=== PATIENT | female | born 1935 | race Caucasian/White ===

== ENCOUNTER 2017-08-20 10:00 | Outpatient (RCR) | payer MEDICARE, SELFPAY ==
[2017-08-11 09:59] VITALS: BP 141/76; PULSE 72; RESP 18; TEMP 36.4; BMI 22.7
--- NOTE | 2017-08-11 11:10 | HP.PCM_ITS ---
(1) Traumatic wound Status: Acute Current Visit: Yes (2) Chronic venous insufficiency Status: Chronic Current Visit: Yes Code(s): I87.2 - Venous insufficiency ( chronic) (peripheral) (3) Asthma Status: Chronic Current Visit: No Code(s): J45.909 - Unspecified asthma, uncomplicated (4) GERD (gastroesophageal reflux disease) Status: Chronic Current Visit: No Code(s): K21.9 - Gastro-esophageal reflux disease without esophagitis (5) History of venous ulcer Status: Chronic Current Visit: Yes (6) History of goiter Status: Chronic Current Visit: No Code(s): Z86.39 - Personal history of other endocrine, nutritional and metabolic disease (7) Lipodermatosclerosis Status: Chronic Current Visit: Yes Code(s): I83.10 - Varicose veins of unspecified lower extremity with inflammation History of Present Illness Date of Service: 08/11/17 Chief Complaint: Adequate wound to the right anterolateral tibial surface. History of Wound: This is a 81-year-old female who is in her normal state of health until approximately 6 weeks ago. At that time, she sustained trauma to the right anterolateral tibial surface against a tomato cage in her garden. The injury occurred through her pants. The resultant injury is a nonhealing wound on the anterolateral aspect of the right tibial surface. The patient has been using Neosporin topically, without healing. Patient has a history of chronic venous insufficiency, and has had a venous ulceration in the past, located in the left medial supramalleolar area. She has a resultant scar in this area. She also has hemosiderin staining and lipodermatosclerosis, most prominent in the gaiter area on the left lower extremity. She denies a history of thrombophlebitis. She sleeps on a flat surface at night. She has been previously prescribed graduated compression stockings, which she has not been wearing. Past Medical History Past Medical History: Chronic Problems Chronic venous insufficiency (Chronic) Asthma (Chronic) GERD (gastroesophageal reflux disease) (Chronic) History of venous ulcer (Chronic) History of goiter (Chronic) Lipodermatosclerosis (Chronic) Peripheral vascular disease (Chronic) Nonhealing ulcer of left lower leg (Chronic) Edema (Chronic) Past Medical History: Patient has a history of chronic venous insufficiency, venous ulceration in the distal left lower extremity, asthma, gastroesophageal reflux disease, and chronic venous insufficiency. She also has a history of benign goiter. The patient's history is negative for diabetes mellitus, myocardial infarction, congestive heart failure, cerebrovascular accident, cancer, pulmonary disease, renal disease, and hyperlipidemia. Surgical History: hysterectomy, - - Patient underwent hemorrhoidectomy in the past. She has also undergone surgery for removal of a benign goiter. Patient is a Ab0. Allergies/Adverse Reactions: Allergies adhesive tape Allergy (Verified 01/25/15 10:06) Rash levofloxacin [From Levaquin] Allergy (Verified 01/15/13 08:22) Unknown Sulfa (Sulfonamide Antibiotics) Allergy (Verified 01/15/13 08:22) Unknown meloxicam Adverse Reaction (Verified 01/25/15 10:06) Diarrhea tizanidine Adverse Reaction (Verified 01/25/15 10:06) Vomiting Home Medications: Ambulatory Orders Medication Instructions Recorded Albuterol IH (ProAir) [Proair Hfa 1 puff INHALATION Q4H PRN PRN 01/25/15 (SP)Vent Pts] Budesonide/Formoterol 80-4.5 2 puff BID 01/25/15 [Symbicort 80-4.5 Mcg Inhaler] Calcium Carbonate [Calcium] 500 mg PO DAILY 01/25/15 Cholecalciferol (VIT D3) [Vitamin 2,000 unit PO DAILY 01/25/15 D] Pantoprazole Sodium [Protonix] 40 mg PO DAILY PRN 01/25/15 - Family History Maternal - - The patient did not know her father. Her mother at the age of 96 from old age. 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 She denies use of alcohol and tobacco products. She is . Lives: Spouse/ Significant Other Smoking Status: Never smoker Tobacco Use: Non-smoker Alcohol: None Drugs: None Review of Systems Constitutional: Denies: Chills, Fever, Weight Change Eyes: Denies: Pain, Vision Change HEENT: Denies: Difficulty Hearing, Difficulty Swallowing, Sinus Congestion Cardiovascular: Denies: Chest Pain, Palpitations Respiratory: Denies: Cough, Shortness of Breath Gastrointestinal: Denies: Diarrhea, Nausea, Vomiting Genitourinary: Denies: Dysuria, Hematuria Endocrine: Denies: Heat/ Cold Intolerance, Polydipsia, Polyuria Hematologic/ Lymphatic: Denies: Easy Bruising, Easy Bleeding - Physical Exam Vital Signs Temp Pulse Resp BP 97.5 F L 72 18 141/76 H 08/11/17 09:59 08/11/17 09:59 08/11/17 09:59 08/11/17 09:59 General: Alert, Oriented x3, Cooperative, No apparent distress, Well developed, Well nourished HEENT: Atraumatic, PERRLA, EOMI, Normocephalic Oral: Moist Mucosa Neck: No JVD Lungs: Normal air movement Abdomen: Non-Distended Extremities: No clubbing, No cyanosis, No edema, No Calf Tenderness, - - There is no significant swelling or edema in the patient's lower extremities. Lipodermatosclerosis and hyperpigmentation is noted in the medial aspect of the distal left lower extremity, in the gaiter area. A healed venous ulcer is noted in the left supramalleolar area. Atraumatic wound is noted on the anterolateral aspect of the right tibial surface. Dimensions are documented elsewhere. There is no sign of infection or cellulitis. There is a moderate amount of bioburden and necrotic nonviable tissue. Skin: No rashes Wound Measurements and Assessment WC - Nurse 1 - General Ulcer Measurement Start: 08/11/17 08:58 Freq: Status: Active Protocol: Activity Type Activity Date Activity User E-Sign Co-Sign Detail Recorded Client Recorded Date Recorded By Document 08/11/17 09:59 [id number] 08/11/17 10:19 NEREIDA 08/11/17 09:59 Wound Center Nurse 1 [Ulcer Assessment] 3-RIGHT VERDUZCO -Combined with other wound No -Current Size (cm) - Length 0.7 -Current Size (cm) - Width 0.8 -Current Size (cm) - Depth 0.1 -Total Square Cm 0.56 -Photo Taken Yes -Epithelialization Small 1-33% -Tunneling No -Undermining/Tunneling No -Circular Undermining No -Classification - Thickness Full Thickness without Exposed Support Structure -Exudate Amt None Present (0 %) -Wound Margin Flat & Intact -Granulation Amt None Present (0 %) -Slough/Fibrin Yes -Necrosis Amt Large (67-100%) -Necrotic Tissue Type Adherent Slough -Structure Exposed N/A -Texture (Shanique-wound Skin Appearance) Assessed Localized Edema -Moisture (Shanique-wound Skin Appearance Assessed ) Dry/Scaly -Color (Shanique-wound Skin Appearance) Assessed Hemosiderin Staining -Temperature (Shanique-wound Skin No Abnormality Appearance) (Pt Warm) -Tenderness on Palpation (Shanique-wound No Skin Appearance) -Ulcer Cleansing Rinsed/ Irrigated with Saline -Foul Odor after Cleansing No -Anesthetic Used 4% Lidocaine Solution [Edema Assessment] -Lower Limb Edema Present Yes -Right Calf (cm) 31.7 -Right Ankle (cm) 20.5 -Left Calf (cm) 33.7 -Left Ankle (cm) 21.0 WC - Nurse 2 - General Ulcer CM Notes Start: 08/11/17 08:58 Freq: Status: Active Protocol: Activity Type Activity Date Activity User E-Sign Co-Sign Detail Recorded Client Recorded Date Recorded By Document 08/11/17 10:46 [email or web address] [id number] 08/11/17 10:57 08/11/17 10:46 Wound Center Nurse 2 [Procedure/Treatment] 3-RIGHT VERDUZCO -Time 10:46 -Correct Patient Yes -Correct Side, Site, Position Yes -Correct Procedure Yes -Procedure Performed Yes -Type of Procedure Debridement -Clinical Debridement Subcutaneous -Post Debridement Size (cm) - Length 1 -Post Debridement Size (cm) - Width 0.9 -Post Debridement Size (cm) - Depth 0.1 -Total Square Cm 0.9 -Wound/Ulcer Outcome Not Healed -Ulcer Cleansing Rinsed/ Irrigated with Saline -Foul Odor after Cleansing No -Bioengineered Tissue No -Topical Lidocaine (%) 4 -Lidocaine (ml) 5 -Bleeding Controlled with NA -Treatment Response Procedure Tolerated Well [See Physician Procedure note for Specifics] Pain Scale: 0-10 Numeric [Pain] -Is Patient Pain Free? Yes Musculoskeletal: No Muscle Wasting Neurological: Cranial nerves II-XII grossly intact, Neuro grossly intact Psych/Mental Status: Normal Affect, Appropriate, Alert and oriented to time, place, person, mood and affect Debridement Note Post-Debridement Measurements/Treatment - Nurse 2 - General Ulcer CM Notes Start: 08/11/17 08:58 Freq: Status: Active Protocol: Activity Type Activity Date Activity User E-Sign Co-Sign Detail Recorded Client Recorded Date Recorded By Document 08/11/17 10:46 [id number] 08/11/17 10:57 08/11/17 10:46 Wound Center Nurse 2 3-RIGHT VERDUZCO -Time 10:46 -Correct Patient Yes -Correct Side, Site, Position Yes -Correct Procedure Yes -Procedure Performed Yes -Type of Procedure Debridement -Clinical Debridement Subcutaneous -Post Debridement Size (cm) - Length 1 -Post Debridement Size (cm) - Width 0.9 -Post Debridement Size (cm) - Depth 0.1 -Total Square Cm 0.9 -Wound/Ulcer Outcome Not Healed -Ulcer Cleansing Rinsed/ Irrigated with Saline -Foul Odor after Cleansing No -Bioengineered Tissue No -Topical Lidocaine (%) 4 -Lidocaine (ml) 5 -Bleeding Controlled with NA -Treatment Response Procedure Tolerated Well Pain Scale: 0-10 Numeric Is Patient Pain Free? Yes Laterality: Right - Anterolateral tibial surface Type of Debridement: Excisional debridement Anesthesia Used: 4% Lidocaine Solution Depth: Down to and including healthy tissue, in the subcutaneous layer Percentage of wound debrided: 100 Instrument Used: 5mm curette Severity: Fat Layer Exposed Amount of bleeding with debridement: Mild Bleeding Controlled with: Compression and gauze Patient tolerated procedure well Assessment/Plan Active Problems Traumatic wound (Acute) Chronic venous insufficiency (Chronic) History of venous ulcer (Chronic) Lipodermatosclerosis (Chronic) Assessment: This is a 81-year-old female with atraumatic wound on the anterolateral tibial aspect of the right lower extremity. Injury occurred approximately 6 weeks ago. It has failed to heal in normal fashion. There is a moderate amount of bioburden and nonviable tissue present. The patient is generally healthy, and very active. She does have a history of chronic venous disease. Plan: The patient has been advised to elevate her lower extremities as much as possible. This is to be accomplished as much as possible. Legs are to be to heart level, or higher. Activity has been encouraged. She is to refrain from idle sitting and standing. Compression is to be implemented by means of SpandaGrips, will be worn daily. We are to implement the use of collagenase Santyl topically, which will be applied by the patient on a daily basis. We are to obtain routine laboratory studies, including a CBC and competence of metabolic profile. A venous duplex examination will be performed, given the patient's history of chronic venous insufficiency. To assess the let us of the patient's lower extremity arterial blood supply, we are to obtain a noninvasive lower extremity arterial study. Patient will return in 1 week for reassessment. Influenza vaccine was not administered today. The patient is not a smoker. She stands 5 feet 7 inches tall. She weighs 145 pounds. BMI is 22.7, which is normal.
[2017-08-11 12:12] LABS: Hematocrit 43.5 % (37-47); Hemoglobin 14.4 g/dl (12.0-15.0); Mean Corp Hgb Conc 33.1 g/gl (32-36); Mean Corpuscular Hgb 29.4 pg (27.0-32.0); Mean Corpuscular Volume 88.8 fL (81-99); Mean Platelet Vol. 9.8 fl (6.2-12.0); Platelet Count 245 K/mm3 (150-450); RBC Distribution Width CV 13.3 % (11.6-14.6); RBC Distribution Width SD 43.1 fl (35.1-43.9); Scan Indicated on CBC? Y/N NO; White Blood Count 5.4 K/mm3 (4.4-11.0)
[2017-08-11 13:01] LABS: ALB/GLOB Ratio 1.1 RATIO (0.9-2.4); AST(SGOT) 32 U/L (15-37); Alanine Aminotransfer ALT/SGPT 41 U/L (13-56); Albumin, Serum 3.9 g/dL (3.2-5.0); Alkaline Phosphatase 116 U/L (45-117); Anion Gap 5 (5-15); BUN 13 mg/dL (7-18); Calcium,Total 9.1 mg/dL (8.5-10.1); Chloride 103 mmol/L (98-107); Creatinine, Serum 0.68 mg/dL (0.55-1.02); EST Glomerular Filtration Rate 88 mL/min (>60); Est Glom Filt Rate - Afr Amer 107 mL/min (>60); Estimated Creatinine Clearance 44.36 ml/min; Globulin 3.4 g/dL (2.2-4.2); Glucose 86 mg/dL (74-106); Potassium 3.9 mmol/L (3.5-5.1); Prealbumin 23.6 mg/dL (20.0-40.0); Protein, Total 7.3 g/dL (6.4-8.2); Sodium Level 139 mmol/L (136-145)
[2017-08-18 09:32] VITALS: BP 144/68; PULSE 72; RESP 16; TEMP 36.9; BMI 22.7
--- NOTE | 2017-08-18 11:20 | HP.PCM_ITS ---
(1) Traumatic wound Status: Acute Current Visit: Yes (2) Chronic venous insufficiency Status: Chronic Current Visit: Yes Code(s): I87.2 - Venous insufficiency ( chronic) (peripheral) (3) Asthma Status: Chronic Current Visit: No Code(s): J45.909 - Unspecified asthma, uncomplicated (4) GERD (gastroesophageal reflux disease) Status: Chronic Current Visit: No Code(s): K21.9 - Gastro-esophageal reflux disease without esophagitis (5) History of venous ulcer Status: Chronic Current Visit: Yes (6) History of goiter Status: Chronic Current Visit: No Code(s): Z86.39 - Personal history of other endocrine, nutritional and metabolic disease (7) Lipodermatosclerosis Status: Chronic Current Visit: Yes Code(s): I83.10 - Varicose veins of unspecified lower extremity with inflammation History of Present Illness Date of Service: 08/18/17 Chief Complaint: Adequate wound to the right anterolateral tibial surface. History of Wound: This is a 81-year-old female who is in her normal state of health until approximately 6 weeks ago. At that time, she sustained trauma to the right anterolateral tibial surface against a tomato cage in her garden. The injury occurred through her pants. The resultant injury is a nonhealing wound on the anterolateral aspect of the right tibial surface. The patient has been using Neosporin topically, without healing. Patient has a history of chronic venous insufficiency, and has had a venous ulceration in the past, located in the left medial supramalleolar area. She has a resultant scar in this area. She also has hemosiderin staining and lipodermatosclerosis, most prominent in the gaiter area on the left lower extremity. She denies a history of thrombophlebitis. She sleeps on a flat surface at night. She has been previously prescribed graduated compression stockings, which she has not been wearing. Past Medical History Past Medical History: Chronic Problems Chronic venous insufficiency (Chronic) Asthma (Chronic) GERD (gastroesophageal reflux disease) (Chronic) History of venous ulcer (Chronic) History of goiter (Chronic) Lipodermatosclerosis (Chronic) Peripheral vascular disease (Chronic) Nonhealing ulcer of left lower leg (Chronic) Edema (Chronic) Surgical History: hysterectomy, - - Patient underwent hemorrhoidectomy in the past. She has also undergone surgery for removal of a benign goiter. Patient is a Ab0. Allergies/Adverse Reactions: Allergies adhesive tape Allergy (Verified 01/25/15 10:06) Rash levofloxacin [From Levaquin] Allergy (Verified 01/15/13 08:22) Unknown Sulfa (Sulfonamide Antibiotics) Allergy (Verified 01/15/13 08:22) Unknown meloxicam Adverse Reaction (Verified 01/25/15 10:06) Diarrhea tizanidine Adverse Reaction (Verified 01/25/15 10:06) Vomiting Home Medications: Ambulatory Orders Medication Instructions Recorded Albuterol IH (ProAir) [Proair Hfa 1 puff INHALATION Q4H PRN PRN 01/25/15 (SP)Vent Pts] Budesonide/Formoterol 80-4.5 2 puff BID 01/25/15 [Symbicort 80-4.5 Mcg Inhaler] Calcium Carbonate [Calcium] 500 mg PO DAILY 01/25/15 Cholecalciferol (VIT D3) [Vitamin 2,000 unit PO DAILY 01/25/15 D] Pantoprazole Sodium [Protonix] 40 mg PO DAILY PRN 01/25/15 - Family History Maternal - - The patient did not know her father. Her mother at the age of 96 from old age. Lives: Spouse/ Significant Other Smoking Status: Never smoker Tobacco Use: Non-smoker Alcohol: None Drugs: None Review of Systems Constitutional: Denies: Chills, Fever, Weight Change Eyes: Denies: Pain, Vision Change HEENT: Denies: Difficulty Hearing, Difficulty Swallowing, Sinus Congestion Cardiovascular: Denies: Chest Pain, Palpitations Respiratory: Denies: Cough, Shortness of Breath Gastrointestinal: Denies: Diarrhea, Nausea, Vomiting Genitourinary: Denies: Dysuria, Hematuria Endocrine: Denies: Heat/ Cold Intolerance, Polydipsia, Polyuria Hematologic/ Lymphatic: Denies: Easy Bruising, Easy Bleeding - Physical Exam Vital Signs Temp Pulse Resp BP 98.4 F 72 16 144/68 H 08/18/17 09:32 08/18/17 09:32 08/18/17 09:32 08/18/17 09:32 General: Alert, Oriented x3, Cooperative, No apparent distress, Well developed, Well nourished HEENT: Atraumatic, PERRLA, EOMI, Normocephalic Oral: Moist Mucosa Neck: No JVD Lungs: Normal air movement Abdomen: Non-Distended Extremities: No clubbing, No cyanosis, No edema, No Calf Tenderness, - - There is no significant swelling or edema in either lower extremity. The traumatic wound on the anterolateral aspect of the right distal lower extremity is slightly smaller in size. There is evidence of wound contraction. There is evidence of peripheral epithelialization. The base of the wound is generally pink, though with a moderate amount of bioburden. Dimensions are documented elsewhere. There is no sign of infection or cellulitis. Skin: No rashes Wound Measurements and Assessment WC - Nurse 1 - General Ulcer Measurement Start: 08/11/17 08:58 Freq: Status: Active Protocol: Activity Type Activity Date Activity User E-Sign Co-Sign Detail Recorded Client Recorded Date Recorded By Document 08/18/17 09:32 [facility] [id number] 08/18/17 09:38 [facility] 08/18/17 09:32 Wound Center Nurse 1 [Ulcer Assessment] 3-RIGHT VERDUZCO -Combined with other wound No -Current Size (cm) - Length 0.9 -Current Size (cm) - Width 0.9 -Current Size (cm) - Depth 0.1 -Total Square Cm 0.81 -Photo Taken No -Epithelialization None Present -Tunneling No -Undermining/Tunneling No -Circular Undermining No -Exudate Amt Small (1-33%) -Exudate Type Serous -Wound Margin Distinct, Outline Attached -Granulation Amt None Present (0 %) -Slough/Fibrin Yes -Necrosis Amt Large (67-100%) -Necrotic Tissue Type Adherent Slough -Structure Exposed N/A -Texture (Shanique-wound Skin Appearance) Scarring -Moisture (Shanique-wound Skin Appearance Assessed ) -Color (Shanique-wound Skin Appearance) Erythema -Temperature (Shanique-wound Skin No Abnormality Appearance) (Pt Warm) -Tenderness on Palpation (Shanique-wound No Skin Appearance) -Ulcer Cleansing Rinsed/ Irrigated with Saline -Foul Odor after Cleansing No -Anesthetic Used 5% Lidocaine Gel [Edema Assessment] -Lower Limb Edema Present No -Right Calf (cm) 32.3 -Right Ankle (cm) 20.7 WC - Nurse 2 - General Ulcer CM Notes Start: 08/11/17 08:58 Freq: Status: Active Protocol: Activity Type Activity Date Activity User E-Sign Co-Sign Detail Recorded Client Recorded Date Recorded By Document 08/18/17 11:11 [id number] 08/18/17 11:12 08/18/17 11:11 Wound Center Nurse 2 [Procedure/Treatment] 3-RIGHT VERDUZCO -Time 11:11 -Correct Patient Yes -Correct Side, Site, Position Yes -Correct Procedure Yes -Procedure Performed Yes -Type of Procedure Debridement -Clinical Debridement Subcutaneous -Post Debridement Size (cm) - Length 0.7 -Post Debridement Size (cm) - Width 0.6 -Post Debridement Size (cm) - Depth 0.2 -Total Square Cm 0.42 -Wound/Ulcer Outcome Not Healed -Ulcer Cleansing Rinsed/ Irrigated with Saline -Foul Odor after Cleansing No -Bioengineered Tissue No -Topical Lidocaine (%) 5 -Bleeding Controlled with NA -Treatment Response Procedure Tolerated Well [See Physician Procedure note for Specifics] Pain Scale: 0-10 Numeric [Pain] -Is Patient Pain Free? Yes Musculoskeletal: No Muscle Wasting Neurological: Cranial nerves II-XII grossly intact, Neuro grossly intact Psych/Mental Status: Normal Affect, Appropriate, Alert and oriented to time, place, person, mood and affect Debridement Note Post-Debridement Measurements/Treatment WC - Nurse 2 - General Ulcer CM Notes Start: 08/11/17 08:58 Freq: Status: Active Protocol: Activity Type Activity Date Activity User E-Sign Co-Sign Detail Recorded Client Recorded Date Recorded By Document 08/11/17 10:46 [id number] 08/11/17 10:57 Document 08/18/17 11:11 [id number] 08/18/17 11:12 08/11/17 08/18/17 10:46 11:11 Wound Center Nurse 2 3-RIGHT VERDUZCO -Time 10:46 11:11 -Correct Patient Yes Yes -Correct Side, Site, Position Yes Yes -Correct Procedure Yes Yes -Procedure Performed Yes Yes -Type of Procedure Debridement Debridement -Clinical Debridement Subcutaneous Subcutaneous -Post Debridement Size (cm) - Length 1 0.7 -Post Debridement Size (cm) - Width 0.9 0.6 -Post Debridement Size (cm) - Depth 0.1 0.2 -Total Square Cm 0.9 0.42 -Wound/Ulcer Outcome Not Healed Not Healed -Ulcer Cleansing Rinsed/ Rinsed/ Irrigated with Irrigated with Saline Saline -Foul Odor after Cleansing No No -Bioengineered Tissue No No -Topical Lidocaine (%) 4 5 -Lidocaine (ml) 5 -Bleeding Controlled with NA NA -Treatment Response Procedure Procedure Tolerated Well Tolerated Well Pain Scale: 0-10 Numeric Is Patient Pain Free? Yes Yes Laterality: Right - Anterolateral distal lower extremity Type of Debridement: Excisional debridement Anesthesia Used: 4% Lidocaine Solution Depth: Down to and including healthy tissue, in the subcutaneous layer Percentage of wound debrided: 100 Instrument Used: 3mm curette Severity: Fat Layer Exposed Amount of bleeding with debridement: Mild Bleeding Controlled with: Compression and gauze Patient tolerated procedure well Assessment/Plan Active Problems Traumatic wound (Acute) Chronic venous insufficiency (Chronic) History of venous ulcer (Chronic) Lipodermatosclerosis (Chronic) Assessment: This is a 81-year-old female with atraumatic wound on the anterolateral tibial aspect of the right lower extremity. Injury occurred approximately 6 weeks prior to presentation. It has failed to heal in normal fashion. There is a moderate amount of bioburden and nonviable tissue present. The patient is generally healthy, and very active. She does have a history of chronic venous disease. The battery of diagnostic laboratory tests have been performed, results reviewed. Results are as follows: Glucose 86, BUN 13, creatinine 0.68, total protein 7.3, albumin 3.9, calcium 9.1, AST 32, alkaline phosphatase 116, ALT 41, total bilirubin 0.40, sodium 139, potassium 3.9, chloride 103, serum prealbumin 23.6, white blood count 5.4, hemoglobin 14.4, hematocrit 43.5, platelets 245,000. Plan: The patient has been advised to elevate her lower extremities as much as possible. This is to be accomplished as much as possible. Legs are to be to heart level, or higher. Activity has been encouraged. She is to refrain from idle sitting and standing. Compression is to be continued by means of SpandaGrips worn daily. We are to continue the use of collagenase Santyl topically, which will be applied by the patient on a daily basis. A venous duplex examination will be performed, given the patient's history of chronic venous insufficiency. To assess the let us of the patient's lower extremity arterial blood supply, we are to obtain a noninvasive lower extremity arterial study. Patient will return in 1 week for reassessment. Influenza vaccine was not administered today. The patient is not a smoker. She stands 5 feet 7 inches tall. She weighs 145 pounds. BMI is 22.7, which is normal.
--- NOTE | 2017-08-20 09:54 | VDLE_ITS ---
Reason For Study: edema, venous insufficiency RIGHT LEFT CFV is compressible, spontaneous, phasic, CFV is compressible, spontaneous, phasic, competent and demonstrates normal competent, and demonstrates normal augmentation. augmentation. FV is compressible, spontaneous, phasic, FV is compressible, spontaneous, phasic, competent and demonstrates normal competent and demonstrates normal augmentation. augmentation. POP V is compressible, spontaneous, phasic, POP V is compressible, spontaneous, phasic, competent and demonstrates normal competent and demonstrates normal augmentation. augmentation. T/P Trunk is compressible. T/P Trunk is compressible. PTV is compressible. PTV is compressible. RT PerV is compressible. LT PerV is compressible. S-F Junction is competent. S-F Junction is competent. GSV is incompetent throughout for greater GSV is incompetent throughout for greater than .5 seconds. GSV measures .308 x .320 than .5 seconds. GSV measures .299 x .312 cm. cm. SSV is incompetent for greater than .5 SSV is incompetent for greater than .5 seconds. SSV measures .246 x .274 cm. seconds. SSV measures .296 x .307 cm. Procedure Exam performed in department. The exam was diagnostic. Interpretation Summary Deep veins of the lower extremities are bilaterally patent and compressible segmentally. There is no evidence of deep vein thrombosis on either side. Valvular competence appears intact within the proximal deep venous systems bilaterally. The greater saphenous veins appear bilaterally patent and compressible segmentally. Sapheno-femoral junctions are bilaterally competent . Segmental valvular incompetence is noted within the greater saphenous veins bilaterally. Small saphenous veins are patent and incompetent bilaterally. Ordering Physician: Yakov Peters Performed By: Javid Sam RVT
--- NOTE | 2017-08-20 16:04 | LEAS ---
Arterial Study - Arterial Study Arterial Study: This is a 81-year-old female with suspected peripheral arterial occlusive disease. She is brought to the noninvasive vascular laboratory at this time for the purpose of bilateral noninvasive lower extremity arterial assessment. Doppler signal assessment was used to evaluate the pulses at ankle level bilaterally. The posterior tibial and dorsalis pedis pulses were triphasic bilaterally. Segmental limb pressures were obtained bilaterally. The right ankle pressure, as determined by posterior tibial pulse, was measured at 174 mmHg. The right ankle pressure, as determined by dorsalis pedis pulse, was measured at 168 mmHg. The right digital pressure was measured at 147 mmHg. The left ankle pressure, as determined by posterior tibial pulse, was measured at 182 mmHg. The left ankle pressure, as determined by dorsalis pedis pulse, was measured at 172 mmHg. The left digital pressure was measured at 166 mmHg. Pulse-volume recordings were obtained bilaterally and segmentally. Waveform amplitudes appeared to be satisfactory at all levels bilaterally, including low thigh, calf, ankle, and digital levels. Resting ankle-brachial indices were calculated bilaterally. The resting right ankle-brachial index was calculated to be 1.12. The resting left ankle-brachial index was calculated to be 1.17. Digital-brachial indices were calculated bilaterally. The right digital-brachial index was calculated to be 0.94. The left digital-brachial index was calculated to be 1.06. Impression: Based upon the findings of this resting noninvasive lower extremity arterial study, there is no evidence of significant atherosclerotic peripheral arterial occlusive disease in the lower extremities bilaterally. Triphasic waveforms were noted at ankle level bilaterally. Resting ankle-brachial indices were bilaterally normal. Digital-brachial indices were also normal bilaterally. In summary, this represents a normal resting noninvasive lower extremity arterial study bilaterally.
--- NOTE | 2017-08-20 16:11 | LEAS_ITS ---
Arterial Study - Arterial Study Arterial Study: This is a 81-year-old female with suspected peripheral arterial occlusive disease. She is brought to the noninvasive vascular laboratory at this time for the purpose of bilateral noninvasive lower extremity arterial assessment. Doppler signal assessment was used to evaluate the pulses at ankle level bilaterally. The posterior tibial and dorsalis pedis pulses were triphasic bilaterally. Segmental limb pressures were obtained bilaterally. The right ankle pressure, as determined by posterior tibial pulse, was measured at 174 mmHg. The right ankle pressure, as determined by dorsalis pedis pulse, was measured at 168 mmHg. The right digital pressure was measured at 147 mmHg. The left ankle pressure, as determined by posterior tibial pulse, was measured at 182 mmHg. The left ankle pressure, as determined by dorsalis pedis pulse, was measured at 172 mmHg. The left digital pressure was measured at 166 mmHg. Pulse-volume recordings were obtained bilaterally and segmentally. Waveform amplitudes appeared to be satisfactory at all levels bilaterally, including low thigh, calf, ankle, and digital levels. Resting ankle-brachial indices were calculated bilaterally. The resting right ankle-brachial index was calculated to be 1.12. The resting left ankle- brachial index was calculated to be 1.17. Digital-brachial indices were calculated bilaterally. The right digital- brachial index was calculated to be 0.94. The left digital-brachial index was calculated to be 1.06. Impression: Based upon the findings of this resting noninvasive lower extremity arterial study, there is no evidence of significant atherosclerotic peripheral arterial occlusive disease in the lower extremities bilaterally. Triphasic waveforms were noted at ankle level bilaterally. Resting ankle-brachial indices were bilaterally normal. Digital-brachial indices were also normal bilaterally. In summary, this represents a normal resting noninvasive lower extremity arterial study bilaterally.
== END 2017-08-22 23:59 ==
LOC: CVS 10:00
PROVIDERS: Family Provider Internal Medicine; PCP Internal Medicine; Visit Provider Surgery
DX: I87.2 Venous insufficiency (chronic) (peripheral) (principal); I83.10 Varicose veins of unspecified lower extremity with inflammation; K21.9 Gastro-esophageal reflux disease without esophagitis; J45.909 Unspecified asthma, uncomplicated; I73.9 Peripheral vascular disease, unspecified; R60.0 Localized edema; S81.811A Laceration without foreign body, right lower leg, initial encounter; W22.09XA Striking against other stationary object, initial encounter
CPT/HCPCS: 11042; 36415; 80053; 84134; 85027; 93923; 93970; 99212; G0463

== ENCOUNTER 2017-09-21 15:00 | Outpatient (RCR) | payer MEDICARE, SELFPAY ==
[2017-08-23 01:10] VITALS: BP 144/68; PULSE 72; RESP 16; TEMP 36.9
[2017-08-31 15:11] VITALS: BP 151/70; PULSE 79; RESP 18; TEMP 36.8
--- NOTE | 2017-08-31 15:36 | HP.PCM_ITS ---
(1) Traumatic wound Status: Acute Current Visit: Yes (2) Chronic venous insufficiency Status: Chronic Current Visit: Yes Code(s): I87.2 - Venous insufficiency ( chronic) (peripheral) (3) Asthma Status: Chronic Current Visit: No Code(s): J45.909 - Unspecified asthma, uncomplicated (4) GERD (gastroesophageal reflux disease) Status: Chronic Current Visit: No Code(s): K21.9 - Gastro-esophageal reflux disease without esophagitis (5) History of venous ulcer Status: Chronic Current Visit: No (6) History of goiter Status: Chronic Current Visit: No Code(s): Z86.39 - Personal history of other endocrine, nutritional and metabolic disease (7) Lipodermatosclerosis Status: Chronic Current Visit: Yes Code(s): I83.10 - Varicose veins of unspecified lower extremity with inflammation (8) Traumatic ulcer Status: Chronic Current Visit: No Qualifiers: Non-pressure ulcer stage: with fat layer exposed Qualified Code(s): L98.492 - Non-pressure chronic ulcer of skin of other sites with fat layer exposed Code(s): L98.499 - Non-pressure chronic ulcer of skin of other sites with unspecified severity (9) Nonhealing ulcer of left lower leg Status: Inactive Current Visit: No Code(s): L97.829 - Non-pressure chronic ulcer of other part of left lower leg with unspecified severity (10) Edema Status: Chronic Current Visit: Yes Code(s): R60.9 - Edema, unspecified (11) 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: Acute Current Visit: Yes Qualifiers: Encounter type: subsequent encounter Qualified Code(s): S81.801D - Unspecified open wound, right lower leg, subsequent encounter Code(s): S81.801A - Unspecified open wound, right lower leg, initial encounter History of Present Illness Date of Service: 08/31/17 Chief Complaint: Traumatic wound to the right anterolateral tibial surface. History of Wound: This is a 81-year-old female who is in her normal state of health until approximately 6 weeks prior to presentation. At that time, she sustained trauma to the right anterolateral tibial surface against a tomato cage in her garden. The injury occurred through her pants. The resultant injury is a nonhealing wound on the anterolateral aspect of the right tibial surface. The patient had been using Neosporin topically, without healing. Patient has a history of chronic venous insufficiency, and has had a venous ulceration in the past, located in the left medial supramalleolar area. She has a resultant scar in this area. She also has hemosiderin staining and lipodermatosclerosis, most prominent in the gaiter area on the left lower extremity. She denies a history of thrombophlebitis. She sleeps on a flat surface at night. She has been previously prescribed graduated compression stockings, which she has not been wearing. Past Medical History Past Medical History: Chronic Problems Chronic venous insufficiency (Chronic) Asthma (Chronic) GERD (gastroesophageal reflux disease) (Chronic) History of venous ulcer (Chronic) History of goiter (Chronic) Lipodermatosclerosis (Chronic) Peripheral vascular disease (Chronic) Edema (Chronic) Surgical History: hysterectomy, - - Patient underwent hemorrhoidectomy in the past. She has also undergone surgery for removal of a benign goiter. Patient is a Ab0. Allergies/Adverse Reactions: Allergies adhesive tape Allergy (Verified 01/25/15 10:06) Rash levofloxacin [From Levaquin] Allergy (Verified 01/15/13 08:22) Unknown Sulfa (Sulfonamide Antibiotics) Allergy (Verified 01/15/13 08:22) Unknown meloxicam Adverse Reaction (Verified 01/25/15 10:06) Diarrhea tizanidine Adverse Reaction (Verified 01/25/15 10:06) Vomiting Home Medications: Ambulatory Orders Medication Instructions Recorded Albuterol IH (ProAir) [Proair Hfa 1 puff INHALATION Q4H PRN PRN 01/25/15 (SP)Vent Pts] Budesonide/Formoterol 80-4.5 2 puff BID 01/25/15 [Symbicort 80-4.5 Mcg Inhaler] Calcium Carbonate [Calcium] 500 mg PO DAILY 01/25/15 Cholecalciferol (VIT D3) [Vitamin 2,000 unit PO DAILY 01/25/15 D] Pantoprazole Sodium [Protonix] 40 mg PO DAILY PRN 01/25/15 - Family History Maternal - - The patient did not know her father. Her mother at the age of 96 from old age. Smoking Status: Never smoker Tobacco Use: Non-smoker Review of Systems Constitutional: Denies: Chills, Fever, Weight Change Eyes: Denies: Pain, Vision Change HEENT: Denies: Difficulty Hearing, Difficulty Swallowing, Sinus Congestion Cardiovascular: Denies: Chest Pain, Palpitations Respiratory: Denies: Cough, Shortness of Breath Gastrointestinal: Denies: Diarrhea, Nausea, Vomiting Genitourinary: Denies: Dysuria, Hematuria Endocrine: Denies: Heat/ Cold Intolerance, Polydipsia, Polyuria Hematologic/ Lymphatic: Denies: Easy Bruising, Easy Bleeding - Physical Exam Vital Signs Temp Pulse Resp BP 98.2 F 79 18 151/70 H 08/31/17 15:11 08/31/17 15:11 08/31/17 15:11 08/31/17 15:11 General: Alert, Oriented x3, Cooperative, No apparent distress, Well developed, Well nourished HEENT: Atraumatic, PERRLA, EOMI, Normocephalic Oral: Moist Mucosa Neck: No JVD Lungs: Normal air movement Abdomen: Non-Distended Extremities: No clubbing, No cyanosis, No edema, No Calf Tenderness, - - There is no significant swelling or edema in the lower extremities bilaterally. The wound on the right anterolateral tibial surface is little changed in appearance. Dimensions are documented elsewhere. There is a moderate amount of bioburden. There is no sign of infection or cellulitis. A healed ulcer is noted in the left medial supramalleolar area. There is also hemosiderin staining and lipodermatosclerosis, noted particularly in the left gaiter area. Skin: No rashes Wound Measurements and Assessment WC - Nurse 1 - General Ulcer Measurement Start: 08/31/17 15:11 Freq: Status: Active Protocol: Activity Type Activity Date Activity User E-Sign Co-Sign Detail Recorded Client Recorded Date Recorded By Document 08/31/17 15:11 JF [id number] 08/31/17 15:13 NEREIDA 08/31/17 15:11 Wound Center Nurse 1 [Ulcer Assessment] 3-RIGHT VERDUZCO -Combined with other wound No -Current Size (cm) - Length 0.6 -Current Size (cm) - Width 0.4 -Current Size (cm) - Depth 0.2 -Total Square Cm 0.24 -Photo Taken No -Epithelialization Medium 34-66% -Tunneling No -Undermining/Tunneling No -Circular Undermining No -Exudate Amt Small (1-33%) -Exudate Type Serosanguineous -Wound Margin Flat & Intact -Granulation Amt Medium (34-66%) -Granulation Quality Red -Slough/Fibrin Yes -Necrosis Amt Small (1-33%) -Necrotic Tissue Type Adherent Slough -Structure Exposed N/A -Texture (Shanique-wound Skin Appearance) Assessed Localized Edema Scarring -Moisture (Shanique-wound Skin Appearance Assessed ) Dry/Scaly -Color (Shanique-wound Skin Appearance) Assessed Hemosiderin Staining -Temperature (Shanique-wound Skin No Abnormality Appearance) (Pt Warm) -Tenderness on Palpation (Shanique-wound No Skin Appearance) -Ulcer Cleansing Rinsed/ Irrigated with Saline -Foul Odor after Cleansing No -Anesthetic Used 5% Lidocaine Gel [Edema Assessment] -Lower Limb Edema Present Yes -Right Calf (cm) 31.7 -Right Ankle (cm) 20.0 WC - Nurse 2 - General Ulcer CM Notes Start: 08/31/17 15:11 Freq: Status: Active Protocol: Activity Type Activity Date Activity User E-Sign Co-Sign Detail Recorded Client Recorded Date Recorded By Document 08/31/17 15:16 [id number] 08/31/17 15:20 OLIVIA 08/31/17 15:16 Wound Center Nurse 2 [Procedure/Treatment] 3-RIGHT VERDUZCO -Time 15:16 -Correct Patient Yes -Correct Side, Site, Position Yes -Correct Procedure Yes -Procedure Performed Yes -Type of Procedure Debridement -Clinical Debridement Subcutaneous -Post Debridement Size (cm) - Length 1.2 -Post Debridement Size (cm) - Width 0.9 -Post Debridement Size (cm) - Depth 0.2 -Total Square Cm 1.08 -Wound/Ulcer Outcome Not Healed -Ulcer Cleansing Rinsed/ Irrigated with Saline -Foul Odor after Cleansing No -Bioengineered Tissue No -Topical Lidocaine (%) 4 -Lidocaine (ml) 5 -Bleeding Controlled with NA -Treatment Response Procedure Tolerated Well [See Physician Procedure note for Specifics] Pain Scale: 0-10 Numeric [Pain] -Is Patient Pain Free? Yes Neurological: Cranial nerves II-XII grossly intact, Neuro grossly intact Psych/Mental Status: Normal Affect, Appropriate, Alert and oriented to time, place, person, mood and affect Debridement Note Post-Debridement Measurements/Treatment WC - Nurse 2 - General Ulcer CM Notes Start: 08/31/17 15:11 Freq: Status: Active Protocol: Activity Type Activity Date Activity User E-Sign Co-Sign Detail Recorded Client Recorded Date Recorded By Document 08/31/17 15:16 OLIVIA [id number] 08/31/17 15:20 OLIVIA 08/31/17 15:16 Wound Center Nurse 2 3-RIGHT VERDUZCO -Time 15:16 -Correct Patient Yes -Correct Side, Site, Position Yes -Correct Procedure Yes -Procedure Performed Yes -Type of Procedure Debridement -Clinical Debridement Subcutaneous -Post Debridement Size (cm) - Length 1.2 -Post Debridement Size (cm) - Width 0.9 -Post Debridement Size (cm) - Depth 0.2 -Total Square Cm 1.08 -Wound/Ulcer Outcome Not Healed -Ulcer Cleansing Rinsed/ Irrigated with Saline -Foul Odor after Cleansing No -Bioengineered Tissue No -Topical Lidocaine (%) 4 -Lidocaine (ml) 5 -Bleeding Controlled with NA -Treatment Response Procedure Tolerated Well Pain Scale: 0-10 Numeric Is Patient Pain Free? Yes Laterality: Right - Anterolateral tibial surface Type of Debridement: Excisional debridement Anesthesia Used: 4% Lidocaine Solution Depth: Down to and including healthy tissue, in the subcutaneous layer Percentage of wound debrided: 100 Instrument Used: 5mm curette Severity: Fat Layer Exposed Amount of bleeding with debridement: Mild Bleeding Controlled with: Compression and gauze Patient tolerated procedure well Assessment/Plan Active Problems Traumatic wound (Acute) Chronic venous insufficiency (Chronic) Lipodermatosclerosis (Chronic) Traumatic open wound of right lower leg (Acute) Edema (Chronic) Assessment: This is a 81-year-old female with a traumatic wound on the anterolateral tibial aspect of the right lower extremity. Injury occurred approximately 6 weeks prior to presentation. It failed to heal in normal fashion. There was a moderate amount of bioburden and nonviable tissue present. The patient is generally healthy, and very active. She does have a history of chronic venous disease. A battery of diagnostic laboratory tests have been performed, results reviewed. Results are as follows: Glucose 86, BUN 13, creatinine 0.68, total protein 7.3, albumin 3.9, calcium 9.1, AST 32, alkaline phosphatase 116, ALT 41, total bilirubin 0.40, sodium 139, potassium 3.9, chloride 103, serum prealbumin 23.6, white blood count 5.4, hemoglobin 14.4 , hematocrit 43.5, platelets 245,000. More recently, the patient is undergone venous duplex examination, revealing incompetence of the right great saphenous vein, the right small saphenous vein, the left great saphenous vein, and the left small saphenous vein. The patient's noninvasive lower extremity arterial study was normal, revealing no evidence of significant arterial occlusive disease in the lower extremities. Plan: The patient has been advised to elevate her lower extremities as much as possible. This is to be accomplished as much as possible. Legs are to be elevated to heart level, or higher. Activity has been encouraged. She is to refrain from idle sitting and standing. We have prescribed graduated compression stockings, knee-high length, of 20-30 mmHg compression. The patient is to obtain the stockings without delay. We are to continue the use of collagenase Santyl topically, which will be applied by the patient on a daily basis. The patient will return in 1 week for reassessment. Influenza vaccine was not administered today. The patient is not a smoker. She stands 5 feet 7 inches tall. She weighs 145 pounds. BMI is 22.7, which is normal.
[2017-09-07 15:06] VITALS: BP 132/59; PULSE 78; RESP 18; TEMP 36
--- NOTE | 2017-09-07 16:22 | HP.PCM_ITS ---
(1) Traumatic wound Status: Acute Current Visit: Yes (2) Chronic venous insufficiency Status: Chronic Current Visit: Yes Code(s): I87.2 - Venous insufficiency ( chronic) (peripheral) (3) Asthma Status: Chronic Current Visit: No Code(s): J45.909 - Unspecified asthma, uncomplicated (4) GERD (gastroesophageal reflux disease) Status: Chronic Current Visit: No Code(s): K21.9 - Gastro-esophageal reflux disease without esophagitis (5) History of venous ulcer Status: Chronic Current Visit: No (6) History of goiter Status: Chronic Current Visit: No Code(s): Z86.39 - Personal history of other endocrine, nutritional and metabolic disease (7) Lipodermatosclerosis Status: Chronic Current Visit: Yes Code(s): I83.10 - Varicose veins of unspecified lower extremity with inflammation (8) Traumatic ulcer Status: Acute Current Visit: Yes Qualifiers: Non-pressure ulcer stage: with fat layer exposed Qualified Code(s): L98.492 - Non-pressure chronic ulcer of skin of other sites with fat layer exposed Code(s): L98.499 - Non-pressure chronic ulcer of skin of other sites with unspecified severity (9) Edema Status: Chronic Current Visit: Yes Code(s): R60.9 - Edema, unspecified (10) 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: Acute Current Visit: Yes Qualifiers: Encounter type: subsequent encounter Qualified Code(s): S81.801D - Unspecified open wound, right lower leg, subsequent encounter Code(s): S81.801A - Unspecified open wound, right lower leg, initial encounter History of Present Illness Date of Service: 09/07/17 Chief Complaint: Traumatic wound to the right anterolateral tibial surface. History of Wound: This is a 81-year-old female who is in her normal state of health until approximately 6 weeks prior to presentation. At that time, she sustained trauma to the right anterolateral tibial surface against a tomato cage in her garden. The injury occurred through her pants. The resultant injury is a nonhealing wound on the anterolateral aspect of the right tibial surface. The patient had been using Neosporin topically, without healing. Patient has a history of chronic venous insufficiency, and has had a venous ulceration in the past, located in the left medial supramalleolar area. She has a resultant scar in this area. She also has hemosiderin staining and lipodermatosclerosis, most prominent in the gaiter area on the left lower extremity. She denies a history of thrombophlebitis. She sleeps on a flat surface at night. She has been previously prescribed graduated compression stockings, which she has not been wearing. Past Medical History Past Medical History: Chronic Problems Chronic venous insufficiency (Chronic) Asthma (Chronic) GERD (gastroesophageal reflux disease) (Chronic) History of venous ulcer (Chronic) History of goiter (Chronic) Lipodermatosclerosis (Chronic) Peripheral vascular disease (Chronic) Edema (Chronic) Surgical History: hysterectomy, - - Patient underwent hemorrhoidectomy in the past. She has also undergone surgery for removal of a benign goiter. Patient is a Ab0. Allergies/Adverse Reactions: Allergies adhesive tape Allergy (Verified 01/25/15 10:06) Rash levofloxacin [From Levaquin] Allergy (Verified 01/15/13 08:22) Unknown Sulfa (Sulfonamide Antibiotics) Allergy (Verified 01/15/13 08:22) Unknown meloxicam Adverse Reaction (Verified 01/25/15 10:06) Diarrhea tizanidine Adverse Reaction (Verified 01/25/15 10:06) Vomiting Home Medications: Ambulatory Orders Medication Instructions Recorded Albuterol IH (ProAir) [Proair Hfa 1 puff INHALATION Q4H PRN PRN 01/25/15 (SP)Vent Pts] Budesonide/Formoterol 80-4.5 2 puff BID 01/25/15 [Symbicort 80-4.5 Mcg Inhaler] Calcium Carbonate [Calcium] 500 mg PO DAILY 01/25/15 Cholecalciferol (VIT D3) [Vitamin 2,000 unit PO DAILY 01/25/15 D] Pantoprazole Sodium [Protonix] 40 mg PO DAILY PRN 01/25/15 - Family History Maternal - - The patient did not know her father. Her mother at the age of 96 from old age. Smoking Status: Never smoker Tobacco Use: Non-smoker Review of Systems Constitutional: Denies: Chills, Fever, Weight Change Eyes: Denies: Pain, Vision Change HEENT: Denies: Difficulty Hearing, Difficulty Swallowing, Sinus Congestion Cardiovascular: Denies: Chest Pain, Palpitations Respiratory: Denies: Cough, Shortness of Breath Gastrointestinal: Denies: Diarrhea, Nausea, Vomiting Genitourinary: Denies: Dysuria, Hematuria Endocrine: Denies: Heat/ Cold Intolerance, Polydipsia, Polyuria Hematologic/ Lymphatic: Denies: Easy Bruising, Easy Bleeding - Physical Exam Vital Signs Temp Pulse Resp BP 96.8 F L 78 18 132/59 H 09/07/17 15:06 09/07/17 15:06 09/07/17 15:06 09/07/17 15:06 General: Alert, Oriented x3, Cooperative, No apparent distress, Well developed, Well nourished HEENT: Atraumatic, PERRLA, EOMI, Normocephalic Oral: Moist Mucosa Neck: No JVD Lungs: Normal air movement Abdomen: Non-Distended Extremities: No clubbing, No cyanosis, No edema, No Calf Tenderness, - - There is no significant swelling or edema in the lower extremities. The wound on the right lower extremity is smaller in size. There is evidence of peripheral epithelialization. Dimensions are documented elsewhere. There is no sign of infection or cellulitis. There is only a small amount of bioburden. The base of the wound is generally pink and healthy in appearance. Wound Measurements and Assessment WC - Nurse 1 - General Ulcer Measurement Start: 08/31/17 15:11 Freq: Status: Active Protocol: Activity Type Activity Date Activity User E-Sign Co-Sign Detail Recorded Client Recorded Date Recorded By Document 09/07/17 15:06 [id number] 09/07/17 15:08 09/07/17 15:06 Wound Center Nurse 1 [Ulcer Assessment] 3-RIGHT VERDUZCO -Combined with other wound No -Current Size (cm) - Length 0.6 -Current Size (cm) - Width 0.5 -Current Size (cm) - Depth 0.1 -Total Square Cm 0.30 -Date of Last Picture (Recall this 09/07/17 field) -Photo Taken Yes -Epithelialization Small 1-33% -Tunneling No -Undermining/Tunneling No -Circular Undermining No -Classification - Thickness Full Thickness without Exposed Support Structure -Exudate Amt Small (1-33%) -Exudate Type Serosanguineous -Wound Margin Distinct, Outline Attached -Granulation Amt Small (1-33%) -Granulation Quality Red -Slough/Fibrin Yes -Necrosis Amt Medium (34-66%) -Necrotic Tissue Type Adherent Slough -Structure Exposed Fascia Fat Layer Exposed -Texture (Shanique-wound Skin Appearance) Scarring -Moisture (Shanique-wound Skin Appearance No Abnormality ) -Color (Shanique-wound Skin Appearance) Erythema Hemosiderin Staining -Temperature (Shanique-wound Skin No Abnormality Appearance) (Pt Warm) -Tenderness on Palpation (Shanique-wound No Skin Appearance) -Ulcer Cleansing Rinsed/ Irrigated with Saline -Foul Odor after Cleansing No -Anesthetic Used 5% Lidocaine Gel [Edema Assessment] -Lower Limb Edema Present Yes -Right Calf (cm) 29.5 -Right Ankle (cm) 21.0 Musculoskeletal: No Muscle Wasting Neurological: Cranial nerves II-XII grossly intact, Neuro grossly intact Psych/Mental Status: Normal Affect, Appropriate, Alert and oriented to time, place, person, mood and affect Debridement Note Post-Debridement Measurements/Treatment WC - Nurse 2 - General Ulcer CM Notes Start: 08/31/17 15:11 Freq: Status: Active Protocol: Activity Type Activity Date Activity User E-Sign Co-Sign Detail Recorded Client Recorded Date Recorded By Document 08/31/17 15:16 [email or web address] [id number] 08/31/17 15:20 OLIVIA 08/31/17 15:16 Wound Center Nurse 2 3-RIGHT VERDUZCO -Time 15:16 -Correct Patient Yes -Correct Side, Site, Position Yes -Correct Procedure Yes -Procedure Performed Yes -Type of Procedure Debridement -Clinical Debridement Subcutaneous -Post Debridement Size (cm) - Length 1.2 -Post Debridement Size (cm) - Width 0.9 -Post Debridement Size (cm) - Depth 0.2 -Total Square Cm 1.08 -Wound/Ulcer Outcome Not Healed -Ulcer Cleansing Rinsed/ Irrigated with Saline -Foul Odor after Cleansing No -Bioengineered Tissue No -Topical Lidocaine (%) 4 -Lidocaine (ml) 5 -Bleeding Controlled with NA -Treatment Response Procedure Tolerated Well Pain Scale: 0-10 Numeric Is Patient Pain Free? Yes Laterality: Right - Anterolateral tibial surface Type of Debridement: Excisional debridement Anesthesia Used: 4% Lidocaine Solution Depth: Down to and including healthy tissue, in the subcutaneous layer Percentage of wound debrided: 100 Instrument Used: 5mm curette Severity: Fat Layer Exposed Amount of bleeding with debridement: Mild Bleeding Controlled with: Compression and gauze Patient tolerated procedure well Assessment/Plan Active Problems Traumatic wound (Acute) Chronic venous insufficiency (Chronic) Lipodermatosclerosis (Chronic) Traumatic open wound of right lower leg (Acute) Traumatic ulcer (Acute) Edema (Chronic) Assessment: This is a 81-year-old female with a traumatic wound on the anterolateral tibial aspect of the right lower extremity. Injury occurred approximately 6 weeks prior to presentation. It failed to heal in normal fashion. There was a moderate amount of bioburden and nonviable tissue present. The patient is generally healthy, and very active. She does have a history of chronic venous disease. A battery of diagnostic laboratory tests have been performed, results reviewed. Results are as follows: Glucose 86, BUN 13, creatinine 0.68, total protein 7.3, albumin 3.9, calcium 9.1, AST 32, alkaline phosphatase 116, ALT 41, total bilirubin 0.40, sodium 139, potassium 3.9, chloride 103, serum prealbumin 23.6, white blood count 5.4, hemoglobin 14.4 , hematocrit 43.5, platelets 245,000. More recently, the patient has undergone venous duplex examination, revealing incompetence of the right great saphenous vein, the right small saphenous vein, the left great saphenous vein, and the left small saphenous vein. The patient's noninvasive lower extremity arterial study was normal, revealing no evidence of significant arterial occlusive disease in the lower extremities. Thus far, the patient has responded to clinical management, and her traumatic wound has progressively decreased in size. Plan: The patient has been advised to elevate her lower extremities as much as possible. This is to be accomplished as much as possible. Legs are to be elevated to heart level, or higher. Activity has been encouraged. She is to refrain from idle sitting and standing. We have prescribed graduated compression stockings, knee-high length, of 20-30 mmHg compression. The patient has yet to obtain the stockings, but intends to do so in the near future. We are to transition from the use of collagenase Santyl to the use of collagen hydrogel, which will be applied topically on a daily basis. The patient will return in 2 weeks for reassessment. Influenza vaccine was not administered today. The patient is not a smoker. She stands 5 feet 7 inches tall. She weighs 145 pounds. BMI is 22.7, which is normal.
[2017-09-21 15:03] VITALS: BP 149/70; PULSE 82; RESP 16; TEMP 35.3
--- NOTE | 2017-09-21 15:20 | HP.PCM_ITS ---
(1) Traumatic wound Status: Acute Current Visit: Yes (2) Chronic venous insufficiency Status: Chronic Current Visit: Yes Code(s): I87.2 - Venous insufficiency ( chronic) (peripheral) (3) Asthma Status: Chronic Current Visit: No Code(s): J45.909 - Unspecified asthma, uncomplicated (4) GERD (gastroesophageal reflux disease) Status: Chronic Current Visit: No Code(s): K21.9 - Gastro-esophageal reflux disease without esophagitis (5) History of venous ulcer Status: Chronic Current Visit: No (6) History of goiter Status: Chronic Current Visit: No Code(s): Z86.39 - Personal history of other endocrine, nutritional and metabolic disease (7) Lipodermatosclerosis Status: Chronic Current Visit: Yes Code(s): I83.10 - Varicose veins of unspecified lower extremity with inflammation (8) Traumatic ulcer Status: Acute Current Visit: Yes Qualifiers: Non-pressure ulcer stage: with fat layer exposed Qualified Code(s): L98.492 - Non-pressure chronic ulcer of skin of other sites with fat layer exposed Code(s): L98.499 - Non-pressure chronic ulcer of skin of other sites with unspecified severity (9) Edema Status: Chronic Current Visit: Yes Code(s): R60.9 - Edema, unspecified (10) 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: Acute Current Visit: Yes Qualifiers: Encounter type: subsequent encounter Qualified Code(s): S81.801D - Unspecified open wound, right lower leg, subsequent encounter Code(s): S81.801A - Unspecified open wound, right lower leg, initial encounter History of Present Illness Date of Service: 09/21/17 Chief Complaint: Traumatic wound to the right anterolateral tibial surface. History of Wound: This is a 81-year-old female who is in her normal state of health until approximately 6 weeks prior to presentation. At that time, she sustained trauma to the right anterolateral tibial surface against a tomato cage in her garden. The injury occurred through her pants. The resultant injury is a nonhealing wound on the anterolateral aspect of the right tibial surface. The patient had been using Neosporin topically, without healing. Patient has a history of chronic venous insufficiency, and has had a venous ulceration in the past, located in the left medial supramalleolar area. She has a resultant scar in this area. She also has hemosiderin staining and lipodermatosclerosis, most prominent in the gaiter area on the left lower extremity. She denies a history of thrombophlebitis. She sleeps on a flat surface at night. She has been previously prescribed graduated compression stockings, which she has not been wearing. Past Medical History Past Medical History: Chronic Problems Chronic venous insufficiency (Chronic) Asthma (Chronic) GERD (gastroesophageal reflux disease) (Chronic) History of venous ulcer (Chronic) History of goiter (Chronic) Lipodermatosclerosis (Chronic) Peripheral vascular disease (Chronic) Edema (Chronic) Surgical History: hysterectomy, - - Patient underwent hemorrhoidectomy in the past. She has also undergone surgery for removal of a benign goiter. Patient is a Ab0. Allergies/Adverse Reactions: Allergies adhesive tape Allergy (Verified 01/25/15 10:06) Rash levofloxacin [From Levaquin] Allergy (Verified 01/15/13 08:22) Unknown Sulfa (Sulfonamide Antibiotics) Allergy (Verified 01/15/13 08:22) Unknown meloxicam Adverse Reaction (Verified 01/25/15 10:06) Diarrhea tizanidine Adverse Reaction (Verified 01/25/15 10:06) Vomiting Home Medications: Ambulatory Orders Medication Instructions Recorded Albuterol IH (ProAir) [Proair Hfa 1 puff INHALATION Q4H PRN PRN 01/25/15 (SP)Vent Pts] Budesonide/Formoterol 80-4.5 2 puff BID 01/25/15 [Symbicort 80-4.5 Mcg Inhaler] Calcium Carbonate [Calcium] 500 mg PO DAILY 01/25/15 Cholecalciferol (VIT D3) [Vitamin 2,000 unit PO DAILY 01/25/15 D] Pantoprazole Sodium [Protonix] 40 mg PO DAILY PRN 01/25/15 - Family History Maternal - - The patient did not know her father. Her mother at the age of 96 from old age. Smoking Status: Never smoker Tobacco Use: Non-smoker Review of Systems Constitutional: Denies: Chills, Fever, Weight Change Eyes: Denies: Pain, Vision Change HEENT: Denies: Difficulty Hearing, Difficulty Swallowing, Sinus Congestion Cardiovascular: Denies: Chest Pain, Palpitations Respiratory: Denies: Cough, Shortness of Breath Gastrointestinal: Denies: Diarrhea, Nausea, Vomiting Genitourinary: Denies: Dysuria, Hematuria Endocrine: Denies: Heat/ Cold Intolerance, Polydipsia, Polyuria Hematologic/ Lymphatic: Denies: Easy Bruising, Easy Bleeding - Physical Exam Vital Signs Temp Pulse Resp BP 95.5 F L 82 16 149/70 H 09/21/17 15:03 09/21/17 15:03 09/21/17 15:03 09/21/17 15:03 General: Alert, Oriented x3, Cooperative, No apparent distress, Well developed, Well nourished HEENT: Atraumatic, PERRLA, EOMI, Normocephalic Oral: Moist Mucosa Neck: No JVD Lungs: Normal air movement Abdomen: Non-Distended Extremities: No clubbing, No cyanosis, No edema, No Calf Tenderness, - - No significant swelling or edema is noted in the lower extremities. The traumatic wound on the right anterolateral tibial surface is smaller in size. It is generally healthy in appearance. There is no sign of infection or cellulitis. The base of the wound is pink and healthy, demonstrating granulation tissue. Dimensions are documented elsewhere. Skin: No rashes Wound Measurements and Assessment WC - Nurse 1 - General Ulcer Measurement Start: 08/31/17 15:11 Freq: Status: Active Protocol: Activity Type Activity Date Activity User E-Sign Co-Sign Detail Recorded Client Recorded Date Recorded By Document 09/21/17 15:03 [id number] 09/21/17 15:05 09/21/17 15:03 Wound Center Nurse 1 [Ulcer Assessment] 3-RIGHT VERDUZCO -Combined with other wound No -Current Size (cm) - Length 0.3 -Current Size (cm) - Width 0.3 -Current Size (cm) - Depth 0.1 -Total Square Cm 0.09 -Photo Taken No -Epithelialization Small 1-33% -Tunneling No -Undermining/Tunneling No -Exudate Amt Small (1-33%) -Exudate Type Serosanguineous -Wound Margin Distinct, Outline Attached -Structure Exposed None/Limited to Skin Breakdown -Temperature (Shanique-wound Skin No Abnormality Appearance) (Pt Warm) -Tenderness on Palpation (Shanique-wound No Skin Appearance) -Ulcer Cleansing Rinsed/ Irrigated with Saline -Foul Odor after Cleansing No -Anesthetic Used 4% Lidocaine Solution [Edema Assessment] -Lower Limb Edema Present No -Right Calf (cm) 31.7 -Right Ankle (cm) 19.8 Musculoskeletal: No Muscle Wasting Neurological: Cranial nerves II-XII grossly intact, Neuro grossly intact Psych/Mental Status: Normal Affect, Appropriate, Alert and oriented to time, place, person, mood and affect Debridement Note Post-Debridement Measurements/Treatment WC - Nurse 2 - General Ulcer CM Notes Start: 08/31/17 15:11 Freq: Status: Active Protocol: Activity Type Activity Date Activity User E-Sign Co-Sign Detail Recorded Client Recorded Date Recorded By Document 08/31/17 15:16 OLIVIA [id number] 08/31/17 15:20 OLIVIA 08/31/17 15:16 Wound Center Nurse 2 3-RIGHT VERDUZCO -Time 15:16 -Correct Patient Yes -Correct Side, Site, Position Yes -Correct Procedure Yes -Procedure Performed Yes -Type of Procedure Debridement -Clinical Debridement Subcutaneous -Post Debridement Size (cm) - Length 1.2 -Post Debridement Size (cm) - Width 0.9 -Post Debridement Size (cm) - Depth 0.2 -Total Square Cm 1.08 -Wound/Ulcer Outcome Not Healed -Ulcer Cleansing Rinsed/ Irrigated with Saline -Foul Odor after Cleansing No -Bioengineered Tissue No -Topical Lidocaine (%) 4 -Lidocaine (ml) 5 -Bleeding Controlled with NA -Treatment Response Procedure Tolerated Well Pain Scale: 0-10 Numeric Is Patient Pain Free? Yes Laterality: Right - Anterolateral tibial surface Type of Debridement: Excisional debridement Anesthesia Used: 4% Lidocaine Solution Depth: Down to and including healthy tissue, in the subcutaneous layer Percentage of wound debrided: 100 Instrument Used: 5mm curette Severity: Fat Layer Exposed Amount of bleeding with debridement: Mild Bleeding Controlled with: Compression and gauze Patient tolerated procedure well Assessment/Plan Active Problems Traumatic wound (Acute) Chronic venous insufficiency (Chronic) Lipodermatosclerosis (Chronic) Traumatic open wound of right lower leg (Acute) Traumatic ulcer (Acute) Edema (Chronic) Assessment: This is a 81-year-old female with a traumatic wound on the anterolateral tibial aspect of the right lower extremity. Injury occurred approximately 6 weeks prior to presentation. It failed to heal in normal fashion. There was a moderate amount of bioburden and nonviable tissue present. The patient is generally healthy, and very active. She does have a history of chronic venous disease. A battery of diagnostic laboratory tests have been performed, results reviewed. Results are as follows: Glucose 86, BUN 13, creatinine 0.68, total protein 7.3, albumin 3.9, calcium 9.1, AST 32, alkaline phosphatase 116, ALT 41, total bilirubin 0.40, sodium 139, potassium 3.9, chloride 103, serum prealbumin 23.6, white blood count 5.4, hemoglobin 14.4 , hematocrit 43.5, platelets 245,000. More recently, the patient has undergone venous duplex examination, revealing incompetence of the right great saphenous vein, the right small saphenous vein, the left great saphenous vein, and the left small saphenous vein. The patient's noninvasive lower extremity arterial study was normal, revealing no evidence of significant arterial occlusive disease in the lower extremities. Thus far, the patient has responded to clinical management, and her traumatic wound has progressively decreased in size. We are currently using collagen hydrogel topically on the wound, applied by the patient on a daily basis. She is also recently obtain graduated compression stockings, knee-high length, of 20-30 mmHg compression, which she is wearing daily. Plan: The patient has been advised to elevate her lower extremities as much as possible. This is to be accomplished as much as possible. Legs are to be elevated to heart level, or higher. Activity has been encouraged. She is to refrain from idle sitting and standing. We have prescribed graduated compression stockings, knee-high length, of 20-30 mmHg compression. The patient has obtained the stockings, and is wearing daily. She will continue to apply collagen hydrogel topically on a daily basis. The patient will return in 1 week for reassessment. Influenza vaccine was not administered today. The patient is not a smoker. She stands 5 feet 7 inches tall. She weighs 145 pounds. BMI is 22.7, which is normal.
== END 2017-09-22 23:59 ==
LOC: WC 15:00
PROVIDERS: Family Provider Internal Medicine; PCP Internal Medicine; Visit Provider Surgery
DX: I73.9 Peripheral vascular disease, unspecified (principal); R60.0 Localized edema; K21.9 Gastro-esophageal reflux disease without esophagitis; J45.909 Unspecified asthma, uncomplicated; L97.812 Non-pressure chronic ulcer of other part of right lower leg with fat layer exposed; I83.12 Varicose veins of left lower extremity with inflammation
CPT/HCPCS: 11042

== ENCOUNTER 2017-09-29 08:08 | Outpatient (RCR) | payer MEDICARE, SELFPAY ==
[2017-09-23 01:05] VITALS: BP 149/70; PULSE 82; RESP 16; TEMP 35.3
[2017-09-29 09:08] VITALS: BP 145/77; PULSE 77; RESP 18; TEMP 36.2
--- NOTE | 2017-09-29 09:45 | PCM.WC.HP ---
(1) Traumatic wound Status: Acute Current Visit: Yes (2) Chronic venous insufficiency Status: Chronic Current Visit: Yes Code(s): I87.2 - Venous insufficiency (chronic) (peripheral) (3) Asthma Status: Chronic Current Visit: No Code(s): J45.909 - Unspecified asthma, uncomplicated (4) GERD (gastroesophageal reflux disease) Status: Chronic Current Visit: No Code(s): K21.9 - Gastro-esophageal reflux disease without esophagitis (5) History of venous ulcer Status: Chronic Current Visit: Yes (6) History of goiter Status: Chronic Current Visit: No Code(s): Z86.39 - Personal history of other endocrine, nutritional and metabolic disease (7) Lipodermatosclerosis Status: Chronic Current Visit: No Code(s): I83.10 - Varicose veins of unspecified lower extremity with inflammation (8) 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: Acute Current Visit: Yes Qualifiers: Encounter type: subsequent encounter Code(s): S81.801A - Unspecified open wound, right lower leg, initial encounter (9) Peripheral vascular disease Status: Chronic Current Visit: No Code(s): I73.9 - Peripheral vascular disease, unspecified (10) Traumatic ulcer Status: Acute Current Visit: Yes Qualifiers: Non-pressure ulcer stage: with fat layer exposed Code(s): L98.499 - Non-pressure chronic ulcer of skin of other sites with unspecified severity (11) Nonhealing ulcer of left lower leg Status: Inactive Current Visit: No Code(s): L97.829 - Non-pressure chronic ulcer of other part of left lower leg with unspecified severity (12) Edema Status: Chronic Current Visit: No Code(s): R60.9 - Edema, unspecified History of Present Illness Date of Service: 09/29/17 Chief Complaint: Traumatic wound to the right anterolateral tibial surface. History of Wound: This is a 81-year-old female who is in her normal state of health until approximately 6 weeks prior to presentation. At that time, she sustained trauma to the right anterolateral tibial surface against a tomato cage in her garden. The injury occurred through her pants. The resultant injury is a nonhealing wound on the anterolateral aspect of the right tibial surface. The patient had been using Neosporin topically, without healing. Patient has a history of chronic venous insufficiency, and has had a venous ulceration in the past, located in the left medial supramalleolar area. She has a resultant scar in this area. She also has hemosiderin staining and lipodermatosclerosis, most prominent in the gaiter area on the left lower extremity. She denies a history of thrombophlebitis. She sleeps on a flat surface at night. She has been previously prescribed graduated compression stockings, which she had not been wearing. Past Medical History Past Medical History: Chronic Problems Chronic venous insufficiency (Chronic) Asthma (Chronic) GERD (gastroesophageal reflux disease) (Chronic) History of venous ulcer (Chronic) History of goiter (Chronic) Lipodermatosclerosis (Chronic) Peripheral vascular disease (Chronic) Edema (Chronic) Surgical History: hysterectomy, - - Patient underwent hemorrhoidectomy in the past. She has also undergone surgery for removal of a benign goiter. Patient is a Ab0. Allergies/Adverse Reactions: Allergies adhesive tape Allergy (Verified 01/25/15 10:06) Rash levofloxacin [From Levaquin] Allergy (Verified 01/15/13 08:22) Unknown Sulfa (Sulfonamide Antibiotics) Allergy (Verified 01/15/13 08:22) Unknown meloxicam Adverse Reaction (Verified 01/25/15 10:06) Diarrhea tizanidine Adverse Reaction (Verified 01/25/15 10:06) Vomiting Home Medications: Ambulatory Orders Medication Instructions Recorded Albuterol IH (ProAir) [Proair Hfa 1 puff INHALATION Q4H PRN PRN 01/25/15 (SP)Vent Pts] Budesonide/Formoterol 80-4.5 2 puff BID 01/25/15 [Symbicort 80-4.5 Mcg Inhaler] Calcium Carbonate [Calcium] 500 mg PO DAILY 01/25/15 Cholecalciferol (VIT D3) [Vitamin 2,000 unit PO DAILY 01/25/15 D] Pantoprazole Sodium [Protonix] 40 mg PO DAILY PRN 01/25/15 - Family History Maternal - - The patient did not know her father. Her mother at the age of 96 from old age. Smoking Status: Never smoker Tobacco Use: Non-smoker Review of Systems Constitutional: Denies: Chills, Fever, Weight Change Eyes: Denies: Pain, Vision Change HEENT: Denies: Difficulty Hearing, Difficulty Swallowing, Sinus Congestion Cardiovascular: Denies: Chest Pain, Palpitations Respiratory: Denies: Cough, Shortness of Breath Gastrointestinal: Denies: Diarrhea, Nausea, Vomiting Genitourinary: Denies: Dysuria, Hematuria Endocrine: Denies: Heat/ Cold Intolerance, Polydipsia, Polyuria Hematologic/ Lymphatic: Denies: Easy Bruising, Easy Bleeding - Physical Exam Vital Signs Temp Pulse Resp BP 97.1 F L 77 18 145/77 H 09/29/17 09:08 09/29/17 09:08 09/29/17 09:08 09/29/17 09:08 General: Alert, Oriented x3, Cooperative, No apparent distress, Well developed, Well nourished HEENT: Atraumatic, PERRLA, EOMI, Normocephalic Oral: Moist Mucosa Neck: No JVD Lungs: Normal air movement Abdomen: Non-Distended Extremities: No clubbing, No cyanosis, No edema, No Calf Tenderness, - - There is no significant swelling or edema in the patient's lower extremities. The ulceration on the right lower extremity appears to be essentially healed, with epithelialization of the ulcer. However, the epithelium is relatively nascent, and felt to be somewhat fragile at this moment. There is no sign of infection or cellulitis. Skin: No rashes, No breakdown Wound Measurements and Assessment WC - Nurse 1 - General Ulcer Measurement Start: 09/29/17 09:08 Freq: Status: Active Protocol: Activity Type Activity Date Activity User E-Sign Co-Sign Detail Recorded Client Recorded Date Recorded By Document 09/29/17 09:08 [id number] 09/29/17 09:11 09/29/17 09:08 Wound Center Nurse 1 [Ulcer Assessment] 3-RIGHT VERDUZCO -Combined with other wound No -Current Size (cm) - Length 0.1 -Current Size (cm) - Width 0.1 -Current Size (cm) - Depth 0.1 -Total Square Cm 0.01 -Date of Last Picture (Recall this 09/29/17 field) -Photo Taken Yes -Epithelialization Large 67-100% -Tunneling No -Undermining/Tunneling No -Circular Undermining No -Classification - Thickness Full Thickness without Exposed Support Structure -Exudate Amt Small (1-33%) -Exudate Type Serosanguineous -Wound Margin Distinct, Outline Attached -Granulation Amt Large (67-100%) -Granulation Quality [place] -Slough/Fibrin Yes -Necrosis Amt Small (1-33%) -Necrotic Tissue Type Adherent Slough -Structure Exposed None/Limited to Skin Breakdown -Texture (Shanique-wound Skin Appearance) Assessed Scarring -Moisture (Shanique-wound Skin Appearance No Abnormality ) Assessed -Color (Shanique-wound Skin Appearance) No Abnormality Assessed -Temperature (Shanique-wound Skin No Abnormality Appearance) (Pt Warm) -Tenderness on Palpation (Shanique-wound No Skin Appearance) -Ulcer Cleansing Rinsed/ Irrigated with Saline -Foul Odor after Cleansing No -Anesthetic Used 4% Lidocaine Solution [Edema Assessment] -Lower Limb Edema Present Yes -Right Calf (cm) 31.0 -Right Ankle (cm) 20.0 - Nurse 2 - General Ulcer CM Notes Start: 09/29/17 09:08 Freq: Status: Active Protocol: Activity Type Activity Date Activity User E-Sign Co-Sign Detail Recorded Client Recorded Date Recorded By Document 09/29/17 09:26 [id number] 09/29/17 09:32 OLIVIA 09/29/17 09:26 Wound Center Nurse 2 [Procedure/Treatment] 3-RIGHT VERDUZCO -Time 09:26 -Correct Patient Yes -Correct Side, Site, Position Yes -Correct Procedure Yes -Procedure Performed No -Post Debridement Size (cm) - Length 0.1 -Post Debridement Size (cm) - Width 0.1 -Post Debridement Size (cm) - Depth 0.1 -Total Square Cm 0.01 -Wound/Ulcer Outcome Not Healed -Ulcer Cleansing Not Cleansed -Foul Odor after Cleansing No -Bioengineered Tissue No -Topical Lidocaine (%) 4 -Bleeding Controlled with NA -Treatment Response Procedure Tolerated Well [See Physician Procedure note for Specifics] Pain Scale: 0-10 Numeric [Pain] -Is Patient Pain Free? Yes Musculoskeletal: No Muscle Wasting Neurological: Cranial nerves II-XII grossly intact, Neuro grossly intact Psych/Mental Status: Normal Affect, Appropriate, Alert and oriented to time, place, person, mood and affect Debridement Note Post-Debridement Measurements/Treatment - Nurse 2 - General Ulcer CM Notes Start: 09/29/17 09:08 Freq: Status: Active Protocol: Activity Type Activity Date Activity User E-Sign Co-Sign Detail Recorded Client Recorded Date Recorded By Document 09/29/17 09:26 [id number] 09/29/17 09:32 OLIVIA 09/29/17 09:26 Wound Center Nurse 2 3-RIGHT VERDUZCO -Time 09:26 -Correct Patient Yes -Correct Side, Site, Position Yes -Correct Procedure Yes -Procedure Performed No -Post Debridement Size (cm) - Length 0.1 -Post Debridement Size (cm) - Width 0.1 -Post Debridement Size (cm) - Depth 0.1 -Total Square Cm 0.01 -Wound/Ulcer Outcome Not Healed -Ulcer Cleansing Not Cleansed -Foul Odor after Cleansing No -Bioengineered Tissue No -Topical Lidocaine (%) 4 -Bleeding Controlled with NA -Treatment Response Procedure Tolerated Well Pain Scale: 0-10 Numeric Is Patient Pain Free? Yes No debridement was completed today Assessment/Plan Active Problems Traumatic wound (Acute) Chronic venous insufficiency (Chronic) History of venous ulcer (Chronic) Traumatic open wound of right lower leg (Acute) Traumatic ulcer (Acute) Assessment: This is a 81-year-old female with a traumatic wound on the anterolateral tibial aspect of the right lower extremity. Injury occurred approximately 6 weeks prior to presentation. It failed to heal in normal fashion. There was a moderate amount of bioburden and nonviable tissue present. The patient is generally healthy, and very active. She does have a history of chronic venous disease. A battery of diagnostic laboratory tests have been performed, results reviewed. Results are as follows: Glucose 86, BUN 13, creatinine 0.68, total protein 7.3, albumin 3.9, calcium 9.1, AST 32, alkaline phosphatase 116, ALT 41, total bilirubin 0.40, sodium 139, potassium 3.9, chloride 103, serum prealbumin 23.6, white blood count 5.4, hemoglobin 14.4, hematocrit 43.5, platelets 245,000. More recently, the patient has undergone venous duplex examination, revealing incompetence of the right great saphenous vein, the right small saphenous vein, the left great saphenous vein, and the left small saphenous vein. The patient's noninvasive lower extremity arterial study was normal, revealing no evidence of significant arterial occlusive disease in the lower extremities. Thus far, the patient has responded to clinical management, and her traumatic wound has progressively decreased in size. It now appears to be completely healed and epithelialized. She has recently obtained graduated compression stockings, knee-high length, of 20-30 mmHg compression, which she is wearing daily. Plan: The patient has been advised to elevate her lower extremities as much as possible. This is to be accomplished as much as possible. Legs are to be elevated to heart level, or higher. Activity has been encouraged. She is to refrain from idle sitting and standing. We have prescribed graduated compression stockings, knee-high length, of 20-30 mmHg compression. The patient has obtained the stockings, and is wearing daily. The patient is to apply a dry gauze dressing or Band-Aid over the healed ulcer site, and will return in 2 weeks for reassessment. It appears as though the ulceration is completely healed, though the epithelialization is nascent and somewhat fragile at this time. She will be reevaluated upon her return in 2 weeks. Influenza vaccine was not administered today. The patient is not a smoker. She stands 5 feet 7 inches tall. She weighs 145 pounds. BMI is 22.7, which is normal.
== END 2017-10-23 23:59 ==
LOC: WC 08:08
PROVIDERS: Family Provider Internal Medicine; PCP Internal Medicine; Visit Provider Surgery
DX: Z09 Encounter for follow-up examination after completed treatment for conditions other than malignant neoplasm (principal); I87.2 Venous insufficiency (chronic) (peripheral); J45.909 Unspecified asthma, uncomplicated; K21.9 Gastro-esophageal reflux disease without esophagitis; I73.9 Peripheral vascular disease, unspecified; I83.10 Varicose veins of unspecified lower extremity with inflammation
CPT/HCPCS: 99211; G0463

== ENCOUNTER → 2017-12-31 07:20 | Outpatient (CLI) | payer MEDICARE, SELFPAY ==
--- NOTE | 2017-12-31 07:25 | BI_ITS ---
MAMMOGRAPHY - BILATERAL SCREENING REASON FOR EXAM: Female, 82 years old. Routine annual screening examination. PERTINENT HISTORY: Non-contributory. Patient has a history of bilateral excisional breast biopsies and bilateral stereotactic breast biopsies. TECHNIQUE: Digital bilateral breast hoa (3D mammographic acquisition) in the CC and MLO projections. 2-D mediolateral oblique (MLO) and craniocaudad (CC) views of both breasts were obtained. CAD: Full Field Digital Mammography with Computer Added Detection was performed. COMPARISON: Comparison is made with prior study dated December 18, 2016 and November 26, 2015. FINDINGS: Breast Composition: The breasts are extremely dense, which lowers the sensitivity of mammography. There are no dominant masses or suspicious calcifications. No other significant abnormalities are identified. There has been no significant change since the prior study. BI/SCREENING MAMM (CAD), BILAT IMPRESSION: Stable bilateral screening mammogram. Yearly follow-up mammogram recommended. (A) ASSESSMENT CATEGORY: BIRADS Category 1: Negative. A letter regarding these results will be sent to the patient by the facility within 30 days. Approximately 10% of breast cancers are not detected by mammography. A normal mammogram should not delay biopsy of a clinically suspicious abnormality. [id number] Electronically Signed: Wilson Green MD at 11:18 EST Tel [phone], Service support ,
== END ==
PROVIDERS: Family Provider Internal Medicine; PCP Internal Medicine; Referring Provider Internal Medicine; Visit Provider Internal Medicine
DX: Z12.31 Encounter for screening mammogram for malignant neoplasm of breast (principal)
CPT/HCPCS: 77063; 77067

== ENCOUNTER 2018-09-21 09:30 | Outpatient (RCR) | payer MEDICARE, SELFPAY ==
[2018-09-14 14:44] VITALS: BP 147/77; PULSE 78; RESP 18; TEMP 36.1; BMI 21.6
--- NOTE | 2018-09-14 17:54 | PCM.WC.PN ---
Type of Wound Date of Service: 09/14/18 Chief Complaint: Traumatic wound to the right anterolateral tibial surface. History of Wound: This is a 81-year-old female who is in her normal state of health until approximately 6 weeks prior to presentation. At that time, she sustained trauma to the right anterolateral tibial surface against a tomato cage in her garden. The injury occurred through her pants. The resultant injury is a nonhealing wound on the anterolateral aspect of the right tibial surface. The patient had been using Neosporin topically, without healing. Patient has a history of chronic venous insufficiency, and has had a venous ulceration in the past, located in the left medial supramalleolar area. She has a resultant scar in this area. She also has hemosiderin staining and lipodermatosclerosis, most prominent in the gaiter area on the left lower extremity. She denies a history of thrombophlebitis. She sleeps on a flat surface at night. She has been previously prescribed graduated compression stockings, which she had not been wearing. - Physical Exam Vital Signs Temp Pulse Resp BP 96.9 F L 78 18 147/77 H 09/14/18 14:44 09/14/18 14:44 09/14/18 14:44 09/14/18 14:44 Wound Measurements and Assessment WC - Nurse 1 - General Ulcer Measurement Start: 09/14/18 14:44 Freq: Status: Active Protocol: Activity Type Activity Date Activity User E-Sign Co-Sign Detail Recorded Client Recorded Date Recorded By Document 09/14/18 14:44 DL [id number] 09/14/18 15:12 DL 09/14/18 14:44 Wound Center Nurse 1 [Ulcer Assessment] #5 L Lat LE -Current Size (cm) - Length 0.8 -Current Size (cm) - Width 0.7 -Current Size (cm) - Depth 0.1 -Total Square Cm 0.56 -Photo Taken Yes -Exudate Amt None Present -Wound Margin Distinct, Outline Attached -Granulation Amt None Present (0 %) -Necrosis Amt Small (1-33%) -Necrotic Tissue Type Adherent Slough -Structure Exposed N/A -Texture (Shanique-wound Skin Appearance) Scarring -Moisture (Shanique-wound Skin Appearance Dry/Scaly ) -Color (Shanique-wound Skin Appearance) Erythema, Hemosiderin Staining -Temperature (Shanique-wound Skin No Abnormality Appearance) (Pt Warm) -Tenderness on Palpation (Shanique-wound No Skin Appearance) -Ulcer Cleansing Rinsed/ Irrigated with Saline -Foul Odor after Cleansing No -Anesthetic Used 5% Lidocaine Gel #4 R Lat L Leg -Current Size (cm) - Length 0.3 -Current Size (cm) - Width 0.2 -Current Size (cm) - Depth 0.1 -Total Square Cm 0.06 -Photo Taken Yes -Exudate Amt None Present -Wound Margin Flat & Intact -Granulation Amt None Present (0 %) -Necrosis Amt Small (1-33%) -Necrotic Tissue Type Adherent Slough -Structure Exposed N/A -Texture (Shanique-wound Skin Appearance) Scarring -Moisture (Shanique-wound Skin Appearance No Abnormality ) -Color (Shanique-wound Skin Appearance) Erythema, Hemosiderin Staining -Temperature (Shanique-wound Skin No Abnormality Appearance) (Pt Warm) -Tenderness on Palpation (Shanique-wound No Skin Appearance) -Ulcer Cleansing Rinsed/ Irrigated with Saline -Foul Odor after Cleansing No -Anesthetic Used 5% Lidocaine Gel [Edema Assessment] -Right Calf (cm) 31.5 -Right Ankle (cm) 19.5 -Left Calf (cm) 31.8 -Left Ankle (cm) 19.8 WC - Nurse 2 - General Ulcer CM Notes Start: 09/14/18 14:44 Freq: Status: Active Protocol: Activity Type Activity Date Activity User E-Sign Co-Sign Detail Recorded Client Recorded Date Recorded By Document 09/14/18 15:35 MW [id number] 09/14/18 15:45 MW 09/14/18 15:35 Wound Center Nurse 2 [Procedure/Treatment] #5 L Lat LE -Time 15:35 -Correct Patient Yes -Correct Side, Site, Position Yes -Correct Procedure Yes -Procedure Performed Yes -Type of Procedure Debridement -Clinical Debridement Subcutaneous -Post Debridement Size (cm) - Length 0.9 -Post Debridement Size (cm) - Width 1.0 -Post Debridement Size (cm) - Depth 0.3 -Total Square Cm 0.90 -Wound/Ulcer Outcome Not Healed -Ulcer Cleansing Rinsed/ Irrigated with Saline -Foul Odor after Cleansing No -Bioengineered Tissue No -Bleeding Controlled with Pressure -Offloading No -Treatment Response Procedure Tolerated Well #4 R Lat L Leg -Time 15:35 -Correct Patient Yes -Correct Side, Site, Position Yes -Correct Procedure Yes -Procedure Performed Yes -Type of Procedure Debridement -Clinical Debridement Subcutaneous -Post Debridement Size (cm) - Length 0.5 -Post Debridement Size (cm) - Width 0.3 -Post Debridement Size (cm) - Depth 0.2 -Total Square Cm 0.15 -Wound/Ulcer Outcome Not Healed -Ulcer Cleansing Rinsed/ Irrigated with Saline -Foul Odor after Cleansing No -Bioengineered Tissue No -Bleeding Controlled with Pressure -Offloading No -Treatment Response Procedure Tolerated Well [See Physician Procedure note for Specifics] Pain Scale: 0-10 Numeric [Pain] -Is Patient Pain Free? Yes Debridement Note Post-Debridement Measurements/Treatment WC - Nurse 2 - General Ulcer CM Notes Start: 09/14/18 14:44 Freq: Status: Active Protocol: Activity Type Activity Date Activity User E-Sign Co-Sign Detail Recorded Client Recorded Date Recorded By Document 09/14/18 15:35 MW [id number] 09/14/18 15:45 MW 09/14/18 15:35 Wound Center Nurse 2 #5 L Lat LE -Time 15:35 -Correct Patient Yes -Correct Side, Site, Position Yes -Correct Procedure Yes -Procedure Performed Yes -Type of Procedure Debridement -Clinical Debridement Subcutaneous -Post Debridement Size (cm) - Length 0.9 -Post Debridement Size (cm) - Width 1.0 -Post Debridement Size (cm) - Depth 0.3 -Total Square Cm 0.90 -Wound/Ulcer Outcome Not Healed -Ulcer Cleansing Rinsed/ Irrigated with Saline -Foul Odor after Cleansing No -Bioengineered Tissue No -Bleeding Controlled with Pressure -Offloading No -Treatment Response Procedure Tolerated Well #4 R Lat L Leg -Time 15:35 -Correct Patient Yes -Correct Side, Site, Position Yes -Correct Procedure Yes -Procedure Performed Yes -Type of Procedure Debridement -Clinical Debridement Subcutaneous -Post Debridement Size (cm) - Length 0.5 -Post Debridement Size (cm) - Width 0.3 -Post Debridement Size (cm) - Depth 0.2 -Total Square Cm 0.15 -Wound/Ulcer Outcome Not Healed -Ulcer Cleansing Rinsed/ Irrigated with Saline -Foul Odor after Cleansing No -Bioengineered Tissue No -Bleeding Controlled with Pressure -Offloading No -Treatment Response Procedure Tolerated Well Pain Scale: 0-10 Numeric Is Patient Pain Free? Yes Assessment/Plan Assessment: This is a 81-year-old female with a traumatic wound on the anterolateral tibial aspect of the right lower extremity. Injury occurred approximately 6 weeks prior to presentation. It failed to heal in normal fashion. There was a moderate amount of bioburden and nonviable tissue present. The patient is generally healthy, and very active. She does have a history of chronic venous disease. A battery of diagnostic laboratory tests have been performed, results reviewed. Results are as follows: Glucose 86, BUN 13, creatinine 0.68, total protein 7.3, albumin 3.9, calcium 9.1, AST 32, alkaline phosphatase 116, ALT 41, total bilirubin 0.40, sodium 139, potassium 3.9, chloride 103, serum prealbumin 23.6, white blood count 5.4, hemoglobin 14.4, hematocrit 43.5, platelets 245,000. More recently, the patient has undergone venous duplex examination, revealing incompetence of the right great saphenous vein, the right small saphenous vein, the left great saphenous vein, and the left small saphenous vein. The patient's noninvasive lower extremity arterial study was normal, revealing no evidence of significant arterial occlusive disease in the lower extremities. Thus far, the patient has responded to clinical management, and her traumatic wound has progressively decreased in size. It now appears to be completely healed and epithelialized. She has recently obtained graduated compression stockings, knee-high length, of 20-30 mmHg compression, which she is wearing daily. Plan: The patient has been advised to elevate her lower extremities as much as possible. This is to be accomplished as much as possible. Legs are to be elevated to heart level, or higher. Activity has been encouraged. She is to refrain from idle sitting and standing. We have prescribed graduated compression stockings, knee-high length, of 20-30 mmHg compression. The patient has obtained the stockings, and is wearing daily. The patient is to apply a dry gauze dressing or Band-Aid over the healed ulcer site, and will return in 2 weeks for reassessment. It appears as though the ulceration is completely healed, though the epithelialization is nascent and somewhat fragile at this time. She will be reevaluated upon her return in 2 weeks. Influenza vaccine was not administered today. The patient is not a smoker. She stands 5 feet 7 inches tall. She weighs 145 pounds. BMI is 22.7, which is normal.
--- NOTE | 2018-09-14 17:55 | PCM.WC.HP ---
(1) Traumatic ulcer of lower leg Status: Chronic Current Visit: Yes Code(s): L97.909 - Non-pressure chronic ulcer of unspecified part of unspecified lower leg with unspecified severity (2) Ulcer of right lower leg Status: Chronic Current Visit: Yes Code(s): L97.919 - Non-pressure chronic ulcer of unspecified part of right lower leg with unspecified severity (3) Ulcer of left lower leg Status: Chronic Current Visit: Yes Code(s): L97.929 - 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 (4) Chronic venous insufficiency Status: Chronic Current Visit: Yes Code(s): I87.2 - Venous insufficiency (chronic) (peripheral) History of Present Illness Date of Service: 09/14/18 Chief Complaint: Traumatic wound to the right and left anterolateral tibial surface. History of Wound: This is a 81-year-old female who is in her normal state of health until approximately 6 weeks prior to presentation. At that time, she sustained trauma to the left anterior tibial surface against a [place] [employer] gonzalez that punctured her in her garden through her pants. Then a week later she sustained a trauma to her right anteriolateral leg from a shovel in her garden. These injuries are now non healing ulcers that the patient had been using Neosporin topically, without healing. Patient has a history of chronic venous insufficiency, and has had a venous ulceration in the past, located in the left medial supramalleolar area and right anteriolateral tibia. She has a resultant scar in this area. She denies a history of thrombophlebitis. She sleeps on a flat surface at night. She has been wearing her compression stockings as previously prescribed. Her last vascular studies were 07/2017, the venous doppler showed Segmental valvular incompetence is noted within the greater saphenous veins bilaterally. Small saphenous veins are patent and incompetent bilaterally. Arterial studies showed right CRISTOFER=1.17 and left CRISTOFER = 1.17. She denies any fevers, chills nausea and vomiting. She states her appetitie is ok. Past Medical History Past Medical History: Chronic Problems Chronic venous insufficiency (Chronic) Asthma (Chronic) GERD (gastroesophageal reflux disease) (Chronic) History of venous ulcer (Chronic) History of goiter (Chronic) Lipodermatosclerosis (Chronic) Ulcer of right lower leg (Chronic) Ulcer of left lower leg (Chronic) Traumatic ulcer of lower leg (Chronic) Peripheral vascular disease (Chronic) Edema (Chronic) Surgical History: hysterectomy, - - Patient underwent hemorrhoidectomy in the past. She has also undergone surgery for removal of a benign goiter. Patient is a Ab0. Allergies/Adverse Reactions: Allergies adhesive tape Allergy (Verified 09/14/18 15:16) Rash levofloxacin [From Levaquin] Allergy (Verified 09/14/18 15:16) Unknown Sulfa (Sulfonamide Antibiotics) Allergy (Verified 09/14/18 15:16) Unknown meloxicam Adverse Reaction (Verified 09/14/18 15:16) Diarrhea tizanidine Adverse Reaction (Verified 09/14/18 15:16) Vomiting Home Medications: Ambulatory Orders Medication Instructions Recorded Albuterol IH (ProAir) [Proair Hfa 1 puff INHALATION Q4H PRN PRN 01/25/15 (SP)Vent Pts] Budesonide/Formoterol 80-4.5 2 puff BID 01/25/15 [Symbicort 80-4.5 Mcg Inhaler] Calcium Carbonate [Calcium] 500 mg PO DAILY 01/25/15 Cholecalciferol (VIT D3) [Vitamin 2,000 unit PO DAILY 01/25/15 D] - Family History Maternal - - The patient did not know her father. Her mother at the age of 96 from old age. Smoking Status: Never smoker Review of Systems Constitutional: Denies: Chills, Fever, Weight Change Eyes: Denies: Pain, Vision Change HEENT: Reports: Difficulty Hearing. Denies: Difficulty Swallowing, Sinus Congestion Cardiovascular: Denies: Chest Pain, Palpitations Respiratory: Denies: Cough, Shortness of Breath Gastrointestinal: Denies: Diarrhea, Nausea, Vomiting Musculoskeletal: Reports: Leg Pain - bilateral lower extremities with traumatic ulcers. Skin: Reports: Wounds - right anteriolateral leg ulcer and left anterior leg ulcer Neurological: Denies: Balance problems, Blurred vision, Confusion Endocrine: Denies: Heat/ Cold Intolerance, Polydipsia, Polyuria - Physical Exam Vital Signs Temp Pulse Resp BP 96.9 F L 78 18 147/77 H 09/14/18 14:44 09/14/18 14:44 09/14/18 14:44 09/14/18 14:44 General: Alert, Oriented x3, Cooperative HEENT: Atraumatic Oral: Moist Mucosa Lungs: Normal air movement Cardiovascular: Regular rate Extremities: No edema, Capillary Refill Less than 3 Seconds, Peripheral Pulses Normal Skin: Ulcer/ Wound - right anterolateral leg and left anterior leg Wound Measurements and Assessment WC - Nurse 1 - General Ulcer Measurement Start: 09/14/18 14:44 Freq: Status: Active Protocol: Activity Type Activity Date Activity User E-Sign Co-Sign Detail Recorded Client Recorded Date Recorded By Document 09/14/18 14:44 DL [id number] 09/14/18 15:12 DL 09/14/18 14:44 Wound Center Nurse 1 [Ulcer Assessment] #5 L Lat LE -Current Size (cm) - Length 0.8 -Current Size (cm) - Width 0.7 -Current Size (cm) - Depth 0.1 -Total Square Cm 0.56 -Photo Taken Yes -Exudate Amt None Present -Wound Margin Distinct, Outline Attached -Granulation Amt None Present (0 %) -Necrosis Amt Small (1-33%) -Necrotic Tissue Type Adherent Slough -Structure Exposed N/A -Texture (Shanique-wound Skin Appearance) Scarring -Moisture (Shanique-wound Skin Appearance Dry/Scaly ) -Color (Shanique-wound Skin Appearance) Erythema, Hemosiderin Staining -Temperature (Shanique-wound Skin No Abnormality Appearance) (Pt Warm) -Tenderness on Palpation (Shanique-wound No Skin Appearance) -Ulcer Cleansing Rinsed/ Irrigated with Saline -Foul Odor after Cleansing No -Anesthetic Used 5% Lidocaine Gel #4 R Lat L Leg -Current Size (cm) - Length 0.3 -Current Size (cm) - Width 0.2 -Current Size (cm) - Depth 0.1 -Total Square Cm 0.06 -Photo Taken Yes -Exudate Amt None Present -Wound Margin Flat & Intact -Granulation Amt None Present (0 %) -Necrosis Amt Small (1-33%) -Necrotic Tissue Type Adherent Slough -Structure Exposed N/A -Texture (Shanique-wound Skin Appearance) Scarring -Moisture (Shanique-wound Skin Appearance No Abnormality ) -Color (Shanique-wound Skin Appearance) Erythema, Hemosiderin Staining -Temperature (Shanique-wound Skin No Abnormality Appearance) (Pt Warm) -Tenderness on Palpation (Shanique-wound No Skin Appearance) -Ulcer Cleansing Rinsed/ Irrigated with Saline -Foul Odor after Cleansing No -Anesthetic Used 5% Lidocaine Gel [Edema Assessment] -Right Calf (cm) 31.5 -Right Ankle (cm) 19.5 -Left Calf (cm) 31.8 -Left Ankle (cm) 19.8 WC - Nurse 2 - General Ulcer CM Notes Start: 09/14/18 14:44 Freq: Status: Active Protocol: Activity Type Activity Date Activity User E-Sign Co-Sign Detail Recorded Client Recorded Date Recorded By Document 09/14/18 15:35 MW [id number] 09/14/18 15:45 MW 09/14/18 15:35 Wound Center Nurse 2 [Procedure/Treatment] #5 L Lat LE -Time 15:35 -Correct Patient Yes -Correct Side, Site, Position Yes -Correct Procedure Yes -Procedure Performed Yes -Type of Procedure Debridement -Clinical Debridement Subcutaneous -Post Debridement Size (cm) - Length 0.9 -Post Debridement Size (cm) - Width 1.0 -Post Debridement Size (cm) - Depth 0.3 -Total Square Cm 0.90 -Wound/Ulcer Outcome Not Healed -Ulcer Cleansing Rinsed/ Irrigated with Saline -Foul Odor after Cleansing No -Bioengineered Tissue No -Bleeding Controlled with Pressure -Offloading No -Treatment Response Procedure Tolerated Well #4 R Lat L Leg -Time 15:35 -Correct Patient Yes -Correct Side, Site, Position Yes -Correct Procedure Yes -Procedure Performed Yes -Type of Procedure Debridement -Clinical Debridement Subcutaneous -Post Debridement Size (cm) - Length 0.5 -Post Debridement Size (cm) - Width 0.3 -Post Debridement Size (cm) - Depth 0.2 -Total Square Cm 0.15 -Wound/Ulcer Outcome Not Healed -Ulcer Cleansing Rinsed/ Irrigated with Saline -Foul Odor after Cleansing No -Bioengineered Tissue No -Bleeding Controlled with Pressure -Offloading No -Treatment Response Procedure Tolerated Well [See Physician Procedure note for Specifics] Pain Scale: 0-10 Numeric [Pain] -Is Patient Pain Free? Yes Musculoskeletal: No Tenderness to Palpation of Joints or Extremities Neurological: Neuro grossly intact Psych/Mental Status: Normal Affect, Appropriate Debridement Note Post-Debridement Measurements/Treatment WC - Nurse 2 - General Ulcer CM Notes Start: 09/14/18 14:44 Freq: Status: Active Protocol: Activity Type Activity Date Activity User E-Sign Co-Sign Detail Recorded Client Recorded Date Recorded By Document 09/14/18 15:35 MW [id number] 09/14/18 15:45 MW 09/14/18 15:35 Wound Center Nurse 2 #5 L Lat LE -Time 15:35 -Correct Patient Yes -Correct Side, Site, Position Yes -Correct Procedure Yes -Procedure Performed Yes -Type of Procedure Debridement -Clinical Debridement Subcutaneous -Post Debridement Size (cm) - Length 0.9 -Post Debridement Size (cm) - Width 1.0 -Post Debridement Size (cm) - Depth 0.3 -Total Square Cm 0.90 -Wound/Ulcer Outcome Not Healed -Ulcer Cleansing Rinsed/ Irrigated with Saline -Foul Odor after Cleansing No -Bioengineered Tissue No -Bleeding Controlled with Pressure -Offloading No -Treatment Response Procedure Tolerated Well #4 R Lat L Leg -Time 15:35 -Correct Patient Yes -Correct Side, Site, Position Yes -Correct Procedure Yes -Procedure Performed Yes -Type of Procedure Debridement -Clinical Debridement Subcutaneous -Post Debridement Size (cm) - Length 0.5 -Post Debridement Size (cm) - Width 0.3 -Post Debridement Size (cm) - Depth 0.2 -Total Square Cm 0.15 -Wound/Ulcer Outcome Not Healed -Ulcer Cleansing Rinsed/ Irrigated with Saline -Foul Odor after Cleansing No -Bioengineered Tissue No -Bleeding Controlled with Pressure -Offloading No -Treatment Response Procedure Tolerated Well Pain Scale: 0-10 Numeric Is Patient Pain Free? Yes Wound debrided: Right anteriolateral lower leg Laterality: Right Type of Debridement: Excisional debridement Anesthesia Used: 5% Lidocaine Gel Depth: Down to and including healthy tissue, in the subcutaneous layer Percentage of wound debrided: 100 Instrument Used: 3mm curette Tissue Removed: Subcutaneous tissue and slough Severity: Limited To Skin Breakdown Amount of bleeding with debridement: Mild Bleeding Controlled with: Pressure Patient tolerated procedure well - Additional Wound Wound debrided: Left anterior lower leg Laterality: Left Type of Debridement: Excisional debridement Anesthesia Used: 4% Lidocaine Solution Depth: Down to and including healthy tissue, in the subcutaneous layer Percentage of wound debrided: 100 Instrument Used: 3mm curette Tissue Removed: Subcutaneous tissue and slough Severity: Limited To Skin Breakdown Amount of bleeding with debridement: Mild Bleeding Controlled with: Compression and gauze Patient tolerated procedure: Patient tolerated procedure well Assessment/Plan Active Problems Chronic venous insufficiency (Chronic) Ulcer of right lower leg (Chronic) Ulcer of left lower leg (Chronic) Traumatic ulcer of lower leg (Chronic) Assessment: 1. Traumatic ulcer of lower leg. 2. Ulcer of right lower leg. 3. Ulcer of left lower leg. 4. Chronic venous insufficiency Plan: Patient sustained a traumatic ulcer in both her right and left lower legs while gardening 5&6 weeks ago. She has been Neosporin and Collogen Hydrogel on the ulcers since they occured without healing. We will order Santyl with adaptic to place on the ulcers to help decrease the the amount of biofilm. Obtained a wound culture of the left ulcer due to the amount of pain she is having in the area. She has not been wearing compression so will have her start wearing double layer tubigrip stockings. Encouraged her to keep her legs elevated when sitting and it is ok to walk but she is to avoid standing for long periods of time. She will follow upin one week with Dr. Peters who she is known to. Code Visit Office Visits / Consults: [id number] OV L3 Est - 25 modifier [id number]: [id number] Veda subq tissue 20 sq cm/<
[2018-09-21 09:32] VITALS: BP 137/80; PULSE 76; RESP 18; TEMP 36.4; BMI 21.6
--- NOTE | 2018-09-21 13:02 | HP.PCM_ITS ---
(1) Traumatic wound Status: Chronic Current Visit: Yes (2) Chronic venous insufficiency Status: Chronic Current Visit: Yes Code(s): I87.2 - Venous insufficiency (chronic) (peripheral) (3) Asthma Status: Chronic Current Visit: No Code(s): J45.909 - Unspecified asthma, uncomplicated (4) GERD (gastroesophageal reflux disease) Status: Chronic Current Visit: No Code(s): K21.9 - Gastro-esophageal reflux disease without esophagitis (5) History of venous ulcer Status: Chronic Current Visit: No (6) History of goiter Status: Chronic Current Visit: No Code(s): Z86.39 - Personal history of other endocrine, nutritional and metabolic disease (7) Lipodermatosclerosis Status: Chronic Current Visit: No Code(s): I83.10 - Varicose veins of unspecified lower extremity with inflammation (8) 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: Chronic Current Visit: Yes Qualifiers: Encounter type: subsequent encounter Code(s): S81.801A - Unspecified open wound, right lower leg, initial encounter (9) Traumatic ulcer of lower leg Status: Chronic Current Visit: Yes Qualifiers: Laterality: left Code(s): L97.909 - Non-pressure chronic ulcer of unspecified part of unspecified lower leg with unspecified severity (10) Traumatic ulcer Status: Chronic Current Visit: Yes Qualifiers: Non-pressure ulcer stage: with fat layer exposed Code(s): L98.499 - Non-pressure chronic ulcer of skin of other sites with uns pecified severity History of Present Illness Date of Service: 09/21/18 Chief Complaint: Traumatic wound to the right and left anterolateral tibial surface. History of Wound: This is an 82-year-old female who is in her normal state of health until approximately 6 weeks prior to presentation. At that time, she sustained trauma to the left anterior tibial surface against a [place] [employer] gonz[employer] that punctured her in her garden through her pants. Then a week later she sustained a trauma to her right anteriolateral leg from a shovel in her garden. These injuries are now non healing ulcers that the patient had been using Neosporin topically, without healing. Patient has a history of chronic venous insufficiency, and has had a venous ulceration in the past, located in the left medial supramalleolar area and right anteriolateral tibia. She has a resultant scar in this area. She denies a history of thrombophlebitis. She sleeps on a flat surface at night. She has been wearing her compression stockings as previously prescribed. Her last vascular studies were 07/2017, the venous doppler showed segmental valvular incompetence within the greater saphenous veins bilaterally. Small saphenous veins are patent and incompetent bilaterally. Arterial studies showed right CRISTOFER=1.17 and left CRISTOFER = 1.17. She denies any fevers, chills nausea and vomiting. She states her appetitie is ok. She was evaluated in our facility last week, and has been using collagenase Santyl topically on a daily basis since that time. 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 Surgical History: hysterectomy, - - Patient underwent hemorrhoidectomy in the past. She has also undergone surgery for removal of a benign goiter. Patient i s a Ab0. Allergies/Adverse Reactions: Allergies adhesive tape Allergy (Verified 09/14/18 15:16) Rash levofloxacin [From Levaquin] Allergy (Verified 09/14/18 15:16) Unknown Sulfa (Sulfonamide Antibiotics) Allergy (Verified 09/14/18 15:16) Unknown meloxicam Adverse Reaction (Verified 09/14/18 15:16) Diarrhea tizanidine Adverse Reaction (Verified 09/14/18 15:16) Vomiting Home Medications: Ambulatory Orders Medication Instructions Recorded Albuterol IH (ProAir) [Proair Hfa 1 puff INHALATION Q4H PRN PRN 01/25/15 (SP)Vent Pts] Budesonide/Formoterol 80-4.5 2 puff BID 01/25/15 [Symbicort 80-4.5 Mcg Inhaler] Calcium Carbonate [Calcium] 500 mg PO DAILY 01/25/15 Cholecalciferol (VIT D3) [Vitamin 2,000 unit PO DAILY 01/25/15 D] - Family History Maternal - - The patient did not know her father. Her mother at the age of 96 from old age. 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 Smoking Status: Never smoker Tobacco Use: Non-smoker Alcohol: None Drugs: None Review of Systems Constitutional: Denies: Chills, Fever, Weight Change Eyes: Denies: Pain, Vision Change HEENT: Denies: Difficulty Hearing, Difficulty Swallowing, Sinus Congestion Cardiovascular: Denies: Chest Pain, Palpitations Respiratory: Denies: Cough, Shortness of Breath Gastrointestinal: Denies: Diarrhea, Nausea, Vomiting Genitourinary: Denies: Dysuria, Hematuria Endocrine: Denies: Heat/ Cold Intolerance, Polydipsia, Polyuria Hematologic/ Lymphatic: Denies: Easy Bruising, Easy Bleeding - Physical Exam Vital Signs Temp Pulse Resp BP 97.6 F L 76 18 137/80 H 09/21/18 09:32 09/21/18 09:32 09/21/18 09:32 09/21/18 09:32 General: Alert, Oriented x3, Cooperative, No apparent distress, Well developed, Well nourished, - - The patient is of relatively normal body habitus HEENT: Atraumatic, PERRLA, EOMI, Normocephalic Oral: Moist Mucosa, No Gingival or Mucosal Lesions/ Ulcerations Neck: Supple, No JVD, Negative Carotid Bruits, Negative Hepatojugular Reflux, No Nodes, No Nuchal Rigidity, Trachea Midline Lungs: Clear to auscultation, Normal air movement, No rhonchi, No wheeze, No rales Cardiovascular: Regular rate, Regular Rhythm, Normal S1, Normal S2, No murmurs Abdomen: Soft, Non Tender, Non-Distended Extremities: No clubbing, No cyanosis, No edema, No Calf Tenderness, - - A small open wound is noted on the right lateral calf. A somewhat larger open wound is noted on the left lateral calf. Each of the 2 wounds is generally pink and healthy in appearance, with active granulation tissue. There is moderate bioburden associated with the wound on the left lateral calf, with some nonviable tissue present. Wound dimensions are documented elsewhere. Skin: No rashes - There is no significant periwound erythema. Wound Measurements and Assessment WC - Nurse 1 - General Ulcer Measurement Start: 09/14/18 14:44 Freq: Status: Active Protocol: Activity Type Activity Date Activity User E-Sign Co-Sign Detail Recorded Client Recorded Date Recorded By Document 09/21/18 09:32 DL [id number] 09/21/18 09:38 DL 09/21/18 09:32 Wound Center Nurse 1 [Ulcer Assessment] #5 LATERAL LLE -Current Size (cm) - Length 1 -Current Size (cm) - Width 0.8 -Current Size (cm) - Depth 0.1 -Total Square Cm 0.8 -Photo Taken No -Exudate Amt Small -Exudate Type Serosanguineous -Wound Margin Distinct, Outline Attached -Granulation Amt None Present (0 %) -Necrosis Amt Large (67-100%) -Necrotic Tissue Type Adherent Slough -Structure Exposed N/A -Texture (Shanique-wound Skin Appearance) Scarring -Moisture (Shanique-wound Skin Appearance No Abnormality ) -Color (Shanique-wound Skin Appearance) Hemosiderin Staining -Temperature (Shanique-wound Skin No Abnormality Appearance) (Pt Warm) -Tenderness on Palpation (Shanique-wound Yes Skin Appearance) -Ulcer Cleansing Rinsed/ Irrigated with Saline -Foul Odor after Cleansing No -Anesthetic Used 5% Lidocaine Gel #4 LATERAL RLE -Current Size (cm) - Length 0.2 -Current Size (cm) - Width 0.2 -Current Size (cm) - Depth 0.1 -Total Square Cm 0.04 -Photo Taken No -Exudate Amt None Present -Wound Margin Flat & Intact -Granulation Amt Small (1-33%) -Granulation Quality Iselin -Necrosis Amt Small (1-33%) -Necrotic Tissue Type Adherent Slough -Structure Exposed N/A -Texture (Shanique-wound Skin Appearance) Scarring -Moisture (Shanique-wound Skin Appearance No Abnormality ) -Color (Shanique-wound Skin Appearance) Hemosiderin Staining -Temperature (Shanique-wound Skin No Abnormality Appearance) (Pt Warm) -Tenderness on Palpation (Shanique-wound Yes Skin Appearance) -Ulcer Cleansing Rinsed/ Irrigated with Saline -Anesthetic Used 5% Lidocaine Gel [Edema Assessment] -Right Calf (cm) 30.5 -Right Ankle (cm) 19.7 -Left Calf (cm) 30.5 -Left Ankle (cm) 20 WC - Nurse 2 - General Ulcer CM Notes Start: 09/14/18 14:44 Freq: Status: Active Protocol: Activity Type Activity Date Activity User E-Sign Co-Sign Detail Recorded Client Recorded Date Recorded By Document 09/21/18 10:23 DV [id number] 09/21/18 10:33 DV 09/21/18 10:23 Wound Center Nurse 2 [Procedure/Treatment] #5 LATERAL LLE -Time 10:23 -Correct Patient Yes -Correct Side, Site, Position Yes -Correct Procedure Yes -Procedure Performed Yes -Type of Procedure Debridement -Clinical Debridement Subcutaneous -Post Debridement Size (cm) - Length 1.2 -Post Debridement Size (cm) - Width 1.0 -Post Debridement Size (cm) - Depth 0.2 -Total Square Cm 1.20 -Wound/Ulcer Outcome Failed Flap -Ulcer Cleansing Rinsed/ Irrigated with Saline -Foul Odor after Cleansing No -Bioengineered Tissue No -Bleeding Controlled with Pressure -Offloading No -Treatment Response Procedure Tolerated Well #4 LATERAL RLE -Time 10:23 -Correct Patient Yes -Correct Side, Site, Position Yes -Correct Procedure Yes -Procedure Performed Yes -Type of Procedure Debridement -Clinical Debridement Subcutaneous -Post Debridement Size (cm) - Length 0.2 -Post Debridement Size (cm) - Width 0.2 -Post Debridement Size (cm) - Depth 0.1 -Total Square Cm 0.04 -Wound/Ulcer Outcome Not Healed -Ulcer Cleansing Rinsed/ Irrigated with Saline -Foul Odor after Cleansing No -Bioengineered Tissue No -Bleeding Controlled with Pressure -Offloading No -Treatment Response Procedure Tolerated Well [See Physician Procedure note for Specifics] Pain Scale: 0-10 Numeric [Pain] -Is Patient Pain Free? No Musculoskeletal: No Muscle Wasting Neurological: Cranial nerves II-XII grossly intact, Neuro grossly intact Psych/Mental Status: Normal Affect, Appropriate, Alert and oriented to time, place, person, mood and affect Debridement Note Post-Debridement Measurements/Treatment WC - Nurse 2 - General Ulcer CM Notes Start: 09/14/18 14:44 Freq: Status: Active Protocol: Activity Type Activity Date Activity User E-Sign Co-Sign Detail Recorded Client Recorded Date Recorded By Document 09/14/18 15:35 MW [id number] 09/14/18 15:45 MW Document 09/21/18 10:23 DV [id number] 09/21/18 10:33 DV 09/14/18 09/21/18 15:35 10:23 Wound Center Nurse 2 #5 LATERAL LLE -Time 15:35 10:23 -Correct Patient Yes Yes -Correct Side, Site, Position Yes Yes -Correct Procedure Yes Yes -Procedure Performed Yes Yes -Type of Procedure Debridement Debridement -Clinical Debridement Subcutaneous Subcutaneous -Post Debridement Size (cm) - Length 0.9 1.2 -Post Debridement Size (cm) - Width 1.0 1.0 -Post Debridement Size (cm) - Depth 0.3 0.2 -Total Square Cm 0.90 1.20 -Wound/Ulcer Outcome Not Healed Failed Flap -Ulcer Cleansing Rinsed/ Rinsed/ Irrigated with Irrigated with Saline Saline -Foul Odor after Cleansing No No -Bioengineered Tissue No No -Bleeding Controlled with Pressure Pressure -Offloading No No -Treatment Response Procedure Procedure Tolerated Well Tolerated Well #4 LATERAL RLE -Time 15:35 10:23 -Correct Patient Yes Yes -Correct Side, Site, Position Yes Yes -Correct Procedure Yes Yes -Procedure Performed Yes Yes -Type of Procedure Debridement Debridement -Clinical Debridement Subcutaneous Subcutaneous -Post Debridement Size (cm) - Length 0.5 0.2 -Post Debridement Size (cm) - Width 0.3 0.2 -Post Debridement Size (cm) - Depth 0.2 0.1 -Total Square Cm 0.15 0.04 -Wound/Ulcer Outcome Not Healed Not Healed -Ulcer Cleansing Rinsed/ Rinsed/ Irrigated with Irrigated with Saline Saline -Foul Odor after Cleansing No No -Bioengineered Tissue No No -Bleeding Controlled with Pressure Pressure -Offloading No No -Treatment Response Procedure Procedure Tolerated Well Tolerated Well Pain Scale: 0-10 Numeric Is Patient Pain Free? Yes No Laterality: Right - Lateral calf Type of Debridement: Excisional debridement Anesthesia Used: 5% Lidocaine Gel Depth: Down to and including healthy tissue, in the subcutaneous layer Percentage of wound debrided: 100 Instrument Used: 5mm curette Tissue Removed: Nonviable tissue and bioburden. Severity: Fat Layer Exposed Amount of bleeding with debridement: Mild Bleeding Controlled with: Compression and gauze Patient tolerated procedure well - Additional Wound Laterality: Left - Lateral calf Type of Debridement: Excisional debridement Anesthesia Used: 5% Lidocaine Gel Depth: Down to and including healthy tissue, in the subcutaneous layer Percentage of wound debrided: 100 Instrument Used: 5mm curette Tissue Removed: Nonviable tissue and bioburden Severity: Fat Layer Exposed Amount of bleeding with debridement: Mild Bleeding Controlled with: Compression and gauze Patient tolerated procedure: Patient tolerated procedure well Assessment/Plan Active Problems Traumatic wound (Chronic) Chronic venous insufficiency (Chronic) Traumatic open wound of right lower leg (Chronic) Ulcer of right lower leg (Chronic) Ulcer of left lower leg (Chronic) Traumatic ulcer of lower leg (Chronic) Traumatic ulcer (Chronic) Assessment: 1. Traumatic ulcer of lower leg. 2. Ulcer of right lower leg. 3. Ulcer of left lower leg. 4. Chronic venous insufficiency Plan: Patient sustained a traumatic ulcer in both her right and left lower legs while gardening 5&6 weeks ago. She has been Neosporin and Collagen Hydrogel on the ulcers since they occured without healing. Within the last week, the patient was using collagenase Santyl topically bilaterally. We are to continue the use of collagenase Santyl topically on the wound of the left lateral calf, given the persistence of some significant bioburden and nonviable tissue. We are to transition to the use of Celena topically to the wound on the right lateral calf. Additionally, wound cultures, obtained last week, are positive for Staphylococcus epidermidis and Corynebacterium species. Based upon the patient's allergies and sensitivities, we are to start the patient on Augmentin 875 mg p.o. twice daily for 10 days. Prescription has been provided. We are also to obtain laboratory studies, including a CBC and comprehensive metabolic profile. A noninvasive lower extremity arterial study will also be obtained. Patient will return in 1 week for reassessment. Patient has been encouraged to elevate her lower extremities much as possible, and to avoid idle standing and sitting. Influenza vaccine was not administered today. Patient is not a smoker. She stands 5 feet 7 inches tall. She weighs 138 pounds. Her BMI is 21.6, which is normal.
[2018-09-21 13:28] LABS: Hematocrit 42.4 % (37-47); Hemoglobin 14.3 g/dL (12.0-15.0); Mean Corp Hgb Conc 33.7 g/dL (32-36); Mean Corpuscular Hgb 30.4 pg (27.0-32.0); Mean Corpuscular Volume 90.2 fL (81-99); Mean Platelet Vol. 10.5 fl (6.2-12.0); Platelet Count 282 K/mm3 (150-450); RBC Distribution Width CV 12.7 % (11.6-14.6); RBC Distribution Width SD 41.6 fl (35.1-43.9); White Blood Count 4.2 K/mm3 (4.4-11.0)
[2018-09-21 13:49] LABS: ALB/GLOB Ratio 1.2 RATIO (0.9-2.4); AST(SGOT) 24 U/L (15-37); Alanine Aminotransfer ALT/SGPT 37 U/L (13-56); Albumin, Serum 3.7 g/dL (3.2-5.0); Alkaline Phosphatase 129 U/L (45-117); Anion Gap 7 (5-15); BUN 16 mg/dL (7-18); BUN/Creat Ratio 23.2 RATIO (10-20); Calcium,Total 8.8 mg/dL (8.5-10.1); Chloride 104 mmol/L (98-107); Creatinine, Serum 0.69 mg/dL (0.55-1.02); EST Glomerular Filtration Rate 87 mL/min (>60); Est Glom Filt Rate - Afr Amer 105 mL/min (>60); Estimated Creatinine Clearance 43.63 ml/min; Globulin 3.2 g/dL (2.2-4.2); Glucose 71 mg/dL (74-106); Potassium 4.4 mmol/L (3.5-5.1); Prealbumin 21.8 mg/dL (20.0-40.0); Protein, Total 6.9 g/dL (6.4-8.2); Sodium Level 140 mmol/L (136-145)
== END 2018-09-22 23:59 ==
LOC: WC 09:30
PROVIDERS: Family Provider Internal Medicine; PCP Internal Medicine; Referring Provider Surgery; Visit Provider Surgery
DX: I87.2 Venous insufficiency (chronic) (peripheral) (principal); J45.909 Unspecified asthma, uncomplicated; K21.9 Gastro-esophageal reflux disease without esophagitis; I73.9 Peripheral vascular disease, unspecified; L97.821 Non-pressure chronic ulcer of other part of left lower leg limited to breakdown of skin; L97.811 Non-pressure chronic ulcer of other part of right lower leg limited to breakdown of skin; L97.822 Non-pressure chronic ulcer of other part of left lower leg with fat layer exposed; L97.812 Non-pressure chronic ulcer of other part of right lower leg with fat layer exposed
CPT/HCPCS: 11042; 80053; 84134; 85027; 87070; 87075; 87077; 87186; 87205; 99213; G0463

== ENCOUNTER 2018-10-19 09:15 | Outpatient (RCR) | payer MEDICARE, SELFPAY ==
[2018-09-23 01:18] VITALS: BP 137/80; PULSE 76; RESP 18; TEMP 36.4
[2018-09-28 09:39] VITALS: BP 154/72; PULSE 79; RESP 18; TEMP 36.1; BMI 21.6
--- NOTE | 2018-09-28 10:36 | HP.PCM_ITS ---
(1) Traumatic wound Status: Chronic Current Visit: Yes (2) Chronic venous insufficiency Status: Chronic Current Visit: Yes Code(s): I87.2 - Venous insufficiency (chronic) (peripheral) (3) Asthma Status: Chronic Current Visit: No Code(s): J45.909 - Unspecified asthma, uncomplicated (4) GERD (gastroesophageal reflux disease) Status: Chronic Current Visit: No Code(s): K21.9 - Gastro-esophageal reflux disease without esophagitis (5) History of venous ulcer Status: Chronic Current Visit: Yes (6) History of goiter Status: Chronic Current Visit: No Code(s): Z86.39 - Personal history of other endocrine, nutritional and metabolic disease (7) Lipodermatosclerosis Status: Chronic Current Visit: Yes Qualifiers: Laterality: bilateral Qualified Code(s): I83.11 - Varicose veins of right lower extremity with inflammation; I83.12 - Varicose veins of left lower extremity with inflammation Code(s): I83.10 - Varicose veins of unspecified lower extremity with inflammation (8) 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: Chronic Current Visit: Yes Qualifiers: Encounter type: subsequent encounter Code(s): S81.801A - Unspecified open wound, right lower leg, initial encounter (9) Ulcer of right lower leg Status: Chronic Current Visit: Yes Qualifiers: Non-pressure ulcer stage: with fat layer exposed Qualified Code(s): L97.912 - Non-pressure chronic ulcer of unspecified part of right lower leg with fat layer exposed Code(s): L97.919 - Non-pressure chronic ulcer of unspecified part of right lower leg with unspecified severity (10) Ulcer of left lower leg Status: Chronic Current Visit: Yes Qualifiers: Non-pressure ulcer stage: with fat layer exposed Qualified Code(s): L97.922 - Non-pressure chronic ulcer of unspecified part of left lower leg with fat layer exposed Code(s): L97.929 - 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 (11) Traumatic ulcer of lower leg Status: Chronic Current Visit: Yes Code(s): L97.909 - Non-pressure chronic ulcer of unspecified part of unspecified lower leg with unspecified severity (12) Peripheral vascular disease Status: Chronic Current Visit: No Code(s): I73.9 - Peripheral vascular disease, unspecified (13) Traumatic ulcer Status: Chronic Current Visit: Yes Qualifiers: Non-pressure ulcer stage: with fat layer exposed Code(s): L98.499 - Non-pressure chronic ulcer of skin of other sites with unspecified severity (14) Nonhealing ulcer of left lower leg Status: Inactive Current Visit: No Code(s): L97.829 - Non-pressure chronic ulcer of other part of left lower leg with unspecified severity (15) Edema Status: Chronic Current Visit: Yes Code(s): R60.9 - Edema, unspecified History of Present Illness Date of Service: 09/28/18 Chief Complaint: Traumatic wound to the right and left anterolateral tibial surface. History of Wound: This is an 82-year-old female who is in her normal state of health until approximately 6 weeks prior to presentation. At that time, she sustained trauma to the left anterior tibial surface against a [place] [employer] gonzalez that punctured her in her garden through her pants. Then a week later she sustained a trauma to her right anteriolateral leg from a shovel in her garden. These injuries are now non healing ulcers that the patient had been using Kailash sporin topically, without healing. Patient has a history of chronic venous insufficiency, and has had a venous ulceration in the past, located in the left medial supramalleolar area and right anteriolateral tibia. She has a resultant scar in this area. She denies a history of thrombophlebitis. She sleeps on a flat surface at night. She has been wearing her compression stockings as previously prescribed. Her last vascular studies were 07/2017, the venous doppler showed segmental valvular incompetence within the greater saphenous veins bilaterally. Small saphenous veins are patent and incompetent bilaterally. Arterial studies showed right CRISTOFER=1.17 and left CRISTOFER = 1.17. She denies any fevers, chills nausea and vomiting. She states her appetitie is ok. 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 She has also undergone surgery for removal of a benign goiter. Patient is a Ab0. Allergies/Adverse Reactions: Allergies adhesive tape Allergy (Verified 09/14/18 15:16) Rash levofloxacin [From Levaquin] Allergy (Verified 09/14/18 15:16) Unknown Sulfa (Sulfonamide Antibiotics) Allergy (Verified 09/14/18 15:16) Unknown meloxicam Adverse Reaction (Verified 09/14/18 15:16) Diarrhea tizanidine Adverse Reaction (Verified 09/14/18 15:16) Vomiting Home Medications: Ambulatory Orders Medication Instructions Recorded Albuterol IH (ProAir) [Proair Hfa 1 puff INHALATION Q4H PRN PRN 01/25/15 (SP)Vent Pts] Budesonide/Formoterol 80-4.5 2 puff BID 01/25/15 [Symbicort 80-4.5 Mcg Inhaler] Calcium Carbonate [Calcium] 500 mg PO DAILY 01/25/15 Cholecalciferol (VIT D3) [Vitamin 2,000 unit PO DAILY 01/25/15 D] - Family History Maternal - - The patient did not know her father. Her mother at the age of 96 from old age. Smoking Status: Never smoker Tobacco Use: Non-smoker Review of Systems Constitutional: Denies: Chills, Fever, Weight Change Eyes: Denies: Pain, Vision Change HEENT: Denies: Difficulty Hearing, Difficulty Swallowing, Sinus Congestion Cardiovascular: Denies: Chest Pain, Palpitations Respiratory: Denies: Cough, Shortness of Breath Gastrointestinal: Denies: Diarrhea, Nausea, Vomiting Genitourinary: Denies: Dysuria, Hematuria Endocrine: Denies: Heat/ Cold Intolerance, Polydipsia, Polyuria Hematologic/ Lymphatic: Denies: Easy Bruising, Easy Bleeding - Physical Exam Vital Signs Temp Pulse Resp BP 96.9 F L 79 18 154/72 H 09/28/18 09:39 09/28/18 09:39 09/28/18 09:39 09/28/18 09:39 General: Alert, Oriented x3, Cooperative, No apparent distress, Well developed, Well nourished HEENT: Atraumatic, PERRLA, EOMI, Normocephalic Oral: Moist Mucosa Neck: No JVD Lungs: Normal air movement Abdomen: Non-Distended Extremities: No clubbing, No cyanosis, No edema, No Calf Tenderness, - - Swelling and edema in the lower extremities appears to be well controlled. The ulceration on the right lateral calf is now quite small in size, and superficial. There is no sign of infection or cellulitis. There is a small amount of bioburden. The ulceration on the left lateral calf is larger than that on the right. There is a moderate amount of bioburden and nonviable tissue. There is no obvious sign of infection or cellulitis. Dimensions of the patient's wounds are documented elsewhere. Skin: No rashes Wound Measurements and Assessment WC - Nurse 1 - General Ulcer Measurement Start: 09/28/18 09:38 Freq: Status: Active Protocol: Activity Type Activity Date Activity User E-Sign Co-Sign Detail Recorded Client Recorded Date Recorded By Document 09/28/18 09:39 DL [id number] 09/28/18 09:48 DL 09/28/18 09:39 Wound Center Nurse 1 [Ulcer Assessment] #5 LATERAL LLE -Current Size (cm) - Length 1 -Current Size (cm) - Width 0.8 -Current Size (cm) - Depth 0.1 -Total Square Cm 0.8 -Photo Taken No -Exudate Amt None Present -Exudate Type Serosanguineous -Wound Margin Distinct, Outline Attached -Granulation Amt None Present (0 %) -Necrosis Amt Large (67-100%) -Necrotic Tissue Type Adherent Slough -Structure Exposed N/A -Texture (Shanique-wound Skin Appearance) Scarring -Moisture (Shanique-wound Skin Appearance No Abnormality ) -Color (Shanique-wound Skin Appearance) Hemosiderin Staining -Temperature (Shanique-wound Skin No Abnormality Appearance) (Pt Warm) -Tenderness on Palpation (Shanique-wound No Skin Appearance) -Ulcer Cleansing Rinsed/ Irrigated with Saline -Foul Odor after Cleansing No -Anesthetic Used 4% Lidocaine Solution #4 LATERAL RLE -Current Size (cm) - Length 0.3 -Current Size (cm) - Width 0.2 -Current Size (cm) - Depth 0.1 -Total Square Cm 0.06 -Photo Taken No -Exudate Amt None Present -Wound Margin Distinct, Outline Attached -Granulation Amt Small (1-33%) -Granulation Quality [place] -Necrosis Amt Small (1-33%) -Necrotic Tissue Type Adherent Slough -Structure Exposed N/A -Texture (Shanique-wound Skin Appearance) Scarring -Moisture (Shanique-wound Skin Appearance No Abnormality ) -Color (Shanique-wound Skin Appearance) Hemosiderin Staining -Temperature (Shanique-wound Skin No Abnormality Appearance) (Pt Warm) -Tenderness on Palpation (Shanique-wound No Skin Appearance) -Ulcer Cleansing Rinsed/ Irrigated with Saline -Foul Odor after Cleansing No -Anesthetic Used 4% Lidocaine Solution [Edema Assessment] -Right Calf (cm) 32.6 -Right Ankle (cm) 20.3 -Left Calf (cm) 32.6 -Left Ankle (cm) 20.3 Musculoskeletal: No Muscle Wasting Neurological: Cranial nerves II-XII grossly intact, Neuro grossly intact Psych/Mental Status: Normal Affect, Appropriate, Alert and oriented to time, place, person, mood and affect Debridement Note Laterality: Right - Lateral calf Type of Debridement: Excisional debridement Anesthesia Used: 5% Lidocaine Gel Depth: Down to and including healthy tissue, in the subcutaneous layer Percentage of wound debrided: 100 Instrument Used: 5mm curette Tissue Removed: Nonviable tissue and bioburden Severity: Fat Layer Exposed Amount of bleeding with debridement: Mild Bleeding Controlled with: Compression and gauze Patient tolerated procedure well - Additional Wound Laterality: Left - Lateral calf Type of Debridement: Excisional debridement Anesthesia Used: 5% Lidocaine Gel Depth: Down to and including healthy tissue, in the subcutaneous layer Percentage of wound debrided: 100 Instrument Used: 5mm curette Tissue Removed: Nonviable tissue and bioburden Severity: Fat Layer Exposed Amount of bleeding with debridement: Mild Bleeding Controlled with: Compression and gauze Patient tolerated procedure: Patient tolerated procedure well Assessment/Plan Active Problems Traumatic wound (Chronic) Chronic venous insufficiency (Chronic) History of venous ulcer (Chronic) Lipodermatosclerosis (Chronic) 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 Traumatic ulcers of lower leg. 2. Ulcer of right lower leg - right. 3. Ulcer of left lower leg - left. 4. Chronic venous insufficiency Plan: Patient sustained a traumatic ulcer in both her right and left lower legs while gardening 5 & 6 weeks prior to her presentation. She had been using Neosporin and Collagen Hydrogel on the ulcers since they occured without healing prior to her presentation. The patient appeared not to tolerate the Celena topically on the wound of the right lower extremity since her most recent visit a week ago, experiencing some burning sensation. As result, she resorted to the use of collagenase Santyl. The wound of the right lateral calf is now quite small. We are to implement the use of collagen hydrogel topically on a daily basis. Patient is to continue using collagenase Santyl topically to the ulceration on the left lateral calf, as there remains some nonviable tissue and bioburden. The patient is in the midst of her course of Augmentin 875 mg p.o. twice daily for 10 days, which will be continued until completion. Patient will return in 1 week for reassessment. Patient has been encouraged to elevate her lower extremities much as possible, and to avoid idle standing and sitting. Patient's laboratory studies have been reviewed, without any outstanding abnormalities. Influenza vaccine was not administered today. Patient is not a smoker. She stands 5 feet 7 inches tall. She weighs 138 pounds. Her BMI is 21.6, which is normal.
[2018-10-05 09:15] VITALS: BP 139/59; PULSE 74; RESP 16; TEMP 36.4; BMI 21.6
--- NOTE | 2018-10-05 09:54 | PCM.WC.HP ---
(1) Traumatic wound Status: Chronic Current Visit: Yes (2) Chronic venous insufficiency Status: Chronic Current Visit: Yes Code(s): I87.2 - Venous insufficiency (chronic) (peripheral) (3) Asthma Status: Chronic Current Visit: No Code(s): J45.909 - Unspecified asthma, uncomplicated (4) GERD (gastroesophageal reflux disease) Status: Chronic Current Visit: No Code(s): K21.9 - Gastro-esophageal reflux disease without esophagitis (5) History of venous ulcer Status: Chronic Current Visit: Yes (6) History of goiter Status: Chronic Current Visit: No Code(s): Z86.39 - Personal history of other endocrine, nutritional and metabolic disease (7) Lipodermatosclerosis Status: Chronic Current Visit: Yes Qualifiers: Laterality: bilateral Qualified Code(s): I83.11 - Varicose veins of right lower extremity with inflammation; I83.12 - Varicose veins of left lower extremity with inflammation Code(s): I83.10 - Varicose veins of unspecified lower extremity with inflammation (8) 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: Chronic Current Visit: Yes Qualifiers: Encounter type: subsequent encounter Code(s): S81.801A - Unspecified open wound, right lower leg, initial encounter (9) Ulcer of right lower leg Status: Chronic Current Visit: Yes Qualifiers: Non-pressure ulcer stage: with fat layer exposed Qualified Code(s): L97.912 - Non-pressure chronic ulcer of unspecified part of right lower leg with fat layer exposed Code(s): L97.919 - Non-pressure chronic ulcer of unspecified part of right lower leg with unspecified severity (10) Ulcer of left lower leg Status: Chronic Current Visit: Yes Qualifiers: Non-pressure ulcer stage: with fat layer exposed Qualified Code(s): L97.922 - Non-pressure chronic ulcer of unspecified part of left lower leg with fat layer exposed Code(s): L97.929 - 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 (11) Traumatic ulcer of lower leg Status: Chronic Current Visit: Yes Qualifiers: Laterality: left Code(s): L97.909 - Non-pressure chronic ulcer of unspecified part of unspecified lower leg with unspecified severity (12) Peripheral vascular disease Status: Chronic Current Visit: No Code(s): I73.9 - Peripheral vascular disease, unspecified (13) Traumatic ulcer Status: Chronic Current Visit: Yes Qualifiers: Non-pressure ulcer stage: with fat layer exposed Code(s): L98.499 - Non-pressure chronic ulcer of skin of other sites with unspecified severity (14) Nonhealing ulcer of left lower leg Status: Inactive Current Visit: No Code(s): L97.829 - Non-pressure chronic ulcer of other part of left lower leg with unspecified severity (15) Edema Status: Chronic Current Visit: Yes Code(s): R60.9 - Edema, unspecified History of Present Illness Date of Service: 10/05/18 Chief Complaint: Traumatic wound to the right and left anterolateral tibial surface. History of Wound: This is an 82-year-old female who is in her normal state of health until approximately 6 weeks prior to presentation. At that time, she sustained trauma to the left anterior tibial surface against a [employer] gonzalez that punctured her in her garden through her pants. Then a week later she sustained a trauma to her right anteriolateral leg from a shovel in her garden. These injuries are now non healing ulcers that the patient had been using Neosporin topically, without healing. Patient has a history of chronic venous insufficiency, and has had a venous ulceration in the past, located in the left medial supramalleolar area and right anteriolateral tibia. She has a resultant scar in this area. She denies a history of thrombophlebitis. She sleeps on a flat surface at night. She has been wearing her compression stockings as previously prescribed. Her last vascular studies were 07/2017, the venous doppler showed segmental valvular incompetence within the greater saphenous veins bilaterally. Small saphenous veins are patent and incompetent bilaterally. Arterial studies showed right CRISTOFER=1.17 and left CRISTOFER = 1.17. She denies any fevers, chills nausea and vomiting. She states her appetitie is good. 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 She has also undergone surgery for removal of a benign goiter. Patient is a Ab0. Allergies/Adverse Reactions: Allergies adhesive tape Allergy (Verified 09/14/18 15:16) Rash levofloxacin [From Levaquin] Allergy (Verified 09/14/18 15:16) Unknown Sulfa (Sulfonamide Antibiotics) Allergy (Verified 09/14/18 15:16) Unknown meloxicam Adverse Reaction (Verified 09/14/18 15:16) Diarrhea tizanidine Adverse Reaction (Verified 09/14/18 15:16) Vomiting Home Medications: Ambulatory Orders Medication Instructions Recorded Albuterol IH (ProAir) [Proair Hfa 1 puff INHALATION Q4H PRN PRN 01/25/15 (SP)Vent Pts] Budesonide/Formoterol 80-4.5 2 puff BID 01/25/15 [Symbicort 80-4.5 Mcg Inhaler] Calcium Carbonate [Calcium] 500 mg PO DAILY 01/25/15 Cholecalciferol (VIT D3) [Vitamin 2,000 unit PO DAILY 01/25/15 D] - Family History Maternal - - The patient did not know her father. Her mother at the age of 96 from old age. Smoking Status: Never smoker Tobacco Use: Non-smoker Review of Systems Constitutional: Denies: Chills, Fever, Weight Change Eyes: Denies: Pain, Vision Change HEENT: Denies: Difficulty Hearing, Difficulty Swallowing, Sinus Congestion Cardiovascular: Denies: Chest Pain, Palpitations Respiratory: Denies: Cough, Shortness of Breath Gastrointestinal: Denies: Diarrhea, Nausea, Vomiting Genitourinary: Denies: Dysuria, Hematuria Endocrine: Denies: Heat/ Cold Intolerance, Polydipsia, Polyuria Hematologic/ Lymphatic: Denies: Easy Bruising, Easy Bleeding - Physical Exam Vital Signs Temp Pulse Resp BP 97.5 F L 74 16 139/59 H 10/05/18 09:15 10/05/18 09:15 10/05/18 09:15 10/05/18 09:15 General: Alert, Oriented x3, Cooperative, No apparent distress, Well developed, Well nourished HEENT: Atraumatic, PERRLA, EOMI, Normocephalic Oral: Moist Mucosa Neck: No JVD Lungs: Normal air movement Abdomen: Non-Distended Extremities: No clubbing, No cyanosis, No edema, No Calf Tenderness, - - The wound on the right calf is now completely healed and epithelialized. The wound on the left lateral calf persists, but is smaller in size. There remains a small amount of bioburden. Dimensions are documented elsewhere. There is no sign of infection or cellulitis. Skin: No rashes Wound Measurements and Assessment WC - Nurse 1 - General Ulcer Measurement Start: 09/28/18 09:38 Freq: Status: Active Protocol: Activity Type Activity Date Activity User E-Sign Co-Sign Detail Recorded Client Recorded Date Recorded By Document 10/05/18 09:15 BS [id number] 10/05/18 09:20 BS 10/05/18 09:15 Wound Center Nurse 1 [Ulcer Assessment] #5 LATERAL LLE -Combined with other wound No -Current Size (cm) - Length 0.1 -Current Size (cm) - Width 0.1 -Current Size (cm) - Depth 0.2 -Total Square Cm 0.01 -Photo Taken No -Tunneling No -Granulation Quality [place],Red -Slough/Fibrin Yes -Texture (Shanique-wound Skin Appearance) Assessed, Induration, Localized Edema -Temperature (Shanique-wound Skin No Abnormality Appearance) (Pt Warm) -Tenderness on Palpation (Shanique-wound No Skin Appearance) -Ulcer Cleansing Rinsed/ Irrigated with Saline -Foul Odor after Cleansing No -Anesthetic Used 5% Lidocaine Gel #4 LATERAL RLE -Combined with other wound No -Current Size (cm) - Length 0.1 -Current Size (cm) - Width 0.1 -Current Size (cm) - Depth 0.1 -Total Square Cm 0.01 -Photo Taken No -Tunneling No -Granulation Quality Red -Slough/Fibrin No -Texture (Shanique-wound Skin Appearance) Assessed, Scarring -Temperature (Shanique-wound Skin No Abnormality Appearance) (Pt Warm) -Ulcer Cleansing Rinsed/ Irrigated with Saline -Foul Odor after Cleansing No [Edema Assessment] -Lower Limb Edema Present Yes -Point of measurement (cm from the 31 medial instep) -Point of Measurement (cm from the 21 medial instep) -Point of measurement (cm from the 20.5 medial instep) -Point of Measurement (cm from the 31 medial instep) WC - Nurse 2 - General Ulcer CM Notes Start: 09/28/18 09:38 Freq: Status: Active Protocol: Activity Type Activity Date Activity User E-Sign Co-Sign Detail Recorded Client Recorded Date Recorded By Document 10/05/18 09:40 DV [id number] 10/05/18 09:41 DV 10/05/18 09:40 Wound Center Nurse 2 [Procedure/Treatment] #5 LATERAL LLE -Time 09:40 -Correct Patient Yes -Correct Side, Site, Position Yes -Correct Procedure Yes -Procedure Performed Yes -Type of Procedure Debridement -Clinical Debridement Subcutaneous -Post Debridement Size (cm) - Length 0.8 -Post Debridement Size (cm) - Width 0.7 -Post Debridement Size (cm) - Depth 0.2 -Total Square Cm 0.56 -Wound/Ulcer Outcome Not Healed -Ulcer Cleansing Rinsed/ Irrigated with Saline -Foul Odor after Cleansing No -Bioengineered Tissue No -Bleeding Controlled with Pressure -Offloading No -Treatment Response Procedure Tolerated Well #4 LATERAL RLE -Time 09:40 -Correct Patient Yes -Correct Side, Site, Position Yes -Correct Procedure No -Procedure Performed No -Post Debridement Size (cm) - Length 0 -Post Debridement Size (cm) - Width 0 -Post Debridement Size (cm) - Depth 0 -Total Square Cm 0 -Wound/Ulcer Outcome Healed- Epithelialized [See Physician Procedure note for Specifics] Pain Scale: 0-10 Numeric [Pain] -Is Patient Pain Free? Yes Musculoskeletal: No Muscle Wasting Neurological: Cranial nerves II-XII grossly intact, Neuro grossly intact Psych/Mental Status: Normal Affect, Appropriate, Alert and oriented to time, place, person, mood and affect Debridement Note Post-Debridement Measurements/Treatment WC - Nurse 2 - General Ulcer CM Notes Start: 09/28/18 09:38 Freq: Status: Active Protocol: Activity Type Activity Date Activity User E-Sign Co-Sign Detail Recorded Client Recorded Date Recorded By Document 09/28/18 10:40 DV [id number] 09/28/18 10:44 DV Document 10/05/18 09:40 DV [id number] 10/05/18 09:41 DV 09/28/18 10/05/18 10:40 09:40 Wound Center Nurse 2 #5 LATERAL LLE -Time 10:41 09:40 -Correct Patient Yes Yes -Correct Side, Site, Position Yes Yes -Correct Procedure Yes Yes -Procedure Performed Yes Yes -Type of Procedure Debridement Debridement -Clinical Debridement Subcutaneous Subcutaneous -Post Debridement Size (cm) - Length 1.0 0.8 -Post Debridement Size (cm) - Width 1.0 0.7 -Post Debridement Size (cm) - Depth 0.1 0.2 -Total Square Cm 1.00 0.56 -Wound/Ulcer Outcome Not Healed Not Healed -Ulcer Cleansing Rinsed/ Rinsed/ Irrigated with Irrigated with Saline Saline -Foul Odor after Cleansing No No -Bioengineered Tissue No No -Bleeding Controlled with Pressure Pressure -Offloading No No -Treatment Response Procedure Procedure Tolerated Well Tolerated Well #4 LATERAL RLE -Time 10:41 09:40 -Correct Patient Yes Yes -Correct Side, Site, Position Yes Yes -Correct Procedure Yes No -Procedure Performed Yes No -Type of Procedure Debridement -Clinical Debridement Subcutaneous -Post Debridement Size (cm) - Length 0.5 0 -Post Debridement Size (cm) - Width 0.5 0 -Post Debridement Size (cm) - Depth 0.1 0 -Total Square Cm 0.25 0 -Wound/Ulcer Outcome Not Healed Healed- Epithelialized -Ulcer Cleansing Rinsed/ Irrigated with Saline -Foul Odor after Cleansing No -Bioengineered Tissue No -Bleeding Controlled with Pressure -Offloading No -Treatment Response Procedure Tolerated Well Pain Scale: 0-10 Numeric Is Patient Pain Free? Yes Yes Laterality: Left - Lateral calf Type of Debridement: Excisional debridement Anesthesia Used: 5% Lidocaine Gel Depth: Down to and including healthy tissue, in the subcutaneous layer Percentage of wound debrided: 100 Instrument Used: 5mm curette Tissue Removed: Bioburden and nonviable tissue Severity: Fat Layer Exposed Amount of bleeding with debridement: Mild Bleeding Controlled with: Compression and gauze Patient tolerated procedure well Assessment/Plan Active Problems Traumatic wound (Chronic) Chronic venous insufficiency (Chronic) History of venous ulcer (Chronic) Lipodermatosclerosis (Chronic) 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 Traumatic ulcers of lower leg. 2. Ulcer of right lower leg - right. 3. Ulcer of left lower leg - left. 4. Chronic venous insufficiency Plan: Patient sustained a traumatic ulcer in both her right and left lower legs while gardening 5 & 6 weeks prior to her presentation. She had been using Neosporin and Collagen Hydrogel on the ulcers since they occured without healing prior to her presentation. The patient appeared not to tolerate the Celena topically on the wound of the right lower extremity recently, experiencing some burning sensation. As result, she resorted to the use of collagenase Santyl. The wound of the right lateral calf is now healed. The wound on the left lateral calf is decreasing in size. Patient is to continue using collagenase Santyl topically to the ulceration on the left lateral calf, as there remains some nonviable tissue and bioburden. The patient has completed her course of Augmentin 875 mg p.o. twice daily for 10 days. Patient will return in 1 week for reassessment. Patient has been encouraged to elevate her lower extremities much as possible, and to avoid idle standing and sitting. She is to continue using Tubigrip's for compression to her lower extremities. Patient's laboratory studies have been reviewed, without any outstanding abnormalities. Influenza vaccine was not administered today. Patient is not a smoker. She stands 5 feet 7 inches tall. She weighs 138 pounds. Her BMI is 21.6, which is normal.
[2018-10-12 09:07] VITALS: BP 142/72; PULSE 73; RESP 16; TEMP 36.3; BMI 21.6
--- NOTE | 2018-10-12 10:04 | HP.PCM_ITS ---
(1) Traumatic wound Status: Chronic Current Visit: Yes (2) Chronic venous insufficiency Status: Chronic Current Visit: Yes Code(s): I87.2 - Venous insufficiency (chronic) (peripheral) (3) Asthma Status: Chronic Current Visit: No Code(s): J45.909 - Unspecified asthma, uncomplicated (4) GERD (gastroesophageal reflux disease) Status: Chronic Current Visit: No Code(s): K21.9 - Gastro-esophageal reflux disease without esophagitis (5) History of venous ulcer Status: Chronic Current Visit: Yes (6) History of goiter Status: Chronic Current Visit: No Code(s): Z86.39 - Personal history of other endocrine, nutritional and metabolic disease (7) Lipodermatosclerosis Status: Chronic Current Visit: Yes Qualifiers: Laterality: bilateral Qualified Code(s): I83.11 - Varicose veins of right lower extremity with inflammation; I83.12 - Varicose veins of left lower extremity with inflammation Code(s): I83.10 - Varicose veins of unspecified lower extremity with inflammation (8) 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: Chronic Current Visit: Yes Qualifiers: Encounter type: subsequent encounter Code(s): S81.801A - Unspecified open wound, right lower leg, initial encounter (9) Ulcer of right lower leg Status: Chronic Current Visit: Yes Qualifiers: Non-pressure ulcer stage: with fat layer exposed Qualified Code(s): L97.912 - Non-pressure chronic ulcer of unspecified part of right lower leg with fat layer exposed Code(s): L97.919 - Non-pressure chronic ulcer of unspecified part of right lower leg with unspecified severity (10) Ulcer of left lower leg Status: Chronic Current Visit: Yes Qualifiers: Non-pressure ulcer stage: with fat layer exposed Qualified Code(s): L97.922 - Non-pressure chronic ulcer of unspecified part of left lower leg with fat layer exposed Code(s): L97.929 - 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 (11) Traumatic ulcer of lower leg Status: Chronic Current Visit: Yes Qualifiers: Laterality: left Code(s): L97.909 - Non-pressure chronic ulcer of unspecified part of unspecified lower leg with unspecified severity (12) Peripheral vascular disease Status: Chronic Current Visit: No Code(s): I73.9 - Peripheral vascular disease, unspecified (13) Traumatic ulcer Status: Chronic Current Visit: Yes Qualifiers: Non-pressure ulcer stage: with fat layer exposed Code(s): L98.499 - Non-pressure chronic ulcer of skin of other sites with unspecified severity (14) Nonhealing ulcer of left lower leg Status: Inactive Current Visit: No Code(s): L97.829 - Non-pressure chronic ulcer of other part of left lower leg with unspecified severity (15) Edema Status: Chronic Current Visit: Yes Code(s): R60.9 - Edema, unspecified History of Present Illness Date of Service: 10/12/18 Chief Complaint: Traumatic wound to the right and left anterolateral tibial surface. History of Wound: This is an 82-year-old female who is in her normal state of health until approximately 6 weeks prior to presentation. At that time, she sustained trauma to the left anterior tibial surface against a [place] [employer] gonz[employer] that punctured her in her garden through her pants. Then a week later she sustained a trauma to her right anteriolateral leg from a shovel in her garden. These injuries are now non healing ulcers that the patient had been using Neosporin topically, without healing. Patient has a history of chronic venous insufficiency, and has had a venous ulceration in the past, located in the left medial supramalleolar area and right anteriolateral tibia. She has a resultant scar in this area. She denies a history of thrombophlebitis. She sleeps on a flat surface at night. She has been wearing her compression stockings as previously prescribed. Her last vascular studies were 07/2017, the venous doppler showed segmental valvular incompetence within the greater saphenous veins bilaterally. Small saphenous veins are patent and incompetent bilaterally. Arterial studies showed right CRISTOFER=1.17 and left CRISTOFER = 1.17. She denies any fevers, chills nausea and vomiting. She states her appetitie is good. 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 She has also undergone surgery for removal of a benign goiter. Patient is a Ab0. Allergies/Adverse Reactions: Allergies adhesive tape Allergy (Verified 09/14/18 15:16) Rash levofloxacin [From Levaquin] Allergy (Verified 09/14/18 15:16) Unknown Sulfa (Sulfonamide Antibiotics) Allergy (Verified 09/14/18 15:16) Unknown meloxicam Adverse Reaction (Verified 09/14/18 15:16) Diarrhea tizanidine Adverse Reaction (Verified 09/14/18 15:16) Vomiting Home Medications: Ambulatory Orders Medication Instructions Recorded Albuterol IH (ProAir) [Proair Hfa 1 puff INHALATION Q4H PRN PRN 01/25/15 (SP)Vent Pts] Budesonide/Formoterol 80-4.5 2 puff BID 01/25/15 [Symbicort 80-4.5 Mcg Inhaler] Calcium Carbonate [Calcium] 500 mg PO DAILY 01/25/15 Cholecalciferol (VIT D3) [Vitamin 2,000 unit PO DAILY 01/25/15 D] - Family History Maternal - - The patient did not know her father. Her mother at the age of 96 from old age. Smoking Status: Never smoker Tobacco Use: Non-smoker Review of Systems Constitutional: Denies: Chills, Fever, Weight Change Eyes: Denies: Pain, Vision Change HEENT: Denies: Difficulty Hearing, Difficulty Swallowing, Sinus Congestion Cardiovascular: Denies: Chest Pain, Palpitations Respiratory: Denies: Cough, Shortness of Breath Gastrointestinal: Denies: Diarrhea, Nausea, Vomiting Genitourinary: Denies: Dysuria, Hematuria Endocrine: Denies: Heat/ Cold Intolerance, Polydipsia, Polyuria Hematologic/ Lymphatic: Denies: Easy Bruising, Easy Bleeding - Physical Exam Vital Signs Temp Pulse Resp BP 97.3 F L 73 16 142/72 H 10/12/18 09:07 10/12/18 09:07 10/12/18 09:07 10/12/18 09:07 General: Alert, Oriented x3, Cooperative, No apparent distress, Well developed, Well nourished HEENT: Atraumatic, PERRLA, EOMI, Normocephalic Oral: Moist Mucosa Neck: No JVD Lungs: Normal air movement Abdomen: Non-Distended Extremities: No clubbing, No cyanosis, No edema, No Calf Tenderness, - - The ulceration in the right lower extremity remains healed. The ulceration on the left lateral calf persists, little changed in size. Dimensions are documented elsewhere. There is no sign of infection or cellulitis. The base of the ulceration is generally pink and healthy in appearance, with a small amount of bioburden. Skin: No rashes Wound Measurements and Assessment WC - Nurse 1 - General Ulcer Measurement Start: 09/28/18 09:38 Freq: Status: Active Protocol: Activity Type Activity Date Activity User E-Sign Co-Sign Detail Recorded Client Recorded Date Recorded By Document 10/12/18 09:07 KS [id number] 10/12/18 09:13 MT 10/12/18 09:07 Wound Center Nurse 1 [Ulcer Assessment] #5 LATERAL LLE -Current Size (cm) - Length 1.2 -Current Size (cm) - Width 1.0 -Current Size (cm) - Depth 0.1 -Total Square Cm 1.20 -Exudate Amt Small -Exudate Type Serosanguineous -Wound Margin Flat & Intact -Granulation Amt Small (1-33%) -Granulation Quality Pale,[place] -Necrosis Amt Large (67-100%) -Necrotic Tissue Type Adherent Slough -Texture (Shanique-wound Skin Appearance) Assessed -Moisture (Shanique-wound Skin Appearance Assessed, ) Maceration -Color (Shanique-wound Skin Appearance) Assessed -Temperature (Shanique-wound Skin No Abnormality Appearance) (Pt Warm) -Tenderness on Palpation (Shanique-wound No Skin Appearance) -Ulcer Cleansing Rinsed/ Irrigated with Saline -Foul Odor after Cleansing No -Anesthetic Used 4% Lidocaine Solution [Edema Assessment] -Left Calf (cm) 32 -Left Ankle (cm) 21 WC - Nurse 2 - General Ulcer CM Notes Start: 09/28/18 09:38 Freq: Status: Active Protocol: Activity Type Activity Date Activity User E-Sign Co-Sign Detail Recorded Client Recorded Date Recorded By Document 10/12/18 09:59 DV [id number] 10/12/18 10:03 DV 10/12/18 09:59 Wound Center Nurse 2 [Procedure/Treatment] #5 LATERAL LLE -Time 10:00 -Correct Patient Yes -Correct Side, Site, Position Yes -Correct Procedure Yes -Procedure Performed Yes -Type of Procedure Debridement -Clinical Debridement Subcutaneous -Post Debridement Size (cm) - Length 1.0 -Post Debridement Size (cm) - Width 1.0 -Post Debridement Size (cm) - Depth 0.2 -Total Square Cm 1.00 -Wound/Ulcer Outcome Not Healed -Ulcer Cleansing Rinsed/ Irrigated with Saline -Foul Odor after Cleansing No -Bioengineered Tissue No -Bleeding Controlled with Pressure -Offloading No -Treatment Response Procedure Tolerated Well [See Physician Procedure note for Specifics] Pain Scale: 0-10 Numeric [Pain] -Is Patient Pain Free? Yes Musculoskeletal: No Muscle Wasting Neurological: Cranial nerves II-XII grossly intact, Neuro grossly intact Psych/Mental Status: Normal Affect, Appropriate, Alert and oriented to time, place, person, mood and affect Debridement Note Post-Debridement Measurements/Treatment WC - Nurse 2 - General Ulcer CM Notes Start: 09/28/18 09:38 Freq: Status: Active Protocol: Activity Type Activity Date Activity User E-Sign Co-Sign Detail Recorded Client Recorded Date Recorded By Document 09/28/18 10:40 DV [id number] 09/28/18 10:44 DV Document 10/05/18 09:40 DV [id number] 10/05/18 09:41 DV Document 10/12/18 09:59 DV [id number] 10/12/18 10:03 DV 09/28/18 10/05/18 08 10:40 09:40 09:59 Wound Center Nurse 2 #5 LATERAL LLE -Time 10:41 09:40 10:00 -Correct Patient Yes Yes Yes -Correct Side, Site, Position Yes Yes Yes -Correct Procedure Yes Yes Yes -Procedure Performed Yes Yes Yes -Type of Procedure Debridement Debridement Debridement -Clinical Debridement Subcutaneous Subcutaneous Subcutaneous -Post Debridement Size (cm) - Length 1.0 0.8 1.0 -Post Debridement Size (cm) - Width 1.0 0.7 1.0 -Post Debridement Size (cm) - Depth 0.1 0.2 0.2 -Total Square Cm 1.00 0.56 1.00 -Wound/Ulcer Outcome Not Healed Not Healed Not Healed -Ulcer Cleansing Rinsed/ Rinsed/ Rinsed/ Irrigated with Irrigated with Irrigated with Saline Saline Saline -Foul Odor after Cleansing No No No -Bioengineered Tissue No No No -Bleeding Controlled with Pressure Pressure Pressure -Offloading No No No -Treatment Response Procedure Procedure Procedure Tolerated Well Tolerated Well Tolerated Well #4 LATERAL RLE -Time 10:41 09:40 -Correct Patient Yes Yes -Correct Side, Site, Position Yes Yes -Correct Procedure Yes No -Procedure Performed Yes No -Type of Procedure Debridement -Clinical Debridement Subcutaneous -Post Debridement Size (cm) - Length 0.5 0 -Post Debridement Size (cm) - Width 0.5 0 -Post Debridement Size (cm) - Depth 0.1 0 -Total Square Cm 0.25 0 -Wound/Ulcer Outcome Not Healed Healed- Epithelialized -Ulcer Cleansing Rinsed/ Irrigated with Saline -Foul Odor after Cleansing No -Bioengineered Tissue No -Bleeding Controlled with Pressure -Offloading No -Treatment Response Procedure Tolerated Well Pain Scale: 0-10 Numeric Is Patient Pain Free? Yes Yes Yes Laterality: Left - Lateral calf Type of Debridement: Excisional debridement Anesthesia Used: 5% Lidocaine Gel Depth: Down to and including healthy tissue, in the subcutaneous layer Percentage of wound debrided: 100 Instrument Used: 7mm curette Tissue Removed: Bioburden and nonviable tissue Severity: Fat Layer Exposed Amount of bleeding with debridement: Mild Bleeding Controlled with: Compression and gauze Patient tolerated procedure well Assessment/Plan Active Problems Traumatic wound (Chronic) Chronic venous insufficiency (Chronic) History of venous ulcer (Chronic) Lipodermatosclerosis (Chronic) 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 Traumatic ulcers of lower leg. 2. Ulcer of right lower leg - right. 3. Ulcer of left lower leg - left. 4. Chronic venous insufficiency. Patient appears to be doing well at this time. Her left calf wound has responded well to the use of collagenase Santyl. We are now to transition from the use of Santyl to Promogran, which will be changed every other day. Consideration had been given to the use of Celena, but the patient has formerly had an adverse minor reaction to the use of Celena topically. Plan: Patient sustained a traumatic ulcer in both her right and left lower legs while gardening 5 & 6 weeks prior to her presentation. She had been using Neosporin and Collagen Hydrogel on the ulcers since they occured without healing prior to her presentation. The patient appeared not to tolerate the Celena topically on the wound of the right lower extremity recently, experiencing some burning sensation. As result, she resorted to the use of collagenase Santyl. The wound of the right lateral calf is now healed. The wound on the left lateral calf is decreasing in size. We are now to implement the use of Promogran topically to the healing wound on the left lateral calf. This will be changed every other day. The patient has completed a course of Augmentin 875 mg p.o. twice daily for 10 days. Patient will return in 1 week for reassessment. Patient has been encouraged to elevate her lower extremities much as possible, and to avoid idle standing and sitting. She is to continue using graduated compression stockings for compression to her lower extremities. Patient's laboratory studies have been reviewed, without any outstanding abnormalities. Influenza vaccine was not administered today. Patient is not a smoker. She stands 5 feet 7 inches tall. She weighs 138 pounds. Her BMI is 21.6, which is normal.
[2018-10-19 09:02] VITALS: BP 148/67; PULSE 72; RESP 18; TEMP 36; BMI 21.6
--- NOTE | 2018-10-19 10:38 | PCM.WC.HP ---
(1) Traumatic wound Status: Chronic Current Visit: Yes (2) Chronic venous insufficiency Status: Chronic Current Visit: Yes Code(s): I87.2 - Venous insufficiency (chronic) (peripheral) (3) Asthma Status: Chronic Current Visit: No Code(s): J45.909 - Unspecified asthma, uncomplicated (4) GERD (gastroesophageal reflux disease) Status: Chronic Current Visit: No Code(s): K21.9 - Gastro-esophageal reflux disease without esophagitis (5) History of venous ulcer Status: Chronic Current Visit: Yes (6) History of goiter Status: Chronic Current Visit: No Code(s): Z86.39 - Personal history of other endocrine, nutritional and metabolic disease (7) Lipodermatosclerosis Status: Chronic Current Visit: Yes Qualifiers: Laterality: bilateral Qualified Code(s): I83.11 - Varicose veins of right lower extremity with inflammation; I83.12 - Varicose veins of left lower extremity with inflammation Code(s): I83.10 - Varicose veins of unspecified lower extremity with inflammation (8) 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: Chronic Current Visit: Yes Qualifiers: Encounter type: subsequent encounter Code(s): S81.801A - Unspecified open wound, right lower leg, initial encounter (9) Ulcer of right lower leg Status: Chronic Current Visit: Yes Qualifiers: Non-pressure ulcer stage: with fat layer exposed Qualified Code(s): L97.912 - Non-pressure chronic ulcer of unspecified part of right lower leg with fat layer exposed Code(s): L97.919 - Non-pressure chronic ulcer of unspecified part of right lower leg with unspecified severity (10) Ulcer of left lower leg Status: Chronic Current Visit: Yes Qualifiers: Non-pressure ulcer stage: with fat layer exposed Qualified Code(s): L97.922 - Non-pressure chronic ulcer of unspecified part of left lower leg with fat layer exposed Code(s): L97.929 - 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 (11) Traumatic ulcer of lower leg Status: Chronic Current Visit: Yes Qualifiers: Laterality: left Code(s): L97.909 - Non-pressure chronic ulcer of unspecified part of unspecified lower leg with unspecified severity (12) Peripheral vascular disease Status: Chronic Current Visit: No Code(s): I73.9 - Peripheral vascular disease, unspecified (13) Traumatic ulcer Status: Chronic Current Visit: Yes Qualifiers: Non-pressure ulcer stage: with fat layer exposed Code(s): L98.499 - Non-pressure chronic ulcer of skin of other sites with unspecified severity (14) Nonhealing ulcer of left lower leg Status: Inactive Current Visit: No Code(s): L97.829 - Non-pressure chronic ulcer of other part of left lower leg with unspecified severity (15) Edema Status: Chronic Current Visit: Yes Code(s): R60.9 - Edema, unspecified History of Present Illness Date of Service: 10/19/18 Chief Complaint: Traumatic wound to the right and left anterolateral tibial surface. History of Wound: This is an 82-year-old female who is in her normal state of health until approximately 6 weeks prior to presentation. At that time, she sustained trauma to the left anterior tibial surface against a [place] [employer] g[employer] that punctured her in her garden through her pants. Then a week later she sustained a trauma to her right anteriolateral leg from a shovel in her garden. These injuries are now non healing ulcers that the patient had been using Neosporin topically, without healing. Patient has a history of chronic venous insufficiency, and has had a venous ulceration in the past, located in the left medial supramalleolar area and right anteriolateral tibia. She has a resultant scar in this area. She denies a history of thrombophlebitis. She sleeps on a flat surface at night. She has been wearing her compression stockings as previously prescribed. Her last vascular studies were 07/2017, the venous doppler showed segmental valvular incompetence within the greater saphenous veins bilaterally. Small saphenous veins are patent and incompetent bilaterally. Arterial studies showed right CRISTOFER=1.17 and left CRISTOFER = 1.17. She denies any fevers, chills nausea and vomiting. She states her appetitie is good. 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 She has also undergone surgery for removal of a benign goiter. Patient is a Ab0. Allergies/Adverse Reactions: Allergies adhesive tape Allergy (Verified 09/14/18 15:16) Rash levofloxacin [From Levaquin] Allergy (Verified 09/14/18 15:16) Unknown Sulfa (Sulfonamide Antibiotics) Allergy (Verified 09/14/18 15:16) Unknown meloxicam Adverse Reaction (Verified 09/14/18 15:16) Diarrhea tizanidine Adverse Reaction (Verified 09/14/18 15:16) Vomiting Home Medications: Ambulatory Orders Medication Instructions Recorded Albuterol IH (ProAir) [Proair Hfa 1 puff INHALATION Q4H PRN PRN 01/25/15 (SP)Vent Pts] Budesonide/Formoterol 80-4.5 2 puff BID 01/25/15 [Symbicort 80-4.5 Mcg Inhaler] Calcium Carbonate [Calcium] 500 mg PO DAILY 01/25/15 Cholecalciferol (VIT D3) [Vitamin 2,000 unit PO DAILY 01/25/15 D] - Family History Maternal - - The patient did not know her father. Her mother at the age of 96 from old age. Smoking Status: Never smoker Tobacco Use: Non-smoker Review of Systems Constitutional: Denies: Chills, Fever, Weight Change Eyes: Denies: Pain, Vision Change HEENT: Denies: Difficulty Hearing, Difficulty Swallowing, Sinus Congestion Cardiovascular: Denies: Chest Pain, Palpitations Respiratory: Denies: Cough, Shortness of Breath Gastrointestinal: Denies: Diarrhea, Nausea, Vomiting Genitourinary: Denies: Dysuria, Hematuria Endocrine: Denies: Heat/ Cold Intolerance, Polydipsia, Polyuria Hematologic/ Lymphatic: Denies: Easy Bruising, Easy Bleeding - Physical Exam Vital Signs Temp Pulse Resp BP 96.8 F L 72 18 148/67 H 10/19/18 09:02 10/19/18 09:02 10/19/18 09:02 10/19/18 09:02 General: Alert, Oriented x3, Cooperative, No apparent distress, Well developed, Well nourished HEENT: Atraumatic, PERRLA, EOMI, Normocephalic Oral: Moist Mucosa Neck: No JVD Lungs: Normal air movement Abdomen: Non-Distended Extremities: No clubbing, No cyanosis, No edema, No Calf Tenderness, - - The wound persists on the left lateral calf. It is generally pink and healthy in appearance, with a small amount of bioburden and nonviable tissue present. There is no sign of infection or cellulitis. Dimensions are documented elsewhere. Skin: No rashes Wound Measurements and Assessment WC - Nurse 1 - General Ulcer Measurement Start: 09/28/18 09:38 Freq: Status: Active Protocol: Activity Type Activity Date Activity User E-Sign Co-Sign Detail Recorded Client Recorded Date Recorded By Document 10/19/18 09:02 AN [id number] 10/19/18 09:13 AN 10/19/18 09:02 Wound Center Nurse 1 [Ulcer Assessment] #5 LATERAL LLE -Current Size (cm) - Length 0.8 -Current Size (cm) - Width 0.8 -Current Size (cm) - Depth 0.1 -Total Square Cm 0.64 -Photo Taken No -Epithelialization None Present -Tunneling No -Undermining/Tunneling No -Circular Undermining No -Classification - Thickness Full Thickness without Exposed Support Structure -Exudate Amt Small -Exudate Type Serosanguineous -Wound Margin Distinct, Outline Attached -Granulation Amt Small (1-33%) -Granulation Quality Red -Slough/Fibrin Yes -Necrosis Amt Large (67-100%) -Necrotic Tissue Type Adherent Slough -Structure Exposed None/Limited to Skin Breakdown -Texture (Shanique-wound Skin Appearance) Assessed -Moisture (Shanique-wound Skin Appearance Assessed ) -Color (Shanique-wound Skin Appearance) Assessed, Erythema -Temperature (Shanique-wound Skin No Abnormality Appearance) (Pt Warm) -Tenderness on Palpation (Shanique-wound Yes Skin Appearance) -Ulcer Cleansing Rinsed/ Irrigated with Saline -Foul Odor after Cleansing No -Anesthetic Used 4% Lidocaine Solution [Edema Assessment] -Left Calf (cm) 32.5 -Left Ankle (cm) 20.5 Musculoskeletal: No Muscle Wasting Neurological: Cranial nerves II-XII grossly intact, Neuro grossly intact Psych/Mental Status: Normal Affect, Appropriate, Alert and oriented to time, place, person, mood and affect Debridement Note Post-Debridement Measurements/Treatment WC - Nurse 2 - General Ulcer CM Notes Start: 09/28/18 09:38 Freq: Status: Active Protocol: Activity Type Activity Date Activity User E-Sign Co-Sign Detail Recorded Client Recorded Date Recorded By Document 09/28/18 10:40 DV [id number] 09/28/18 10:44 DV Document 10/05/18 09:40 DV [id number] 10/05/18 09:41 DV Document 10/12/18 09:59 DV [id number] 10/12/18 10:03 DV 09/28/18 10/05/18 10/12/18 10:40 09:40 09:59 Wound Center Nurse 2 #5 LATERAL LLE -Time 10:41 09:40 10:00 -Correct Patient Yes Yes Yes -Correct Side, Site, Position Yes Yes Yes -Correct Procedure Yes Yes Yes -Procedure Performed Yes Yes Yes -Type of Procedure Debridement Debridement Debridement -Clinical Debridement Subcutaneous Subcutaneous Subcutaneous -Post Debridement Size (cm) - Length 1.0 0.8 1.0 -Post Debridement Size (cm) - Width 1.0 0.7 1.0 -Post Debridement Size (cm) - Depth 0.1 0.2 0.2 -Total Square Cm 1.00 0.56 1.00 -Wound/Ulcer Outcome Not Healed Not Healed Not Healed -Ulcer Cleansing Rinsed/ Rinsed/ Rinsed/ Irrigated with Irrigated with Irrigated with Saline Saline Saline -Foul Odor after Cleansing No No No -Bioengineered Tissue No No No -Bleeding Controlled with Pressure Pressure Pressure -Offloading No No No -Treatment Response Procedure Procedure Procedure Tolerated Well Tolerated Well Tolerated Well #4 LATERAL RLE -Time 10:41 09:40 -Correct Patient Yes Yes -Correct Side, Site, Position Yes Yes -Correct Procedure Yes No -Procedure Performed Yes No -Type of Procedure Debridement -Clinical Debridement Subcutaneous -Post Debridement Size (cm) - Length 0.5 0 -Post Debridement Size (cm) - Width 0.5 0 -Post Debridement Size (cm) - Depth 0.1 0 -Total Square Cm 0.25 0 -Wound/Ulcer Outcome Not Healed Healed- Epithelialized -Ulcer Cleansing Rinsed/ Irrigated with Saline -Foul Odor after Cleansing No -Bioengineered Tissue No -Bleeding Controlled with Pressure -Offloading No -Treatment Response Procedure Tolerated Well Pain Scale: 0-10 Numeric Is Patient Pain Free? Yes Yes Yes Laterality: Left - Lateral calf Type of Debridement: Excisional debridement Anesthesia Used: 5% Lidocaine Gel Depth: Down to and including healthy tissue, in the subcutaneous layer Percentage of wound debrided: 100 Instrument Used: 3mm curette Tissue Removed: Bioburden and nonviable tissue Severity: Fat Layer Exposed Amount of bleeding with debridement: Mild Bleeding Controlled with: Compression and gauze Patient tolerated procedure well Assessment/Plan Active Problems Traumatic wound (Chronic) Chronic venous insufficiency (Chronic) History of venous ulcer (Chronic) Lipodermatosclerosis (Chronic) 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 Traumatic ulcers of lower leg. 2. Ulcer of right lower leg - right. 3. Ulcer of left lower leg - left. 4. Chronic venous insufficiency. Patient appears to be doing well at this time. Her left calf wound has responded well to the use of collagenase Santyl. We are now to transition from the use of Santyl to Promogran, which will be changed every other day. Consideration had been given to the use of Celena, but the patient has formerly had an adverse minor reaction to the use of Celena topically. Plan: Patient sustained a traumatic ulcer in both her right and left lower legs while gardening 5 & 6 weeks prior to her presentation. She had been using Neosporin and Collagen Hydrogel on the ulcers since they occured without healing prior to her presentation. The patient appeared not to tolerate the Celena topically on the wound of the right lower extremity recently, experiencing some burning sensation. As result, she resorted to the use of collagenase Santyl. The wound of the right lateral calf is now healed. The wound on the left lateral calf is decreasing in size. We are to continue the use of Promogran topically to the healing wound on the left lateral calf. This will be changed every other day. The patient has completed a course of Augmentin 875 mg p.o. twice daily for 10 days. Patient will return in 1 week for reassessment. Patient has been encouraged to elevate her lower extremities much as possible, and to avoid idle standing and sitting. She is to continue using graduated compression stockings for compression to her lower extremities. Patient's laboratory studies have been reviewed, without any outstanding abnormalities. Influenza vaccine was not administered today. Patient is not a smoker. She stands 5 feet 7 inches tall. She weighs 138 pounds. Her BMI is 21.6, which is normal.
== END 2018-10-23 23:59 ==
LOC: WC 09:15
PROVIDERS: Family Provider Internal Medicine; PCP Internal Medicine; Referring Provider Surgery; Visit Provider Surgery
DX: I83.212 Varicose veins of right lower extremity with both ulcer of calf and inflammation (principal); J45.909 Unspecified asthma, uncomplicated; K21.9 Gastro-esophageal reflux disease without esophagitis; L97.212 Non-pressure chronic ulcer of right calf with fat layer exposed; I83.222 Varicose veins of left lower extremity with both ulcer of calf and inflammation; L97.222 Non-pressure chronic ulcer of left calf with fat layer exposed; Z79.899 Other long term (current) drug therapy; Z79.51 Long term (current) use of inhaled steroids
CPT/HCPCS: 11042

== ENCOUNTER 2018-11-16 10:30 | Outpatient (RCR) | payer MEDICARE, SELFPAY ==
[2018-10-24 01:03] VITALS: BP 148/67; PULSE 72; RESP 18; TEMP 36
[2018-10-26 09:13] VITALS: BP 145/65; PULSE 74; RESP 18; TEMP 36.6; BMI 21.6
--- NOTE | 2018-10-26 09:32 | HP.PCM_ITS ---
(1) Traumatic wound Status: Chronic Current Visit: Yes (2) Chronic venous insufficiency Status: Chronic Current Visit: Yes Code(s): I87.2 - Venous insufficiency (chronic) (peripheral) (3) Asthma Status: Chronic Current Visit: No Code(s): J45.909 - Unspecified asthma, uncomplicated (4) GERD (gastroesophageal reflux disease) Status: Chronic Current Visit: No Code(s): K21.9 - Gastro-esophageal reflux disease without esophagitis (5) History of venous ulcer Status: Chronic Current Visit: Yes (6) History of goiter Status: Chronic Current Visit: No Code(s): Z86.39 - Personal history of other endocrine, nutritional and metabolic disease (7) Lipodermatosclerosis Status: Chronic Current Visit: Yes Qualifiers: Code(s): I83.10 - Varicose veins of unspecified lower extremity with inflammation (8) 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: Resolved Current Visit: No Qualifiers: Code(s): S81.801A - Unspecified open wound, right lower leg, initial encounter (9) Ulcer of right lower leg Status: Resolved Current Visit: No Qualifiers: Code(s): L97.919 - Non-pressure chronic ulcer of unspecified part of right lower leg with unspecified severity (10) Ulcer of left lower leg Status: Chronic Current Visit: Yes Qualifiers: Non-pressure ulcer stage: with fat layer exposed Code(s): L97.929 - 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 (11) Traumatic ulcer of lower leg Status: Chronic Current Visit: Yes Qualifiers: Laterality: left Non-pressure ulcer stage: with fat layer exposed Qualified Code(s): L97.922 - Non-pressure chronic ulcer of unspecified part of left lower leg with fat layer exposed Code(s): L97.909 - Non-pressure chronic ulcer of unspecified part of unspecified lower leg with unspecified severity (12) Peripheral vascular disease Status: Chronic Current Visit: Yes Code(s): I73.9 - Peripheral vascular disease, unspecified (13) Traumatic ulcer Status: Chronic Current Visit: Yes Qualifiers: Non-pressure ulcer stage: with fat layer exposed Code(s): L98.499 - Non-pressure chronic ulcer of skin of other sites with unspecified severity (14) Nonhealing ulcer of left lower leg Status: Chronic Current Visit: Yes Qualifiers: Non-pressure ulcer stage: with fat layer exposed Qualified Code(s): L97.922 - Non-pressure chronic ulcer of unspecified part of left lower leg with fat layer exposed Code(s): L97.829 - Non-pressure chronic ulcer of other part of left lower leg with unspecified severity (15) Edema Status: Chronic Current Visit: Yes Code(s): R60.9 - Edema, unspecified History of Present Illness Date of Service: 10/26/18 Chief Complaint: Traumatic wound to the right and left anterolateral tibial surface. History of Wound: This is an 82-year-old female who is in her normal state of health until approximately 6 weeks prior to presentation. At that time, she sustained trauma to the left anterior tibial surface against a [place] Eliecer gonzaelz that punctured her in her garden through her pants. Then a week later she sustained a trauma to her right anteriolateral leg from a shovel in her garden. These injuries are now non healing ulcers that the patient had been using Neosporin topically, without healing. Patient has a history of chronic venous insufficiency, and has had a venous ulceration in the past, located in the left medial supramalleolar area and right anteriolateral tibia. She has a resultant scar in this area. She denies a history of thrombophlebitis. She sleeps on a flat surface at night. She has been wearing her compression stockings as previously prescribed. Her last vascular studies were 07/2017, the venous doppler showed segmental valvular incompetence within the greater saphenous veins bilaterally. Small saphenous veins are patent and incompetent bilaterally. Arterial studies showed right CRISTOFER=1.17 and left CRISTOFER = 1.17. She denies any fevers, chills nausea and vomiting. She states her appetitie is good. 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 She has also undergone surgery for removal of a benign goiter. Patient is a Ab0. Allergies/Adverse Reactions: Allergies adhesive tape Allergy (Verified 09/14/18 15:16) Rash levofloxacin [From Levaquin] Allergy (Verified 09/14/18 15:16) Unknown Sulfa (Sulfonamide Antibiotics) Allergy (Verified 09/14/18 15:16) Unknown meloxicam Adverse Reaction (Verified 09/14/18 15:16) Diarrhea tizanidine Adverse Reaction (Verified 09/14/18 15:16) Vomiting Home Medications: Ambulatory Orders Medication Instructions Recorded Albuterol IH (ProAir) [Proair Hfa 1 puff INHALATION Q4H PRN PRN 01/25/15 (SP)Vent Pts] Budesonide/Formoterol 80-4.5 2 puff BID 01/25/15 [Symbicort 80-4.5 Mcg Inhaler] Calcium Carbonate [Calcium] 500 mg PO DAILY 01/25/15 Cholecalciferol (VIT D3) [Vitamin 2,000 unit PO DAILY 01/25/15 D] - Family History Maternal - - The patient did not know her father. Her mother at the age of 96 from old age. Smoking Status: Never smoker Tobacco Use: Non-smoker Review of Systems Constitutional: Denies: Chills, Fever, Weight Change Eyes: Denies: Pain, Vision Change HEENT: Denies: Difficulty Hearing, Difficulty Swallowing, Sinus Congestion Cardiovascular: Denies: Chest Pain, Palpitations Respiratory: Denies: Cough, Shortness of Breath Gastrointestinal: Denies: Diarrhea, Nausea, Vomiting Genitourinary: Denies: Dysuria, Hematuria Endocrine: Denies: Heat/ Cold Intolerance, Polydipsia, Polyuria Hematologic/ Lymphatic: Denies: Easy Bruising, Easy Bleeding - Physical Exam Vital Signs Temp Pulse Resp BP 98 F 74 18 145/65 H 10/26/18 09:13 10/26/18 09:13 10/26/18 09:13 10/26/18 09:13 General: Alert, Oriented x3, Cooperative, No apparent distress, Well developed, Well nourished HEENT: Atraumatic, PERRLA, EOMI, Normocephalic Oral: Moist Mucosa Neck: No JVD Lungs: Normal air movement Abdomen: Non-Distended Extremities: No clubbing, No cyanosis, No edema, No Calf Tenderness, - - There is no swelling or edema in the left lower extremity. The wound on the left lateral calf is diminished in size. Dimensions are documented elsewhere. There is evidence of peripheral epithelialization. There is a small amount of bioburden and nonviable tissue present. There is no sign of infection or cellulitis. Wound Measurements and Assessment WC - Nurse 1 - General Ulcer Measurement Start: 10/26/18 09:12 Freq: Status: Active Protocol: Activity Type Activity Date Activity User E-Sign Co-Sign Detail Recorded Client Recorded Date Recorded By Document 10/26/18 09:13 RB [id number] 10/26/18 09:16 RB 10/26/18 09:13 Wound Center Nurse 1 [Ulcer Assessment] #5 LATERAL LLE -Combined with other wound No -Current Size (cm) - Length 0.8 -Current Size (cm) - Width 1.1 -Current Size (cm) - Depth 0.1 -Total Square Cm 0.88 -Tunneling No -Undermining/Tunneling No -Circular Undermining No -Exudate Amt Small -Exudate Type Serosanguineous -Wound Margin Distinct, Outline Attached -Granulation Amt Large (67-100%) -Granulation Quality [place] -Slough/Fibrin Yes -Necrosis Amt Small (1-33%) -Necrotic Tissue Type Adherent Slough -Structure Exposed N/A -Texture (Shanique-wound Skin Appearance) Assessed -Moisture (Shainque-wound Skin Appearance Assessed ) -Color (Shanique-wound Skin Appearance) Assessed -Temperature (Shanique-wound Skin No Abnormality Appearance) (Pt Warm) -Tenderness on Palpation (Shanique-wound No Skin Appearance) -Ulcer Cleansing Wound Cleanser -Foul Odor after Cleansing No -Anesthetic Used 5% Lidocaine Gel [Edema Assessment] -Lower Limb Edema Present Yes -Left Calf (cm) 33.2 -Left Ankle (cm) 20.5 Musculoskeletal: No Muscle Wasting Neurological: Cranial nerves II-XII grossly intact, Neuro grossly intact Psych/Mental Status: Normal Affect, Appropriate, Alert and oriented to time, place, person, mood and affect Debridement Note Laterality: Left - Lateral calf Type of Debridement: Excisional debridement Anesthesia Used: 5% Lidocaine Gel Depth: Down to and including healthy tissue, in the subcutaneous layer Percentage of wound debrided: 100 Instrument Used: 3mm curette Tissue Removed: Bioburden and nonviable tissue Severity: Fat Layer Exposed Amount of bleeding with debridement: Mild Bleeding Controlled with: Compression and gauze Patient tolerated procedure well Assessment/Plan Active Problems Traumatic wound (Chronic) Chronic venous insufficiency (Chronic) History of venous ulcer (Chronic) Lipodermatosclerosis (Chronic) Ulcer of left lower leg (Chronic) Traumatic ulcer of lower leg (Chronic) Peripheral vascular disease (Chronic) Traumatic ulcer (Chronic) Nonhealing ulcer of left lower leg (Chronic) Edema (Chronic) Assessment: 1. Traumatic ulcers of lower leg. 2. Ulcer of right lower leg - right. 3. Ulcer of left lower leg - left. 4. Chronic venous insufficiency. Patient appears to be doing well at this time. Her left calf wound has r esponded well to the use of collagenase Santyl. We are now to continue the use of Promogran, which will be changed every other day. Consideration had been given to the use of Celena, but the patient has formerly had an adverse minor reaction to the use of Celena topically. Plan: Patient sustained a traumatic ulcer in both her right and left lower legs while gardening 5 & 6 weeks prior to her presentation. She had been using Neosporin and Collagen Hydrogel on the ulcers since they occured without healing prior to her presentation. The patient appeared not to tolerate the Celena topically on the wound of the right lower extremity recently, experiencing some burning sensation. As result, she resorted to the use of collagenase Santyl. The wound of the right lateral calf is now healed. The wound on the left lateral calf is decreasing in size. We are to continue the use of Promogran topically to the healing wound on the left lateral calf. This will be changed every other day. The patient has completed a course of Augmentin 875 mg p.o. twice daily for 10 days. Patient will return in 1 week for reassessment. Patient has been encouraged to elevate her lower extremities much as possible, and to avoid idle standing and sitting. She is to continue using graduated compression stockings for compression to her lower extremities. Patient's laboratory studies have been reviewed, without any outstanding abnormalities. Influenza vaccine was not administered today. Patient is not a smoker. She stands 5 feet 7 inches tall. She weighs 138 pounds. Her BMI is 21.6, which is normal.
[2018-11-02 09:45] VITALS: BP 144/71; PULSE 71; RESP 18; TEMP 35.7; BMI 21.6
--- NOTE | 2018-11-02 10:56 | PCM.WC.HP ---
(1) Traumatic wound Status: Chronic Current Visit: Yes (2) Chronic venous insufficiency Status: Chronic Current Visit: Yes Code(s): I87.2 - Venous insufficiency (chronic) (peripheral) (3) Asthma Status: Chronic Current Visit: No Code(s): J45.909 - Unspecified asthma, uncomplicated (4) GERD (gastroesophageal reflux disease) Status: Chronic Current Visit: No Code(s): K21.9 - Gastro-esophageal reflux disease without esophagitis (5) History of venous ulcer Status: Chronic Current Visit: Yes (6) History of goiter Status: Chronic Current Visit: No Code(s): Z86.39 - Personal history of other endocrine, nutritional and metabolic disease (7) Lipodermatosclerosis Status: Chronic Current Visit: Yes Qualifiers: Laterality: bilateral Code(s): I83.10 - Varicose veins of unspecified lower extremity with inflammation (8) 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: Resolved Current Visit: No Qualifiers: Code(s): S81.801A - Unspecified open wound, right lower leg, initial encounter (9) Ulcer of right lower leg Status: Resolved Current Visit: No Qualifiers: Code(s): L97.919 - Non-pressure chronic ulcer of unspecified part of right lower leg with unspecified severity (10) Ulcer of left lower leg Status: Chronic Current Visit: Yes Qualifiers: Non-pressure ulcer stage: with fat layer exposed Code(s): L97.929 - 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 (11) Traumatic ulcer of lower leg Status: Chronic Current Visit: Yes Qualifiers: Laterality: left Non-pressure ulcer stage: with fat layer exposed Qualified Code(s): L97.922 - Non-pressure chronic ulcer of unspecified part of left lower leg with fat layer exposed Code(s): L97.909 - Non-pressure chronic ulcer of unspecified part of unspecified lower leg with unspecified severity (12) Peripheral vascular disease Status: Chronic Current Visit: Yes Code(s): I73.9 - Peripheral vascular disease, unspecified (13) Traumatic ulcer Status: Chronic Current Visit: Yes Qualifiers: Non-pressure ulcer stage: with fat layer exposed Code(s): L98.499 - Non-pressure chronic ulcer of skin of other sites with unspecified severity (14) Nonhealing ulcer of left lower leg Status: Chronic Current Visit: Yes Qualifiers: Non-pressure ulcer stage: with fat layer exposed Qualified Code(s): L97.922 - Non-pressure chronic ulcer of unspecified part of left lower leg with fat layer exposed Code(s): L97.829 - Non-pressure chronic ulcer of other part of left lower leg with unspecified severity (15) Edema Status: Chronic Current Visit: Yes Code(s): R60.9 - Edema, unspecified History of Present Illness Date of Service: 11/02/18 Chief Complaint: Traumatic wound to the right and left anterolateral tibial surface. History of Wound: This is an 82-year-old female who is in her normal state of health until approximately 6 weeks prior to presentation. At that time, she sustained trauma to the left anterior tibial surface against a [place] Eliecer gonzalez that punctured her in her garden through her pants. Then a week later she sustained a trauma to her right anteriolateral leg from a shovel in her garden. These injuries are now non healing ulcers that the patient had been using Neosporin topically, without healing. Patient has a history of chronic venous insufficiency, and has had a venous ulceration in the past, located in the left medial supramalleolar area and right anteriolateral tibia. She has a resultant scar in this area. She denies a history of thrombophlebitis. She sleeps on a flat surface at night. She has been wearing her compression stockings as previously prescribed. Her last vascular studies were 07/2017, the venous doppler showed segmental valvular incompetence within the greater saphenous veins bilaterally. Small saphenous veins are patent and incompetent bilaterally. Arterial studies showed right CRISTOFER=1.17 and left CRISTOFER = 1.17. She denies any fevers, chills nausea and vomiting. She states her appetitie is good. 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 She has also undergone surgery for removal of a benign goiter. Patient is a Ab0. Allergies/Adverse Reactions: Allergies adhesive tape Allergy (Verified 09/14/18 15:16) Rash levofloxacin [From Levaquin] Allergy (Verified 09/14/18 15:16) Unknown Sulfa (Sulfonamide Antibiotics) Allergy (Verified 09/14/18 15:16) Unknown meloxicam Adverse Reaction (Verified 09/14/18 15:16) Diarrhea tizanidine Adverse Reaction (Verified 09/14/18 15:16) Vomiting Home Medications: Ambulatory Orders Medication Instructions Recorded Albuterol IH (ProAir) [Proair Hfa 1 puff INHALATION Q4H PRN PRN 01/25/15 (SP)Vent Pts] Budesonide/Formoterol 80-4.5 2 puff BID 01/25/15 [Symbicort 80-4.5 Mcg Inhaler] Calcium Carbonate [Calcium] 500 mg PO DAILY 01/25/15 Cholecalciferol (VIT D3) [Vitamin 2,000 unit PO DAILY 01/25/15 D] - Family History Maternal - - The patient did not know her father. Her mother at the age of 96 from old age. Smoking Status: Never smoker Tobacco Use: Non-smoker Review of Systems Constitutional: Denies: Chills, Fever, Weight Change Eyes: Denies: Pain, Vision Change HEENT: Denies: Difficulty Hearing, Difficulty Swallowing, Sinus Congestion Cardiovascular: Denies: Chest Pain, Palpitations Respiratory: Denies: Cough, Shortness of Breath Gastrointestinal: Denies: Diarrhea, Nausea, Vomiting Genitourinary: Denies: Dysuria, Hematuria Endocrine: Denies: Heat/ Cold Intolerance, Polydipsia, Polyuria Hematologic/ Lymphatic: Denies: Easy Bruising, Easy Bleeding - Physical Exam Vital Signs Temp Pulse Resp BP 96.3 F L 71 18 144/71 H 11/02/18 09:45 11/02/18 09:45 11/02/18 09:45 11/02/18 09:45 General: Alert, Oriented x3, Cooperative, No apparent distress, Well developed, Well nourished HEENT: Atraumatic, PERRLA, EOMI, Normocephalic Oral: Moist Mucosa Neck: No JVD Lungs: Normal air movement Abdomen: Non-Distended Extremities: No clubbing, No cyanosis, No edema, No Calf Tenderness, - - The wound on the left lateral calf persists, though appears to be slightly smaller in size. Dimensions are documented elsewhere. There is no sign of infection or cellulitis. There is slight erythema, which appears to be inflammatory in nature. There is a small amount of bioburden. Wound Measurements and Assessment WC - Nurse 1 - General Ulcer Measurement Start: 10/26/18 09:12 Freq: Status: Active Protocol: Activity Type Activity Date Activity User E-Sign Co-Sign Detail Recorded Client Recorded Date Recorded By Document 11/02/18 09:45 DL [id number] 11/02/18 09:51 DL 11/02/18 09:45 Wound Center Nurse 1 [Ulcer Assessment] #5 LATERAL LLE -Current Size (cm) - Length 0.7 -Current Size (cm) - Width 0.7 -Current Size (cm) - Depth 1 -Total Square Cm 0.49 -Photo Taken No -Exudate Amt None Present -Wound Margin Distinct, Outline Attached -Granulation Amt Large (67-100%) -Granulation Quality [place] -Necrosis Amt Small (1-33%) -Necrotic Tissue Type Adherent Slough -Structure Exposed N/A -Texture (Shanique-wound Skin Appearance) Scarring,Rash -Moisture (Shanique-wound Skin Appearance No Abnormality ) -Color (Shanique-wound Skin Appearance) Rubor -Temperature (Shanique-wound Skin No Abnormality Appearance) (Pt Warm) -Tenderness on Palpation (Shanique-wound No Skin Appearance) -Ulcer Cleansing Rinsed/ Irrigated with Saline -Foul Odor after Cleansing No -Anesthetic Used 5% Lidocaine Gel [Edema Assessment] -Left Calf (cm) 31 -Left Ankle (cm) 19.5 - Nurse 2 - General Ulcer CM Notes Start: 10/26/18 09:12 Freq: Status: Active Protocol: Activity Type Activity Date Activity User E-Sign Co-Sign Detail Recorded Client Recorded Date Recorded By Document 11/02/18 10:47 MW [id number] 11/02/18 10:51 MW 11/02/18 10:47 Wound Center Nurse 2 [Procedure/Treatment] #5 LATERAL LLE -Time 10:49 -Correct Patient Yes -Correct Side, Site, Position Yes -Correct Procedure Yes -Procedure Performed Yes -Type of Procedure Debridement -Clinical Debridement Subcutaneous -Post Debridement Size (cm) - Length 0.9 -Post Debridement Size (cm) - Width 0.6 -Post Debridement Size (cm) - Depth 0.1 -Total Square Cm 0.54 -Wound/Ulcer Outcome Not Healed -Ulcer Cleansing Rinsed/ Irrigated with Saline -Foul Odor after Cleansing No -Bioengineered Tissue No -Bleeding Controlled with Pressure -Offloading No -Treatment Response Procedure Tolerated Well [See Physician Procedure note for Specifics] Pain Scale: 0-10 Numeric [Pain] -Is Patient Pain Free? Yes Musculoskeletal: No Muscle Wasting Neurological: Cranial nerves II-XII grossly intact, Neuro grossly intact Psych/Mental Status: Normal Affect, Appropriate, Alert and oriented to time, place, person, mood and affect Debridement Note Post-Debridement Measurements/Treatment WC - Nurse 2 - General Ulcer CM Notes Start: 10/26/18 09:12 Freq: Status: Active Protocol: Activity Type Activity Date Activity User E-Sign Co-Sign Detail Recorded Client Recorded Date Recorded By Document 11/02/18 10:47 MW [id number] 11/02/18 10:51 MW 11/02/18 10:47 Wound Center Nurse 2 #5 LATERAL LLE -Time 10:49 -Correct Patient Yes -Correct Side, Site, Position Yes -Correct Procedure Yes -Procedure Performed Yes -Type of Procedure Debridement -Clinical Debridement Subcutaneous -Post Debridement Size (cm) - Length 0.9 -Post Debridement Size (cm) - Width 0.6 -Post Debridement Size (cm) - Depth 0.1 -Total Square Cm 0.54 -Wound/Ulcer Outcome Not Healed -Ulcer Cleansing Rinsed/ Irrigated with Saline -Foul Odor after Cleansing No -Bioengineered Tissue No -Bleeding Controlled with Pressure -Offloading No -Treatment Response Procedure Tolerated Well Pain Scale: 0-10 Numeric Is Patient Pain Free? Yes Laterality: Left - Lateral calf Type of Debridement: Excisional debridement Anesthesia Used: 5% Lidocaine Gel Depth: Down to and including healthy tissue, in the subcutaneous layer Percentage of wound debrided: 100 Instrument Used: 3mm curette Tissue Removed: Bioburden and nonviable tissue Severity: Fat Layer Exposed Amount of bleeding with debridement: Mild Bleeding Controlled with: Compression and gauze Patient tolerated procedure well Assessment/Plan Active Problems Traumatic wound (Chronic) Chronic venous insufficiency (Chronic) History of venous ulcer (Chronic) Lipodermatosclerosis (Chronic) Ulcer of left lower leg (Chronic) Traumatic ulcer of lower leg (Chronic) Peripheral vascular disease (Chronic) Traumatic ulcer (Chronic) Nonhealing ulcer of left lower leg (Chronic) Edema (Chronic) Assessment: 1. Traumatic ulcers of lower leg. 2. Ulcer of right lower leg - right. 3. Ulcer of left lower leg - left. 4. Chronic venous insufficiency. Patient appears to be doing well at this time. Her left calf wound has responded well to the use of collagenase Santyl. We are now to continue the use of Promogran, which will be changed every other day. Consideration had been given to the use of Celena, but the patient has formerly had an adverse minor reaction to the use of Celena topically. Plan: Patient sustained a traumatic ulcer in both her right and left lower legs while gardening 5 & 6 weeks prior to her presentation. She had been using Neosporin and Collagen Hydrogel on the ulcers since they occured without healing prior to her presentation. The patient appeared not to tolerate the Celena topically on the wound of the right lower extremity recently, experiencing some burning sensation. As result, she resorted to the use of collagenase Santyl. The wound of the right lateral calf is now healed. The wound on the left lateral calf is decreasing in size. We are to continue the use of Promogran topically to the healing wound on the left lateral calf. This will be changed every other day. The patient has completed a course of Augmentin 875 mg p.o. twice daily for 10 days. Patient will return in 1 week for reassessment. Patient has been encouraged to elevate her lower extremities much as possible, and to avoid idle standing and sitting. She is to continue using graduated compression stockings for compression to her lower extremities. Patient's laboratory studies have been reviewed, without any outstanding abnormalities. Influenza vaccine was not administered today. Patient is not a smoker. She stands 5 feet 7 inches tall. She weighs 138 pounds. Her BMI is 21.6, which is normal.
[2018-11-09 09:50] VITALS: RESP 16; BMI 21.6
--- NOTE | 2018-11-09 10:43 | PCM.WC.HP ---
(1) Traumatic wound Status: Chronic Current Visit: Yes (2) Chronic venous insufficiency Status: Chronic Current Visit: Yes Code(s): I87.2 - Venous insufficiency (chronic) (peripheral) (3) Asthma Status: Chronic Current Visit: No Code(s): J45.909 - Unspecified asthma, uncomplicated (4) GERD (gastroesophageal reflux disease) Status: Chronic Current Visit: No Code(s): K21.9 - Gastro-esophageal reflux disease without esophagitis (5) History of venous ulcer Status: Chronic Current Visit: Yes (6) History of goiter Status: Chronic Current Visit: No Code(s): Z86.39 - Personal history of other endocrine, nutritional and metabolic disease (7) Lipodermatosclerosis Status: Chronic Current Visit: Yes Qualifiers: Laterality: bilateral Code(s): I83.10 - Varicose veins of unspecified lower extremity with inflammation (8) Ulcer of left lower leg Status: Chronic Current Visit: Yes Qualifiers: Non-pressure ulcer stage: with fat layer exposed Code(s): L97.929 - 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 (9) Traumatic ulcer of lower leg Status: Chronic Current Visit: Yes Qualifiers: Laterality: left Non-pressure ulcer stage: with fat layer exposed Qualified Code(s): L97.922 - Non-pressure chronic ulcer of unspecified part of left lower leg with fat layer exposed Code(s): L97.909 - Non-pressure chronic ulcer of unspecified part of unspecified lower leg with unspecified severity (10) Peripheral vascular disease Status: Chronic Current Visit: Yes Code(s): I73.9 - Peripheral vascular disease, unspecified (11) Traumatic ulcer Status: Chronic Current Visit: Yes Qualifiers: Non-pressure ulcer stage: with fat layer exposed Code(s): L98.499 - Non-pressure chronic ulcer of skin of other sites with unspecified severity (12) Nonhealing ulcer of left lower leg Status: Chronic Current Visit: Yes Qualifiers: Non-pressure ulcer stage: with fat layer exposed Qualified Code(s): L97.922 - Non-pressure chronic ulcer of unspecified part of left lower leg with fat layer exposed Code(s): L97.829 - Non-pressure chronic ulcer of other part of left lower leg with unspecified severity (13) Edema Status: Chronic Current Visit: Yes Code(s): R60.9 - Edema, unspecified History of Present Illness Date of Service: 11/09/18 Chief Complaint: Traumatic wound to the right and left anterolateral tibial surface. History of Wound: This is an 82-year-old female who is in her normal state of health until approximately 6 weeks prior to presentation. At that time, she sustained trauma to the left anterior tibial surface against a [place] Eliecer gonzalez that punctured her in her garden through her pants. Then a week later she sustained a trauma to her right anteriolateral leg from a shovel in her garden. These injuries are now non healing ulcers that the patient had been using Neosporin topically, without healing. Patient has a history of chronic venous insufficiency, and has had a venous ulceration in the past, located in the left medial supramalleolar area and right anteriolateral tibia. She has a resultant scar in this area. She denies a history of thrombophlebitis. She sleeps on a flat surface at night. She has been wearing her compression stockings as previously prescribed. Her last vascular studies were 07/2017, the venous doppler showed segmental valvular incompetence within the greater saphenous veins bilaterally. Small saphenous veins are patent and incompetent bilaterally. Arterial studies showed right CRISTOFER=1.17 and left CRISTOFER = 1.17. She denies any fevers, chills nausea and vomiting. She states her appetitie is good. 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 She has also undergone surgery for removal of a benign goiter. Patient is a Ab0. Allergies/Adverse Reactions: Allergies adhesive tape Allergy (Verified 09/14/18 15:16) Rash levofloxacin [From Levaquin] Allergy (Verified 09/14/18 15:16) Unknown Sulfa (Sulfonamide Antibiotics) Allergy (Verified 09/14/18 15:16) Unknown meloxicam Adverse Reaction (Verified 09/14/18 15:16) Diarrhea tizanidine Adverse Reaction (Verified 09/14/18 15:16) Vomiting Home Medications: Ambulatory Orders Medication Instructions Recorded Albuterol IH (ProAir) [Proair Hfa 1 puff INHALATION Q4H PRN PRN 01/25/15 (SP)Vent Pts] Budesonide/Formoterol 80-4.5 2 puff BID 01/25/15 [Symbicort 80-4.5 Mcg Inhaler] Calcium Carbonate [Calcium] 500 mg PO DAILY 01/25/15 Cholecalciferol (VIT D3) [Vitamin 2,000 unit PO DAILY 01/25/15 D] - Family History Maternal - - The patient did not know her father. Her mother at the age of 96 from old age. Smoking Status: Never smoker Tobacco Use: Non-smoker Review of Systems Constitutional: Denies: Chills, Fever, Weight Change Eyes: Denies: Pain, Vision Change HEENT: Denies: Difficulty Hearing, Difficulty Swallowing, Sinus Congestion Cardiovascular: Denies: Chest Pain, Palpitations Respiratory: Denies: Cough, Shortness of Breath Gastrointestinal: Denies: Diarrhea, Nausea, Vomiting Genitourinary: Denies: Dysuria, Hematuria Endocrine: Denies: Heat/ Cold Intolerance, Polydipsia, Polyuria Hematologic/ Lymphatic: Denies: Easy Bruising, Easy Bleeding - Physical Exam Vital Signs Temp Pulse Resp BP 96.3 F L 71 16 144/71 H 11/02/18 09:45 11/02/18 09:45 11/09/18 09:50 11/02/18 09:45 General: Alert, Oriented x3, Cooperative, No apparent distress, Well developed, Well nourished HEENT: Atraumatic, PERRLA, EOMI, Normocephalic Oral: Moist Mucosa Neck: No JVD Lungs: Normal air movement Abdomen: Non-Distended Extremities: No clubbing, No cyanosis, No edema, No Calf Tenderness, - - The ulceration on the left lateral calf persists. It is little changed in size or appearance. Dimensions are documented elsewhere. There is a significant amount of erythema surrounding the wound in the left calf, appearing to be cellulitic in nature. Swab cultures have been obtained, both aerobic and anaerobic. There is no significant swelling or edema in the left lower extremity. Wound Measurements and Assessment - Nurse 1 - General Ulcer Measurement Start: 10/26/18 09:12 Freq: Status: Active Protocol: Activity Type Activity Date Activity User E-Sign Co-Sign Detail Recorded Client Recorded Date Recorded By Document 11/09/18 09:50 BM [id number] 11/09/18 09:58 BMF 11/09/18 09:50 Wound Center Nurse 1 [Ulcer Assessment] #5 LATERAL LLE -Combined with other wound No -Current Size (cm) - Length 0.8 -Current Size (cm) - Width 0.7 -Current Size (cm) - Depth 0.1 -Total Square Cm 0.56 -Photo Taken No -Epithelialization None Present -Tunneling No -Undermining/Tunneling No -Circular Undermining No -Exudate Amt Small -Exudate Type Serosanguineous -Wound Margin Distinct, Outline Attached -Granulation Amt Small (1-33%) -Granulation Quality Red -Slough/Fibrin Yes -Necrosis Amt Large (67-100%) -Necrotic Tissue Type Adherent Slough -Texture (Shanique-wound Skin Appearance) Assessed, Excoriation, Scarring,Rash -Moisture (Shanique-wound Skin Appearance Assessed ) -Color (Shanique-wound Skin Appearance) Assessed, Erythema -Temperature (Shanique-wound Skin No Abnormality Appearance) (Pt Warm) -Tenderness on Palpation (Shanique-wound Yes Skin Appearance) -Ulcer Cleansing Rinsed/ Irrigated with Saline -Foul Odor after Cleansing No -Anesthetic Used 5% Lidocaine Gel [Edema Assessment] -Lower Limb Edema Present Yes -Left Calf (cm) 33.6 -Left Ankle (cm) 20.9 - Nurse 2 - General Ulcer CM Notes Start: 10/26/18 09:12 Freq: Status: Active Protocol: Activity Type Activity Date Activity User E-Sign Co-Sign Detail Recorded Client Recorded Date Recorded By Document 11/09/18 10:31 MW [id number] 11/09/18 10:41 MW 11/09/18 10:31 Wound Center Nurse 2 [Procedure/Treatment] #5 LATERAL LLE -Time 10:39 -Correct Patient Yes -Correct Side, Site, Position Yes -Correct Procedure Yes -Procedure Performed Yes -Type of Procedure Debridement -Clinical Debridement Subcutaneous -Post Debridement Size (cm) - Length 1.0 -Post Debridement Size (cm) - Width 0.8 -Post Debridement Size (cm) - Depth 0.1 -Total Square Cm 0.80 -Wound/Ulcer Outcome Not Healed -Ulcer Cleansing Rinsed/ Irrigated with Saline -Foul Odor after Cleansing No -Bioengineered Tissue No -Bleeding Controlled with Pressure -Offloading No -Treatment Response Procedure Tolerated Well [See Physician Procedure note for Specifics] Pain Scale: 0-10 Numeric [Pain] -Is Patient Pain Free? Yes Musculoskeletal: No Muscle Wasting Neurological: Cranial nerves II-XII grossly intact, Neuro grossly intact Psych/Mental Status: Normal Affect, Appropriate, Alert and oriented to time, place, person, mood and affect Debridement Note Post-Debridement Measurements/Treatment WC - Nurse 2 - General Ulcer CM Notes Start: 10/26/18 09:12 Freq: Status: Active Protocol: Activity Type Activity Date Activity User E-Sign Co-Sign Detail Recorded Client Recorded Date Recorded By Document 11/02/18 10:47 MW [id number] 11/02/18 10:51 MW Document 11/09/18 10:31 MW [id number] 11/09/18 10:41 MW 11/02/18 11/09/18 10:47 10:31 Wound Center Nurse 2 #5 LATERAL LLE -Time 10:49 10:39 -Correct Patient Yes Yes -Correct Side, Site, Position Yes Yes -Correct Procedure Yes Yes -Procedure Performed Yes Yes -Type of Procedure Debridement Debridement -Clinical Debridement Subcutaneous Subcutaneous -Post Debridement Size (cm) - Length 0.9 1.0 -Post Debridement Size (cm) - Width 0.6 0.8 -Post Debridement Size (cm) - Depth 0.1 0.1 -Total Square Cm 0.54 0.80 -Wound/Ulcer Outcome Not Healed Not Healed -Ulcer Cleansing Rinsed/ Rinsed/ Irrigated with Irrigated with Saline Saline -Foul Odor after Cleansing No No -Bioengineered Tissue No No -Bleeding Controlled with Pressure Pressure -Offloading No No -Treatment Response Procedure Procedure Tolerated Well Tolerated Well Pain Scale: 0-10 Numeric Is Patient Pain Free? Yes Yes Laterality: Left - Lateral calf Type of Debridement: Excisional debridement Anesthesia Used: 5% Lidocaine Gel Depth: Down to and including healthy tissue, in the subcutaneous layer Percentage of wound debrided: 100 Instrument Used: 3mm curette Tissue Removed: Bioburden and nonviable tissue Severity: Fat Layer Exposed Amount of bleeding with debridement: Mild Bleeding Controlled with: Compression and gauze Patient tolerated procedure well Assessment/Plan Active Problems Traumatic wound (Chronic) Chronic venous insufficiency (Chronic) History of venous ulcer (Chronic) Lipodermatosclerosis (Chronic) Ulcer of left lower leg (Chronic) Traumatic ulcer of lower leg (Chronic) Peripheral vascular disease (Chronic) Traumatic ulcer (Chronic) Nonhealing ulcer of left lower leg (Chronic) Edema (Chronic) Assessment: 1. Traumatic ulcer of lower leg. 2. Ulcer of left lower leg. 3. Chronic venous insufficiency. We are to continue the use of Promogran, which will be changed every other day. Compression to the left lower extremity will be continued by means of Tubigrip's. The patient has been provided a prescription for graduated compression stockings of 20 to 30 mmHg compression, knee-high length. We are to initiate Keflex 500 mg p.o. twice daily for total of 10 days, and treatment for suspected cellulitis of the left calf. A prescription has been provided. Plan: Patient sustained a traumatic ulcer in both her right and left lower legs while gardening 5 & 6 weeks prior to her presentation. She had been using Neosporin and Collagen Hydrogel on the ulcers since they occured without healing prior to her presentation. The patient appeared not to tolerate the Celena topically on the wound of the right lower extremity recently, experiencing some burning sensation. As result, she resorted to the use of collagenase Santyl. The wound of the right lateral calf is now healed. The wound on the left lateral calf is decreasing in size. We are to continue the use of Promogran topically to the healing wound on the left lateral calf. This will be changed every other day. There appears to be cellulitis of the left calf, for which the patient has been provided a prescription for Keflex 500 mg p.o. twice daily, which has been prescribed for a total of 10 days. The patient is also been provided a prescription for graduated compression stockings, knee-high length, of 20 to 30 mmHg compression. She is to return in 1 week for reassessment. Aerobic and anaerobic swab cultures have been obtained, and the results will be awaited. Patient has been encouraged to elevate her lower extremities much as possible, and to avoid idle standing and sitting. Patient's laboratory studies have been reviewed, without any outstanding abnormalities. Influenza vaccine was not administered today. Patient is not a smoker. She stands 5 feet 7 inches tall. She weighs 138 pounds. Her BMI is 21.6, which is normal.
[2018-11-12 08:05] VITALS: BP 160/75; PULSE 81; RESP 18; TEMP 36.4; BMI 21.6
--- NOTE | 2018-11-12 09:08 | PCM.WC.PN ---
(1) Allergic reaction caused by a drug Status: Acute Current Visit: Yes Code(s): T78.40XA - Allergy, unspecified, initial encounter (2) Chronic venous insufficiency Status: Chronic Current Visit: Yes Code(s): I87.2 - Venous insufficiency (chronic) (peripheral) (3) History of venous ulcer Status: Chronic Current Visit: Yes (4) Peripheral vascular disease Status: Chronic Current Visit: Yes Code(s): I73.9 - Peripheral vascular disease, unspecified (5) Ulcer of left lower leg Status: Chronic Current Visit: Yes Qualifiers: Non-pressure ulcer stage: with fat layer exposed Code(s): L97.929 - 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 (6) 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 Status: Acute Current Visit: Yes Code(s): L50.0 - Allergic urticaria; T50.905A - Adverse effect of unspecified drugs, medicaments and biological substances, initial encounter Type of Wound Date of Service: 11/12/18 Chief Complaint: Traumatic wound to the right and left anterolateral tibial surface. History of Wound: This is an 82-year-old female who is in her normal state of health until approximately 6 weeks prior to presentation. At that time, she sustained trauma to the left anterior tibial surface against a [place] Eliecer gonzalez that punctured her in her garden through her pants. Then a week later she sustained a trauma to her right anteriolateral leg from a shovel in her garden. These injuries are now non healing ulcers that the patient had been using Neosporin topically, without healing. Patient has a history of chronic venous insufficiency, and has had a venous ulceration in the past, located in the left medial supramalleolar area and right anteriolateral tibia. She has a resultant scar in this area. She denies a history of thrombophlebitis. She sleeps on a flat surface at night. She has been wearing her compression stockings as previously prescribed. Her last vascular studies were 07/2017, the venous doppler showed segmental valvular incompetence within the greater saphenous veins bilaterally. Small saphenous veins are patent and incompetent bilaterally. Arterial studies showed right CRISTOFER=1.17 and left CRISTOFER = 1.17. She denies any fevers, chills nausea and vomiting. She states her appetitie is good. Progress of Wound: Today I saw Vaishali christopher to for her urticaria that she has developed around her waist under her breasts on her upper back and her head and behind her ears. Patient has been on Augmentin back in August and then was started on Keflex recently in the end of September. She has many sensitivities to antibiotics and she noticed before she even started the Keflex that she was itching on her head all over. Again she progressively got worse as the start taking the Keflex. Patient was here for a yeast infection but patient was discussed and looked at and it is not yeasted's allergic reaction to cephalosporin. Patient was advised to take Zyrtec Claritin or Benadryl and if she is unable to take those because she is very sensitive to medications she can try taking Pepcid or Zantac to help with her rash. The leg wound looks well and she is to continue with dressing changes as scheduled and see her regular physician on Thursday. - Physical Exam Vital Signs Temp Pulse Resp BP 97.6 F L 81 18 160/75 H 11/12/18 08:05 11/12/18 08:05 11/12/18 08:05 11/12/18 08:05 General: Oriented x3, Cooperative, Well developed HEENT: Atraumatic, PERRLA Oral: Moist Mucosa Neck: Supple, No JVD Lungs: Clear to auscultation, Normal air movement Cardiovascular: Regular rate, Regular Rhythm Abdomen: Bowel Sounds Present, Soft, Non Tender, No Hepato-splenomegaly Extremities: No clubbing, No edema Skin: Rash Present - Waist under her breasts behind her ears upper back Wound Measurements and Assessment WC - Nurse 1 - General Ulcer Measurement Start: 10/26/18 09:12 Freq: Status: Active Protocol: Activity Type Activity Date Activity User E-Sign Co-Sign Detail Recorded Client Recorded Date Recorded By Document 11/09/18 09:50 BMF [id number] 11/09/18 09:58 BMF Document 11/12/18 08:05 DL [id number] 11/12/18 08:11 DL 11/09/18 11/12/18 09:50 08:05 Wound Center Nurse 1 [Ulcer Assessment] #5 LATERAL LLE -Combined with other wound No -Current Size (cm) - Length 0.8 0.6 -Current Size (cm) - Width 0.7 0.6 -Current Size (cm) - Depth 0.1 0.1 -Total Square Cm 0.56 0.36 -Photo Taken No No -Epithelialization None Present -Tunneling No -Undermining/Tunneling No -Circular Undermining No -Exudate Amt Small Small -Exudate Type Serosanguineous Serosanguineous -Wound Margin Distinct, Distinct, Outline Outline Attached Attached -Granulation Amt Small (1-33%) Small (1-33%) -Granulation Quality Red [place] -Slough/Fibrin Yes -Necrosis Amt Large (67-100%) Small (1-33%) -Necrotic Tissue Type Adherent Slough Adherent Slough -Structure Exposed N/A -Texture (Shanique-wound Skin Appearance) Assessed, Excoriation, Excoriation, Scarring Scarring,Rash -Moisture (Shanique-wound Skin Appearance Assessed Dry/Scaly ) -Color (Shanique-wound Skin Appearance) Assessed, Erythema Erythema -Temperature (Shanique-wound Skin No Abnormality No Abnormality Appearance) (Pt Warm) (Pt Warm) -Tenderness on Palpation (Sahnique-wound Yes No Skin Appearance) -Ulcer Cleansing Rinsed/ Rinsed/ Irrigated with Irrigated with Saline Saline -Foul Odor after Cleansing No No -Anesthetic Used 5% Lidocaine 5% Lidocaine Gel Gel [Edema Assessment] -Lower Limb Edema Present Yes -Left Calf (cm) 33.6 31 -Left Ankle (cm) 20.9 19.5 WC - Nurse 2 - General Ulcer CM Notes Start: 10/26/18 09:12 Freq: Status: Active Protocol: Activity Type Activity Date Activity User E-Sign Co-Sign Detail Recorded Client Recorded Date Recorded By Document 11/09/18 10:31 MW [id number] 11/09/18 10:41 MW Document 11/12/18 08:24 MW [id number] 11/12/18 08:31 MW 11/09/18 11/12/18 10:31 08:24 Wound Center Nurse 2 [Procedure/Treatment] #5 LATERAL LLE -Time 10:39 08:24 -Correct Patient Yes Yes -Correct Side, Site, Position Yes Yes -Correct Procedure Yes Yes -Procedure Performed Yes No -Type of Procedure Debridement -Clinical Debridement Subcutaneous -Post Debridement Size (cm) - Length 1.0 -Post Debridement Size (cm) - Width 0.8 -Post Debridement Size (cm) - Depth 0.1 -Total Square Cm 0.80 -Wound/Ulcer Outcome Not Healed Not Healed -Ulcer Cleansing Rinsed/ Not Cleansed Irrigated with Saline -Foul Odor after Cleansing No No -Bioengineered Tissue No No -Bleeding Controlled with Pressure NA -Offloading No -Treatment Response Procedure Tolerated Well [See Physician Procedure note for Specifics] Pain Scale: 0-10 Numeric [Pain] -Is Patient Pain Free? Yes Yes Musculoskeletal: No Tenderness to Palpation of Joints or Extremities Lymphatic: No Cervical, Supraclavicular, or Inguinal Adenopathy Neurological: Cranial nerves II-XII grossly intact, Neuro grossly intact Psych/Mental Status: Normal Affect, Appropriate Debridement Note Post-Debridement Measurements/Treatment WC - Nurse 2 - General Ulcer CM Notes Start: 10/26/18 09:12 Freq: Status: Active Protocol: Activity Type Activity Date Activity User E-Sign Co-Sign Detail Recorded Client Recorded Date Recorded By Document 11/02/18 10:47 MW [id number] 11/02/18 10:51 MW Document 11/09/18 10:31 MW [id number] 11/09/18 10:41 MW Document 11/12/18 08:24 MW [id number] 11/12/18 08:31 MW 11/02/18 11/09/18 11/12/18 10:47 10:31 08:24 Wound Center Nurse 2 #5 LATERAL LLE -Time 10:49 10:39 08:24 -Correct Patient Yes Yes Yes -Correct Side, Site, Position Yes Yes Yes -Correct Procedure Yes Yes Yes -Procedure Performed Yes Yes No -Type of Procedure Debridement Debridement -Clinical Debridement Subcutaneous Subcutaneous -Post Debridement Size (cm) - Length 0.9 1.0 -Post Debridement Size (cm) - Width 0.6 0.8 -Post Debridement Size (cm) - Depth 0.1 0.1 -Total Square Cm 0.54 0.80 -Wound/Ulcer Outcome Not Healed Not Healed Not Healed -Ulcer Cleansing Rinsed/ Rinsed/ Not Cleansed Irrigated with Irrigated with Saline Saline -Foul Odor after Cleansing No No No -Bioengineered Tissue No No No -Bleeding Controlled with Pressure Pressure NA -Offloading No No -Treatment Response Procedure Procedure Tolerated Well Tolerated Well Pain Scale: 0-10 Numeric Is Patient Pain Free? Yes Yes Yes No debridement was completed today Assessment/Plan Active Problems Traumatic wound (Chronic) Chronic venous insufficiency (Chronic) History of venous ulcer (Chronic) Lipodermatosclerosis (Chronic) Ulcer of left lower leg (Chronic) Traumatic ulcer of lower leg (Chronic) Allergic reaction caused by a drug (Acute) 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 (Acute) Peripheral vascular disease (Chronic) Traumatic ulcer (Chronic) Nonhealing ulcer of left lower leg (Chronic) Edema (Chronic) Assessment: 1. Traumatic ulcer of lower leg. 2. Ulcer of left lower leg. 3. Chronic venous insufficiency. 4. Urticaria. We are to continue the use of Promogran, which will be changed every other day. Compression to the left lower extremity will be continued by means of Tubigrip's. The patient has been provided a prescription for graduated compression stockings of 20 to 30 mmHg compression, knee-high length. We are to initiate Keflex 500 mg p.o. twice daily for total of 10 days, and treatment for suspected cellulitis of the left calf. A prescription has been provided. Plan: Stop the Keflex and continue with prescribed care. Follow-up with regular doctor on Thursday. Patient sustained a traumatic ulcer in both her right and left lower legs while gardening 5 & 6 weeks prior to her presentation. She had been using Neosporin and Collagen Hydrogel on the ulcers since they occured without healing prior to her presentation. The patient appeared not to tolerate the Celena topically on the wound of the right lower extremity recently, experiencing some burning sensation. As result, she resorted to the use of collagenase Santyl. The wound of the right lateral calf is now healed. The wound on the left lateral calf is decreasing in size. We are to continue the use of Promogran topically to the healing wound on the left lateral calf. This will be changed every other day. There appears to be cellulitis of the left calf, for which the patient has been provided a prescription for Keflex 500 mg p.o. twice daily, which has been prescribed for a total of 10 days. The patient is also been provided a prescription for graduated compression stockings, knee-high length, of 20 to 30 mmHg compression. She is to return in 1 week for reassessment. Aerobic and anaerobic swab cultures have been obtained, and the results will be awaited. Patient has been encouraged to elevate her lower extremities much as possible, and to avoid idle standing and sitting. Patient's laboratory studies have been reviewed, without any outstanding abnormalities. Influenza vaccine was not administered today. Patient is not a smoker. She stands 5 feet 7 inches tall. She weighs 138 pounds. Her BMI is 21.6, which is normal.
[2018-11-16 10:36] VITALS: BP 159/77; PULSE 74; RESP 16; TEMP 36.8; BMI 21.6
--- NOTE | 2018-11-16 11:18 | PCM.WC.HP ---
(1) Traumatic wound Status: Chronic Current Visit: Yes (2) Chronic venous insufficiency Status: Chronic Current Visit: Yes Code(s): I87.2 - Venous insufficiency (chronic) (peripheral) (3) Asthma Status: Chronic Current Visit: No Code(s): J45.909 - Unspecified asthma, uncomplicated (4) GERD (gastroesophageal reflux disease) Status: Chronic Current Visit: No Code(s): K21.9 - Gastro-esophageal reflux disease without esophagitis (5) History of venous ulcer Status: Chronic Current Visit: Yes (6) History of goiter Status: Chronic Current Visit: No Code(s): Z86.39 - Personal history of other endocrine, nutritional and metabolic disease (7) Lipodermatosclerosis Status: Chronic Current Visit: Yes Qualifiers: Laterality: bilateral Code(s): I83.10 - Varicose veins of unspecified lower extremity with inflammation (8) Ulcer of left lower leg Status: Chronic Current Visit: Yes Qualifiers: Non-pressure ulcer stage: with fat layer exposed Code(s): L97.929 - 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 (9) Traumatic ulcer of lower leg Status: Chronic Current Visit: Yes Qualifiers: Laterality: left Non-pressure ulcer stage: with fat layer exposed Qualified Code(s): L97.922 - Non-pressure chronic ulcer of unspecified part of left lower leg with fat layer exposed Code(s): L97.909 - Non-pressure chronic ulcer of unspecified part of unspecified lower leg with unspecified severity (10) Peripheral vascular disease Status: Chronic Current Visit: Yes Code(s): I73.9 - Peripheral vascular disease, unspecified (11) Traumatic ulcer Status: Chronic Current Visit: Yes Qualifiers: Non-pressure ulcer stage: with fat layer exposed Code(s): L98.499 - Non-pressure chronic ulcer of skin of other sites with unspecified severity (12) Nonhealing ulcer of left lower leg Status: Chronic Current Visit: Yes Qualifiers: Non-pressure ulcer stage: with fat layer exposed Qualified Code(s): L97.922 - Non-pressure chronic ulcer of unspecified part of left lower leg with fat layer exposed Code(s): L97.829 - Non-pressure chronic ulcer of other part of left lower leg with unspecified severity (13) Edema Status: Chronic Current Visit: Yes Code(s): R60.9 - Edema, unspecified History of Present Illness Date of Service: 11/16/18 Chief Complaint: Traumatic wound to the right and left anterolateral tibial surface. History of Wound: This is an 82-year-old female who is in her normal state of health until approximately 6 weeks prior to presentation. At that time, she sustained trauma to the left anterior tibial surface against a [place] Eliecer gonzalez that punctured her in her garden through her pants. Then a week later she sustained a trauma to her right anteriolateral leg from a shovel in her garden. These injuries are now non healing ulcers that the patient had been using Neosporin topically, without healing. Patient has a history of chronic venous insufficiency, and has had a venous ulceration in the past, located in the left medial supramalleolar area and right anteriolateral tibia. She has a resultant scar in this area. She denies a history of thrombophlebitis. She sleeps on a flat surface at night. She has been wearing her compression stockings as previously prescribed. Her last vascular studies were 07/2017, the venous doppler showed segmental valvular incompetence within the greater saphenous veins bilaterally. Small saphenous veins are patent and incompetent bilaterally. Arterial studies showed right CRISTOFER=1.17 and left CRISTOFER = 1.17. She denies any fevers, chills nausea and vomiting. She states her appetitie is good. 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 She has also undergone surgery for removal of a benign goiter. Patient is a Ab0. Allergies/Adverse Reactions: Allergies adhesive tape Allergy (Verified 09/14/18 15:16) Rash cephalexin [From Keflex] Allergy (Verified 11/12/18 08:31) Rash levofloxacin [From Levaquin] Allergy (Verified 09/14/18 15:16) Unknown Sulfa (Sulfonamide Antibiotics) Allergy (Verified 09/14/18 15:16) Unknown meloxicam Adverse Reaction (Verified 09/14/18 15:16) Diarrhea tizanidine Adverse Reaction (Verified 09/14/18 15:16) Vomiting Home Medications: Ambulatory Orders Medication Instructions Recorded Albuterol IH (ProAir) [Proair Hfa 1 puff INHALATION Q4H PRN PRN 01/25/15 (SP)Vent Pts] Budesonide/Formoterol 80-4.5 2 puff BID 01/25/15 [Symbicort 80-4.5 Mcg Inhaler] Calcium Carbonate [Calcium] 500 mg PO DAILY 01/25/15 Cholecalciferol (VIT D3) [Vitamin 2,000 unit PO DAILY 01/25/15 D] - Family History Maternal - - The patient did not know her father. Her mother at the age of 96 from old age. Smoking Status: Never smoker Tobacco Use: Non-smoker Review of Systems Constitutional: Denies: Chills, Fever, Weight Change Eyes: Denies: Pain, Vision Change HEENT: Denies: Difficulty Hearing, Difficulty Swallowing, Sinus Congestion Cardiovascular: Denies: Chest Pain, Palpitations Respiratory: Denies: Cough, Shortness of Breath Gastrointestinal: Denies: Diarrhea, Nausea, Vomiting Genitourinary: Denies: Dysuria, Hematuria Endocrine: Denies: Heat/ Cold Intolerance, Polydipsia, Polyuria Hematologic/ Lymphatic: Denies: Easy Bruising, Easy Bleeding - Physical Exam Vital Signs Temp Pulse Resp BP 98.2 F 74 16 159/77 H 11/16/18 10:36 11/16/18 10:36 11/16/18 10:36 11/16/18 10:36 General: Alert, Oriented x3, Cooperative, No apparent distress, Well developed, Well nourished HEENT: Atraumatic, PERRLA, EOMI, Normocephalic Oral: Moist Mucosa Neck: No JVD Lungs: Normal air movement Abdomen: Non-Distended Extremities: No clubbing, No cyanosis, No edema, No Calf Tenderness, - - The ulceration on the left lateral calf is smaller in size. Dimensions are documented elsewhere. There is a small amount of bioburden. There is no sign of infection or cellulitis. There is no swelling or edema noted in the left lower extremity. Skin: No rashes Wound Measurements and Assessment WC - Nurse 1 - General Ulcer Measurement Start: 10/26/18 09:12 Freq: Status: Active Protocol: Activity Type Activity Date Activity User E-Sign Co-Sign Detail Recorded Client Recorded Date Recorded By Document 11/16/18 10:36 [facility] [id number] 11/16/18 10:43 [facility] 11/16/18 10:36 W[facility] Center Nurse 1 [Ulcer Assessment] #5 LATERAL LLE -Combined with other wound No -Current Size (cm) - Length 0.7 -Current Size (cm) - Width 0.7 -Current Size (cm) - Depth 0.1 -Total Square Cm 0.49 -Photo Taken No -Epithelialization None Present -Tunneling No -Undermining/Tunneling No -Circular Undermining No -Exudate Amt Small -Exudate Type Serous -Wound Margin Flat & Intact -Granulation Amt None Present (0 %) -Slough/Fibrin Yes -Necrosis Amt Large (67-100%) -Necrotic Tissue Type Adherent Slough -Texture (Shanique-wound Skin Appearance) Assessed, Scarring -Moisture (Shanique-wound Skin Appearance Assessed,Dry/ ) Scaly -Color (Shanique-wound Skin Appearance) Assessed, Erythema, Hemosiderin Staining -Temperature (Shanique-wound Skin No Abnormality Appearance) (Pt Warm) -Tenderness on Palpation (Shanique-wound No Skin Appearance) -Ulcer Cleansing Rinsed/ Irrigated with Saline -Foul Odor after Cleansing No -Anesthetic Used 5% Lidocaine Gel [Edema Assessment] -Lower Limb Edema Present No -Left Calf (cm) 33.4 -Left Ankle (cm) 20.1 Musculoskeletal: No Muscle Wasting Neurological: Cranial nerves II-XII grossly intact, Neuro grossly intact Psych/Mental Status: Normal Affect, Appropriate, Alert and oriented to time, place, person, mood and affect Debridement Note Post-Debridement Measurements/Treatment WC - Nurse 2 - General Ulcer CM Notes Start: 10/26/18 09:12 Freq: Status: Active Protocol: Activity Type Activity Date Activity User E-Sign Co-Sign Detail Recorded Client Recorded Date Recorded By Document 11/02/18 10:47 [facility] [id number] 11/02/18 10:51 MW Document 11/09/18 10:31 MW [id number] 11/09/18 10:41 MW Document 11/12/18 08:24 MW [id number] 11/12/18 08:31 MW 11/02/18 11/09/18 11/12/18 10:47 10:31 08:24 Wound Center Nurse 2 #5 LATERAL LLE -Time 10:49 10:39 08:24 -Correct Patient Yes Yes Yes -Correct Side, Site, Position Yes Yes Yes -Correct Procedure Yes Yes Yes -Procedure Performed Yes Yes No -Type of Procedure Debridement Debridement -Clinical Debridement Subcutaneous Subcutaneous -Post Debridement Size (cm) - Length 0.9 1.0 -Post Debridement Size (cm) - Width 0.6 0.8 -Post Debridement Size (cm) - Depth 0.1 0.1 -Total Square Cm 0.54 0.80 -Wound/Ulcer Outcome Not Healed Not Healed Not Healed -Ulcer Cleansing Rinsed/ Rinsed/ Not Cleansed Irrigated with Irrigated with Saline Saline -Foul Odor after Cleansing No No No -Bioengineered Tissue No No No -Bleeding Controlled with Pressure Pressure NA -Offloading No No -Treatment Response Procedure Procedure Tolerated Well Tolerated Well Pain Scale: 0-10 Numeric Is Patient Pain Free? Yes Yes Yes Laterality: Left - Lateral calf Type of Debridement: Excisional debridement Anesthesia Used: 5% Lidocaine Gel Depth: Down to and including healthy tissue, in the subcutaneous layer Percentage of wound debrided: 100 Instrument Used: 7mm curette Tissue Removed: Bioburden and nonviable tissue Severity: Fat Layer Exposed Amount of bleeding with debridement: Mild Bleeding Controlled with: Compression and gauze Patient tolerated procedure well Assessment/Plan Active Problems Traumatic wound (Chronic) Chronic venous insufficiency (Chronic) History of venous ulcer (Chronic) Lipodermatosclerosis (Chronic) Ulcer of left lower leg (Chronic) Traumatic ulcer of lower leg (Chronic) Allergic reaction caused by a drug (Acute) 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 (Acute) Peripheral vascular disease (Chronic) Traumatic ulcer (Chronic) Nonhealing ulcer of left lower leg (Chronic) Edema (Chronic) Assessment: The patient appears to be doing well at this time. Her left lateral calf wound appears to be diminishing in size. We are to continue the use of Promogran, which will be changed every other day. Compression to the left lower extremity will be continued by means of Tubigrip's. The patient has been provided a prescription for graduated compression stockings of 20 to 30 mmHg compression, knee-high length. The patient's recent wound culture was negative for growth. Keflex was discontinued, due to the development of a mild, pruritic rash. Plan: Patient sustained a traumatic ulcer in both her right and left lower legs while gardening 5 & 6 weeks prior to her presentation. She had been using Neosporin and Collagen Hydrogel on the ulcers since they occured without healing prior to her presentation. The patient appeared not to tolerate the Celena topically on the wound of the right lower extremity recently, experiencing some burning sensation. As result, she resorted to the use of collagenase Santyl. The wound of the right lateral calf is now healed. The wound on the left lateral calf is decreasing in size. We are to continue the use of Promogran topically to the healing wound on the left lateral calf. This will be changed every other day. The patient has also been provided a prescription for graduated compression stockings, knee-high length, of 20 to 30 mmHg compression. She is to return in 1 week for reassessment. Patient has been encouraged to elevate her lower extremities much as possible, and to avoid idle standing and sitting. Patient's laboratory studies have been reviewed, without any outstanding abnormalities. Influenza vaccine was not administered today. Patient is not a smoker. She stands 5 feet 7 inches tall. She weighs 138 pounds. Her BMI is 21.6, which is normal.
== END 2018-11-22 23:59 ==
LOC: WC 10:30
PROVIDERS: Family Provider Internal Medicine; PCP Internal Medicine; Referring Provider Surgery; Visit Provider Surgery
DX: I83.222 Varicose veins of left lower extremity with both ulcer of calf and inflammation (principal); L97.222 Non-pressure chronic ulcer of left calf with fat layer exposed; K21.9 Gastro-esophageal reflux disease without esophagitis; J45.909 Unspecified asthma, uncomplicated; Z79.899 Other long term (current) drug therapy; Z79.51 Long term (current) use of inhaled steroids
CPT/HCPCS: 11042; 87070; 87075; 87205; 99213; G0463

== ENCOUNTER 2018-11-30 10:00 | Outpatient (RCR) | payer MEDICARE, SELFPAY ==
[2018-11-23 00:56] VITALS: BP 159/77; PULSE 74; RESP 16; TEMP 36.8
[2018-11-23 09:43] VITALS: BP 147/72; PULSE 76; RESP 16; TEMP 36.2; BMI 21.6
--- NOTE | 2018-11-23 10:19 | PCM.WC.HP ---
(1) Traumatic wound Status: Chronic Current Visit: Yes (2) Chronic venous insufficiency Status: Chronic Current Visit: Yes Code(s): I87.2 - Venous insufficiency (chronic) (peripheral) (3) Asthma Status: Chronic Current Visit: No Code(s): J45.909 - Unspecified asthma, uncomplicated (4) GERD (gastroesophageal reflux disease) Status: Chronic Current Visit: No Code(s): K21.9 - Gastro-esophageal reflux disease without esophagitis (5) History of venous ulcer Status: Chronic Current Visit: No (6) History of goiter Status: Chronic Current Visit: Yes Code(s): Z86.39 - Personal history of other endocrine, nutritional and metabolic disease (7) Lipodermatosclerosis Status: Chronic Current Visit: Yes Qualifiers: Code(s): I83.10 - Varicose veins of unspecified lower extremity with inflammation (8) 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: Resolved Current Visit: No Qualifiers: Code(s): S81.801A - Unspecified open wound, right lower leg, initial encounter (9) Ulcer of right lower leg Status: Resolved Current Visit: No Qualifiers: Code(s): L97.919 - Non-pressure chronic ulcer of unspecified part of right lower leg with unspecified severity (10) Ulcer of left lower leg Status: Chronic Current Visit: Yes Qualifiers: Non-pressure ulcer stage: with fat layer exposed Code(s): L97.929 - 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 (11) Traumatic ulcer of lower leg Status: Chronic Current Visit: Yes Qualifiers: Laterality: left Code(s): L97.909 - Non-pressure chronic ulcer of unspecified part of unspecified lower leg with unspecified severity (12) Allergic reaction caused by a drug Status: Acute Current Visit: No Code(s): T78.40XA - Allergy, unspecified, initial encounter (13) 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 Status: Acute Current Visit: No Code(s): L50.0 - Allergic urticaria; T50.905A - Adverse effect of unspecified drugs, medicaments and biological substances, initial encounter (14) Peripheral vascular disease Status: Chronic Current Visit: No Code(s): I73.9 - Peripheral vascular disease, unspecified (15) Traumatic ulcer Status: Chronic Current Visit: Yes Qualifiers: Non-pressure ulcer stage: with fat layer exposed Code(s): L98.499 - Non-pressure chronic ulcer of skin of other sites with unspecified severity (16) Nonhealing ulcer of left lower leg Status: Chronic Current Visit: Yes Qualifiers: Non-pressure ulcer stage: with fat layer exposed Code(s): L97.829 - Non-pressure chronic ulcer of other part of left lower leg with unspecified severity (17) Edema Status: Chronic Current Visit: Yes Code(s): R60.9 - Edema, unspecified History of Present Illness Date of Service: 11/23/18 Chief Complaint: Traumatic wound to the right and left anterolateral tibial surface. History of Wound: This is an 83-year-old female who is in her normal state of health until approximately 6 weeks prior to presentation. At that time, she sustained trauma to the left anterior tibial surface against a [place] Eliecer gonzalez that punctured her in her garden through her pants. Then a week later she sustained a trauma to her right anteriolateral leg from a shovel in her garden. These injuries are now non healing ulcers that the patient had been using Neosporin topically, without healing. Patient has a history of chronic venous insufficiency, and has had a venous ulceration in the past, located in the left medial supramalleolar area and right anteriolateral tibia. She has a resultant scar in this area. She denies a history of thrombophlebitis. She sleeps on a flat surface at night. She has been wearing her compression stockings as previously prescribed. Her last vascular studies were 07/2017, the venous doppler showed segmental valvular incompetence within the greater saphenous veins bilaterally. Small saphenous veins are patent and incompetent bilaterally. Arterial studies showed right CRISTOFER=1.17 and left CRISTOFER = 1.17. She denies any fevers, chills nausea and vomiting. She states her appetitie is good. 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 She has also undergone surgery for removal of a benign goiter. Patient is a Ab0. Allergies/Adverse Reactions: Allergies adhesive tape Allergy (Verified 09/14/18 15:16) Rash cephalexin [From Keflex] Allergy (Verified 11/12/18 08:31) Rash levofloxacin [From Levaquin] Allergy (Verified 09/14/18 15:16) Unknown Sulfa (Sulfonamide Antibiotics) Allergy (Verified 09/14/18 15:16) Unknown meloxicam Adverse Reaction (Verified 09/14/18 15:16) Diarrhea tizanidine Adverse Reaction (Verified 09/14/18 15:16) Vomiting Home Medications: Ambulatory Orders Medication Instructions Recorded Albuterol IH (ProAir) [Proair Hfa 1 puff INHALATION Q4H PRN PRN 01/25/15 (SP)Vent Pts] Budesonide/Formoterol 80-4.5 2 puff BID 01/25/15 [Symbicort 80-4.5 Mcg Inhaler] Calcium Carbonate [Calcium] 500 mg PO DAILY 01/25/15 Cholecalciferol (VIT D3) [Vitamin 2,000 unit PO DAILY 01/25/15 D] - Family History Maternal - - The patient did not know her father. Her mother at the age of 96 from old age. Smoking Status: Never smoker Tobacco Use: Non-smoker Review of Systems Constitutional: Denies: Chills, Fever, Weight Change Eyes: Denies: Pain, Vision Change HEENT: Denies: Difficulty Hearing, Difficulty Swallowing, Sinus Congestion Cardiovascular: Denies: Chest Pain, Palpitations Respiratory: Denies: Cough, Shortness of Breath Gastrointestinal: Denies: Diarrhea, Nausea, Vomiting Genitourinary: Denies: Dysuria, Hematuria Endocrine: Denies: Heat/ Cold Intolerance, Polydipsia, Polyuria Hematologic/ Lymphatic: Denies: Easy Bruising, Easy Bleeding - Physical Exam Vital Signs Temp Pulse Resp BP 97.1 F L 76 16 147/72 H 11/23/18 09:43 11/23/18 09:43 11/23/18 09:43 11/23/18 09:43 General: Alert, Oriented x3, Cooperative, No apparent distress, Well developed, Well nourished HEENT: Atraumatic, PERRLA, EOMI, Normocephalic Oral: Moist Mucosa Neck: No JVD Lungs: Normal air movement Abdomen: Non-Distended Extremities: No clubbing, No cyanosis, No edema, No Calf Tenderness, - - There is no significant swelling or edema in the patient's lower extremities. The ulceration on the left lateral calf persists. However, it appears largely epithelialized. Associated localized erythema is noted. This may well be due to maceration. There is no obvious sign of infection or cellulitis. Wound Measurements and Assessment WC - Nurse 1 - General Ulcer Measurement Start: 11/23/18 09:42 Freq: Status: Active Protocol: Activity Type Activity Date Activity User E-Sign Co-Sign Detail Recorded Client Recorded Date Recorded By Document 11/23/18 09:43 [facility] [id number] 11/23/18 09:51 [facility] 11/23/18 09:43 Wound Center Nurse 1 [Ulcer Assessment] #5 LATERAL LLE -Combined with other wound No -Current Size (cm) - Length 0.9 -Current Size (cm) - Width 0.7 -Current Size (cm) - Depth 0.1 -Total Square Cm 0.63 -Photo Taken No -Epithelialization None Present -Tunneling No -Undermining/Tunneling No -Circular Undermining No -Exudate Amt Small -Exudate Type Serosanguineous -Wound Margin Flat & Intact -Granulation Amt Small (1-33%) -Granulation Quality Red -Slough/Fibrin Yes -Necrosis Amt Medium (34-66%) -Necrotic Tissue Type Adherent Slough -Texture (Shanique-wound Skin Appearance) Assessed, Scarring -Moisture (Shanique-wound Skin Appearance Assessed,Dry/ ) Scaly -Color (Shanique-wound Skin Appearance) Assessed -Temperature (Shanique-wound Skin No Abnormality Appearance) (Pt Warm) -Tenderness on Palpation (Shanique-wound No Skin Appearance) -Ulcer Cleansing Rinsed/ Irrigated with Saline -Foul Odor after Cleansing No -Anesthetic Used 5% Lidocaine Gel [Edema Assessment] -Lower Limb Edema Present No -Left Calf (cm) 33.1 -Left Ankle (cm) 20.1 Musculoskeletal: No Muscle Wasting Neurological: Cranial nerves II-XII grossly intact, Neuro grossly intact Psych/Mental Status: Normal Affect, Appropriate, Alert and oriented to time, place, person, mood and affect Debridement Note No debridement was completed today - The ulceration/wound appears to be largely epithelialized. Assessment/Plan Active Problems Traumatic wound (Chronic) Chronic venous insufficiency (Chronic) History of goiter (Chronic) Lipodermatosclerosis (Chronic) Ulcer of left lower leg (Chronic) Traumatic ulcer of lower leg (Chronic) Traumatic ulcer (Chronic) Nonhealing ulcer of left lower leg (Chronic) Edema (Chronic) Assessment: The patient appears to be doing well at this time. Her left lateral calf wound appears to be largely epithelialized. However, there is some associated erythema, possibly due to maceration. We are to implement the use of dry gauze dressings, which will be changed daily. Compression to the left lower extremity will be continued, the patient is to leaf size picker her graduated compression stockings of 20 to 30 mmHg compression, which will be worn on a daily basis. The patient's recent wound culture was negative for growth. Plan: Patient sustained a traumatic ulcer in both her right and left lower legs while gardening 5 & 6 weeks prior to her presentation. She had been using Neosporin and Collagen Hydrogel on the ulcers since they occured without healing prior to her presentation. The patient appeared not to tolerate the Celena topically on the wound of the right lower extremity recently, experiencing some burning sensation. As result, she resorted to the use of collagenase Santyl. The wound of the right lateral calf is now healed. The wound on the left lateral calf has decreased in size, and now appears to be largely epithelialized. Erythema about the wound site is suspected to be due to maceration from the moistened Promogran. Therefore, we are to transition to the use of a dry gauze dressing which will be changed on a daily basis. The patient is to obtain her graduated compression stockings, of knee-high length, of 20 to 30 mmHg compression, which will be worn daily. She is to return in 1 week for reassessment. Patient has been encouraged to elevate her lower extremities much as possible, and to avoid idle standing and sitting. Patient's laboratory studies have been reviewed, without any outstanding abnormalities. Influenza vaccine was not administered today. Patient is not a smoker. She stands 5 feet 7 inches tall. She weighs 138 pounds. Her BMI is 21.6, which is normal.
[2018-11-30 10:18] VITALS: BP 158/70; PULSE 70; RESP 18; TEMP 36.7; BMI 21.6
--- NOTE | 2018-11-30 10:58 | HP.PCM_ITS ---
(1) Traumatic wound Status: Chronic Current Visit: Yes (2) Chronic venous insufficiency Status: Chronic Current Visit: Yes Code(s): I87.2 - Venous insufficiency (chronic) (peripheral) (3) Asthma Status: Chronic Current Visit: No Code(s): J45.909 - Unspecified asthma, uncomplicated (4) GERD (gastroesophageal reflux disease) Status: Chronic Current Visit: No Code(s): K21.9 - Gastro-esophageal reflux disease without esophagitis (5) History of venous ulcer Status: Chronic Current Visit: No (6) History of goiter Status: Chronic Current Visit: No Code(s): Z86.39 - Personal history of other endocrine, nutritional and metabolic disease (7) Lipodermatosclerosis Status: Chronic Current Visit: Yes Qualifiers: Code(s): I83.10 - Varicose veins of unspecified lower extremity with inflammation (8) Ulcer of left lower leg Status: Chronic Current Visit: Yes Qualifiers: Non-pressure ulcer stage: with fat layer exposed Code(s): L97.929 - 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 (9) Traumatic ulcer of lower leg Status: Chronic Current Visit: Yes Qualifiers: Laterality: left Non-pressure ulcer stage: with fat layer exposed Qualified Code(s): L97.922 - Non-pressure chronic ulcer of unspecified part of left lower leg with fat layer exposed Code(s): L97.909 - Non-pressure chronic ulcer of unspecified part of unspecified lower leg with unspecified severity (10) Allergic reaction caused by a drug Status: Acute Current Visit: No Code(s): T78.40XA - Allergy, unspecified, initial encounter (11) 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 Status: Acute Current Visit: No Code(s): L50.0 - Allergic urticaria; T50.905A - Adverse effect of unspecified drugs, medicaments and biological substances, initial encounter (12) Peripheral vascular disease Status: Chronic Current Visit: No Code(s): I73.9 - Peripheral vascular disease, unspecified (13) Traumatic ulcer Status: Chronic Current Visit: Yes Qualifiers: Non-pressure ulcer stage: with fat layer exposed Code(s): L98.499 - Non-pressure chronic ulcer of skin of other sites with unspecified severity (14) Nonhealing ulcer of left lower leg Status: Chronic Current Visit: Yes Qualifiers: Non-pressure ulcer stage: with fat layer exposed Code(s): L97.829 - Non-pressure chronic ulcer of other part of left lower leg with unspecified severity (15) Edema Status: Chronic Current Visit: Yes Code(s): R60.9 - Edema, unspecified History of Present Illness Date of Service: 11/30/18 Chief Complaint: Traumatic wound to the right and left anterolateral tibial surface. History of Wound: This is an 83-year-old female who is in her normal state of health until approximately 6 weeks prior to presentation. At that time, she sustained trauma to the left anterior tibial surface against a [place] [employer]ie[employer] gonzalez that punctured her in her garden through her pants. Then a week later she sustained a trauma to her right anteriolateral leg from a shovel in her garden. These injuries are now non healing ulcers that the patient had been using Neosporin topically, without healing. Patient has a history of chronic venous insufficiency, and has had a venous ulceration in the past, located in the left medial supramalleolar area and right anteriolateral tibia. She has a resultant scar in this area. She denies a history of thrombophlebitis. She sleeps on a flat surface at night. She has been wearing her compression stockings as previously prescribed. Her last vascular studies were 07/2017, the venous doppler showed segmental valvular incompetence within the greater saphenous veins bilaterally. Small saphenous veins are patent and incompetent bilaterally. Arterial studies showed right CRISTOFER=1.17 and left CRISTOFER = 1.17. She denies any fevers, chills nausea and vomiting. She states her appetitie is good. 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 She has also undergone surgery for removal of a benign goiter. Patient is a Ab0. Allergies/Adverse Reactions: Allergies adhesive tape Allergy (Verified 09/14/18 15:16) Rash cephalexin [From Keflex] Allergy (Verified 11/12/18 08:31) Rash levofloxacin [From Levaquin] Allergy (Verified 09/14/18 15:16) Unknown Sulfa (Sulfonamide Antibiotics) Allergy (Verified 09/14/18 15:16) Unknown meloxicam Adverse Reaction (Verified 09/14/18 15:16) Diarrhea tizanidine Adverse Reaction (Verified 09/14/18 15:16) Vomiting Home Medications: Ambulatory Orders Medication Instructions Recorded Albuterol IH (ProAir) [Proair Hfa 1 puff INHALATION Q4H PRN PRN 01/25/15 (SP)Vent Pts] Budesonide/Formoterol 80-4.5 2 puff BID 01/25/15 [Symbicort 80-4.5 Mcg Inhaler] Calcium Carbonate [Calcium] 500 mg PO DAILY 01/25/15 Cholecalciferol (VIT D3) [Vitamin 2,000 unit PO DAILY 01/25/15 D] - Family History Maternal - - The patient did not know her father. Her mother at the age of 96 from old age. Smoking Status: Never smoker Tobacco Use: Non-smoker Review of Systems Constitutional: Denies: Chills, Fever, Weight Change Eyes: Denies: Pain, Vision Change HEENT: Denies: Difficulty Hearing, Difficulty Swallowing, Sinus Congestion Cardiovascular: Denies: Chest Pain, Palpitations Respiratory: Denies: Cough, Shortness of Breath Gastrointestinal: Denies: Diarrhea, Nausea, Vomiting Genitourinary: Denies: Dysuria, Hematuria Endocrine: Denies: Heat/ Cold Intolerance, Polydipsia, Polyuria Hematologic/ Lymphatic: Denies: Easy Bruising, Easy Bleeding - Physical Exam Vital Signs Temp Pulse Resp BP 98.0 F 70 18 158/70 H 11/30/18 10:18 11/30/18 10:18 11/30/18 10:18 11/30/18 10:18 General: Alert, Oriented x3, Cooperative, No apparent distress, Well developed, Well nourished HEENT: Atraumatic, PERRLA, EOMI, Normocephalic Oral: Moist Mucosa Neck: No JVD Lungs: Normal air movement Abdomen: Non-Distended Extremities: No clubbing, No cyanosis, No edema, No Calf Tenderness, - - No significant swelling or edema are noted in the patient's lower extremities. The patient's ulceration on the left lateral calf is now completely healed and epithelialized. There are no open wounds or ulcerations the patient's left lower extremity. Skin: No rashes, No breakdown Wound Measurements and Assessment WC - Nurse 1 - General Ulcer Measurement Start: 11/23/18 09:42 Freq: Status: Active Protocol: Activity Type Activity Date Activity User E-Sign Co-Sign Detail Recorded Client Recorded Date Recorded By Document 11/30/18 10:18 MD [id number] 11/30/18 10:20 MD 11/30/18 10:18 Wound Center Nurse 1 [Ulcer Assessment] #5 LATERAL LLE -Current Size (cm) - Length 0.1 -Current Size (cm) - Width 0.1 -Current Size (cm) - Depth 0.1 -Total Square Cm 0.01 -Epithelialization Large 67-100% -Granulation Amt None Present (0 %) -Texture (Shanique-wound Skin Appearance) Assessed -Moisture (Shanique-wound Skin Appearance Assessed ) -Color (Shanique-wound Skin Appearance) Assessed -Temperature (Shanique-wound Skin No Abnormality Appearance) (Pt Warm) -Tenderness on Palpation (Shanique-wound No Skin Appearance) -Ulcer Cleansing Rinsed/ Irrigated with Saline -Foul Odor after Cleansing No -Anesthetic Used 4% Lidocaine Solution [Edema Assessment] -Lower Limb Edema Present No -Left Calf (cm) 32 -Left Ankle (cm) 20 WC - Nurse 2 - General Ulcer CM Notes Start: 11/23/18 09:42 Freq: Status: Active Protocol: Activity Type Activity Date Activity User E-Sign Co-Sign Detail Recorded Client Recorded Date Recorded By Document 11/30/18 10:50 [id number] 11/30/18 10:51 11/30/18 10:50 Wound Center Nurse 2 [Procedure/Treatment] #5 LATERAL LLE -Correct Patient No -Correct Side, Site, Position No -Correct Procedure No -Procedure Performed No -Post Debridement Size (cm) - Length 0 -Post Debridement Size (cm) - Width 0 -Post Debridement Size (cm) - Depth 0 -Total Square Cm 0 -Wound/Ulcer Outcome Healed- Epithelialized [See Physician Procedure note for Specifics] Pain Scale: 0-10 Numeric [Pain] -Is Patient Pain Free? Yes Musculoskeletal: No Muscle Wasting Neurological: Cranial nerves II-XII grossly intact, Neuro grossly intact Psych/Mental Status: Normal Affect, Appropriate, Alert and oriented to time, place, person, mood and affect Debridement Note Post-Debridement Measurements/Treatment WC - Nurse 2 - General Ulcer CM Notes Start: 11/23/18 09:42 Freq: Status: Active Protocol: Activity Type Activity Date Activity User E-Sign Co-Sign Detail Recorded Client Recorded Date Recorded By Document 11/30/18 10:50 [id number] 11/30/18 10:51 11/30/18 10:50 Wound Center Nurse 2 #5 LATERAL LLE -Correct Patient No -Correct Side, Site, Position No -Correct Procedure No -Procedure Performed No -Post Debridement Size (cm) - Length 0 -Post Debridement Size (cm) - Width 0 -Post Debridement Size (cm) - Depth 0 -Total Square Cm 0 -Wound/Ulcer Outcome Healed- Epithelialized Pain Scale: 0-10 Numeric Is Patient Pain Free? Yes No debridement was completed today - There are no open wounds or ulcerations Assessment/Plan Active Problems Traumatic wound (Chronic) Chronic venous insufficiency (Chronic) Lipodermatosclerosis (Chronic) Ulcer of left lower leg (Chronic) Traumatic ulcer of lower leg (Chronic) Traumatic ulcer (Chronic) Nonhealing ulcer of left lower leg (Chronic) Edema (Chronic) Assessment: The patient appears to be doing well at this time. Her left lateral calf wound appears to be healed and epithelialized. Compression to the left lower extremity will be continued by means of graduated compression stockings of 20 to 30 mmHg compression, which will be worn on a daily basis. Plan: The patient's left lower extremity wound is completely healed and epithelialized. The patient is to be discharged. She is to continue wearing graduated compression stockings on a daily basis. She is to elevate her legs as much as possible. She is to remain active. She is to avoid prolonged idle sitting and standing. She is to follow-up henceforth on an as-needed basis. Influenza vaccine was not administered today. Patient is not a smoker. She stands 5 feet 7 inches tall. She weighs 138 pounds. Her BMI is 21.6, which is normal.
== END 2018-12-23 23:59 ==
LOC: WC 10:00
PROVIDERS: Family Provider Internal Medicine; PCP Internal Medicine; Referring Provider Surgery; Visit Provider Surgery
DX: I83.222 Varicose veins of left lower extremity with both ulcer of calf and inflammation (principal); L97.222 Non-pressure chronic ulcer of left calf with fat layer exposed; K21.9 Gastro-esophageal reflux disease without esophagitis; J45.909 Unspecified asthma, uncomplicated; Z79.899 Other long term (current) drug therapy; Z79.51 Long term (current) use of inhaled steroids
CPT/HCPCS: 99213; G0463

== ENCOUNTER → 2019-01-10 12:06 | Outpatient (CLI) | payer MEDICARE, SELFPAY ==
--- NOTE | 2019-01-10 12:09 | BI_ITS ---
MAMMOGRAPHY - BILATERAL SCREENING REASON FOR EXAM: Female, 83 years old. Routine annual screening examination. PERTINENT HISTORY: Non-contributory. Remote bilateral stereotactic and excisional breast biopsies. TECHNIQUE: Digital bilateral breast bibi (3D mammographic acquisition) in the CC and MLO projections. 2-D mediolateral oblique (MLO) and craniocaudad (CC) views of both breasts were obtained. CAD: Full Field Digital Mammography with Computer Added Detection was performed. COMPARISON: Comparison is made with prior study dated December 31, 2017 and December 18, 2016. FINDINGS: Breast Composition: The breasts are extremely dense, which lowers the sensitivity of mammography. There are no dominant masses or suspicious calcifications. Impression multifocal areas of architectural distortion seen on the tomographic views in the upper slightly medial portion of the right breast. The patient will be recalled for additional views including magnification spot views. No other significant abnormalities are identified. BI/SCREEN MAMM (CAD) W/BIBI BILAT IMPRESSION: Questionable area of architectural distortion in the right breast as described. The patient will be recalled for additional views. Recall Side: Right Breast ASSESSMENT CATEGORY: BIRADS Category 0: Incomplete. Need additional imaging evaluation. A letter regarding these results will be sent to the patient by the facility within 30 days. Approximately 10% of breast cancers are not detected by mammography. A normal mammogram should not delay biopsy of a clinically suspicious abnormality. [id number] Electronically Signed: Wilson Green, at 13:34 EST , Service support ,
== END ==
PROVIDERS: Family Provider Internal Medicine; PCP Internal Medicine; Referring Provider Internal Medicine; Visit Provider Internal Medicine
DX: Z12.31 Encounter for screening mammogram for malignant neoplasm of breast (principal)
CPT/HCPCS: 77063; 77067

== ENCOUNTER → 2019-01-17 09:31 | Outpatient (CLI) | payer MEDICARE, SELFPAY ==
--- NOTE | 2019-01-17 09:35 | BI_ITS ---
MAMMOGRAPHY - UNILATERAL DIAGNOSTIC: RIGHT BREAST REASON FOR EXAM: Female, 83 years old. MAMMOGRAPHY - BILATERAL SCREENING REASON FOR EXAM: Female, 83 years old. Routine annual screening examination. PERTINENT HISTORY: Non-contributory. Patient has a history of bilateral excisional breast biopsies and bilateral stereotactic breast biopsies. TECHNIQUE: Digital bilateral breast hoa (3D mammographic acquisition) in the CC and MLO projections. 2-D mediolateral oblique (MLO) and craniocaudad (CC) views of both breasts were obtained. CAD: Full Field Digital Mammography with Computer Added Detection was performed. COMPARISON: Comparison is made with prior study dated December 18, 2016 and November 26, 2015. January 10, 2019. FINDINGS: Breast Composition: The breasts are extremely dense, which lowers the sensitivity of mammography. There are no dominant masses or suspicious calcifications. No other significant abnormalities are identified. There has been no significant change since the prior study and today's spot films did not reveal any masses. Because of the increased density of the breast and architectural distortion on the right side I do recommend MRI as a baseline in this patient for better evaluation. IMPRESSION: Increased density of the breasts has seen before but because the subtle architectural distortion on the hoa centesis I do recommend MRI with contrast as a baseline for better assessment ASSESSMENT CATEGORY: BIRADS Category 0: Approximately 10% of breast cancers are not detected by mammography. A normal mammogram should not delay biopsy of a clinically suspicious abnormality. [id number] PERTINENT HISTORY: Non-contributory. TECHNIQUE: Digital examination. Mediolateral oblique (MLO) and craniocaudad (CC) views of the breast were obtained. CAD: COMPARISON: None. FINDINGS: Breast Composition: There are no dominant masses or suspicious calcifications. No other significant abnormalities are identified. BI/DIAG MAMM W/CAD, UNILAT IMPRESSION: Stable unilateral diagnostic mammogram. ASSESSMENT CATEGORY: FOLLOW-UP RECOMMENDATION: Approximately 10% of breast cancers are not detected by mammography. A normal mammogram should not delay biopsy of a clinically suspicious abnormality. Electronically Signed: Vj Keane, at 10:44 EST Tel , Service support ,
== END ==
PROVIDERS: Family Provider Internal Medicine; PCP Internal Medicine; Referring Provider Internal Medicine; Visit Provider Internal Medicine
DX: R92.8 Other abnormal and inconclusive findings on diagnostic imaging of breast (principal)
CPT/HCPCS: 77065

== ENCOUNTER → 2019-05-02 12:36 | Outpatient (CLI) | payer MEDICARE, SELFPAY ==
--- NOTE | 2019-05-02 12:53 | MRI_ITS ---
STUDY: BILATERAL BREAST MR WITHOUT AND WITH CONTRAST REASON FOR EXAM: Female, 83 years old. Asymmetry of glandular tissue with distortion of the right breast. History of prior biopsies. TECHNIQUE: Multi-sequence multi-echo imaging of both breasts was performed with a dedicated breast coil. T1-weighted and T2-weighted images were performed before the administration of contrast. T1-weighted images were also performed after the administration of iv Dotarem 12ml without complications. COMPARISON: Diagnostic mammogram dated January 17, 2019 and bilateral mammogram dated January 10, 2019 FINDINGS: RIGHT BREAST: The breast tissue is heterogeneously dense with no background enhancement. There are no abnormal enhancing masses or areas of non-mass enhancement in the right breast. LEFT BREAST: The breast tissue is heterogeneously dense with no background enhancement. There are no abnormal enhancing masses or areas of non-mass enhancement in the left breast. There are no enlarged or abnormal lymph nodes. There is no abnormality in the visualized regions of the chest or liver. MRI/Breast Bilateral W/O and W IMPRESSION: No abnormality on the breast MRI examination with contrast. CATEGORY: BIRADS Category 2: Benign. A letter regarding these results will be sent to the patient by the facility within 30 days. Electronically Signed: Mynor Ferreira MD at 21:12 EDT , Service support ,
[2019-05-03 07:12] LABS: CREATININE FINGERSTICK 0.75 mg/dL (0.55-1.02); EGFR FINGERSTICK > 60 mL/min (>60)
== END ==
PROVIDERS: Family Provider Internal Medicine; PCP Internal Medicine
DX: R92.8 Other abnormal and inconclusive findings on diagnostic imaging of breast (principal)
CPT/HCPCS: 77049; A9575; A4216; C8908

== ENCOUNTER 2019-08-03 23:46 | Emergency (ER) | payer MEDICARE, SELFPAY ==
[2019-08-03 23:47] VITALS: BP 187/96; PULSE 89; RESP 18; TEMP 36.6; O2SAT 98; BMI 22.2
--- NOTE | 2019-08-04 00:01 | ED.VIS.GEN ---
History of Present Illness Chief Complaint: Laceration Informant: Patient Narrative: Stated that just prior to arrival she struck the right lateral portion of her calf on the side of a flower box. It was not metal. Unsure about her last tetanus shot. She suffered a skin tear. Came in for further evaluation and is unsure if she needs suturing. Current severity is mild. No home treatment. - Past Medical History (1) Allergic reaction caused by a drug Status: Acute (2) 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 Status: Acute (3) Asthma Status: Chronic (4) Chronic venous insufficiency Status: Chronic (5) Edema Status: Chronic (6) GERD (gastroesophageal reflux disease) Status: Chronic (7) History of goiter Status: Chronic (8) History of venous ulcer Status: Chronic (9) Lipodermatosclerosis Status: Chronic (10) Nonhealing ulcer of left lower leg Status: Chronic (11) Peripheral vascular disease Status: Chronic (12) Traumatic ulcer Status: Chronic (13) Traumatic ulcer of lower leg Status: Chronic (14) Traumatic wound Status: Chronic (15) Ulcer of left lower leg Status: Chronic (16) 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: Resolved (17) Ulcer of right lower leg Status: Resolved Past Medical History - Allergies and Home Meds Allergies/Adverse Reactions: Allergies adhesive tape Allergy (Verified 08/03/19 23:50) Rash cephalexin [From Keflex] Allergy (Verified 08/03/19 23:50) Rash levofloxacin [From Levaquin] Allergy (Verified 08/03/19 23:50) Unknown Sulfa (Sulfonamide Antibiotics) Allergy (Verified 08/03/19 23:50) Unknown meloxicam Adverse Reaction (Verified 08/03/19 23:50) Diarrhea tizanidine Adverse Reaction (Verified 08/03/19 23:50) Vomiting Primary Care Physician: Kezia Leal MD [Primary Care Provider] - Prior records reviewed: Yes Past Medical History: - - See problem list Surgical History: hysterectomy, - - Patient underwent hemorrhoidectomy in the past. She has also undergone surgery for removal of a benign goiter. Patient is a Ab0. Lives: With Family Smoking Status: Never smoker Alcohol: None Drugs: None - Family History Maternal Family History: Reports: - - The patient did not know her father. Her mother at the age of 96 from old age. Review of Systems General: Denies: Chills, Fever, Sweats Eyes: Denies: Visual changes - bilaterally, Diplopia ENT: Denies: Rhinorrhea, Sore throat Cardiovascular: Denies: Chest pain, Palpitations Respiratory: Denies: Dyspnea, Cough, Dyspnea on exertion Gastrointestinal: Denies: Abdominal pain, Nausea, Vomiting, Diarrhea, Melena, Hematochezia Genitourinary: Denies: Dysuria, Hematuria, Frequency Musculoskeletal: Denies: Back pain, Extremity Pain Skin: Reports: Rash, Wounds - See HPI Neurological: Denies: Headache, Weakness, Numbness Physical Exam Vital Signs/Narrative: Vital Signs Temp Pulse Resp BP Pulse Ox 08/03/19 23:47 97.9 F 89 18 187/96 H 98 General: Well nourished, Well developed, No Acute Distress Head: Normocephalic, Atraumatic Eyes: Perrl, EOMI ENT: Moist mucous membranes, No rhinorrhea Neck: Supple, Nontender Cardiovascular: Regular rate, Regular rhythm, No murmurs Respiratory: No distress, CTA bilaterally, Chest nontender Abdomen: Soft, Nontender, Nondistended, Normal bowel sounds Back: Nontender, Normal Inspection Extremities: Nontender, No edema Skin: No rash, - - Patient has a 1 inch x 1 inch superficial V-shaped skin tear on her right lateral calf. It is too superficial to suture Neurological: Alert, Oriented x3, Cranial nerves II-XII grossly intact, Normal Strength, Normal Sensation Psychological: Normal affect, Normal Mood Diagnostic/Tx/Re-eval - Medical Decision Making Wound was cleansed by the staff. It was Steri-Stripped closed. Dressing was placed. Tetanus was updated. Patient will follow-up as an outpatient ED Disposition - Plan for ED Patient: Disposition: Home or Assisted Living Diagnosis: Skin tear Instructions: ED Laceration Small or Superficial Not Stitched Referrals: Kezia Leal MD [Primary Care Provider] -
[2019-08-04] MEDS: Diphth,Pertuss(Acell),Tet Vac 0.5 ML Vial IM (00:32)
== END 2019-08-04 00:39 | disposition home or self-care (01) ==
LOC: ED 08-04 00:15
PROVIDERS: Emergency Provider Emergency Medicine; PCP Internal Medicine
DX: S81.811A Laceration without foreign body, right lower leg, initial encounter (principal); Z23 Encounter for immunization; W45.8XXA Other foreign body or object entering through skin, initial encounter; Y93.9 Activity, unspecified; Y92.9 Unspecified place or not applicable; Y99.9 Unspecified external cause status; I87.2 Venous insufficiency (chronic) (peripheral); J45.909 Unspecified asthma, uncomplicated; R60.9 Edema, unspecified; I73.9 Peripheral vascular disease, unspecified; K21.9 Gastro-esophageal reflux disease without esophagitis; Z79.899 Other long term (current) drug therapy; Z88.2 Allergy status to sulfonamides; Z88.1 Allergy status to other antibiotic agents; Z88.8 Allergy status to other drugs, medicaments and biological substances
CPT/HCPCS: 12001; 90471; 90715; 99283

== ENCOUNTER 2019-08-18 09:30 | Outpatient (RCR) | payer MEDICARE, SELFPAY ==
[2019-08-11 09:34] VITALS: BP 183/87; PULSE 80; RESP 18; TEMP 36.3; BMI 22.3
--- NOTE | 2019-08-11 10:22 | PCM.WC.HP ---
(1) Wound of right leg Status: Acute Current Visit: Yes Code(s): S81.801A - Unspecified open wound, right lower leg, initial encounter Comment: Acute. Traumatic, penetrating. (2) Chronic venous insufficiency Status: Chronic Current Visit: Yes Code(s): I87.2 - Venous insufficiency (chronic) (peripheral) (3) Peripheral vascular disease Status: Chronic Current Visit: Yes Code(s): I73.9 - Peripheral vascular disease, unspecified History of Present Illness Date of Service: 08/11/19 Chief Complaint: Traumatic Right Leg Wound History of Wound: Ms. Mcdowell is an 83-year-old who presents to the wound center due to right lower extremity wound. Sustained the wound about a week ago after she ran into a flower pot. Was seen at the emergency room and had dressing done. Wound has persisted. Denies any significant drainage or pain. Also denies chills, fever or feeling of unwell. 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 She has also undergone surgery for removal of a benign goiter. Patient is a Ab0. Allergies/Adverse Reactions: Allergies adhesive tape Allergy (Verified 08/11/19 09:53) Rash cephalexin [From Keflex] Allergy (Verified 08/03/19 23:50) Rash levofloxacin [From Levaquin] Allergy (Verified 08/11/19 09:53) Unknown Sulfa (Sulfonamide Antibiotics) Allergy (Verified 08/11/19 09:53) Unknown meloxicam Adverse Reaction (Verified 08/11/19 09:53) Diarrhea tizanidine Adverse Reaction (Verified 08/11/19 09:53) Vomiting Home Medications: Ambulatory Orders Medication Instructions Recorded Albuterol IH (ProAir) [Proair Hfa 1 puff INHALATION Q4H PRN PRN 01/25/15 (SP)Vent Pts] Budesonide/Formoterol 80-4.5 2 puff BID 01/25/15 [Symbicort 80-4.5 Mcg Inhaler] Calcium Carbonate [Calcium] 500 mg PO DAILY 01/25/15 Cholecalciferol (VIT D3) [Vitamin 2,000 unit PO DAILY 01/25/15 D] - Family History Maternal - - The patient did not know her father. Her mother at the age of 96 from old age. Smoking Status: Never smoker Review of Systems Constitutional: Denies: Anorexia, Chills, Fever, Night Sweats Eyes: Denies: Blurred vision, Pain, Redness HEENT: Denies: Difficulty Hearing, Difficulty Swallowing, Dysphasia Cardiovascular: Denies: Chest Pain, Claudication, Chest Pressure, Chest Tightness Respiratory: Denies: Cough, Hemoptysis, Wheezing Gastrointestinal: Denies: Abdominal Pain, Hematemesis, Vomiting Genitourinary: Denies: Hematuria - Physical Exam Vital Signs Temp Pulse Resp BP 97.4 F L 80 18 183/87 H 08/11/19 09:34 08/11/19 09:34 08/11/19 09:34 08/11/19 09:34 General: Alert, Oriented x3, Cooperative, No apparent distress HEENT: Atraumatic, Normocephalic Oral: Moist Mucosa Neck: Supple Lungs: Normal air movement Cardiovascular: Regular rate, Regular Rhythm, Normal S1, Normal S2 Abdomen: Soft, Non Tender Extremities: No cyanosis, Edema Skin: Ulcer/ Wound Wound Measurements and Assessment WC - Nurse 1 - General Ulcer Measurement Start: 08/11/19 09:34 Freq: Status: Active Protocol: Activity Type Activity Date Activity User E-Sign Co-Sign Detail Recorded Client Recorded Date Recorded By Document 08/11/19 09:34 DL [id number] 08/11/19 09:51 DL 08/11/19 09:34 Wound Center Nurse 1 [Ulcer Assessment] #6 R Muniz Lat -Current Size (cm) - Length 1.1 -Current Size (cm) - Width 2 -Current Size (cm) - Depth 0.1 -Total Square Cm 2.2 -Photo Taken Yes -Exudate Amt Small -Exudate Type Serosanguineous -Wound Margin Distinct, Outline Attached -Granulation Amt Small (1-33%) -Granulation Quality Red -Necrosis Amt Small (1-33%) -Necrotic Tissue Type Adherent Slough -Structure Exposed N/A -Texture (Shanique-wound Skin Appearance) Scarring -Moisture (Shanique-wound Skin Appearance No Abnormality ) -Color (Shanique-wound Skin Appearance) Erythema, Hemosiderin Staining,Rubor -Temperature (Shanique-wound Skin No Abnormality Appearance) (Pt Warm) -Tenderness on Palpation (Shanique-wound No Skin Appearance) -Ulcer Cleansing Wound Cleanser -Anesthetic Used 5% Lidocaine Gel Musculoskeletal: No Muscle Wasting Neurological: Cranial nerves II-XII grossly intact Psych/Mental Status: Normal Affect Debridement Note Wound debrided: Right leg Type of Debridement: Excisional debridement Anesthesia Used: 4% Lidocaine Solution Depth: Down to and including healthy tissue, in the subcutaneous layer Percentage of wound debrided: 100 Instrument Used: 3mm curette, #15 blade, Forceps Tissue Removed: Slough and devitalized tissue Severity: Fat Layer Exposed Amount of bleeding with debridement: Mild Bleeding Controlled with: Pressure Patient tolerated procedure well Assessment/Plan Active Problems Chronic venous insufficiency (Chronic) Wound of right leg (Acute) Acute. Traumatic, penetrating. Peripheral vascular disease (Chronic) Assessment: Traumatic right lower extremity wound with fat layer exposed. Plan: Debridement done as documented above. Procedure was well-tolerated. Mild erythema and tenderness. Patient not open to antibiotics at this time. She however was advised to call the office or her primary care physician if she notes worsening erythema and tenderness. She voiced understanding. For now, Aquacel extra daily with Adaptic over top. Double layer Tubigrip's. Elevate lower extremities when seated in bed. Increase protein intake also recommended. Her questions were answered and she was advised to call with any further questions or concerns. Follow-up in a week. This note was generated with [employer] dictation software. It may contain incorrect words, spelling, and punctuation that were not noted in checking the note before signing. Multi Select Codes - Visit Charges Office Visit/Consults: 14933 OV L3 New - Integumentary Integumentary CPT Codes: 73827 Veda subq tissue 20 sq cm/<
[2019-08-18 09:46] VITALS: BP 184/80; PULSE 79; RESP 16; TEMP 36.4; BMI 22.3
--- NOTE | 2019-08-18 12:00 | PN.PCM_ITS ---
(1) Wound of right leg Status: Acute Current Visit: Yes Code(s): S81.801A - Unspecified open wound, right lower leg, initial encounter Comment: Acute. Traumatic, penetrating. (2) Chronic venous insufficiency Status: Chronic Current Visit: Yes Code(s): I87.2 - Venous insufficiency (chronic) (peripheral) (3) Peripheral vascular disease Status: Chronic Current Visit: Yes Code(s): I73.9 - Peripheral vascular disease, unspecified Type of Wound Date of Service: 08/18/19 Chief Complaint: Traumatic Right Leg Wound History of Wound: Ms. Mcdowell is an 83-year-old who presents to the wound center due to right lower extremity wound. Sustained the wound about a week ago after she ran into a flower pot. Was seen at the emergency room and had dressing done. Wound has persisted. Denies any significant drainage or pain. Also denies chills, fever or feeling of unwell. Progress of Wound: Improving. No new concerns at this time. - Physical Exam Vital Signs Temp Pulse Resp BP 97.6 F L 79 16 184/80 H 08/18/19 09:46 08/18/19 09:46 08/18/19 09:46 08/18/19 09:46 General: Alert, Oriented x3, Cooperative, No apparent distress HEENT: Atraumatic, Normocephalic Oral: Moist Mucosa Neck: Supple Lungs: Normal air movement Extremities: No cyanosis, Edema Skin: Ulcer/ Wound Wound Measurements and Assessment WC - Nurse 1 - General Ulcer Measurement Start: 08/11/19 09:34 Freq: Status: Active Protocol: Activity Type Activity Date Activity User E-Sign Co-Sign Detail Recorded Client Recorded Date Recorded By Document 08/18/19 09:46 [facility] [id number] 08/18/19 09:50 [facility] 08/18/19 09:46 Wound Center Nurse 1 [Ulcer Assessment] #6 R Muniz Lat -Combined with other wound No -Current Size (cm) - Length 2 -Current Size (cm) - Width 1.1 -Current Size (cm) - Depth 0.3 -Total Square Cm 2.2 -Photo Taken No -Tunneling No -Undermining/Tunneling No -Circular Undermining No -Exudate Amt Small -Exudate Type Serosanguineous -Wound Margin Thickened & Rolled Under -Granulation Amt Small (1-33%) -Granulation Quality Red -Slough/Fibrin Yes -Necrosis Amt Medium (34-66%) -Necrotic Tissue Type Adherent Slough -Texture (Shanique-wound Skin Appearance) Assessed, Scarring -Moisture (Shanique-wound Skin Appearance Assessed ) -Color (Shanique-wound Skin Appearance) Assessed, Erythema -Temperature (Shanique-wound Skin No Abnormality Appearance) (Pt Warm) -Tenderness on Palpation (Shanique-wound No Skin Appearance) -Ulcer Cleansing Rinsed/ Irrigated with Saline -Foul Odor after Cleansing No -Anesthetic Used 5% Lidocaine Gel [Edema Assessment] -Lower Limb Edema Present Yes -Right Calf (cm) 31 -Right Ankle (cm) 19.1 WC - Nurse 2 - General Ulcer CM Notes Start: 08/11/19 09:34 Freq: Status: Active Protocol: Activity Type Activity Date Activity User E-Sign Co-Sign Detail Recorded Client Recorded Date Recorded By Document 08/18/19 10:03 DV [id number] 08/18/19 10:04 DV 08/18/19 10:03 Wound Center Nurse 2 [Procedure/Treatment] #6 R Muniz Lat -Time 10:04 -Correct Patient Yes -Correct Side, Site, Position Yes -Correct Procedure Yes -Procedure Performed Yes -Type of Procedure Debridement -Clinical Debridement Subcutaneous -Post Debridement Size (cm) - Length 2.0 -Post Debridement Size (cm) - Width 1.5 -Post Debridement Size (cm) - Depth 0.1 -Total Square Cm 3.00 -Wound/Ulcer Outcome Not Healed -Ulcer Cleansing Rinsed/ Irrigated with Saline -Foul Odor after Cleansing No -Bioengineered Tissue No -Bleeding Controlled with Pressure -Offloading No -Treatment Response Procedure Tolerated Well [See Physician Procedure note for Specifics] Musculoskeletal: No Muscle Wasting Neurological: Cranial nerves II-XII grossly intact Psych/Mental Status: Normal Affect Debridement Note Post-Debridement Measurements/Treatment WC - Nurse 2 - General Ulcer CM Notes Start: 08/11/19 09:34 Freq: Status: Active Protocol: Activity Type Activity Date Activity User E-Sign Co-Sign Detail Recorded Client Recorded Date Recorded By Document 08/11/19 12:51 PL [id number] 08/11/19 12:52 PL Document 08/18/19 10:03 DV [id number] 08/18/19 10:04 DV 08/11/19 08/18/19 12:51 10:03 Wound Center Nurse 2 #6 R Muniz Lat -Time 10:08 10:04 -Correct Patient Yes Yes -Correct Side, Site, Position Yes Yes -Correct Procedure Yes Yes -Procedure Performed Yes Yes -Type of Procedure Debridement Debridement -Clinical Debridement Subcutaneous Subcutaneous -Post Debridement Size (cm) - Length 3 2.0 -Post Debridement Size (cm) - Width 2 1.5 -Post Debridement Size (cm) - Depth 0.1 0.1 -Total Square Cm 6 3.00 -Wound/Ulcer Outcome Not Healed Not Healed -Ulcer Cleansing Rinsed/ Rinsed/ Irrigated with Irrigated with Saline Saline -Foul Odor after Cleansing No No -Bioengineered Tissue No -Bleeding Controlled with Pressure Pressure -Offloading No -Treatment Response Procedure Procedure Tolerated Well Tolerated Well Pain Scale: 0-10 Numeric Is Patient Pain Free? Yes Wound debrided: Right lower extremity Type of Debridement: Excisional debridement Anesthesia Used: 4% Lidocaine Solution Depth: Down to and including healthy tissue, in the subcutaneous layer Percentage of wound debrided: 100 Instrument Used: 5mm curette Tissue Removed: Slough and devitalized tissue Severity: Fat Layer Exposed Amount of bleeding with debridement: Mild Bleeding Controlled with: Pressure Patient tolerated procedure well Assessment/Plan Active Problems Chronic venous insufficiency (Chronic) Wound of right leg (Acute) Acute. Traumatic, penetrating. Peripheral vascular disease (Chronic) Assessment: Traumatic right lower extremity wound with fat layer exposed. Plan: Debridement done as documented above. Procedure was well-tolerated. Continue Aquacel extra daily with Adaptic over top. Double layer Tubigrip's. Elevate lower extremities when seated and in bed. Increased protein intake also recommended. Her questions were answered and she was advised to call with any further questions or concerns. Follow-up in a week. This note was generated with [employer] software. It may contain incorrect words, spelling, and punctuation that were not noted in checking the note before signing. [id number]: [id number] Veda subq tissue 20 sq cm/<
== END 2019-08-23 23:59 ==
LOC: WC 09:30
PROVIDERS: PCP Internal Medicine; Visit Provider Internal Medicine
DX: I73.9 Peripheral vascular disease, unspecified (principal); J45.909 Unspecified asthma, uncomplicated; K21.9 Gastro-esophageal reflux disease without esophagitis; R60.0 Localized edema; I87.2 Venous insufficiency (chronic) (peripheral); S81.831A Puncture wound without foreign body, right lower leg, initial encounter; W22.09XA Striking against other stationary object, initial encounter
CPT/HCPCS: 11042; 99202; G0463

== ENCOUNTER 2019-09-22 09:30 | Outpatient (RCR) | payer MEDICARE, SELFPAY ==
[2019-08-24 00:38] VITALS: BP 184/80; PULSE 79; RESP 16; TEMP 36.4
[2019-08-25 10:34] VITALS: RESP 16; TEMP 36.6; BMI 22.3
--- NOTE | 2019-08-25 12:02 | PN.PCM_ITS ---
(1) Wound of right leg Status: Chronic Current Visit: Yes Code(s): S81.801A - Unspecified open wound, right lower leg, initial encounter Comment: Traumatic, penetrating. Type of Wound Date of Service: 08/25/19 Chief Complaint: Traumatic Right Leg Wound History of Wound: Ms. Mcdowell is an 83-year-old who presents to the wound center due to right lower extremity wound. Sustained the wound about a week ago after she ran into a flower pot. Was seen at the emergency room and had dressing done. Wound has persisted. Denies any significant drainage or pain. Also denies chills, fever or feeling of unwell. Progress of Wound: Still report significant tenderness. No chills or fever. - Physical Exam Vital Signs Temp Pulse Resp BP 97.8 F 79 16 184/80 H 08/25/19 10:34 08/24/19 00:38 08/25/19 10:34 08/24/19 00:38 General: Alert, Oriented x3, Cooperative, No apparent distress HEENT: Atraumatic, Normocephalic Oral: Moist Mucosa Neck: Supple Lungs: Normal air movement Extremities: No cyanosis Skin: Ulcer/ Wound Wound Measurements and Assessment WC - Nurse 1 - General Ulcer Measurement Start: 08/25/19 10:34 Freq: Status: Active Protocol: Activity Type Activity Date Activity User E-Sign Co-Sign Detail Recorded Client Recorded Date Recorded By Document 08/25/19 10:34 [facility] [id number] 08/25/19 10:42 [facility] 08/25/19 10:34 Wound Center Nurse 1 [Ulcer Assessment] #6 R Muniz Lat -Combined with other wound No -Current Size (cm) - Length 2 -Current Size (cm) - Width 1.5 -Current Size (cm) - Depth 0.2 -Total Square Cm 3.0 -Photo Taken No -Epithelialization None Present -Tunneling No -Undermining/Tunneling No -Circular Undermining No -Exudate Amt Small -Exudate Type Serosanguineous -Wound Margin Distinct, Outline Attached -Granulation Amt Medium (34-66%) -Granulation Quality Red -Slough/Fibrin Yes -Necrosis Amt Medium (34-66%) -Necrotic Tissue Type Adherent Slough -Texture (Shanique-wound Skin Appearance) Assessed, Scarring -Moisture (Shanique-wound Skin Appearance Assessed ) -Color (Shanique-wound Skin Appearance) Assessed -Temperature (Shanique-wound Skin No Abnormality Appearance) (Pt Warm) -Tenderness on Palpation (Shanique-wound No Skin Appearance) -Ulcer Cleansing Rinsed/ Irrigated with Saline -Foul Odor after Cleansing No -Anesthetic Used 5% Lidocaine Gel [Edema Assessment] -Lower Limb Edema Present Yes -Right Calf (cm) 31.5 -Right Ankle (cm) 19.5 WC - Nurse 2 - General Ulcer CM Notes Start: 08/25/19 10:34 Freq: Status: Active Protocol: Activity Type Activity Date Activity User E-Sign Co-Sign Detail Recorded Client Recorded Date Recorded By Document 08/25/19 11:02 MW [id number] 08/25/19 11:05 MW 08/25/19 11:02 Wound Center Nurse 2 [Procedure/Treatment] #6 R Muniz Lat -Time 11:03 -Correct Patient Yes -Correct Side, Site, Position Yes -Correct Procedure Yes -Procedure Performed Yes -Type of Procedure Debridement -Clinical Debridement Subcutaneous -Post Debridement Size (cm) - Length 2.1 -Post Debridement Size (cm) - Width 1.2 -Post Debridement Size (cm) - Depth 0.1 -Total Square Cm 2.52 -Wound/Ulcer Outcome Not Healed -Ulcer Cleansing Rinsed/ Irrigated with Saline -Foul Odor after Cleansing No -Bioengineered Tissue No -Bleeding Controlled with Pressure -Offloading No -Treatment Response Procedure Tolerated Well [See Physician Procedure note for Specifics] Pain Scale: 0-10 Numeric [Pain] -Is Patient Pain Free? Yes Musculoskeletal: No Muscle Wasting Neurological: Cranial nerves II-XII grossly intact Psych/Mental Status: Normal Affect Debridement Note Post-Debridement Measurements/Treatment - Nurse 2 - General Ulcer CM Notes Start: 08/25/19 10:34 Freq: Status: Active Protocol: Activity Type Activity Date Activity User E-Sign Co-Sign Detail Recorded Client Recorded Date Recorded By Document 08/25/19 11:02 MW [id number] 08/25/19 11:05 MW 08/25/19 11:02 Wound Center Nurse 2 #6 R Muniz Lat -Time 11:03 -Correct Patient Yes -Correct Side, Site, Position Yes -Correct Procedure Yes -Procedure Performed Yes -Type of Procedure Debridement -Clinical Debridement Subcutaneous -Post Debridement Size (cm) - Length 2.1 -Post Debridement Size (cm) - Width 1.2 -Post Debridement Size (cm) - Depth 0.1 -Total Square Cm 2.52 -Wound/Ulcer Outcome Not Healed -Ulcer Cleansing Rinsed/ Irrigated with Saline -Foul Odor after Cleansing No -Bioengineered Tissue No -Bleeding Controlled with Pressure -Offloading No -Treatment Response Procedure Tolerated Well Pain Scale: 0-10 Numeric Is Patient Pain Free? Yes Wound debrided: Right leg Type of Debridement: Excisional debridement Anesthesia Used: 4% Lidocaine Solution Depth: Down to and including healthy tissue, in the subcutaneous layer Percentage of wound debrided: 100 Instrument Used: 5mm curette Tissue Removed: Slough and devitalized tissue Severity: Fat Layer Exposed Amount of bleeding with debridement: Mild Bleeding Controlled with: Pressure Patient tolerated procedure well Assessment/Plan Active Problems Wound of right leg (Chronic) Traumatic, penetrating. Assessment: Traumatic right lower extremity wound with fat layer exposed. Plan: Debridement done as documented above. Procedure was well-tolerated. Cultures taken due to significant tenderness. No erythema or drainage appreciated. Patient however not very open to antibiotics. Will review culture. Switch to Fibracol daily with Adaptic over top. Double layer Tubigrip's. Elevate lower extremities when seated and in bed. Increased protein intake also recommended. Her questions were answered and she was advised to call with any further questions or concerns. Follow-up in a week for nurse visit in 2 weeks with me. This note was generated with [employer] software. It may contain incorrect words, spelling, and punctuation that were not noted in checking the note before signing. [id number]: [id number] Veda subq tissue 20 sq cm/<
[2019-08-30 13:44] VITALS: BP 154/58; PULSE 76; RESP 18; TEMP 36.3; BMI 22.3
[2019-09-08 10:57] VITALS: BP 175/66; PULSE 74; RESP 16; TEMP 36.4; BMI 22.3
--- NOTE | 2019-09-08 11:52 | PN.PCM_ITS ---
(1) Wound of right leg Status: Chronic Current Visit: Yes Code(s): S81.801A - Unspecified open wound, right lower leg, initial encounter Comment: Traumatic, penetrating. Type of Wound Date of Service: 09/08/19 Chief Complaint: Traumatic Right Leg Wound History of Wound: Ms. Mcdowell is an 83-year-old who presents to the wound center due to right lower extremity wound. Sustained the wound about a week ago after she ran into a flower pot. Was seen at the emergency room and had dressing done. Wound has persisted. Denies any significant drainage or pain. Also denies chills, fever or feeling of unwell. Progress of Wound: Improving. No new concerns. - Physical Exam Vital Signs Temp Pulse Resp BP 97.6 F L 74 16 175/66 H 09/08/19 10:57 09/08/19 10:57 09/08/19 10:57 09/08/19 10:57 General: Alert, Oriented x3, Cooperative, No apparent distress HEENT: Atraumatic, Normocephalic Oral: Moist Mucosa Lungs: Normal air movement Extremities: No cyanosis Skin: Ulcer/ Wound Wound Measurements and Assessment WC - Nurse 1 - General Ulcer Measurement Start: 08/25/19 10:34 Freq: Status: Active Protocol: Activity Type Activity Date Activity User E-Sign Co-Sign Detail Recorded Client Recorded Date Recorded By Document 09/08/19 10:57 NEREIDA [id number] 09/08/19 11:00 NEREIDA 09/08/19 10:57 Wound Center Nurse 1 [Ulcer Assessment] #6 R Muniz Lat -Combined with other wound No -Current Size (cm) - Length 1.7 -Current Size (cm) - Width 0.8 -Current Size (cm) - Depth 0.1 -Total Square Cm 1.36 -Photo Taken No -Epithelialization Small 1-33% -Tunneling No -Undermining/Tunneling No -Circular Undermining No -Exudate Amt Small -Exudate Type Serosanguineous -Wound Margin Flat & Intact -Granulation Amt Medium (34-66%) -Granulation Quality Red -Slough/Fibrin Yes -Necrosis Amt Small (1-33%) -Necrotic Tissue Type Adherent Slough -Structure Exposed N/A -Texture (Shanique-wound Skin Appearance) Assessed, Scarring -Moisture (Shanique-wound Skin Appearance Assessed,Dry/ ) Scaly -Color (Shanique-wound Skin Appearance) Assessed -Temperature (Shanique-wound Skin No Abnormality Appearance) (Pt Warm) -Tenderness on Palpation (Shanique-wound No Skin Appearance) -Ulcer Cleansing Rinsed/ Irrigated with Saline -Foul Odor after Cleansing No -Anesthetic Used 4% Lidocaine Solution [Edema Assessment] -Lower Limb Edema Present Yes -Right Calf (cm) 31.0 -Right Ankle (cm) 19.6 - Nurse 2 - General Ulcer CM Notes Start: 08/25/19 10:34 Freq: Status: Active Protocol: Activity Type Activity Date Activity User E-Sign Co-Sign Detail Recorded Client Recorded Date Recorded By Document 09/08/19 11:14 MW [id number] 09/08/19 11:15 MW 09/08/19 11:14 Wound Center Nurse 2 [Procedure/Treatment] #6 R Muniz Lat -Time 11:15 -Correct Patient Yes -Correct Side, Site, Position Yes -Correct Procedure Yes -Procedure Performed Yes -Type of Procedure Debridement -Clinical Debridement Subcutaneous -Post Debridement Size (cm) - Length 1.6 -Post Debridement Size (cm) - Width 0.6 -Post Debridement Size (cm) - Depth 0.1 -Total Square Cm 0.96 -Wound/Ulcer Outcome Not Healed -Ulcer Cleansing Rinsed/ Irrigated with Saline -Foul Odor after Cleansing No -Bioengineered Tissue No -Bleeding Controlled with Pressure -Offloading No -Treatment Response Procedure Tolerated Well [See Physician Procedure note for Specifics] Pain Scale: 0-10 Numeric [Pain] -Is Patient Pain Free? Yes Musculoskeletal: No Muscle Wasting Neurological: Cranial nerves II-XII grossly intact Psych/Mental Status: Normal Affect Debridement Note Post-Debridement Measurements/Treatment - Nurse 2 - General Ulcer CM Notes Start: 08/25/19 10:34 Freq: Status: Active Protocol: Activity Type Activity Date Activity User E-Sign Co-Sign Detail Recorded Client Recorded Date Recorded By Document 08/25/19 11:02 MW [id number] 08/25/19 11:05 MW Document 09/08/19 11:14 MW [id number] 09/08/19 11:15 MW 08/25/19 09/08/19 11:02 11:14 Wound Center Nurse 2 #6 R Muniz Lat -Time 11:03 11:15 -Correct Patient Yes Yes -Correct Side, Site, Position Yes Yes -Correct Procedure Yes Yes -Procedure Performed Yes Yes -Type of Procedure Debridement Debridement -Clinical Debridement Subcutaneous Subcutaneous -Post Debridement Size (cm) - Length 2.1 1.6 -Post Debridement Size (cm) - Width 1.2 0.6 -Post Debridement Size (cm) - Depth 0.1 0.1 -Total Square Cm 2.52 0.96 -Wound/Ulcer Outcome Not Healed Not Healed -Ulcer Cleansing Rinsed/ Rinsed/ Irrigated with Irrigated with Saline Saline -Foul Odor after Cleansing No No -Bioengineered Tissue No No -Bleeding Controlled with Pressure Pressure -Offloading No No -Treatment Response Procedure Procedure Tolerated Well Tolerated Well Pain Scale: 0-10 Numeric Is Patient Pain Free? Yes Yes Wound debrided: Right leg Type of Debridement: Excisional debridement Anesthesia Used: 4% Lidocaine Solution Depth: Down to and including healthy tissue, in the subcutaneous layer Percentage of wound debrided: 100 Instrument Used: 3mm curette Tissue Removed: Slough and devitalized tissue Severity: Fat Layer Exposed Amount of bleeding with debridement: Mild Bleeding Controlled with: Pressure Patient tolerated procedure well Assessment/Plan Active Problems Wound of right leg (Chronic) Traumatic, penetrating. Assessment: Traumatic right lower extremity wound with fat layer exposed. Plan: Debridement done as documented above. Procedure was well-tolerated. Now improving. No new concerns. Continue Fibracol daily with Adaptic over top. Double layer Tubigrip's. Elevate lower extremities when seated and in bed. Increased protein intake also recommended. Her questions were answered and she was advised to call with any further questions or concerns. Follow up in 1 week. This note was generated with [employer] software. It may contain incorrect words, spelling, and punctuation that were not noted in checking the note before signing. 111xxx-113xx: [id number] Veda subq tissue 20 sq cm/<
[2019-09-15 12:48] VITALS: BP 170/50; PULSE 71; RESP 18; TEMP 36.2; BMI 22.3
--- NOTE | 2019-09-15 13:01 | PCM.WC.PN ---
(1) Wound of right leg Status: Chronic Current Visit: Yes Code(s): S81.801A - Unspecified open wound, right lower leg, initial encounter Comment: Traumatic, penetrating. Type of Wound Date of Service: 09/15/19 Chief Complaint: Traumatic Right Leg Wound History of Wound: Ms. Mcdowell is an 83-year-old who presents to the wound center due to right lower extremity wound. Sustained the wound about a week ago after she ran into a flower pot. Was seen at the emergency room and had dressing done. Wound has persisted. Denies any significant drainage or pain. Also denies chills, fever or feeling of unwell. Progress of Wound: Improving. No new concerns. - Physical Exam Vital Signs Temp Pulse Resp BP 97.1 F L 71 18 170/50 H 09/15/19 12:48 09/15/19 12:48 09/15/19 12:48 09/15/19 12:48 General: Alert, Oriented x3, Cooperative, No apparent distress HEENT: Atraumatic, Normocephalic Oral: Moist Mucosa Neck: Supple Lungs: Normal air movement Skin: Ulcer/ Wound Wound Measurements and Assessment WC - Nurse 1 - General Ulcer Measurement Start: 08/25/19 10:34 Freq: Status: Active Protocol: Activity Type Activity Date Activity User E-Sign Co-Sign Detail Recorded Client Recorded Date Recorded By Document 09/15/19 12:48 ROX [id number] 09/15/19 12:53 ROX 09/15/19 12:48 Wound Center Nurse 1 [Ulcer Assessment] #6 R Muniz Lat -Combined with other wound No -Current Size (cm) - Length 1.5 -Current Size (cm) - Width 0.6 -Current Size (cm) - Depth 0.1 -Total Square Cm 0.90 -Tunneling No -Undermining/Tunneling No -Circular Undermining No -Exudate Amt Small -Exudate Type Serosanguineous -Wound Margin Flat & Intact -Granulation Amt Medium (34-66%) -Granulation Quality [place] -Slough/Fibrin Yes -Necrosis Amt Small (1-33%) -Necrotic Tissue Type Adherent Slough -Structure Exposed N/A -Texture (Shanique-wound Skin Appearance) Assessed, Scarring -Moisture (Shanique-wound Skin Appearance Assessed ) -Color (Shanique-wound Skin Appearance) Assessed -Temperature (Shanique-wound Skin No Abnormality Appearance) (Pt Warm) -Tenderness on Palpation (Shanique-wound No Skin Appearance) -Ulcer Cleansing Wound Cleanser -Foul Odor after Cleansing No -Anesthetic Used 4% Lidocaine Solution [Edema Assessment] -Lower Limb Edema Present Yes -Right Calf (cm) 31.5 -Right Ankle (cm) 20.5 Musculoskeletal: No Muscle Wasting Neurological: Cranial nerves II-XII grossly intact Psych/Mental Status: Normal Affect Debridement Note Post-Debridement Measurements/Treatment WC - Nurse 2 - General Ulcer CM Notes Start: 08/25/19 10:34 Freq: Status: Active Protocol: Activity Type Activity Date Activity User E-Sign Co-Sign Detail Recorded Client Recorded Date Recorded By Document 08/25/19 11:02 MW [id number] 08/25/19 11:05 MW Document 09/08/19 11:14 MW [id number] 09/08/19 11:15 MW 08/25/19 09/08/19 11:02 11:14 Wound Center Nurse 2 #6 R Muniz Lat -Time 11:03 11:15 -Correct Patient Yes Yes -Correct Side, Site, Position Yes Yes -Correct Procedure Yes Yes -Procedure Performed Yes Yes -Type of Procedure Debridement Debridement -Clinical Debridement Subcutaneous Subcutaneous -Post Debridement Size (cm) - Length 2.1 1.6 -Post Debridement Size (cm) - Width 1.2 0.6 -Post Debridement Size (cm) - Depth 0.1 0.1 -Total Square (cm) 2.52 0.96 -Wound/Ulcer Outcome Not Healed Not Healed -Ulcer Cleansing Rinsed/ Rinsed/ Irrigated with Irrigated with Saline Saline -Foul Odor after Cleansing No No -Bioengineered Tissue No No -Bleeding Controlled with Pressure Pressure -Offloading No No -Treatment Response Procedure Procedure Tolerated Well Tolerated Well Pain Scale: 0-10 Numeric Is Patient Pain Free? Yes Yes Wound debrided: Right lower extremity Type of Debridement: Excisional debridement Anesthesia Used: 4% Lidocaine Solution Depth: Down to and including healthy tissue, in the subcutaneous layer Percentage of wound debrided: 100 Instrument Used: 3mm curette Tissue Removed: Slough and devitalized tissue Severity: Fat Layer Exposed Amount of bleeding with debridement: Mild Bleeding Controlled with: Pressure Patient tolerated procedure well Assessment/Plan Active Problems Wound of right leg (Chronic) Traumatic, penetrating. Assessment: Traumatic right lower extremity wound with fat layer exposed. Plan: Debridement done as documented above. Procedure was well-tolerated. Still improving. Continue Fibracol daily with Adaptic over top. Double layer Tubigrip's. Elevate lower extremities when seated and in bed. Increased protein intake also recommended. Her questions were answered and she was advised to call with any further questions or concerns. Follow up in 1 week. This note was generated with [employer] dictation software. It may contain incorrect words, spelling, and punctuation that were not noted in checking the note before signing. 111xxx-113xx: [id number] Veda subq tissue 20 sq cm/<
[2019-09-22 09:33] VITALS: BP 155/63; PULSE 72; RESP 16; TEMP 36.4; BMI 22.3
--- NOTE | 2019-09-22 09:53 | PN.PCM_ITS ---
(1) Wound of right leg Status: Chronic Current Visit: Yes Code(s): S81.801A - Unspecified open wound, right lower leg, initial encounter Comment: Traumatic, penetrating. Type of Wound Date of Service: 09/22/19 Chief Complaint: Traumatic Right Leg Wound History of Wound: Ms. Mcdowell is an 83-year-old who presents to the wound center due to right lower extremity wound. Sustained the wound about a week ago after she ran into a flower pot. Was seen at the emergency room and had dressing done. Wound has persisted. Denies any significant drainage or pain. Also denies chills, fever or feeling of unwell. Progress of Wound: Improving. No new concerns. - Physical Exam Vital Signs Temp Pulse Resp BP 97.5 F L 72 16 155/63 H 09/22/19 09:33 09/22/19 09:33 09/22/19 09:33 09/22/19 09:33 General: Alert, Oriented x3, Cooperative, No apparent distress HEENT: Atraumatic, Normocephalic Oral: Moist Mucosa Neck: Supple Lungs: Normal air movement Extremities: No cyanosis Skin: Ulcer/ Wound Wound Measurements and Assessment WC - Nurse 1 - General Ulcer Measurement Start: 08/25/19 10:34 Freq: Status: Active Protocol: Activity Type Activity Date Activity User E-Sign Co-Sign Detail Recorded Client Recorded Date Recorded By Document 09/22/19 09:33 [facility] [id number] 09/22/19 09:39 [facility] 09/22/19 09:33 Wound Center Nurse 1 [Ulcer Assessment] #6 R Muniz Lat -Combined with other wound No -Current Size (cm) - Length 0.1 -Current Size (cm) - Width 0.1 -Current Size (cm) - Depth 0.1 -Total Square Cm 0.01 -Epithelialization Large 67-100% -Tunneling No -Undermining/Tunneling No -Circular Undermining No -Exudate Amt None Present -Texture (Shanique-wound Skin Appearance) Assessed, Scarring -Moisture (Shanique-wound Skin Appearance Assessed ) -Color (Shanique-wound Skin Appearance) Assessed -Temperature (Shanique-wound Skin No Abnormality Appearance) (Pt Warm) -Tenderness on Palpation (Shanique-wound No Skin Appearance) -Ulcer Cleansing Rinsed/ Irrigated with Saline -Foul Odor after Cleansing No -Anesthetic Used 5% Lidocaine Gel [Edema Assessment] -Lower Limb Edema Present No -Right Calf (cm) 30.9 -Right Ankle (cm) 19.7 WC - Nurse 2 - General Ulcer CM Notes Start: 08/25/19 10:34 Freq: Status: Active Protocol: Activity Type Activity Date Activity User E-Sign Co-Sign Detail Recorded Client Recorded Date Recorded By Document 09/22/19 09:47 MW [id number] 09/22/19 09:48 MW 09/22/19 09:47 Wound Center Nurse 2 [Procedure/Treatment] #6 R Muniz Lat -Time 09:47 -Correct Patient Yes -Correct Side, Site, Position Yes -Correct Procedure Yes -Procedure Performed Yes -Type of Procedure Debridement -Clinical Debridement Selective -Post Debridement Size (cm) - Length 0.9 -Post Debridement Size (cm) - Width 0.4 -Post Debridement Size (cm) - Depth 0.1 -Total Square (cm) 0.36 -Wound/Ulcer Outcome Not Healed -Ulcer Cleansing Rinsed/ Irrigated with Saline -Foul Odor after Cleansing No -Bioengineered Tissue No -Bleeding Controlled with Pressure -Offloading No -Treatment Response Procedure Tolerated Well [See Physician Procedure note for Specifics] Pain Scale: 0-10 Numeric [Pain] -Is Patient Pain Free? Yes Musculoskeletal: No Muscle Wasting Neurological: Cranial nerves II-XII grossly intact Psych/Mental Status: Normal Affect Debridement Note Post-Debridement Measurements/Treatment - Nurse 2 - General Ulcer CM Notes Start: 08/25/19 10:34 Freq: Status: Active Protocol: Activity Type Activity Date Activity User E-Sign Co-Sign Detail Recorded Client Recorded Date Recorded By Document 08/25/19 11:02 MW [id number] 08/25/19 11:05 MW Document 09/08/19 11:14 MW [id number] 09/08/19 11:15 MW Document 09/15/19 13:[address] [id number] 09/15/19 13:09 PL Document 09/22/19 09:47 MW [id number] 09/22/19 09:48 MW 08/25/19 09/08/19 09/15/19 11:02 11:14 13:09 Wound Center Nurse 2 #6 R Muniz Lat -Time 11:03 11:15 12:58 -Correct Patient Yes Yes Yes -Correct Side, Site, Position Yes Yes Yes -Correct Procedure Yes Yes Yes -Procedure Performed Yes Yes Yes -Type of Procedure Debridement Debridement Debridement -Clinical Debridement Subcutaneous Subcutaneous Subcutaneous -Post Debridement Size (cm) - Length 2.1 1.6 1.1 -Post Debridement Size (cm) - Width 1.2 0.6 0.3 -Post Debridement Size (cm) - Depth 0.1 0.1 0.1 -Total Square (cm) 2.52 0.96 0.33 -Wound/Ulcer Outcome Not Healed Not Healed Not Healed -Ulcer Cleansing Rinsed/ Rinsed/ Rinsed/ Irrigated with Irrigated with Irrigated with Saline Saline Saline -Foul Odor after Cleansing No No No -Bioengineered Tissue No No -Bleeding Controlled with Pressure Pressure Pressure -Offloading No No -Treatment Response Procedure Procedure Procedure Tolerated Well Tolerated Well Tolerated Well Pain Scale: 0-10 Numeric Is Patient Pain Free? Yes Yes Yes 09/22/19 09:47 Wound Center Nurse 2 #6 R Muniz Lat -Time 09:47 -Correct Patient Yes -Correct Side, Site, Position Yes -Correct Procedure Yes -Procedure Performed Yes -Type of Procedure Debridement -Clinical Debridement Selective -Post Debridement Size (cm) - Length 0.9 -Post Debridement Size (cm) - Width 0.4 -Post Debridement Size (cm) - Depth 0.1 -Total Square (cm) 0.36 -Wound/Ulcer Outcome Not Healed -Ulcer Cleansing Rinsed/ Irrigated with Saline -Foul Odor after Cleansing No -Bioengineered Tissue No -Bleeding Controlled with Pressure -Offloading No -Treatment Response Procedure Tolerated Well Pain Scale: 0-10 Numeric Is Patient Pain Free? Yes Wound debrided: Right Lower Extremity Type of Debridement: Selective debridement Anesthesia Used: 4% Lidocaine Solution Depth: Down to and including healthy tissue, in the subcutaneous layer Percentage of wound debrided: 100 Tissue Removed: Slough and devitalized tissue Severity: Fat Layer Exposed Amount of bleeding with debridement: Mild Bleeding Controlled with: Pressure Patient tolerated procedure well Assessment/Plan Active Problems Wound of right leg (Chronic) Traumatic, penetrating. Assessment: Traumatic right lower extremity wound with fat layer exposed. Plan: Debridement done as documented above. Procedure was well-tolerated. Still improving. Continue Fibracol daily with Adaptic over top. Double layer Tubigrip's. Elevate lower extremities when seated and in bed. Increased protein intake also recommended. Her questions were answered and she was advised to call with any further questions or concerns. Follow up in 1 week. This note was generated with [employer] dictation software. It may contain incorrect words, spelling, and punctuation that were not noted in checking the note before signing. 111xxx-113xx: [id number] Veda subq tissue 20 sq cm/<
== END 2019-09-23 23:59 ==
LOC: WC 09:30
PROVIDERS: PCP Internal Medicine; Referring Provider Internal Medicine; Visit Provider Internal Medicine
DX: S81.831A Puncture wound without foreign body, right lower leg, initial encounter (principal); W22.09XA Striking against other stationary object, initial encounter
CPT/HCPCS: 11042; 87070; 87075; 87077; 87186; 87205; 97597; 99213; G0463

== ENCOUNTER 2019-09-29 07:59 | Outpatient (RCR) | payer MEDICARE, SELFPAY ==
[2019-09-24 00:35] VITALS: BP 155/63; PULSE 72; RESP 16; TEMP 36.4
[2019-09-29 09:38] VITALS: BP 174/70; PULSE 70; RESP 16; TEMP 35.9; O2SAT 99; BMI 22.3
--- NOTE | 2019-09-29 10:01 | PN.PCM_ITS ---
(1) Wound of right leg Status: Chronic Current Visit: Yes Code(s): S81.801A - Unspecified open wound, right lower leg, initial encounter Comment: Traumatic, penetrating. Type of Wound Date of Service: 09/29/19 Chief Complaint: Traumatic Right Leg Wound History of Wound: Ms. Mcdowell is an 83-year-old who presents to the wound center due to right lower extremity wound. Sustained the wound about a week ago after she ran into a flower pot. Was seen at the emergency room and had dressing done. Wound has persisted. Denies any significant drainage or pain. Also denies chills, fever or feeling of unwell. Progress of Wound: Healed. No new concerns at this time. - Physical Exam Vital Signs Temp Pulse Resp BP Pulse Ox 96.6 F L 70 16 174/70 H 99 09/29/19 09:38 09/29/19 09:38 09/29/19 09:38 09/29/19 09:38 09/29/19 09:38 General: Alert, Oriented x3, Cooperative, No apparent distress HEENT: Atraumatic, Normocephalic Oral: Moist Mucosa Neck: Supple Lungs: Normal air movement Abdomen: Non Tender Extremities: No cyanosis Wound Measurements and Assessment WC - Nurse 1 - General Ulcer Measurement Start: 09/29/19 09:37 Freq: Status: Active Protocol: Activity Type Activity Date Activity User E-Sign Co-Sign Detail Recorded Client Recorded Date Recorded By Document 09/29/19 09:38 HI [id number] 09/29/19 09:49 MT 09/29/19 09:38 Wound Center Nurse 1 [Ulcer Assessment] #6 R Muniz Lat -Current Size (cm) - Length 0.1 -Current Size (cm) - Width 0.1 -Current Size (cm) - Depth 0.1 -Total Square Cm 0.01 -Epithelialization Large 67-100% -Wound Margin Flat & Intact -Texture (Shanique-wound Skin Appearance) Assessed -Moisture (Shanique-wound Skin Appearance Assessed ) -Color (Shanique-wound Skin Appearance) Assessed, Erythema -Temperature (Shanique-wound Skin No Abnormality Appearance) (Pt Warm) -Tenderness on Palpation (Shanique-wound No Skin Appearance) -Ulcer Cleansing Rinsed/ Irrigated with Saline -Foul Odor after Cleansing No -Anesthetic Used 4% Lidocaine Solution [Edema Assessment] -Lower Limb Edema Present No -Right Calf (cm) 30.9 -Right Ankle (cm) 19.7 Musculoskeletal: No Muscle Wasting Neurological: Cranial nerves II-XII grossly intact Psych/Mental Status: Normal Affect Debridement Note No debridement was completed today Assessment/Plan Active Problems Wound of right leg (Chronic) Traumatic, penetrating. Assessment: Traumatic right lower extremity wound with fat layer exposed. Plan: Healed. No new concerns at this time. Moisturize adequately with Aquaphor. Adaptic and gauze over top for 2 weeks. Elevate lower extremities when seated and in bed. Her questions were answered and she was advised to call with any further questions or concerns. Discharged from the wound clinic. This note was generated with [employer] dictation software. It may contain incorrect words, spelling, and punctuation that were not noted in checking the note before signing. Office Visits / Consults: [id number] L3 Est
== END 2019-09-29 10:13 | disposition home or self-care (01) ==
LOC: WC 07:59
PROVIDERS: PCP Internal Medicine; Referring Provider Internal Medicine; Visit Provider Internal Medicine
DX: Z09 Encounter for follow-up examination after completed treatment for conditions other than malignant neoplasm (principal); Z79.899 Other long term (current) drug therapy
CPT/HCPCS: 99213; G0463

== ENCOUNTER → 2019-10-25 12:01 | Outpatient (CLI) | payer MEDICARE, SELFPAY ==
[2019-10-25 11:14] VITALS: BMI 22.3
[2019-10-25 15:53] LABS: Absolute Lymphocyte Count 1.04 X10^3/uL (0.83-4.51); Basophil# 0.04 X10^3/uL; Basophil% 0.7 % (0-1); Eosinophil# 0.08 X10^3/uL; Eosinophils% 1.4 % (0-5); Hematocrit 42.6 % (37-47); Hemoglobin 13.8 g/dL (12.0-15.0); Lymphocyte # 1.04 X10^3/ul (4.0); Lymphocyte % 18.4 % (19-41); Mean Corp Hgb Conc 32.4 g/dL (32-36); Mean Corpuscular Hgb 28.9 pg (27.0-32.0); Mean Corpuscular Volume 89.1 fL (81-99); Mean Platelet Vol. 10.4 fl (6.2-12.0); Monocyte# 0.48 X10^3/uL; Monocyte% 8.5 % (0-10); NRBC Flagged by Analyzer 0 % (0-5); Neutrophil # 4.01 X10^3/uL (2.7-7.7); Neutrophil % 70.8 % (47-70); Platelet Count 349 K/mm3 (150-450); RBC Distribution Width CV 12.9 % (11.6-14.6); RBC Distribution Width SD 42.5 fl (35.1-43.9); Red Blood Count 4.78 M/mm3 (4.2-5.4); White Blood Count 5.7 K/mm3 (4.4-11.0)
[2019-10-25 15:59] LABS: ALB/GLOB Ratio 1.2 RATIO (0.9-2.4); AST(SGOT) 31 U/L (15-37); Alanine Aminotransfer ALT/SGPT 38 U/L (13-56); Alkaline Phosphatase 121 U/L (45-117); Anion Gap 5 (5-15); BUN 15 mg/dL (7-18); BUN/Creat Ratio 22.4 RATIO (10-20); Calcium,Total 8.9 mg/dL (8.5-10.1); Chloride 101 mmol/L (98-107); Cholesterol 166 mg/dL (200); Creatinine, Serum 0.67 mg/dL (0.55-1.02); EST Glomerular Filtration Rate 90 mL/min (>60); Est Glom Filt Rate - Afr Amer 108 mL/min (>60); Globulin 3.4 g/dL (2.2-4.2); Glucose 85 mg/dL (74-106); High Density Lipoprotein 64 mg/dL; Potassium 4.4 mmol/L (3.5-5.1); Protein, Total 7.4 g/dL (6.4-8.2); Sodium Level 134 mmol/L (136-145); Triglycerides 58 mg/dL; Very Low Density Lipoprotein 12 mg/dL (5-40)
== END ==
PROVIDERS: PCP Internal Medicine; Referring Provider Internal Medicine; Visit Provider Internal Medicine
DX: K21.9 Gastro-esophageal reflux disease without esophagitis (principal); I10 Essential (primary) hypertension
CPT/HCPCS: 36415; 80053; 80061; 85025

== ENCOUNTER → 2019-10-28 11:01 | Outpatient (CLI) | payer MEDICARE, SELFPAY ==
[2019-10-25 11:14] VITALS: BMI 22.3
--- NOTE | 2019-10-28 11:02 | EKG12_ITS ---
Test Reason : HTN Blood Pressure : / mmHG Vent. Rate : 076 BPM Atrial Rate : 076 BPM P-R Int : 206 ms QRS Dur : 072 ms QT Int : 360 ms P-R-T Axes : 070 003 044 degrees QTc Int : 405 ms Normal sinus rhythm Septal infarct , age undetermined Abnormal ECG Confirmed by MILLA HERNANDEZ, AP ([id number]), editor book ZACH MARIE ([id number]) on 11/01/2019 8:07:17 AM Referred By: Chaim Galvan Confirmed By:GRETA LOYOLA MD
== END ==
PROVIDERS: PCP Internal Medicine; Referring Provider Internal Medicine; Visit Provider Internal Medicine
DX: I10 Essential (primary) hypertension (principal)
CPT/HCPCS: 93005

== ENCOUNTER → 2020-01-24 13:53 | Outpatient (CLI) | payer MEDICARE, SELFPAY ==
[2019-10-25 11:14] VITALS: BMI 22.3
[2019-11-28 09:37] VITALS: BMI 22.3
--- NOTE | 2020-01-24 13:56 | BI_ITS ---
MAMMOGRAPHY - BILATERAL SCREENING REASON FOR EXAM: Female, 84 years old. Routine annual screening examination. PERTINENT HISTORY: History of prior bilateral stereotactic breast biopsies as well as bilateral excisional breast biopsies. TECHNIQUE: Digital bilateral breast bibi (3D mammographic acquisition) in the CC and MLO projections. 2-D mediolateral oblique (MLO) and craniocaudad (CC) views of both breasts were obtained. CAD: Full Field Digital Mammography with Computer Added Detection was performed. COMPARISON: Comparison is made with prior study dated 01/10/2019 and 12/31/2017. FINDINGS: Breast Composition: The breasts are extremely dense, which lowers the sensitivity of mammography. There are no dominant masses or suspicious calcifications. No other significant abnormalities are identified. There has been no significant change since the prior study. BI/SCREEN MAMM (CAD) W/BIBI BILAT IMPRESSION: Stable bilateral screening mammogram. Yearly follow-up mammogram recommended. (A) ASSESSMENT CATEGORY: BIRADS Category 2: Benign. A letter regarding these results will be sent to the patient by the facility within 30 days. Approximately 10% of breast cancers are not detected by mammography. A normal mammogram should not delay biopsy of a clinically suspicious abnormality. [id number] Electronically Signed: Wilson Green, at 14:52 EST , Service support ,
--- NOTE | 2020-01-24 14:31 | BD_ITS ---
STUDY: DUAL ENERGY X-RAY ABSORPTIOMETRY / DXA REASON FOR EXAM: Female, 84 years old. Age of total hysterectomy age 48. Pat is 132.6# and 65 and amp;quot; a loss of 2.5 and amp;quot; per pat. Past hx of taking an HRT for a long time just quit 3-4 yrs ago. Past hx of taking diuretics. Takes inhalers prn for asthma. Takes 600mg calcium off and on. Does not exercise. TECHNIQUE: Bone Mineral Density (BMD) measurements of lumbar spine and bilateral hips were obtained. COMPARISON: Comparison is made with prior study dated 11/14/2008. FINDINGS: Lumbar Spine (L1-L4): g/cm2 (0.955) / T-score (-1.8) / Z-score (0.1) Findings are suggestive of osteopenia with a moderate fracture risk. Left Femur Total: g/cm2 (0.853) / T-score (-1.2) / Z-score (0.9) Left Femoral Neck: g/cm2 (0.757) / T-score (-2.0) / Z-score (0.2) Right Femur Total: g/cm2 (0.780) / T-score (-1.8) / Z-score (0.3) Right Femoral Neck: g/cm2 (0.746) / T-score (-2.1) / Z-score (0.1) The T-Scores on the most recent prior examination were: Lumbar Spine (L1-L4): There has been worsening of bone density since the previous examination. Left Femur Total: which represents a worsening of 22.1%. Right Femur Total: which represents a worsening of 22.1%. BD/Dexa Bone Density Study IMPRESSION: The patient is considered osteopenic as outlined below according to World Moise Organization (WHO) criteria with a high fracture risk. There has been worsening of bone density since the previous examination. Reference Information: The T-score is the number of standard deviations above or below the standard which is normal for young adults at their peak bone mineral density. The World Health Organization (WHO) interprets the T-scores as follows: Above -1 Normal bone density Between -1 and -2.5 Osteopenia Equal to / or below -2.5 Osteoporosis As a practical clinical guideline, osteopenia may be graded as follows: Mild -1 through -1.5 Moderate -1.6 through -2.0 Severe -2.1 through -2.4 The Z-score is the number of standard deviations above or below age-matched controls. A Z-score of less than -1.5 would be considered abnormal. References: 1. NIH Osteoporosis and Related Bone Diseases www osteo.org 2. International Society for Clinical Densitometry www iscd.org 3. National Osteoporosis Foundation www nof.org Electronically Signed: Wilson Green, at 15:25 EST , Service support ,
== END ==
PROVIDERS: PCP Internal Medicine; Referring Provider Internal Medicine; Visit Provider Internal Medicine
DX: Z12.31 Encounter for screening mammogram for malignant neoplasm of breast (principal); Z78.0 Asymptomatic menopausal state
CPT/HCPCS: 77063; 77067; 77080

== ENCOUNTER 2020-03-15 13:55 | Outpatient (RCR) | payer MEDICARE, SELFPAY ==
[2020-02-27 10:06] VITALS: BMI 21.4
== END 2020-03-15 23:59 ==
LOC: IMMUN 13:55
PROVIDERS: PCP Internal Medicine; Visit Provider Family Medicine
DX: Z23 Encounter for immunization (principal)
CPT/HCPCS: 0011A; 0012A; 91301

== ENCOUNTER → 2020-11-23 09:17 | Outpatient (CLI) | payer MEDICARE, SELFPAY ==
[2020-11-23 10:46] LABS: Absolute Lymphocyte Count 0.84 X10^3/uL (0.83-4.51); Absolute Neutrophil Count 2.6 X10^3/uL (2.0-7.7); Basophil# 0.02 X10^3/uL; Basophil% 0.5 % (0-1); Eosinophils% 2.5 % (0-5); Hemoglobin 13.8 g/dL (12.0-15.0); Lymphocyte # 0.84 X10^3/ul (0.83-4.51); Lymphocyte % 20.9 % (19-41); Mean Corp Hgb Conc 32.9 g/dL (32-36); Mean Corpuscular Hgb 29.5 pg (27.0-32.0); Mean Corpuscular Volume 89.7 fL (81-99); Mean Platelet Vol. 10.1 fl (6.2-12.0); Monocyte# 0.46 X10^3/uL; Monocyte% 11.5 % (0-10); NRBC Flagged by Analyzer 0 % (0-5); Neutrophil # 2.57 X10^3/uL (2.7-7.7); Neutrophil % 64.1 % (47-70); Platelet Count 318 K/mm3 (150-450); RBC Distribution Width CV 13.1 % (11.6-14.6); RBC Distribution Width SD 42.8 fl (35.1-43.9); Red Blood Count 4.68 M/mm3 (4.2-5.4)
[2020-11-23 11:12] LABS: ALB/GLOB Ratio 1.1 RATIO (0.9-2.4); AST(SGOT) 24 U/L (15-37); Alanine Aminotransfer ALT/SGPT 33 U/L (13-56); Albumin, Serum 3.8 g/dL (3.2-5.0); Alkaline Phosphatase 80 U/L (45-117); Anion Gap 5 (5-15); BUN 14 mg/dL (7-18); BUN/Creat Ratio 18.7 RATIO (10-20); Calcium,Total 8.8 mg/dL (8.5-10.1); Chloride 101 mmol/L (98-107); Cholesterol 163 mg/dL (200); Creatinine, Serum 0.75 mg/dL (0.55-1.02); EST Glomerular Filtration Rate 79 mL/min (>60); Est Glom Filt Rate - Afr Amer 95 mL/min (>60); Globulin 3.4 g/dL (2.2-4.2); Glucose 88 mg/dL (74-106); High Density Lipoprotein 62 mg/dL; Potassium 4.3 mmol/L (3.5-5.1); Protein, Total 7.2 g/dL (6.4-8.2); Sodium Level 134 mmol/L (136-145); Triglycerides 59 mg/dL; Very Low Density Lipoprotein 12 mg/dL (5-40); Vitamin D,25 Hydroxy 47.4 ng/mL
== END ==
PROVIDERS: PCP Internal Medicine; Referring Provider Internal Medicine; Visit Provider Internal Medicine
DX: I10 Essential (primary) hypertension (principal); M85.80 Other specified disorders of bone density and structure, unspecified site
CPT/HCPCS: 36415; 80053; 80061; 82306; 85025

== ENCOUNTER → 2020-11-28 | Outpatient (CLI) | payer MEDICARE, SELFPAY | END | disposition home or self-care (01) | LOC: LABSPEC 15:05 | PROVIDERS: PCP Internal Medicine; Referring Provider Nurse Practitioner Family; Visit Provider Nurse Practitioner Family | DX: J06.9 Acute upper respiratory infection, unspecified (principal) | CPT/HCPCS: 87635; U0005; U0003 ==

== ENCOUNTER → 2021-01-25 13:26 | Outpatient (CLI) | payer MEDICARE, SELFPAY ==
--- NOTE | 2021-01-25 13:53 | BI_ITS ---
MAMMOGRAPHY - BILATERAL SCREENING REASON FOR EXAM: Female, 85 years old. Routine annual screening examination. PERTINENT HISTORY: Non-contributory. History of prior bilateral breast biopsies. TECHNIQUE: Digital bilateral breast bibi (3D mammographic acquisition) in the CC and MLO projections. 2-D mediolateral oblique (MLO) and craniocaudad (CC) views of both breasts were obtained. CAD: Full Field Digital Mammography with Computer Added Detection was performed. COMPARISON: Comparison is made with prior study 01/24/2020 and 01/17/2019. FINDINGS: Breast Composition: The breasts are extremely dense, which lowers the sensitivity of mammography. There are no dominant masses or suspicious calcifications. No other significant abnormalities are identified. There has been no significant change since the prior study. BI/SCRN MAMM (CAD)W/BIBI BILAT IMPRESSION: Stable bilateral screening mammogram. Yearly follow-up mammogram recommended. (A) ASSESSMENT CATEGORY: BIRADS Category 1: Negative. A letter regarding these results will be sent to the patient by the facility within 30 days. Approximately 10% of breast cancers are not detected by mammography. A normal mammogram should not delay biopsy of a clinically suspicious abnormality. [id number] Electronically Signed: Wilson Green MD at 8:41 EST , Service support ,
== END ==
PROVIDERS: PCP Internal Medicine; Referring Provider Internal Medicine; Visit Provider Internal Medicine
DX: Z12.31 Encounter for screening mammogram for malignant neoplasm of breast (principal)
CPT/HCPCS: 77063; 77067

== ENCOUNTER 2021-05-28 13:30 | Outpatient (RCR) | payer MEDICARE, SELFPAY ==
--- NOTE | 2021-04-03 10:11 | HP.PTEVAL ---
Patient's Visit Information DEL ANDERSON is a 85 year old F referred to Physical Therapy by Dr. Chaim Galvan MD with a diagnosis of R hip pain. Date of Evaluation: 04/01/21 Physical Therapist: Cesar Woody DPT - Visit Plan Frequency: 2x /Week Duration: 4 Weeks Plan: Start with foam rolling to anterior thigh, DN to same region. Add in core stability in hooklying. Initial abdominal bracing, progressing as tolerated. She does have a high risk for fracture due to her osteopenia, careful with flexion based exercises. - Subjective Pt. is here today for her initial evaluation with diagnosis of R hip pain. Pt. reports having increased pain in her R thigh for a few weeks. Pt. reports increased pain in AMs, decreased pain with upright posture. Increased pain with bending fwrd. Pt. also has decreased pain with using of high on thigh and firm pressure. Pt. did have a R hip x ray showing mild arthrosis. Pt. is to return to doctor next week. Pt. reports no change in symptoms over the past few weeks, no improvement, no increase. Pt. has increased pain with bending over as well. Pt. denies radiating pain into further distal extremity, but pretty much local to lateral and anterior thigh. She does have a history of LBP, but typically has had sciatica down her LLE. She does have a history of osteopenia which has progressed at her last bone density scan. 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 - Pain R thigh Pain Intensity (Out of 10): 1 Pain Intensity Range: 1, 10 - Objective POSTURE: Pt. has decreased lumbar lordosis, slight L sided wt. shifting. Pt. reports normal iliac crest heights. PALPATION: Pt. has no pain with palpation throughout of spine, SI, joint. Pt. does have pain with palpation of R thigh, no pain to R hip pain. NEURO: Pt. has normal sensation and normal DTR of BLEs. Pt. is able to rise on heels and toes without issues. ROM: LUMBAR SPINE: flexion min loss increase NW, extension mod loss increase NW. SB to R nil loss NE, SB to L min loss increase NW, rotation min/nil loss NE bilat. R hip: pt. has slight decrease hip IR but no pain. Normal flexion and extension noted. MMT: Pt. has normal strength throughout BL distal LEs (ankle/knee); hip- flexion 4/5 increase NW RLE, hip abd 4/5, ext 4/5. LLE; 5-/5 throughout. Core strength- poor. GAIT: PT. has good gait pattern, no lateral sway, but occassional increase in symptoms. Slight flexed posture still. - Balance/Special Test Scores Lower Extremity Functional Score: 49 - Goals Goal 1:: LTG: Pt. to be I with HEP. Goal Time Frame: 2-4 Weeks Goal 2:: STG: Pt. to have decreased pain in AMs to 0-2/10 pain in R anterior thigh. Goal Time Frame: 2 Weeks Goal 3:: LTG: Pt. to have 0-2/10 pain in R anterior thigh with all functional and daily activities. Goal Time Frame: 4-6 Weeks Goal 4:: LTG: Pt. to have increased BLE and core strength to at least 5-/5 throughout. Goal Time Frame: 4-6 Weeks Goal 5:: STG: pt. to ambulate 300+ without reports of increased symptoms. Goal Time Frame: 2-4 Weeks - Rehabilitation Potential Physical Therapy Diagnosis: Pt. has signs and symptoms of R hip pain. Her pain is closer to her R anterior thigh. It is difficult to determine if it is from her back or more thigh pain it self. It appears to be be radiating from her back, but did have PPT pain as well, but inconsistent. I will treat her with some core stability exercises, strategies to reduce stress to lumbar spine and work on her flexibility. I do have some concerns with her osteopenia and risk for compression fracture. If not improving I will send her back to physician. Rehabilitation Potential: Excellent - Anticipated Interventions Patient/Client Instruction: Educate patient on: Condition, Plan of Care, Risk Factors, Benefits of Fitness Program For the Purpose of:: To improve decision making, To facilitate caregiver knowledge, To improve self management, To prevent re-injury, To improve ability to perform tasks related to life management Therapeutic Exercise to Include: Strength training, Power training, Endurance training, Body mechanics, Postural training, Flexibilty training, Passive ROM, Active ROM, Dynamic Lumbar Stabilization, Jim Exercises For the Purpose of:: To decrease pain, To decrease swelling/inflammation, To increase ROM, To improve nutrient delivery to tissue, To increase oxygenation perfusion, To improve muscle performance and motor function, To improve ability to perform ADL's, To improve health of tissue, To decrease soft tissue restriction, To increase flexibility/ROM Thank you for the opportunity to evaluate your patient. For Medicare and Medicare HMO plans, please review the plan of care and approve it. It will need to be FAXED BACK to us at [phone] for Medicare purposes. For Medicare only, by signing this I certify the plan of care. Please let me know if there are questions or concerns regarding this plan of care. Physician Signature: Date:
--- NOTE | 2021-05-15 15:51 | HP.PTREVAL_ITS ---
Dr. Chaim Galvan MD, It has been my pleasure to treat DEL ANDERSON over the last 10 visits for R hip pain. Please see the progress note below for an update on the physical therapy plan of care! Subjective: Pt. reports overall doing well. Pt. reports no major issues. Pt. still has some pain with bending over, especially to put on compression stoc kings. Pt. reports being 75% better overall. Objective/Function: Pt. reports overall doing well. She has overall decreased pain in AMs, mostly with fwrd flexion while putting on stockings. She reports as long as she tightens her TA she does most activities without issues. She has much improved TA control with all activities without issues. She reports being 75% better overall. I would like to progress her to gym HEP and core stability exercises. Plan Plan: Start to progress to core stability exercises in gym progressing to I pro gram. Balance/Gait/Functional tests - Balance/Special Test Scores Lower Extremity Functional Score: 49 Goals Goal 1:: LTG: Pt. to be I with HEP. Goal Time Frame: 2-4 Weeks Goal Progress: Progressing Goal 2:: STG: Pt. to have decreased pain in AMs to 0-2/10 pain in R anterior thigh. Goal Time Frame: 2 Weeks Goal Progress: Progressing Goal 3:: LTG: Pt. to have 0-2/10 pain in R anterior thigh with all functional and daily activities. Goal Time Frame: 4-6 Weeks Goal Progress: Goal Met Goal 4:: LTG: Pt. to have increased BLE and core strength to at least 5-/5 throughout. Goal Time Frame: 4-6 Weeks Goal Progress: Progressing Goal 5:: STG: pt. to ambulate 300+ without reports of increased symptoms. Goal Time Frame: 2-4 Weeks Goal Progress: Goal Met Anticipated Interventions Patient/Client Instruction: Educate patient on: Condition, Plan of Care, Risk Factors, Benefits of Fitness Program For the Purpose of:: To improve decision making, To facilitate caregiver knowledge, To improve self management, To prevent re-injury, To improve ability to perform tasks related to life management Therapeutic Exercise to Include: Strength training, Power training, Endurance training, Body mechanics, Postural training, Flexibilty training, Passive ROM, Active ROM, Dynamic Lumbar Stabilization, Jim Exercises For the Purpose of:: To decrease pain, To decrease swelling/inflammation, To increase ROM, To improve nutrient delivery to tissue, To increase oxygenation perfusion, To improve muscle performance and motor function, To improve ability to perform ADL's, To improve health of tissue, To decrease soft tissue restriction, To increase flexibility/ROM Please do not hesitate to contact me at [phone] by phone or if you have questions or concerns regarding this new plan of care! Sincerely, JACKY ZuluagaT
--- NOTE | 2021-08-21 11:04 | HP.PTDCSUM ---
It has been my pleasure to treat DEL ANDERSON referred by Dr. Chaim Galvan MD, with the diagnosis of R hip pain for a total of 13 visit(s). Discharge Date: 05/28/21 Please see the following information for a summary of their discharge status. Subjective: Pt. reports no longer having any R hip pain. She is overall doing well. Pt. reports being HEp compliant without issues. Pt. pleased. R thigh Pain Intensity (Out of 10): 0 % Improvement: 95 Objective/Function: Pt. has normal gait pattern and stair negotiation without pain. She freire improved strength to 5/5 throughout, except 4+/5 hip abd and ext. Pt. reports no pain today. Pt. is I with HEP and will be DC from PT at this point in time. Goal 1:: LTG: Pt. to be I with HEP. Goal Progress: Goal Met Goal 2:: STG: Pt. to have decreased pain in AMs to 0-2/10 pain in R anterior thigh. Goal Progress: Goal Met Goal 3:: LTG: Pt. to have 0-2/10 pain in R anterior thigh with all functional and daily activities. Goal Progress: Goal Met Goal 4:: LTG: Pt. to have increased BLE and core strength to at least 5-/5 throughout. Goal Progress: Goal Met Goal 5:: STG: pt. to ambulate 300+ without reports of increased symptoms. Goal Progress: Goal Met Plan: Pt. to be DC from PT at this point in time. Discharge Comments: Pt. was treated with strengthening of her core and R hip. Pt. is doing well and is I with HEP. Pt. will be DC from PT at this point in time. If there are questions or concerns regarding this patient's physical therapy, please feel free to call me at [phone]. Thank you for the referral of this patient. Sincerely, Cesar Mayorga Sipos, DPT Balance/Gait/Functional tests - Balance/Special Test Scores Lower Extremity Functional Score: 70
== END 2021-05-28 19:00 | disposition home or self-care (01) ==
LOC: PT 13:30
PROVIDERS: PCP Internal Medicine; Referring Provider Internal Medicine; Visit Provider Internal Medicine
DX: M25.551 Pain in right hip (principal)
CPT/HCPCS: 97110; 97161; 97164

== ENCOUNTER → 2021-07-03 | Outpatient (CLI) | payer MEDICARE, SELFPAY ==
[2021-07-03 13:15] LABS: Anion Gap 7 (5-15); BUN 17 mg/dL (7-18); BUN/Creat Ratio 22.6 RATIO (10-20); Calcium,Total 9.2 mg/dL (8.5-10.1); Chloride 103 mmol/L (98-107); Creatinine, Serum 0.75 mg/dL (0.55-1.02); EST Glomerular Filtration Rate 78 mL/min (>60); Est Glom Filt Rate - Afr Amer 95 mL/min (>60); Glucose 109 mg/dL (74-106); Potassium 4.1 mmol/L (3.5-5.1); Sodium Level 137 mmol/L (136-145)
== END | disposition home or self-care (01) ==
LOC: BIMLAB 11:26
PROVIDERS: PCP Internal Medicine; Referring Provider Internal Medicine; Visit Provider Internal Medicine
DX: I10 Essential (primary) hypertension (principal)
CPT/HCPCS: 36415; 80048

== ENCOUNTER 2021-08-21 17:25 | Emergency (ER) | payer MEDICARE, SELFPAY ==
[2021-08-21 17:26] VITALS: BP 159/67; PULSE 71; RESP 15; TEMP 36.8; O2SAT 97; BMI 20.9
[2021-08-21] MEDS: Lidocaine 1% (20 ml mdv) 20 ML Vial INFILT (18:06)
[2021-08-21] MEDS: Diphth,Pertuss(Acell),Tet Vac 0.5 ML Vial IM (20:22)
[2021-08-21 20:28] VITALS: BP 134/63; PULSE 70; RESP 18; O2SAT 98
--- NOTE | 2021-08-21 23:13 | EDS_ITS ---
HPI History of Present Illness Chief Complaint: Laceration Informant: patient Narrative Narrative: Injury right lower leg when she slipped on the deck. Tetanus unknown. No anticoagulation. Wound injury. Previous wound on the right leg follow-up wound clinic. She is not a diabetic. Bleeding controlled. Occurred shortly prior to arrival. Denies any head injuries. Tetanus Immunization: Unknown Prior similar symptoms: Yes PFSH PFS Medical History Asthma Bilateral breast cysts Flu vaccine need Generalized osteoarthrosis, unspecified site Goiter Hearing loss Hearing problem History of pneumonia Osteopenia Right hip pain Home Medications calcium carbonate 500 mg calcium (1,250 mg) chewable tablet 500 mg PO DAILY 01/25/15 [History Last Taken Unknown] omega 5-qeg-qga-fish oil 1,200 mg (144 mg-216 mg) capsule (Fish Oil) 1 cap PO DAILY 10/19/19 [History Last Taken Unknown] budesonide-formoterol HFA 80 mcg-4.5 mcg/actuation aerosol inhaler 2 puff inhalation BID #20.4 grams 02/06/21 [Rx Last Taken Unknown] albuterol sulfate 90 mcg/actuation aerosol inhaler 1 puff inhalation Q4H PRN PRN Asthma #8.5 grams 03/06/21 [Rx Last Taken Unknown] alendronate 70 mg tablet 70 mg PO QWEEK #14 tabs 03/06/21 [Rx Last Taken Unknown] cholecalciferol (vitamin D3) 25 mcg (1,000 unit) tablet 2,000 unit PO DAILY #90 tabs 07/03/21 [Rx Last Taken Unknown] fluticasone propionate 50 mcg/actuation nasal spray,suspension (Flonase Allergy Relief) 2 spray intranasal DAILY PRN nasal congestion #16 grams 07/03/21 [Rx Last Taken Unknown] metoprolol succinate 25 mg tablet,extended release 24 hr 37.5 mg PO DAILY 3 months #135 tabs 07/03/21 [Rx Last Taken Unknown] pantoprazole 40 mg tablet,delayed release 40 mg PO DAILY PRN gerd #90 tabs 07/03/21 [Rx Last Taken Unknown] Allergy/AdvReac Type Severity Reaction Status Date / Time adhesive tape Allergy Rash Verified 08/21/21 17:26 cephalexin [From Keflex] Allergy Rash Verified 08/21/21 17:26 levofloxacin [From Levaquin] Allergy Unknown Verified 08/21/21 17:26 Sulfa (Sulfonamide Allergy Unknown Verified 08/21/21 17:26 Antibiotics) meloxicam AdvReac Diarrhea Verified 08/21/21 17:26 tizanidine AdvReac Vomiting Verified 08/21/21 17:26 Family History Mother Asthma COPD (chronic obstructive pulmonary disease) Depression with anxiety Surgical History H/O hemorrhoidectomy H/O thyroidectomy H/O: hysterectomy Social History Smoking Status: Never smoker alcohol intake: never substance use type: does not use what type of physical activity do you participate in: other details: gardening ROS ROS ED Constitutional Constitutional ED: Denies chills, fever(s) or sweats Eyes Eyes: Denies change in vision ENT ENT ED: Denies dysphagia or sore throat Cardiovascular Cardiovascular: Denies chest pain, leg edema, palpitations or racing heartbeat Respiratory/Chest Respiratory/Chest: Denies cough, dyspnea or dyspnea on exertion Gastrointestinal Gastrointestinal: Denies abdominal pain, diarrhea, nausea or vomiting Genitourinary Genitourinary ED: Denies dysuria, hematuria or urinary frequency Musculoskeletal Musculoskeletal: Denies back pain, extremity pain or neck pain Integumentary Reports wounds and other Details: Right leg wound ; Denies rash Neurologic Neurologic: Denies headache(s), paresthesias or weakness EXAM Physical Exam Const Vital Signs: 08/21/21 17:26 08/21/21 20:28 Temperature 98.2 F Temperature Source Temporal Pulse Rate 71 70 Respiratory Rate 15 18 Blood Pressure 159/67 H 134/63 H Blood Pressure Mean 97 Pulse Ox 97 98 Oxygen Delivery Method Room Air Positive well nourished and well developed General Appearance ED: well developed and NAD HEENT Reports moist mucous membranes normocephalic and atraumatic Eyes PERRL, EOMs intact bilaterally and conjunctivae normal General Eye ED: Yes normal appearance of both eyes Neck no lymphadenopathy and supple General: Negative for tenderness Chest Wall Chest: Negative for tenderness Resp normal respiratory effort and normal air movement Effort and Inspection: symmetric chest movement; Negative for respiratory distre ss Cardio regular rate, regular rhythm and no murmurs Peripheral Pulses: pulses 2+ throughout GI normal to inspection, nondistended, normoactive bowel sounds and non-tender Palpation: Negative for guarding or rebound tenderness present Back/Spine no CVA tenderness and no thoracic nor lumbar tenderness Extremity normal to inspection General Extremety ED: Negative for edema or tenderness General Extremity: Negative for edema Neuro oriented x3 and no sensory deficits noted Sensorium / Orientation: awake and alert Skin Skin Narrative: Right lower le cm flap rate distal lateral leg. Medial aspect subcutaneous exposure lateral aspect superficial with small skin tear. Bleeding controlled. No bony exposure. MDM MDM MDM Narrative Medical decision making narrative: Tetanus updated. Laceration was repaired. Wound care discussed. She will follow-up with the wound clinic where she is established. Procedure note: Laceration repair. Verbal consent. Normal sterile conditions. 5 cc lidocaine 1% used for local analgesia. Copiously flushed with normal saline. A total of 9, 4-0 nylon simple interrupted sutures placed with good approximation on the medial aspect wound to close the subcu region along with the flap. The lateral aspect was superficial therefore this was left alone. Xeroform dressing placed by nursing. Patient tolerated procedure well. Discharge Plan Triage Chief Complaint: Laceration ED Provider: Zac Sr Dx/Rx/DC Orders Clinical Impression: Laceration of right lower leg, Tetanus toxoid vaccination administered at current visit Instructions: ED Laceration: All Closures Prescriptions: No Action omega 5-xfq-sdi-fish oil [Fish Oil] 1,200 (144-216) mg capsule 1 cap PO DAILY alendronate 70 mg tablet 70 mg PO QWEEK Qty: 14 1RF albuterol sulfate 90 mcg/actuation HFA aerosol inhaler 1 puff inhalation Q4H PRN PRN (Reason: Asthma) Qty: 8.5 3RF pantoprazole 40 mg tablet,delayed release (DR/EC) 40 mg PO DAILY PRN (Reason: gerd) Qty: 90 1RF cholecalciferol (vitamin D3) 25 mcg (1,000 unit) tablet 2,000 unit PO DAILY Qty: 90 3RF metoprolol succinate 25 mg tablet extended release 24 hr 37.5 mg PO DAILY 90 Days Qty: 135 3RF fluticasone propionate [Flonase Allergy Relief] 50 mcg/actuation spray,suspension 2 spray INTRANASAL DAILY PRN (Reason: nasal congestion) Qty: 16 2RF Rx Instructions: administer into each nostril calcium carbonate 500 MG tablet,chewable 500 mg PO DAILY budesonide-formoterol 80-4.5 mcg/actuation HFA aerosol inhaler 2 puff INHALATION BID Qty: 20.4 3RF Primary Care Provider: Chaim Galvan Referrals: Chaim Galvan MD [Primary Care Provider] - Activity Restrictions/Additional Instructions: 9 sutures placed under skin flap. Follow-up with your wound care clinic for outpatient evaluation 1 week. Disposition Disposition: Home, Self Care Discharge Date/Time: 08/21/21 20:36
== END 2021-08-21 20:36 | disposition home or self-care (01) ==
PROVIDERS: Emergency Provider Emergency Medicine; PCP Internal Medicine; Visit Provider Emergency Medicine
DX: S81.811A Laceration without foreign body, right lower leg, initial encounter (principal); W01.0XXA Fall on same level from slipping, tripping and stumbling without subsequent striking against object, initial encounter; Z23 Encounter for immunization; J45.909 Unspecified asthma, uncomplicated; Z79.899 Other long term (current) drug therapy
CPT/HCPCS: 12004; 90471; 90715; 99283

== ENCOUNTER 2021-09-12 10:45 | Outpatient (RCR) | payer MEDICARE, SELFPAY ==
[2021-08-29 09:03] VITALS: BP 165/90; PULSE 75; RESP 18; TEMP 36.1
--- NOTE | 2021-08-29 10:24 | PCM.WC.HP ---
History of Present Illness Date of Service: 08/29/21 Chief Complaint: Bilateral Lower Extremity Wounds History of Wound: Ms. Mcdowell is an 85-year-old who presents with 2 lower extremity wounds. Left lower extremity wound was sustained after she ran into something. She states that it has been present for about 3 weeks, has been applying antibiotic ointment however no significant change. Also sustained a right lower extremity wound after she fell on her stairs. Significant bleeding noted following the fall and so she presented to the emergency room where she had some sutures applied. Has been applying Adaptic at home, she states that the redness is improving however she still has a lot of pain. No chills, fever or otherwise feeling of unwell. Chronic history of venous insufficiency. No known history of diabetes mellitus. [facility] Medical History (Updated 08/29/21 @ 14:[address] Chaim Galvan MD) Asthma Bilateral breast cysts Flu vaccine need Generalized osteoarthrosis, unspecified site Goiter Hearing loss Hearing problem History of pneumonia Osteopenia Right hip pain Traumatic open wound of lower leg with delayed healing Wound of left lower extremity Home Medications calcium carbonate 500 mg calcium (1,250 mg) chewable tablet 500 mg PO DAILY 01/25/15 [History Last Taken Unknown] omega 3-bdv-rip-fish oil 1,200 mg (144 mg-216 mg) capsule (Fish Oil) 1 cap PO DAILY 10/19/19 [History Last Taken Unknown] budesonide-formoterol HFA 80 mcg-4.5 mcg/actuation aerosol inhaler 2 puff inhalation BID #20.4 grams 02/06/21 [Rx Last Taken Unknown] albuterol sulfate 90 mcg/actuation aerosol inhaler 1 puff inhalation Q4H PRN PRN Asthma #8.5 grams 03/06/21 [Rx Last Taken Unknown] alendronate 70 mg tablet 70 mg PO QWEEK #14 tabs 03/06/21 [Rx Last Taken Unknown] cholecalciferol (vitamin D3) 25 mcg (1,000 unit) tablet 2,000 unit PO DAILY #90 tabs 07/03/21 [Rx Last Taken Unknown] fluticasone propionate 50 mcg/actuation nasal spray,suspension (Flonase Allergy Relief) 2 spray intranasal DAILY PRN nasal congestion #16 grams 07/03/21 [Rx Last Taken Unknown] metoprolol succinate 25 mg tablet,extended release 24 hr 37.5 mg PO DAILY 3 months #135 tabs 07/03/21 [Rx Last Taken Unknown] pantoprazole 40 mg tablet,delayed release 40 mg PO DAILY PRN gerd #90 tabs 07/03/21 [Rx Last Taken Unknown] Allergy/AdvReac Type Severity Reaction Status Date / Time adhesive tape Allergy Rash Verified 08/21/21 17:26 cephalexin [From Keflex] Allergy Rash Verified 08/21/21 17:26 levofloxacin [From Levaquin] Allergy Unknown Verified 08/21/21 17:26 Sulfa (Sulfonamide Allergy Unknown Verified 08/21/21 17:26 Antibiotics) meloxicam AdvReac Diarrhea Verified 08/21/21 17:26 tizanidine AdvReac Vomiting Verified 08/21/21 17:26 Family History Mother Asthma COPD (chronic obstructive pulmonary disease) Depression with anxiety Surgical History H/O hemorrhoidectomy H/O thyroidectomy H/O: hysterectomy Social History Smoking Status: Never smoker alcohol intake: never substance use type: does not use what type of physical activity do you participate in: other details: gardening ROS Constitutional Constitutional: Denies body ache(s), fatigue, headache(s), increased appetite, lethargy, weakness, weight gain or weight loss Eyes Eyes: Denies blurry vision, burning, change in eye color, change in vision, discharge from eye(s), dry eyes, erythema, excessive blinking, irritation or itchy eyes ENT HEENT: Denies ear pain, epistaxis, facial pain, halitosis, headache(s), mouth lesions, mouth pain or mucositis Cardiovascular Cardiovascular: Denies claudication, clubbing, cold extremities, cyanosis, diaphoresis, dizziness, dyspnea, dyspnea at rest, fatigue or flutter in chest Respiratory/Chest Respiratory/Chest: Denies cough, difficulty clearing secretions, dry cough, dusky skin, dyspnea, dyspnea on exertion, excessive phlegm production, hemoptysis or hoarseness Gastrointestinal Gastrointestinal: Denies abdominal pain, anorexia, belching, bloating, change in bowel habits, chewing difficulty or dyspepsia Genitourinary Genitourinary: Denies abdominal discomfort, burning urination, difficulty urinating, genital lesions, hematuria, low back pain, urinary frequency or urinary hesitancy Musculoskeletal Musculoskeletal: Denies difficulty walking, extremity pain, joint pain, joint stiffness, joint swelling, loss of height, muscle cramps or muscle spasms Integumentary Integumentary: Denies changing lesions, dry skin, hirsutism, jaundice, lesions, nail changes, new lesions or photosensitivity Neurologic Neurologic: Denies abnormal speech, behavior changes, burning sensations, convulsions, disequilibrium, dizziness, focal weakness, frequent falls or headache(s) Psychiatric Psychiatric: Denies change in appetite, cognitive impairment, confusion, depression, difficulty concentrating, hallucinations, hopelessness or irritability Endocrine Endocrinology: Denies change in libido, deepening of the voice, excessive sweating, fatigue, flushing, increase in ring/shoe/hat size, palpitations or polydipsia Hematologic/Lymphatic Hematologic/Lymphatic: Denies anemia, easy bruising or lymphadenopathy Allergic/Immunologic Allergic/Immunologic: Denies itchy eyes, lip swelling, seasonal rhinorrhea, rhinitis, throat swelling or tongue swelling Vital Signs Vital Signs Vital Signs: 08/29/21 09:03 Temperature 97 F L Temperature Source Temporal Pulse Rate 75 Respiratory Rate 18 Blood Pressure 165/90 H Blood Pressure Mean 115 Blood Pressure Source Monitor Blood Pressure Position Semi-Fowlers Blood Pressure Location Left Arm Oxygen Delivery Method Room Air Physical Exam Const alert, oriented x3 and no apparent distress General Appearance: cooperative, comfortable and well developed HEENT normocephalic, head/scalp atraumatic and hearing grossly normal bilaterally Eyes EOMs intact bilaterally Neck full ROM and supple General: normal visual inspection Resp normal respiratory effort and normal air movement Effort and Inspection: able to speak in complete sentences Cardio regular rate, regular rhythm, S1 normal heart sound and S2 normal heart sound GI soft to palpation and non-tender Skin Wounds: wounds noted Neuro oriented x3, CN's II-XII intact bilaterally, moves all extremities and no focal motor deficits Psych mental status grossly normal Appearance: grossly normal Attitude: calm Debridement Note Debridement Note Wound debrided: Left lower extremity (lateral) Type of Debridement: Excisional debridement Anesthesia Used: 4% Lidocaine Solution Depth: Down to and including healthy tissue and in the subcutaneous layer Percentage of wound debrided: 100 Instrument Used: - (1mm) Severity: Fat Layer Exposed Amount of bleeding with debridement: Mild Bleeding Controlled with: Pressure Patient tolerated procedure: Patient tolerated procedure well Post-Debridement Measurements and Additional Note: Post-Debridement Measurements/Treatment - Nurse 1 - General Ulcer Assessment Start: 08/29/21 09:02 Freq: Status: Active Protocol: ANNA MARIE Activity Type Activity Date Activity User E-sign Co-sign Detail Recorded Client Recorded Date Recorded By Document 08/29/21 09:03 CO [id number] 08/29/21 09:17 CO 08/29/21 09:03 - Today's Visit Information Type of service Initial Visit Arrival Mode Ambulatory Accompanied by self Patient Identification Verified (Name & Yes ) Safety Precautions Fall Prevention Vital Signs Temperature (97.8 F-99.1 F) 97 F L Temperature Source Temporal Pulse Rate (60-100) 75 Pulse Location Monitor Respiratory Rate (12-18) 18 Respiratory rate source Observation Oxygen Delivery Method Room Air Blood Pressure (90/60-120/80) 165/90 H Blood Pressure Mean 115 Source Monitor Position Semi-Fowlers Blood Pressure Location Left Arm History Since Last Visit- (Skip if this is Patient's initial visit) Has dressing in place as prescribed Yes Has compression in place as prescribed Yes Has offloadiing in place as prescribed Yes Experienced any changes in pain level or Yes management Left Footwear Regular Shoe Right Footwear Regular Shoe Pain Scale: 0-10 Numeric Is Patient Pain Free? Yes [facility] Nurse 1 - General Ulcer Measurement Start: 08/29/21 09:02 Freq: Status: Active Protocol: Activity Type Activity Date Activity User E-sign Co-sign Detail Recorded Client Recorded Date Recorded By Document 08/29/21 09:03 CO [id number] 08/29/21 09:17 CO 08/29/21 09:03 Wound Center Nurse 1 #8 Left Lateral Muniz -Current Size (cm) - Length 0.9 -Current Size (cm) - Width 0.5 -Current Size (cm) - Depth 0.1 -Total Square Cm 0.45 -Exudate Amt Small -Exudate Type Serosanguineous -Wound Margin Flat & Intact -Granulation Amt Large (67-100%) -Granulation Quality Pale,Lower [place] -Necrosis Amt Small (1-33%) -Texture (Shanique-wound Skin Appearance) Assessed -Moisture (Shanique-wound Skin Appearance) Assessed -Color (Shanique-wound Skin Appearance) Assessed -Temperature (Shanique-wound Skin No Abnormality Appearance) (Pt Warm) -Tenderness on Palpation (Shanique-wound No Skin Appearance) -Ulcer Cleansing Rinsed/ Irrigated with Saline -Anesthetic Used 4% Lidocaine Solution #7 Right Lateral Calf -Current Size (cm) - Length 5.5 -Current Size (cm) - Width 6.0 -Current Size (cm) - Depth 0.5 -Total Square Cm 33.00 -Exudate Amt Medium -Exudate Type Serosanguineous -Wound Margin Flat & Intact -Granulation Amt Large (67-100%) -Granulation Quality Pale,Lower [place] -Necrosis Amt Small (1-33%) -Texture (Shanique-wound Skin Appearance) Assessed -Moisture (Shanique-wound Skin Appearance) Assessed -Color (Shanique-wound Skin Appearance) Assessed -Temperature (Shanique-wound Skin No Abnormality Appearance) (Pt Warm) -Tenderness on Palpation (Shanique-wound Yes Skin Appearance) -Ulcer Cleansing Rinsed/ Irrigated with Saline -Foul Odor after Cleansing No -Anesthetic Used 4% Lidocaine Solution -Wound Comment(s) stitches intact . Right Calf (cm) 31 Right Ankle (cm) 20.5 Left Calf (cm) 32.5 Left Ankle (cm) 21.0 WC - Nurse 2 - General Ulcer CM Notes Start: 08/29/21 09:02 Freq: Status: Active Protocol: Activity Type Activity Date Activity User E-sign Co-sign Detail Recorded Client Recorded Date Recorded By Document 08/29/21 09:29 MW [id number] 08/29/21 09:37 MW 08/29/21 09:29 Wound Center Nurse 2 #8 Left Lateral Muniz -Time 09:29 -Correct Patient Yes -Correct Side, Site, Position Yes -Correct Procedure Yes -Procedure Performed Yes -Type of Procedure Debridement -Clinical Debridement Subcutaneous -Tissue Removed Subcutaneous -Post Debridement (cm) - Length 0.3 -Post Debridement (cm) - Width 0.3 -Post Debridement (cm) - Depth 0.1 -Total Square (Post) (cm) 0.09 -Area of Debridement (cm) - Length 0.3 -Area of Debridement (cm) - Width 0.3 -Total Square (Area) (cm) 0.09 -Tunneling No -Undermining/Tunneling No -Circular Undermining No -Wound/Ulcer Outcome Not Healed -Ulcer Cleansing Rinsed/ Irrigated with Saline -Foul Odor after Cleansing No -Bioengineered Tissue No -Bleeding Controlled with Pressure -Treatment Response Procedure Tolerated Well -Offloading No -Debridement - Subq, 1st 20sq cm Yes #7 Right Lateral Calf -Time 09:30 -Correct Patient Yes -Correct Side, Site, Position Yes -Correct Procedure Yes -Procedure Performed Yes -Type of Procedure Incision & Drainage -Clinical Debridement Subcutaneous -Tissue Removed Subcutaneous -Post Debridement (cm) - Length 1.0 -Post Debridement (cm) - Width 5.0 -Post Debridement (cm) - Depth 0.1 -Total Square (Post) (cm) 5.00 -Area of Debridement (cm) - Length 1.0 -Area of Debridement (cm) - Width 5.0 -Total Square (Area) (cm) 5.00 -Tunneling No -Undermining/Tunneling No -Circular Undermining No -Wound/Ulcer Outcome Not Healed -Ulcer Cleansing Rinsed/ Irrigated with Saline -Foul Odor after Cleansing No -Bioengineered Tissue No -Bleeding Controlled with Pressure -Treatment Response Procedure Tolerated Well -Offloading No -Debridement - Subq, 1st 20sq cm No Pain Scale: 0-10 Numeric Is Patient Pain Free? Yes - Nurse 3 - General Ulcer D/C NN Start: 08/29/21 09:02 Freq: Status: Active Protocol: Activity Type Activity Date Activity User E-sign Co-sign Detail Recorded Client Recorded Date Recorded By Document 08/29/21 09:50 CO [id number] 08/29/21 09:54 CO 08/29/21 09:50 Wound Care Nurse 3 #8 Left Lateral Muniz -Ulcer Cleansing Rinsed/ Irrigated with Saline -Primary Dressing Applied Promogran -Other Dressing adaptic -Primary Dressing Covered/Secured with Dry Gauze & Roll Gauze, Secured with Tape -Promogran 1 Right -Tubular Bandage Double Layer -Size of Tubigrip Used Size E -Size E ($) 2 Left -Tubular Bandage Double Layer -Size of Tubigrip Used Size E -Size E ($) 2 Pain Scale: 0-10 Numeric Is Patient Pain Free? Yes - Visit Discharge Discharge Condition Stable Ambulatory Status Ambulatory Transportation Private Auto Clinical Summary of Care Provided Yes Additional Wound Wound debrided: Right lower extremity (lateral) Type of Debridement: Excisional debridement Anesthesia Used: 4% Lidocaine Solution Depth: Down to and including healthy tissue and in the subcutaneous layer Percentage of wound debrided: 100 Instrument Used: 5mm curette Tissue Removed: Slough and devitalized tissue Severity: Fat Layer Exposed Amount of bleeding with debridement: Mild Bleeding Controlled with: Pressure Patient tolerated procedure: Patient tolerated procedure well Charges/Coding Visit Charges Office Visits / Consults: [id number] OV L3 New Procedures Integumentary [id number]: [id number] Veda subq tissue 20 sq cm/< Assessment/Plan Assessment/Plan (1) Traumatic wound: (2) Wound of right leg: CODE(S): S81.801A - Unspecified open wound, right lower leg, initial encounter QUALIFIERS: Encounter type: initial encounter Qualified Code(s): S81.801A - Unspecified open wound, right lower leg, initial encounter PLAN: Traumatic, penetrating/laceration. (3) Wound of left lower extremity: CODE(S): S81.802A - Unspecified open wound, left lower leg, initial encounter QUALIFIERS: Encounter type: initial encounter Qualified Code(s): S81.802A - Unspecified open wound, left lower leg, initial encounter PLAN: Traumatic, penetrating/laceration. (4) Chronic venous insufficiency: CODE(S): I87.2 - Venous insufficiency (chronic) (peripheral) (5) Traumatic open wound of lower leg with delayed healing: CODE(S): S81.809D - Unspecified open wound, unspecified lower leg, subsequent encounter PLAN: Plan Bilateral lower extremity traumatic wounds. Left has been present for 3 weeks and right for about a week. Suturing done to some of right lower extremity wound at the emergency room. This helped with the bleeding and some control however some of the portions are still with significant slough and without sutures. Debridement done as documented above, procedure was well-tolerated. Some suture removal done, will complete others next week. Promogran to bilateral lower extremity wounds moisten lightly and cover with Adaptic. Double layer Tubigrip for compression. Increase protein intake, vitamin C and zinc discussed. She voiced understanding. Her questions were answered and she was advised to call with any further questions or concerns. This note was generated with [employer] software. It may contain incorrect words, spelling, and punctuation that were not noted in checking the note before signing.
[2021-09-05 09:34] VITALS: BP 140/66; PULSE 73; RESP 18; TEMP 36.3
--- NOTE | 2021-09-05 11:36 | PN.PCM_ITS ---
History of Present Illness Date of Service: 09/05/21 Chief Complaint: Bilateral Lower Extremity Wounds History of Wound: Ms. Mcdowell is an 85-year-old who presents with 2 lower extremity wounds. Left lower extremity wound was sustained after she ran into something. She states that it has been present for about 3 weeks, has been applying antibiotic ointment however no significant change. Also sustained a right lower extremity wound after she fell on her stairs. Significant bleeding noted following the fall and so she presented to the emergency room where she had some sutures applied. Has been applying Adaptic at home, she states that the redness is improving however she still has a lot of pain. No chills, fever or otherwise feeling of unwell. Chronic history of venous insufficiency. No known history of diabetes mellitus. Progress of Wound: No new concerns at this time. Has been applying dressings as discussed. Objective Data Objective Data Vital Signs: Vital Signs Temp Pulse Resp BP O2 Del Method 97.3 F L 73 18 140/66 H Room Air 09/05/21 09:34 09/05/21 09:34 09/05/21 09:34 09/05/21 09:34 08/29/21 09:03 Oxygen Delivery Method Room Air Charges/Coding Procedures Integumentary 111xxx-113xx: 97508 Veda subq tissue 20 sq cm/< Physical Exam Const alert, oriented x3 and no apparent distress General Appearance: cooperative, comfortable and well developed HEENT normocephalic, head/scalp atraumatic and hearing grossly normal bilaterally Eyes EOMs intact bilaterally Neck full ROM and supple General: normal visual inspection Resp normal respiratory effort and normal air movement Effort and Inspection: able to speak in complete sentences Cardio regular rate, regular rhythm, S1 normal heart sound and S2 normal heart sound GI soft to palpation and non-tender Skin Wounds: wounds noted Neuro oriented x3, CN's II-XII intact bilaterally, moves all extremities and no focal motor deficits Psych mental status grossly normal Appearance: grossly normal Attitude: calm Debridement Note Debridement Note Wound debrided: Right lower extremity (lateral) Type of Debridement: Excisional debridement Anesthesia Used: 4% Lidocaine Solution Depth: Down to and including healthy tissue and in the subcutaneous layer Percentage of wound debrided: 100 Instrument Used: 5mm curette Tissue Removed: Slough and devitalized tissue Severity: Fat Layer Exposed Amount of bleeding with debridement: Mild Bleeding Controlled with: Pressure Patient tolerated procedure: Patient tolerated procedure well Post-Debridement Measurements and Additional Note: Post-Debridement Measurements/Treatment VASQUEZ - Nurse 1 - General Ulcer Assessment Start: 08/29/21 09:02 Freq: Status: Active Protocol: ANNA MARIE Activity Type Activity Date Activity User E-sign Co-sign Detail Recorded Client Recorded Date Recorded By Document 08/29/21 09:03 MT [id number] 08/29/21 09:17 MT Document 09/05/21 09:34 DL [id number] 09/05/21 09:42 DL 08/29/21 09/05/21 09:03 09:34 WC - Today's Visit Information Type of service Initial Visit 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 ) Arrival Mode Ambulatory Ambulatory Transfer Assistance None Accompanied by self Patient Identification Verified (Name & Yes Yes ) Patient Requires Transmission-Based No Precautions Safety Precautions Fall Prevention Vital Signs Temperature (97.8 F-99.1 F) 97 F L 97.3 F L Temperature Source Temporal Temporal Pulse Rate (60-100) 75 73 Pulse Location Monitor Monitor Respiratory Rate (12-18) 18 18 Respiratory rate source Observation Observation Oxygen Delivery Method Room Air Blood Pressure (90/60-120/80) 165/90 H 140/66 H Blood Pressure Mean (mm Hg) 115 90 Source Monitor Monitor Position Semi-Fowlers Blood Pressure Location Left Arm History Since Last Visit- (Skip if this is Patient's initial visit) Have you changed medications since your No last visit? Any new allergies or adverse reactions No Had a fall/change in ADL's that may No increase risk of falls Signs or symptoms of abuse and/or No neglect since last visit Have you been in the hospital since your No last visit? Has dressing in place as prescribed Yes Yes Has compression in place as prescribed Yes Yes Has offloadiing in place as prescribed Yes N/A Experienced any changes in pain level or Yes No management Left Footwear Regular Shoe Right Footwear Regular Shoe Pain Scale: 0-10 Numeric Is Patient Pain Free? Yes Yes VASQUEZ - Nurse 1 - General Ulcer Measurement Start: 08/29/21 09:02 Freq: Status: Active Protocol: Activity Type Activity Date Activity User E-sign Co-sign Detail Recorded Client Recorded Date Recorded By Document 08/29/21 09:03 MT [id number] 08/29/21 09:17 MT Document 09/05/21 09:34 DL [id number] 09/05/21 09:42 DL 08/29/21 09/05/21 09:03 09:34 Wound Center Nurse 1 #8 Left Lateral Muniz -Current Size (cm) - Length 0.9 0.3 -Current Size (cm) - Width 0.5 0.2 -Current Size (cm) - Depth 0.1 0.1 -Total Square Cm 0.45 0.06 -Photo Taken No -Exudate Amt Small Small -Exudate Type Serosanguineous Serosanguineous -Wound Margin Flat & Intact Distinct, Outline Attached -Granulation Amt Large (67-100%) Small (1-33%) -Granulation Quality Pale,[place] -Necrosis Amt Small (1-33%) Small (1-33%) -Necrotic Tissue Type Adherent Slough -Structure Exposed N/A -Texture (Shanique-wound Skin Appearance) Assessed Scarring -Moisture (Shanique-wound Skin Appearance) Assessed No Abnormality -Color (Shanique-wound Skin Appearance) Assessed No Abnormality -Temperature (Shanique-wound Skin No Abnormality No Abnormality Appearance) (Pt Warm) (Pt Warm) -Tenderness on Palpation (Shanique-wound No Skin Appearance) -Ulcer Cleansing Rinsed/ Rinsed/ Irrigated with Irrigated with Saline Saline -Foul Odor after Cleansing No -Anesthetic Used 4% Lidocaine 5% Lidocaine Solution Gel #7 Right Lateral Calf -Current Size (cm) - Length 5.5 1 -Current Size (cm) - Width 6.0 4.8 -Current Size (cm) - Depth 0.5 0.1 -Total Square Cm 33.00 4.8 -Photo Taken No -Exudate Amt Medium Medium -Exudate Type Serosanguineous Serosanguineous -Wound Margin Flat & Intact Distinct, Outline Attached -Granulation Amt Large (67-100%) Small (1-33%) -Granulation Quality Pale,[place] Red -Necrosis Amt Small (1-33%) Large (67-100%) -Necrotic Tissue Type Adherent Slough -Structure Exposed N/A -Texture (Shanique-wound Skin Appearance) Assessed Scarring -Moisture (Shanique-wound Skin Appearance) Assessed No Abnormality -Color (Shanique-wound Skin Appearance) Assessed Hemosiderin Staining -Temperature (Shanique-wound Skin No Abnormality No Abnormality Appearance) (Pt Warm) (Pt Warm) -Tenderness on Palpation (Shanique-wound Yes No Skin Appearance) -Ulcer Cleansing Rinsed/ Rinsed/ Irrigated with Irrigated with Saline Saline -Foul Odor after Cleansing No No -Anesthetic Used 4% Lidocaine 5% Lidocaine Solution Gel -Wound Comment(s) stitches intact . Right Calf (cm) 31 30.8 Right Ankle (cm) 20.5 21.5 Left Calf (cm) 32.5 31.8 Point of measurement (cm from the medial 20.5 instep) Left Ankle (cm) 21.0 WC - Nurse 2 - General Ulcer CM Notes Start: 08/29/21 09:02 Freq: Status: Active Protocol: Activity Type Activity Date Activity User E-sign Co-sign Detail Recorded Client Recorded Date Recorded By Document 08/29/21 09:29 MW [id number] 08/29/21 09:37 MW Document 09/05/21 09:55 MW [id number] 09/05/21 10:02 MW 08/29/21 09/05/21 09:29 09:55 Wound Center Nurse 2 #8 Left Lateral Muniz -Time 09:29 09:55 -Correct Patient Yes Yes -Correct Side, Site, Position Yes Yes -Correct Procedure Yes Yes -Procedure Performed Yes Yes -Type of Procedure Debridement Debridement -Clinical Debridement Subcutaneous Subcutaneous -Tissue Removed Subcutaneous Subcutaneous -Post Debridement (cm) - Length 0.3 0.6 -Post Debridement (cm) - Width 0.3 0.4 -Post Debridement (cm) - Depth 0.1 0.1 -Total Square (Post) (cm) 0.09 0.24 -Area of Debridement (cm) - Length 0.3 0.6 -Area of Debridement (cm) - Width 0.3 0.4 -Total Square (Area) (cm) 0.09 0.24 -Tunneling No No -Undermining/Tunneling No No -Circular Undermining No No -Wound/Ulcer Outcome Not Healed Not Healed -Ulcer Cleansing Rinsed/ Rinsed/ Irrigated with Irrigated with Saline Saline -Foul Odor after Cleansing No No -Bioengineered Tissue No No -Bleeding Controlled with Pressure Pressure -Treatment Response Procedure Procedure Tolerated Well Tolerated Well -Offloading No No -Debridement - Subq, 1st 20sq cm Yes Yes #7 Right Lateral Calf -Time 09:30 09:55 -Correct Patient Yes Yes -Correct Side, Site, Position Yes Yes -Correct Procedure Yes Yes -Procedure Performed Yes Yes -Type of Procedure Incision & Debridement Drainage -Clinical Debridement Subcutaneous Subcutaneous -Tissue Removed Subcutaneous Subcutaneous -Post Debridement (cm) - Length 1.0 1.3 -Post Debridement (cm) - Width 5.0 5.0 -Post Debridement (cm) - Depth 0.1 0.1 -Total Square (Post) (cm) 5.00 6.50 -Area of Debridement (cm) - Length 1.0 1.3 -Area of Debridement (cm) - Width 5.0 5.0 -Total Square (Area) (cm) 5.00 6.50 -Tunneling No No -Undermining/Tunneling No No -Circular Undermining No No -Wound/Ulcer Outcome Not Healed Not Healed -Ulcer Cleansing Rinsed/ Rinsed/ Irrigated with Irrigated with Saline Saline -Foul Odor after Cleansing No No -Bioengineered Tissue No No -Bleeding Controlled with Pressure Pressure -Treatment Response Procedure Procedure Tolerated Well Tolerated Well -Offloading No No -Debridement - Subq, 1st 20sq cm No No Pain Scale: 0-10 Numeric Is Patient Pain Free? Yes Yes WC - Nurse 3 - General Ulcer D/C NN Start: 08/29/21 09:02 Freq: Status: Active Protocol: Activity Type Activity Date Activity User E-sign Co-sign Detail Recorded Client Recorded Date Recorded By Document 08/29/21 09:50 MO [id number] 08/29/21 09:54 MO Document 09/05/21 10:31 [facility] [id number] 09/05/21 10:32 [facility] 08/29/21 09/05/21 09:50 10:31 Wound Care Nurse 3 #8 Left Lateral Muniz -Ulcer Cleansing Rinsed/ Rinsed/ Irrigated with Irrigated with Saline Saline -Foul Odor after Cleansing No -Primary Dressing Applied Promogran NonAdherent Contact Layer, Promogran -Other Dressing adaptic -Primary Dressing Covered/Secured with Dry Gauze & Dry Gauze & Roll Gauze, Roll Gauze, Secured with Secured with Tape Tape -Promogran 1 1 #7 Right Lateral Calf -Ulcer Cleansing Rinsed/ Irrigated with Saline -Foul Odor after Cleansing No -Primary Dressing Applied Promogran -Primary Dressing Covered/Secured with Dry Gauze & Roll Gauze, Secured with Tape -Promogran 0 Right -Tubular Bandage Double Layer -Size of Tubigrip Used Size E -Size E ($) 2 -Other applied pts own double layer tubi Left -Tubular Bandage Double Layer -Size of Tubigrip Used Size E -Size E ($) 2 -Other applied pts own double layer tubi Treatment Response Procedure Tolerated Well Pain Scale: 0-10 Numeric Is Patient Pain Free? Yes Yes WC - Visit Discharge Discharge Condition Stable Stable Ambulatory Status Ambulatory Ambulatory Transportation Private Auto Private Auto Clinical Summary of Care Provided Yes Additional Wound Wound debrided: Left lower extremity (lateral) Type of Debridement: Excisional debridement Anesthesia Used: 4% Lidocaine Solution Depth: Down to and including healthy tissue and in the subcutaneous layer Percentage of wound debrided: 100 Instrument Used: 3mm curette and 5mm curette Tissue Removed: Slough and devitalized tissue Severity: Fat Layer Exposed Amount of bleeding with debridement: Mild Bleeding Controlled with: Pressure Patient tolerated procedure: Patient tolerated procedure well Assessment/Plan Assessment/Plan (1) Traumatic wound: (2) Wound of right leg: CODE(S): S81.801A - Unspecified open wound, right lower leg, initial encounter QUALIFIERS: Encounter type: initial encounter Qualified Code(s): S81.801A - Unspecified open wound, right lower leg, initial encounter PLAN: Traumatic, penetrating/laceration. (3) Wound of left lower extremity: CODE(S): S81.802A - Unspecified open wound, left lower leg, initial encounter QUALIFIERS: Encounter type: initial encounter Qualified Code(s): S81.802A - Unspecified open wound, left lower leg, initial encounter PLAN: Traumatic, penetrating/laceration. (4) Chronic venous insufficiency: CODE(S): I87.2 - Venous insufficiency (chronic) (peripheral) (5) Traumatic open wound of lower leg with delayed healing: CODE(S): S81.809D - Unspecified open wound, unspecified lower leg, subsequent encounter PLAN: Plan Debridement done as documented above, procedure was well-tolerated. Some suture removal completed this week. Continue Promogran to bilateral lower extremity wounds moisten lightly and cover with Adaptic. Double layer Tubigrip for compression. Increase protein intake, vitamin C and zinc discussed. She voiced understanding. Her questions were answered and she was advised to call with any further questions or concerns. Follow-up in 1 week. This note was generated with [employer] dictation software. It may contain incorrect words, spelling, and punctuation that were not noted in checking the note before signing.
[2021-09-12 09:25] VITALS: BP 167/64; PULSE 78; RESP 20; TEMP 36.3
--- NOTE | 2021-09-12 10:41 | PCM.WC.PN ---
History of Present Illness Date of Service: 09/12/21 Chief Complaint: Bilateral Lower Extremity Wounds History of Wound: Ms. Mcdowell is an 85-year-old who presents with 2 lower extremity wounds. Left lower extremity wound was sustained after she ran into something. She states that it has been present for about 3 weeks, has been applying antibiotic ointment however no significant change. Also sustained a right lower extremity wound after she fell on her stairs. Significant bleeding noted following the fall and so she presented to the emergency room where she had some sutures applied. Has been applying Adaptic at home, she states that the redness is improving however she still has a lot of pain. No chills, fever or otherwise feeling of unwell. Chronic history of venous insufficiency. No known history of diabetes mellitus. Progress of Wound: Right lower extremity with some improvement. Left lower extremity with no significant improvement. Not cleaning prior dressing properly prior to reapplying. Objective Data Objective Data Vital Signs: Vital Signs Temp Pulse Resp BP O2 Del Method 97.3 F L 78 20 H 167/64 H Room Air 09/12/21 09:25 09/12/21 09:25 09/12/21 09:25 09/12/21 09:25 08/29/21 09:03 Oxygen Delivery Method Room Air Charges/Coding Procedures Integumentary 111xxx-113xx: [id number] Veda subq tissue 20 sq cm/< Physical Exam Const alert, oriented x3 and no apparent distress General Appearance: cooperative, comfortable and well developed HEENT normocephalic, head/scalp atraumatic and hearing grossly normal bilaterally Eyes EOMs intact bilaterally Neck full ROM and supple General: normal visual inspection Resp normal respiratory effort and normal air movement Effort and Inspection: able to speak in complete sentences Cardio regular rate, regular rhythm, S1 normal heart sound and S2 normal heart sound GI soft to palpation and non-tender Skin Wounds: wounds noted Neuro oriented x3, CN's II-XII intact bilaterally, moves all extremities and no focal motor deficits Psych mental status grossly normal Appearance: grossly normal Attitude: calm Debridement Note Debridement Note Wound debrided: Right lower extremity (lateral) Type of Debridement: Excisional debridement Anesthesia Used: 4% Lidocaine Solution Depth: Down to and including healthy tissue and in the subcutaneous layer Percentage of wound debrided: 100 Instrument Used: 5mm curette Tissue Removed: Slough and devitalized tissue Severity: Fat Layer Exposed Amount of bleeding with debridement: Mild Bleeding Controlled with: Pressure Patient tolerated procedure: Patient tolerated procedure well Post-Debridement Measurements and Additional Note: Post-Debridement Measurements/Treatment - Nurse 1 - General Ulcer Assessment Start: 08/29/21 09:02 Freq: Status: Active Protocol: ANNA MARIE Activity Type Activity Date Activity User E-sign Co-sign Detail Recorded Client Recorded Date Recorded By Document 08/29/21 09:03 MT [id number] 08/29/21 09:17 MT Document 09/05/21 09:34 DL [id number] 09/05/21 09:42 DL Document 09/12/21 09:25 DL [id number] 09/12/21 09:35 DL 08/29/21 09/05/21 09/12/21 09:03 09:34 09:25 WC - Today's Visit Information Type of service Initial Visit Follow-up Visit Follow-up Visit (Physician/OIL FIELD PIPELINE SUPERVISOR (Physician/OIL FIELD PIPELINE SUPERVISOR ) ) Arrival Mode Ambulatory Ambulatory Ambulatory Transfer Assistance None None Accompanied by self Patient Identification Verified (Name & Yes Yes Yes ) Patient Requires Transmission-Based No No Precautions Safety Precautions Fall Prevention Vital Signs Temperature (97.8 F-99.1 F) 97 F L 97.3 F L 97.3 F L Temperature Source Temporal Temporal Temporal Pulse Rate (60-100) 75 73 78 Pulse Location Monitor Monitor Monitor Respiratory Rate (12-18) 18 18 20 H Respiratory rate source Observation Observation Observation Oxygen Delivery Method Room Air Blood Pressure (90/60-120/80) 165/90 H 140/66 H 167/64 H Blood Pressure Mean (mm Hg) 115 90 98 Source Monitor Monitor Monitor Position Semi-Fowlers Blood Pressure Location Left Arm History Since Last Visit- (Skip if this is Patient's initial visit) Have you changed medications since your No No last visit? Any new allergies or adverse reactions No No Had a fall/change in ADL's that may No No increase risk of falls Signs or symptoms of abuse and/or No No neglect since last visit Have you been in the hospital since your No No last visit? Has dressing in place as prescribed Yes Yes Yes Has compression in place as prescribed Yes Yes Yes Has offloadiing in place as prescribed Yes N/A N/A Experienced any changes in pain level or Yes No No management Left Footwear Regular Shoe Right Footwear Regular Shoe Pain Scale: 0-10 Numeric Is Patient Pain Free? Yes Yes Yes WC - Nurse 1 - General Ulcer Measurement Start: 08/29/21 09:02 Freq: Status: Active Protocol: Activity Type Activity Date Activity User E-sign Co-sign Detail Recorded Client Recorded Date Recorded By Document 08/29/21 09:03 MT [id number] 08/29/21 09:17 MT Document 09/05/21 09:34 DL [id number] 09/05/21 09:42 DL Document 09/12/21 09:25 DL [id number] 09/12/21 09:35 DL 08/29/21 09/05/21 09/12/21 09:03 09:34 09:25 Wound Center Nurse 1 #8 Left Lateral Muniz -Current Size (cm) - Length 0.9 0.3 0.5 -Current Size (cm) - Width 0.5 0.2 0.4 -Current Size (cm) - Depth 0.1 0.1 0.1 -Total Square Cm 0.45 0.06 0.20 -Photo Taken No No -Exudate Amt Small Small None Present -Exudate Type Serosanguineous Serosanguineous -Wound Margin Flat & Intact Distinct, Thickened Outline Attached -Granulation Amt Large (67-100%) Small (1-33%) None Present (0 %) -Granulation Quality Pale,[place] -Necrosis Amt Small (1-33%) Small (1-33%) Small (1-33%) -Necrotic Tissue Type Adherent Slough Adherent Slough -Structure Exposed N/A N/A -Texture (Shanique-wound Skin Appearance) Assessed Scarring Scarring,Rash -Moisture (Shanique-wound Skin Appearance) Assessed No Abnormality Dry/Scaly -Color (Shanique-wound Skin Appearance) Assessed No Abnormality Erythema -Temperature (Shanique-wound Skin No Abnormality No Abnormality No Abnormality Appearance) (Pt Warm) (Pt Warm) (Pt Warm) -Tenderness on Palpation (Shanique-wound No No Skin Appearance) -Ulcer Cleansing Rinsed/ Rinsed/ Rinsed/ Irrigated with Irrigated with Irrigated with Saline Saline Saline -Foul Odor after Cleansing No No -Anesthetic Used 4% Lidocaine 5% Lidocaine 5% Lidocaine Solution Gel Gel #7 Right Lateral Calf -Current Size (cm) - Length 5.5 1 3 -Current Size (cm) - Width 6.0 4.8 3.7 -Current Size (cm) - Depth 0.5 0.1 0.2 -Total Square Cm 33.00 4.8 11.1 -Photo Taken No No -Exudate Amt Medium Medium Small -Exudate Type Serosanguineous Serosanguineous -Wound Margin Flat & Intact Distinct, Distinct, Outline Outline Attached Attached -Granulation Amt Large (67-100%) Small (1-33%) Small (1-33%) -Granulation Quality Pale,[place] Red [place] -Necrosis Amt Small (1-33%) Large (67-100%) Large (67-100%) -Necrotic Tissue Type Adherent Slough Adherent Slough -Structure Exposed N/A N/A -Texture (Shanique-wound Skin Appearance) Assessed Scarring Scarring,Rash -Moisture (Shanique-wound Skin Appearance) Assessed No Abnormality Dry/Scaly -Color (Shanique-wound Skin Appearance) Assessed Hemosiderin Erythema Staining -Temperature (Shanique-wound Skin No Abnormality No Abnormality No Abnormality Appearance) (Pt Warm) (Pt Warm) (Pt Warm) -Tenderness on Palpation (Shanique-wound Yes No Yes Skin Appearance) -Ulcer Cleansing Rinsed/ Rinsed/ Rinsed/ Irrigated with Irrigated with Irrigated with Saline Saline Saline -Foul Odor after Cleansing No No No -Anesthetic Used 4% Lidocaine 5% Lidocaine 5% Lidocaine Solution Gel Gel -Wound Comment(s) stitches intact . Right Calf (cm) 31 30.8 30 Right Ankle (cm) 20.5 21.5 20.5 Left Calf (cm) 32.5 31.8 31.5 Point of measurement (cm from the medial 20.5 instep) Left Ankle (cm) 21.0 20 WC - Nurse 2 - General Ulcer CM Notes Start: 08/29/21 09:02 Freq: Status: Active Protocol: Activity Type Activity Date Activity User E-sign Co-sign Detail Recorded Client Recorded Date Recorded By Document 08/29/21 09:29 MW [id number] 08/29/21 09:37 MW Document 09/05/21 09:55 MW [id number] 09/05/21 10:02 MW Document 09/12/21 09:50 MW [id number] 09/12/21 09:59 MW 08/29/21 09/05/21 09/12/21 09:29 09:55 09:50 Wound Center Nurse 2 #8 Left Lateral Muniz -Time : 09:55 09:50 -Correct Patient Yes Yes Yes -Correct Side, Site, Position Yes Yes Yes -Correct Procedure Yes Yes Yes -Procedure Performed Yes Yes Yes -Type of Procedure Debridement Debridement Debridement -Clinical Debridement Subcutaneous Subcutaneous Subcutaneous -Tissue Removed Subcutaneous Subcutaneous Subcutaneous -Post Debridement (cm) - Length 0.3 0.6 0.8 -Post Debridement (cm) - Width 0.3 0.4 0.3 -Post Debridement (cm) - Depth 0.1 0.1 0.1 -Total Square (Post) (cm) 0.09 0.24 0.24 -Area of Debridement (cm) - Length 0.3 0.6 0.8 -Area of Debridement (cm) - Width 0.3 0.4 0.3 -Total Square (Area) (cm) 0.09 0.24 0.24 -Tunneling No No No -Undermining/Tunneling No No No -Circular Undermining No No No -Wound/Ulcer Outcome Not Healed Not Healed Not Healed -Ulcer Cleansing Rinsed/ Rinsed/ Rinsed/ Irrigated with Irrigated with Irrigated with Saline Saline Saline -Foul Odor after Cleansing No No No -Bioengineered Tissue No No No -Bleeding Controlled with Pressure Pressure Pressure -Treatment Response Procedure Procedure Procedure Tolerated Well Tolerated Well Tolerated Well -Offloading No No No -Debridement - Subq, 1st 20sq cm Yes Yes No #7 Right Lateral Calf -Time : 09:55 09:51 -Correct Patient Yes Yes Yes -Correct Side, Site, Position Yes Yes Yes -Correct Procedure Yes Yes Yes -Procedure Performed Yes Yes Yes -Type of Procedure Incision & Debridement Debridement Drainage -Clinical Debridement Subcutaneous Subcutaneous Subcutaneous -Tissue Removed Subcutaneous Subcutaneous Subcutaneous -Post Debridement (cm) - Length 1.0 1.3 2.8 -Post Debridement (cm) - Width 5.0 5.0 2.0 -Post Debridement (cm) - Depth 0.1 0.1 0.1 -Total Square (Post) (cm) 5.00 6.50 5.60 -Area of Debridement (cm) - Length 1.0 1.3 2.8 -Area of Debridement (cm) - Width 5.0 5.0 2.0 -Total Square (Area) (cm) 5.00 6.50 5.60 -Tunneling No No No -Undermining/Tunneling No No No -Circular Undermining No No No -Wound/Ulcer Outcome Not Healed Not Healed Not Healed -Ulcer Cleansing Rinsed/ Rinsed/ Irrigated with Irrigated with Saline Saline -Foul Odor after Cleansing No No No -Bioengineered Tissue No No No -Bleeding Controlled with Pressure Pressure Pressure -Treatment Response Procedure Procedure Procedure Tolerated Well Tolerated Well Tolerated Well -Offloading No No No -Debridement - Subq, 1st 20sq cm No No Yes Pain Scale: 0-10 Numeric Is Patient Pain Free? Yes Yes Yes WC - Nurse 3 - General Ulcer D/C NN Start: 08/29/21 09:02 Freq: Status: Active Protocol: Activity Type Activity Date Activity User E-sign Co-sign Detail Recorded Client Recorded Date Recorded By Document 08/29/21 09:50 [place] [id number] 08/29/21 09:54 KS Document 09/05/21 10:31 [facility] [id number] 09/05/21 10:32 BM Document 09/12/21 09:59 MW [id number] 09/12/21 10:01 MW Document 09/12/21 10:18 DL [id number] 09/12/21 10:19 DL 08/29/21 09/05/21 09/12/21 09:50 10:31 09:59 Wound Care Nurse 3 #8 Left Lateral Muniz -Ulcer Cleansing Rinsed/ Rinsed/ Rinsed/ Irrigated with Irrigated with Irrigated with Saline Saline Saline -Foul Odor after Cleansing No No -Negative Pressure Wound Therapy N/A -Primary Dressing Applied Promogran NonAdherent NonAdherent Contact Layer, Contact Layer, Promogran Promogran -Other Dressing adaptic -Primary Dressing Covered/Secured with Dry Gauze & Dry Gauze & Dry Gauze & Roll Gauze, Roll Gauze, Roll Gauze, Secured with Secured with Secured with Tape Tape Tape -Promogran 1 1 1 #7 Right Lateral Calf -Ulcer Cleansing Rinsed/ Rinsed/ Irrigated with Irrigated with Saline Saline -Foul Odor after Cleansing No No -Negative Pressure Wound Therapy N/A -Primary Dressing Applied Promogran NonAdherent Contact Layer -Other Dressing promogran -Primary Dressing Covered/Secured with Dry Gauze & Dry Gauze & Roll Gauze, Roll Gauze, Secured with Secured with Tape Tape -Promogran 0 Right -Lotion applied to leg before No compression wrap -Tubular Bandage Double Layer -Size of Tubigrip Used Size E -Size E ($) 2 -Other applied pts own double layer double layer tubigrips tubi Left -Lotion applied to leg before No compression wrap -Tubular Bandage Double Layer -Size of Tubigrip Used Size E -Size E ($) 2 -Other applied pts own double layer double layer tubigrips tubi Treatment Response Procedure Procedure Tolerated Well Tolerated Well Pain Scale: 0-10 Numeric Is Patient Pain Free? Yes Yes Yes Teaching: Wound Center Dressing Your Wound -Person Taught Patient -Teaching Method Discussion, Demonstration -Response to teaching Verbalize understanding WC - Visit Discharge Discharge Condition Stable Stable Stable Ambulatory Status Ambulatory Ambulatory Ambulatory Transportation Private Auto Private Auto Private Auto Accompanied by self Medication Reconcilliation completed & No provided to patient/care provider Clinical Summary of Care Provided Yes Yes 09/12/21 10:18 Wound Care Nurse 3 #8 Left Lateral Muniz -Ulcer Cleansing Rinsed/ Irrigated with Saline -Foul Odor after Cleansing No -Negative Pressure Wound Therapy -Primary Dressing Applied NonAdherent Contact Layer, Promogran -Other Dressing -Primary Dressing Covered/Secured with Dry Gauze & Roll Gauze, Secured with Tape -Promogran 1 #7 Right Lateral Calf -Ulcer Cleansing Rinsed/ Irrigated with Saline -Foul Odor after Cleansing No -Negative Pressure Wound Therapy -Primary Dressing Applied NonAdherent Contact Layer -Other Dressing promogran -Primary Dressing Covered/Secured with Dry Gauze & Roll Gauze, Secured with Tape -Promogran Right -Lotion applied to leg before compression wrap -Tubular Bandage Double Layer -Size of Tubigrip Used Size E -Size E ($) 2 -Other Left -Lotion applied to leg before compression wrap -Tubular Bandage Double Layer -Size of Tubigrip Used Size E -Size E ($) 2 -Other Treatment Response Procedure Tolerated Well Pain Scale: 0-10 Numeric Is Patient Pain Free? Yes Teaching: Wound Center Dressing Your Wound -Person Taught -Teaching Method -Response to teaching WC - Visit Discharge Discharge Condition Stable Ambulatory Status Ambulatory Transportation Private Auto Accompanied by Medication Reconcilliation completed & provided to patient/care provider Clinical Summary of Care Provided Additional Wound Wound debrided: Left lower extremity (lateral) Type of Debridement: Excisional debridement Anesthesia Used: 4% Lidocaine Solution Depth: Down to and including healthy tissue and in the subcutaneous layer Percentage of wound debrided: 100 Instrument Used: 5mm curette Tissue Removed: Slough and devitalized tissue Severity: Fat Layer Exposed Amount of bleeding with debridement: Mild Patient tolerated procedure: Patient tolerated procedure well Assessment/Plan Assessment/Plan (1) Traumatic wound: (2) Wound of right leg: CODE(S): S81.801A - Unspecified open wound, right lower leg, initial encounter QUALIFIERS: Encounter type: initial encounter Qualified Code(s): S81.801A - Unspecified open wound, right lower leg, initial encounter PLAN: Traumatic, penetrating/laceration. (3) Wound of left lower extremity: CODE(S): S81.802A - Unspecified open wound, left lower leg, initial encounter QUALIFIERS: Encounter type: initial encounter Qualified Code(s): S81.802A - Unspecified open wound, left lower leg, initial encounter PLAN: Traumatic, penetrating/laceration. (4) Chronic venous insufficiency: CODE(S): I87.2 - Venous insufficiency (chronic) (peripheral) (5) Traumatic open wound of lower leg with delayed healing: CODE(S): S81.809D - Unspecified open wound, unspecified lower leg, subsequent encounter PLAN: Plan Debridement done as documented above, procedure was well-tolerated. Continue Promogran to bilateral lower extremity wounds moisten lightly and cover with Adaptic. Double layer Tubigrip for compression. Instructions given on how to properly clean wounds prior to reapplying dressings. She has not been doing this appropriately. Increase protein intake, vitamin C and zinc discussed. She voiced understanding. Her questions were answered and she was advised to call with any further questions or concerns. Follow-up in 2 weeks. This note was generated with Rattleation software. It may contain incorrect words, spelling, and punctuation that were not noted in checking the note before signing.
== END 2021-09-22 23:59 | disposition home or self-care (01) ==
LOC: WC 10:45
PROVIDERS: PCP Internal Medicine; Visit Provider Internal Medicine
DX: S81.811D Laceration without foreign body, right lower leg, subsequent encounter (principal); S81.812A Laceration without foreign body, left lower leg, initial encounter; W10.9XXA Fall (on) (from) unspecified stairs and steps, initial encounter; I87.2 Venous insufficiency (chronic) (peripheral); Z79.83 Long term (current) use of bisphosphonates; Z79.899 Other long term (current) drug therapy
CPT/HCPCS: 11042; 99213; G0463

== ENCOUNTER 2021-10-17 14:15 | Outpatient (RCR) | payer MEDICARE, SELFPAY ==
[2021-09-23 00:07] VITALS: BP 167/64; PULSE 78; RESP 20; TEMP 36.3
[2021-09-26 09:23] VITALS: BP 133/52; PULSE 68; RESP 18; TEMP 36.2
--- NOTE | 2021-09-26 10:40 | PCM.WC.PN ---
History of Present Illness Date of Service: 09/26/21 Chief Complaint: Bilateral Lower Extremity Wounds History of Wound: Ms. Mcdowell is an 85-year-old who presents with 2 lower extremity wounds. Left lower extremity wound was sustained after she ran into something. She states that it has been present for about 3 weeks, has been applying antibiotic ointment however no significant change. Also sustained a right lower extremity wound after she fell on her stairs. Significant bleeding noted following the fall and so she presented to the emergency room where she had some sutures applied. Has been applying Adaptic at home, she states that the redness is improving however she still has a lot of pain. No chills, fever or otherwise feeling of unwell. Chronic history of venous insufficiency. No known history of diabetes mellitus. Progress of Wound: Some improvement noted. Right lower extremity however more edema. Objective Data Objective Data Vital Signs: Vital Signs Temp Pulse Resp BP 97.2 F L 68 18 133/52 H 09/26/21 09:23 09/26/21 09:23 09/26/21 09:23 09/26/21 09:23 Charges/Coding Procedures Integumentary [id number]: [id number] Veda subq tissue 20 sq cm/< Physical Exam Const alert, oriented x3 and no apparent distress General Appearance: cooperative, comfortable and well developed HEENT normocephalic, head/scalp atraumatic and hearing grossly normal bilaterally Eyes EOMs intact bilaterally Neck full ROM and supple General: normal visual inspection Resp normal respiratory effort and normal air movement Effort and Inspection: able to speak in complete sentences Cardio regular rate, regular rhythm, S1 normal heart sound and S2 normal heart sound GI soft to palpation and non-tender Skin Wounds: wounds noted Neuro oriented x3, CN's II-XII intact bilaterally, moves all extremities and no focal motor deficits Psych mental status grossly normal Appearance: grossly normal Attitude: calm Debridement Note Debridement Note Wound debrided: Right lower extremity Type of Debridement: Excisional debridement Anesthesia Used: 4% Lidocaine Solution Depth: Down to and including healthy tissue and in the subcutaneous layer Percentage of wound debrided: 100 Instrument Used: 3mm curette Tissue Removed: Slough and devitalized tissue Severity: Fat Layer Exposed Amount of bleeding with debridement: Mild Bleeding Controlled with: Pressure Patient tolerated procedure: Patient tolerated procedure well Post-Debridement Measurements and Additional Note: Post-Debridement Measurements/Treatment WC - Nurse 1 - General Ulcer Assessment Start: 09/26/21 09:23 Freq: Status: Active Protocol: ANNA MARIE Activity Type Activity Date Activity User E-sign Co-sign Detail Recorded Client Recorded Date Recorded By Document 09/26/21 09:23 DL [id number] 09/26/21 09:30 DL 09/26/21 09:23 WC - Today's Visit Information Type of service 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 Any new allergies or adverse reactions No Had a fall/change in ADL's that may No increase risk of falls Signs or symptoms of abuse and/or No neglect since last visit Have you been in the hospital since your No last visit? Has dressing in place as prescribed Yes Has compression in place as prescribed Yes Has offloadiing in place as prescribed N/A Experienced any changes in pain level or No management Left Footwear Regular Shoe Right Footwear Regular Shoe Pain Scale: 0-10 Numeric Is Patient Pain Free? Yes - Nurse 1 - General Ulcer Measurement Start: 09/26/21 09:23 Freq: Status: Active Protocol: Activity Type Activity Date Activity User E-sign Co-sign Detail Recorded Client Recorded Date Recorded By Document 09/26/21 09:23 DL [id number] 09/26/21 09:30 DL 09/26/21 09:23 Wound Center Nurse 1 #8 Left Lateral Muniz -Current Size (cm) - Length 0.7 -Current Size (cm) - Width 0.3 -Current Size (cm) - Depth 0.2 -Total Square Cm 0.21 -Photo Taken Yes -Exudate Amt None Present -Wound Margin Distinct, Outline Attached -Granulation Amt Small (1-33%) -Granulation Quality [place] -Necrosis Amt Small (1-33%) -Necrotic Tissue Type Adherent Slough -Structure Exposed N/A -Texture (Shanique-wound Skin Appearance) Scarring -Moisture (Shanique-wound Skin Appearance) Dry/Scaly -Color (Shanique-wound Skin Appearance) Hemosiderin Staining -Temperature (Shanique-wound Skin No Abnormality Appearance) (Pt Warm) -Tenderness on Palpation (Shanique-wound No Skin Appearance) -Ulcer Cleansing Soap and Water -Foul Odor after Cleansing No -Anesthetic Used 5% Lidocaine Gel #7 Right Lateral Calf -Current Size (cm) - Length 2.3 -Current Size (cm) - Width 3.2 -Current Size (cm) - Depth 0.3 -Total Square Cm 7.36 -Photo Taken Yes -Exudate Amt Small -Exudate Type Serosanguineous -Wound Margin Distinct, Outline Attached -Granulation Amt None Present (0 %) -Necrosis Amt Large (67-100%) -Necrotic Tissue Type Adherent Slough -Structure Exposed N/A -Texture (Shanique-wound Skin Appearance) Scarring,Rash -Moisture (Shanique-wound Skin Appearance) Dry/Scaly -Color (Shanique-wound Skin Appearance) No Abnormality -Temperature (Shanique-wound Skin No Abnormality Appearance) (Pt Warm) -Tenderness on Palpation (Shanique-wound No Skin Appearance) -Ulcer Cleansing Soap and Water -Foul Odor after Cleansing No -Anesthetic Used 5% Lidocaine Gel Right Calf (cm) 31.2 Right Ankle (cm) 22 Left Calf (cm) 31.9 Left Ankle (cm) 20.8 WC - Nurse 2 - General Ulcer CM Notes Start: 09/26/21 09:23 Freq: Status: Active Protocol: Activity Type Activity Date Activity User E-sign Co-sign Detail Recorded Client Recorded Date Recorded By Document 09/26/21 09:37 Desktop 09/26/21 09:42 09/26/21 09:37 Wound Center Nurse 2 #8 Left Lateral Muniz -Time 09:38 -Correct Patient Yes -Correct Side, Site, Position Yes -Correct Procedure Yes -Procedure Performed Yes -Type of Procedure Debridement -Clinical Debridement Subcutaneous -Tissue Removed Subcutaneous -Post Debridement (cm) - Length 0.4 -Post Debridement (cm) - Width 0.3 -Post Debridement (cm) - Depth 0.1 -Total Square (Post) (cm) 0.12 -Area of Debridement (cm) - Length 0.4 -Area of Debridement (cm) - Width 0.3 -Total Square (Area) (cm) 0.12 -Tunneling No -Undermining/Tunneling No -Circular Undermining No -Wound/Ulcer Outcome Not Healed -Ulcer Cleansing Rinsed/ Irrigated with Saline -Foul Odor after Cleansing No -Bioengineered Tissue No -Bleeding Controlled with Pressure -Treatment Response Procedure Tolerated Well -Offloading No -Debridement - Subq, 1st 20sq cm No #7 Right Lateral Calf -Time 09:38 -Correct Patient Yes -Correct Side, Site, Position Yes -Correct Procedure Yes -Procedure Performed Yes -Type of Procedure Debridement -Clinical Debridement Subcutaneous -Tissue Removed Subcutaneous -Post Debridement (cm) - Length 1.5 -Post Debridement (cm) - Width 3.5 -Post Debridement (cm) - Depth 0.2 -Total Square (Post) (cm) 5.25 -Area of Debridement (cm) - Length 1.5 -Area of Debridement (cm) - Width 3.5 -Total Square (Area) (cm) 5.25 -Tunneling No -Undermining/Tunneling No -Circular Undermining No -Wound/Ulcer Outcome Not Healed -Ulcer Cleansing Rinsed/ Irrigated with Saline -Foul Odor after Cleansing No -Bioengineered Tissue No -Bleeding Controlled with Pressure -Treatment Response Procedure Tolerated Well -Offloading No -Debridement - Subq, 1st 20sq cm Yes Pain Scale: 0-10 Numeric Is Patient Pain Free? Yes WC - Nurse 3 - General Ulcer D/C NN Start: 09/26/21 09:23 Freq: Status: Active Protocol: Activity Type Activity Date Activity User E-sign Co-sign Detail Recorded Client Recorded Date Recorded By Document 09/26/21 10:04 DL [id number] 09/26/21 10:05 DL 09/26/21 10:04 Wound Care Nurse 3 #8 Left Lateral Muniz -Ulcer Cleansing Rinsed/ Irrigated with Saline -Foul Odor after Cleansing No -Primary Dressing Applied NonAdherent Contact Layer, Promogran Jairo Matter -Primary Dressing Covered/Secured with Dry Gauze & Roll Gauze, Secured with Tape -Promogran Jairo Matter 1 #7 Right Lateral Calf -Ulcer Cleansing Rinsed/ Irrigated with Saline -Foul Odor after Cleansing No -Primary Dressing Applied NonAdherent Contact Layer -Other Dressing jairo -Primary Dressing Covered/Secured with Dry Gauze & Roll Gauze, Secured with Tape Right -Multi-Layered Wrap Application Multi-Layer Comp - Bilat ($ ) Treatment Response Procedure Tolerated Well Pain Scale: 0-10 Numeric Is Patient Pain Free? Yes WC - Visit Discharge Discharge Condition Stable Ambulatory Status Ambulatory Transportation Private Auto Additional Wound Wound debrided: Left lower extremity Type of Debridement: Excisional debridement Anesthesia Used: 4% Lidocaine Solution Depth: Down to and including healthy tissue Percentage of wound debrided: 100 Instrument Used: 3mm curette Tissue Removed: Slough and devitalized tissue Severity: Fat Layer Exposed Amount of bleeding with debridement: Mild Bleeding Controlled with: Pressure Patient tolerated procedure: Patient tolerated procedure well Assessment/Plan Assessment/Plan (1) Traumatic wound: (2) Wound of right leg: CODE(S): S81.801A - Unspecified open wound, right lower leg, initial encounter QUALIFIERS: Encounter type: initial encounter Qualified Code(s): S81.801A - Unspecified open wound, right lower leg, initial encounter PLAN: Traumatic, penetrating/laceration. (3) Wound of left lower extremity: CODE(S): S81.802A - Unspecified open wound, left lower leg, initial encounter QUALIFIERS: Encounter type: initial encounter Qualified Code(s): S81.802A - Unspecified open wound, left lower leg, initial encounter PLAN: Traumatic, penetrating/laceration. (4) Chronic venous insufficiency: CODE(S): I87.2 - Venous insufficiency (chronic) (peripheral) (5) Traumatic open wound of lower leg with delayed healing: CODE(S): S81.809D - Unspecified open wound, unspecified lower leg, subsequent encounter PLAN: Plan Debridement done as documented above, procedure was well-tolerated. Some worsening edema of her right lower extremity. Switch to 3M wrap for edema management. Continue Promogran to bilateral lower extremity wounds moisten lightly and cover with Adaptic. Nurse visit on Thursday for change. Increase protein intake, vitamin C and zinc discussed. She voiced understanding. Her questions were answered and she was advised to call with any further questions or concerns. Follow-up in 1 week. This note was generated with [employer] software. It may contain incorrect words, spelling, and punctuation that were not noted in checking the note before signing.
[2021-09-30 14:39] VITALS: BP 133/59; PULSE 68; RESP 20; TEMP 36.2
[2021-10-03 09:24] VITALS: BP 143/70; PULSE 73; RESP 20; TEMP 36.6
--- NOTE | 2021-10-03 10:12 | PCM.WC.PN ---
History of Present Illness Date of Service: 10/03/21 Chief Complaint: Bilateral Lower Extremity Wounds History of Wound: Ms. Mcdowell is an 85-year-old who presents with 2 lower extremity wounds. Left lower extremity wound was sustained after she ran into something. She states that it has been present for about 3 weeks, has been applying antibiotic ointment however no significant change. Also sustained a right lower extremity wound after she fell on her stairs. Significant bleeding noted following the fall and so she presented to the emergency room where she had some sutures applied. Has been applying Adaptic at home, she states that the redness is improving however she still has a lot of pain. No chills, fever or otherwise feeling of unwell. Chronic history of venous insufficiency. No known history of diabetes mellitus. Progress of Wound: Improving. Tolerated 3M wraps without any concerns. Objective Data Objective Data Vital Signs: Vital Signs Temp Pulse Resp BP 97.8 F 73 20 H 143/70 H 10/03/21 09:24 10/03/21 09:24 10/03/21 09:24 10/03/21 09:24 Charges/Coding Procedures Integumentary [id number]: [id number] Veda subq tissue 20 sq cm/< Physical Exam Const alert, oriented x3 and no apparent distress General Appearance: cooperative, comfortable and well developed HEENT normocephalic, head/scalp atraumatic and hearing grossly normal bilaterally Eyes EOMs intact bilaterally Neck full ROM and supple General: normal visual inspection Resp normal respiratory effort and normal air movement Effort and Inspection: able to speak in complete sentences Cardio regular rate, regular rhythm, S1 normal heart sound and S2 normal heart sound GI soft to palpation and non-tender Skin Wounds: wounds noted Neuro oriented x3, CN's II-XII intact bilaterally, moves all extremities and no focal motor deficits Psych mental status grossly normal Appearance: grossly normal Attitude: calm Debridement Note Debridement Note Wound debrided: Right lower extremity Type of Debridement: Excisional debridement Anesthesia Used: 4% Lidocaine Solution Depth: Down to and including healthy tissue and in the subcutaneous layer Percentage of wound debrided: 100 Instrument Used: 3mm curette Tissue Removed: Slough and devitalized tissue Severity: Fat Layer Exposed Amount of bleeding with debridement: Mild Bleeding Controlled with: Pressure Patient tolerated procedure: Patient tolerated procedure well Post-Debridement Measurements and Additional Note: Post-Debridement Measurements/Treatment WC - Nurse 1 - General Ulcer Assessment Start: 09/26/21 09:23 Freq: Status: Active Protocol: ANNA MARIE Activity Type Activity Date Activity User E-sign Co-sign Detail Recorded Client Recorded Date Recorded By Document 09/26/21 09:23 DL [id number] 09/26/21 09:30 DL Document 09/30/21 14:39 DL [id number] 09/30/21 14:41 DL Document 10/03/21 09:24 DL [id number] 10/03/21 09:31 DL 09/26/21 09/30/21 10/03/21 09:23 14:39 09:24 - Today's Visit Information Type of service Follow-up Visit Nurse-only Follow-up Visit (Physician/AUTOMOTIVE DRIVABILITY TECHNICIAN Visit (Physician/AUTOMOTIVE DRIVABILITY TECHNICIAN ) ) Arrival Mode Ambulatory Ambulatory Ambulatory Transfer Assistance None None None Patient Identification Verified (Name & Yes Yes Yes ) Patient Requires Transmission-Based No No No Precautions Vital Signs Temperature (97.8 F-99.1 F) 97.2 F L 97.1 F L 97.8 F Temperature Source Temporal Temporal Temporal Pulse Rate (60-100) 68 68 73 Pulse Location Monitor Monitor Monitor Respiratory Rate (12-18) 18 20 H 20 H Respiratory rate source Observation Observation Observation Blood Pressure (90/60-120/80) 133/52 H 133/59 H 143/70 H Blood Pressure Mean (mm Hg) 79 83 94 Source Monitor Monitor Monitor History Since Last Visit- (Skip if this is Patient's initial visit) Have you changed medications since your No No No last visit? Any new allergies or adverse reactions No No No Had a fall/change in ADL's that may No No No increase risk of falls Signs or symptoms of abuse and/or No No No neglect since last visit Have you been in the hospital since your No No No last visit? Has dressing in place as prescribed Yes Yes Has compression in place as prescribed Yes Yes Yes Has offloadiing in place as prescribed N/A N/A N/A Experienced any changes in pain level or No No No management Left Footwear Regular Shoe Right Footwear Regular Shoe Pain Scale: 0-10 Numeric Is Patient Pain Free? Yes Yes Yes [facility] Nurse 1 - General Ulcer Measurement Start: 09/26/21 09:23 Freq: Status: Active Protocol: Activity Type Activity Date Activity User E-sign Co-sign Detail Recorded Client Recorded Date Recorded By Document 09/26/21 09:23 DL [id number] 09/26/21 09:30 DL Document 09/30/21 14:39 DL [id number] 09/30/21 14:41 DL Document 10/03/21 09:24 DL [id number] 10/03/21 09:31 DL 09/26/21 09/30/21 10/03/21 09:23 14:39 09:24 Wound Center Nurse 1 #8 Left Lateral Muniz -Current Size (cm) - Length 0.7 0.2 -Current Size (cm) - Width 0.3 0.2 -Current Size (cm) - Depth 0.2 0.1 -Total Square Cm 0.21 0.04 -Photo Taken Yes No No -Exudate Amt None Present Medium None Present -Exudate Type Serosanguineous -Wound Margin Distinct, Distinct, Distinct, Outline Outline Outline Attached Attached Attached -Granulation Amt Small (1-33%) Medium (34-66%) Small (1-33%) -Granulation Quality [place] -Necrosis Amt Small (1-33%) Medium (34-66%) None Present (0 %) -Necrotic Tissue Type Adherent Slough Adherent Slough -Structure Exposed N/A N/A N/A -Texture (Shanique-wound Skin Appearance) Scarring Scarring Scarring,Rash -Moisture (Shanique-wound Skin Appearance) Dry/Scaly No Abnormality Dry/Scaly -Color (Shanique-wound Skin Appearance) Hemosiderin No Abnormality No Abnormality Staining -Temperature (Shanique-wound Skin No Abnormality No Abnormality No Abnormality Appearance) (Pt Warm) (Pt Warm) (Pt Warm) -Tenderness on Palpation (Shanique-wound No No No Skin Appearance) -Ulcer Cleansing Soap and Water Soap and Water Rinsed/ Irrigated with Saline -Foul Odor after Cleansing No No No -Anesthetic Used 5% Lidocaine 5% Lidocaine Gel Gel #7 Right Lateral Calf -Current Size (cm) - Length 2.3 0.8 -Current Size (cm) - Width 3.2 2.5 -Current Size (cm) - Depth 0.3 0.1 -Total Square Cm 7.36 2.00 -Photo Taken Yes No No -Exudate Amt Small Small Small -Exudate Type Serosanguineous Serosanguineous Serosanguineous -Wound Margin Distinct, Distinct, Distinct, Outline Outline Outline Attached Attached Attached -Granulation Amt None Present (0 Small (1-33%) Medium (34-66%) %) -Granulation Quality [place] -Necrosis Amt Large (67-100%) None Present (0 Medium (34-66%) %) -Necrotic Tissue Type Adherent Slough Adherent Slough -Structure Exposed N/A N/A N/A -Texture (Shanique-wound Skin Appearance) Scarring,Rash Scarring Scarring,Rash -Moisture (Shanique-wound Skin Appearance) Dry/Scaly No Abnormality Dry/Scaly -Color (Shanique-wound Skin Appearance) No Abnormality No Abnormality No Abnormality -Temperature (Shanique-wound Skin No Abnormality No Abnormality No Abnormality Appearance) (Pt Warm) (Pt Warm) (Pt Warm) -Tenderness on Palpation (Shanique-wound No No No Skin Appearance) -Ulcer Cleansing Soap and Water Soap and Water Rinsed/ Irrigated with Saline -Foul Odor after Cleansing No No No -Anesthetic Used 5% Lidocaine 5% Lidocaine Gel Gel Right Calf (cm) 31.2 30.2 29.7 Right Ankle (cm) 22 20 19.5 Left Calf (cm) 31.9 30.2 30.7 Left Ankle (cm) 20.8 19.5 19.2 WC - Nurse 2 - General Ulcer CM Notes Start: 09/26/21 09:23 Freq: Status: Active Protocol: Activity Type Activity Date Activity User E-sign Co-sign Detail Recorded Client Recorded Date Recorded By Document 09/26/21 09:37 Desktop 09/26/21 09:42 Document 10/03/21 09:41 MW [id number] 10/03/21 09:47 MW 09/26/21 10/03/21 09:37 09:41 Wound Center Nurse 2 #8 Left Lateral Muniz -Time 09:38 09:43 -Correct Patient Yes Yes -Correct Side, Site, Position Yes Yes -Correct Procedure Yes Yes -Procedure Performed Yes Yes -Type of Procedure Debridement Debridement -Clinical Debridement Subcutaneous Epidermis / Dermis -Tissue Removed Subcutaneous Epidermis -Post Debridement (cm) - Length 0.4 0.1 -Post Debridement (cm) - Width 0.3 0.1 -Post Debridement (cm) - Depth 0.1 0.1 -Total Square (Post) (cm) 0.12 0.01 -Area of Debridement (cm) - Length 0.4 0.1 -Area of Debridement (cm) - Width 0.3 0.1 -Total Square (Area) (cm) 0.12 0.01 -Tunneling No No -Undermining/Tunneling No No -Circular Undermining No No -Wound/Ulcer Outcome Not Healed Not Healed -Ulcer Cleansing Rinsed/ Rinsed/ Irrigated with Irrigated with Saline Saline -Foul Odor after Cleansing No No -Bioengineered Tissue No No -Bleeding Controlled with Pressure Pressure -Treatment Response Procedure Procedure Tolerated Well Tolerated Well -Offloading No No -Debridement - Open, 1st 20sq cm Yes -Debridement - Subq, 1st 20sq cm No #7 Right Lateral Calf -Time 09:38 09:43 -Correct Patient Yes Yes -Correct Side, Site, Position Yes Yes -Correct Procedure Yes Yes -Procedure Performed Yes Yes -Type of Procedure Debridement Debridement -Clinical Debridement Subcutaneous Subcutaneous -Tissue Removed Subcutaneous Subcutaneous -Post Debridement (cm) - Length 1.5 1.3 -Post Debridement (cm) - Width 3.5 2.0 -Post Debridement (cm) - Depth 0.2 0.2 -Total Square (Post) (cm) 5.25 2.60 -Area of Debridement (cm) - Length 1.5 1.3 -Area of Debridement (cm) - Width 3.5 2.0 -Total Square (Area) (cm) 5.25 2.60 -Tunneling No No -Undermining/Tunneling No No -Circular Undermining No No -Wound/Ulcer Outcome Not Healed Not Healed -Ulcer Cleansing Rinsed/ Rinsed/ Irrigated with Irrigated with Saline Saline -Foul Odor after Cleansing No No -Bioengineered Tissue No No -Bleeding Controlled with Pressure Pressure -Treatment Response Procedure Procedure Not Tolerated Well Tolerated Well -Offloading No No -Debridement - Subq, 1st 20sq cm Yes Yes Pain Scale: 0-10 Numeric Is Patient Pain Free? Yes Yes WC - Nurse 3 - General Ulcer D/C NN Start: 09/26/21 09:23 Freq: Status: Active Protocol: Activity Type Activity Date Activity User E-sign Co-sign Detail Recorded Client Recorded Date Recorded By Document 09/26/21 10:04 DL [id number] 09/26/21 10:05 DL Document 09/30/21 14:37 DL [id number] 09/30/21 14:39 DL Document 10/03/21 10:05 DL [id number] 10/03/21 10:06 DL 09/26/21 09/30/21 10/03/21 10:04 14:37 10:05 Wound Care Nurse 3 #8 Left Lateral Muniz -Ulcer Cleansing Rinsed/ Soap and Water Rinsed/ Irrigated with Irrigated with Saline Saline -Foul Odor after Cleansing No No No -Primary Dressing Applied NonAdherent NonAdherent NonAdherent Contact Layer, Contact Layer Contact Layer Promogran Jairo Matter -Other Dressing moist promogran promogran -Primary Dressing Covered/Secured with Dry Gauze & Dry Gauze Dry Gauze & Roll Gauze, Roll Gauze, Secured with Secured with Tape Tape -Other Covering Adaptic to periulcer -Promogran Jairo Matter 1 #7 Right Lateral Calf -Ulcer Cleansing Rinsed/ Soap and Water Rinsed/ Irrigated with Irrigated with Saline Saline -Foul Odor after Cleansing No No -Primary Dressing Applied NonAdherent NonAdherent Contact Layer Contact Layer -Other Dressing jairo moist promogran promogran -Primary Dressing Covered/Secured with Dry Gauze & Dry Gauze Dry Gauze & Roll Gauze, Roll Gauze, Secured with Secured with Tape Tape -Other Covering adaptic to periulcer Right -Multi-Layered Wrap Application Multi-Layer Multi-Layer Multi-Layer Comp - Bilat ($ Comp - Bilat ($ Comp - Bilat ($ ) ) ) Treatment Response Procedure Procedure Procedure Tolerated Well Tolerated Well Tolerated Well Pain Scale: 0-10 Numeric Is Patient Pain Free? Yes Yes Yes WC - Visit Discharge Discharge Condition Stable Stable Stable Ambulatory Status Ambulatory Ambulatory Ambulatory Transportation Private Auto Private Auto Private Auto Additional Wound Wound debrided: Left lower extremity Type of Debridement: Selective debridement Anesthesia Used: 4% Lidocaine Solution Depth: Down to and including healthy tissue Tissue Removed: Devitalized tissue Severity: Limited To Skin Breakdown Amount of bleeding with debridement: Mild Bleeding Controlled with: Pressure Patient tolerated procedure: Patient tolerated procedure well Assessment/Plan Assessment/Plan (1) Traumatic wound: (2) Wound of right leg: CODE(S): S81.801A - Unspecified open wound, right lower leg, initial encounter QUALIFIERS: Encounter type: initial encounter Qualified Code(s): S81.801A - Unspecified open wound, right lower leg, initial encounter PLAN: Traumatic, penetrating/laceration. (3) Wound of left lower extremity: CODE(S): S81.802A - Unspecified open wound, left lower leg, initial encounter QUALIFIERS: Encounter type: initial encounter Qualified Code(s): S81.802A - Unspecified open wound, left lower leg, initial encounter PLAN: Traumatic, penetrating/laceration. (4) Chronic venous insufficiency: CODE(S): I87.2 - Venous insufficiency (chronic) (peripheral) (5) Traumatic open wound of lower leg with delayed healing: CODE(S): S81.809D - Unspecified open wound, unspecified lower leg, subsequent encounter PLAN: Plan Debridement done as documented above, procedure was well-tolerated. Edema and wounds doing better with a 3M wrap. Continue 3M wrap for edema management. Continue Promogran to bilateral lower extremity wounds moisten lightly and cover with Adaptic. Nurse visit on Thursday for change. Increase protein intake, vitamin C and zinc discussed. She voiced understanding. Her questions were answered and she was advised to call with any further questions or concerns. Follow-up in 1 week. This note was generated with [employer] dictation software. It may contain incorrect words, spelling, and punctuation that were not noted in checking the note before signing.
[2021-10-07 14:33] VITALS: BP 110/57; PULSE 61; RESP 18; TEMP 36.8
[2021-10-10 09:38] VITALS: BP 146/52; PULSE 71; RESP 16; TEMP 36.8
--- NOTE | 2021-10-10 10:43 | PN.PCM_ITS ---
History of Present Illness Date of Service: 10/10/21 Chief Complaint: Bilateral Lower Extremity Wounds History of Wound: Ms. Mcdowell is an 85-year-old who presents with 2 lower extremity wounds. Left lower extremity wound was sustained after she ran into something. She states that it has been present for about 3 weeks, has been applying antibiotic ointment however no significant change. Also sustained a right lower extremity wound after she fell on her stairs. Significant bleeding noted following the fall and so she presented to the emergency room where she had some sutures applied. Has been applying Adaptic at home, she states that the redness is improving however she still has a lot of pain. No chills, fever or otherwise feeling of unwell. Chronic history of venous insufficiency. No known history of diabetes mellitus. Progress of Wound: Wounds are improving however has some periwound dermatitis on both lower extremities. Denies increased pain, chills or fever. Has had Promogran, Adaptic and 3M wraps. Objective Data Objective Data Vital Signs: Vital Signs Temp Pulse Resp BP O2 Del Method 98.2 F 71 16 146/52 H Room Air 10/10/21 09:38 10/10/21 09:38 10/10/21 09:38 10/10/21 09:38 10/10/21 09:38 Oxygen Delivery Method Room Air Charges/Coding Procedures Integumentary 111xxx-113xx: 70485 Veda subq tissue 20 sq cm/< Physical Exam Const alert, oriented x3 and no apparent distress General Appearance: cooperative, comfortable and well developed HEENT normocephalic, head/scalp atraumatic and hearing grossly normal bilaterally Eyes EOMs intact bilaterally Neck full ROM and supple General: normal visual inspection Resp normal respiratory effort and normal air movement Effort and Inspection: able to speak in complete sentences Cardio regular rate, regular rhythm, S1 normal heart sound and S2 normal heart sound GI soft to palpation and non-tender Skin Wounds: wounds noted Neuro oriented x3, CN's II-XII intact bilaterally, moves all extremities and no focal motor deficits Psych mental status grossly normal Appearance: grossly normal Attitude: calm Debridement Note Debridement Note Wound debrided: Right lower extremity Type of Debridement: Excisional debridement Anesthesia Used: 4% Lidocaine Solution Depth: Down to and including healthy tissue Percentage of wound debrided: 100 Instrument Used: 5mm curette Tissue Removed: Slough and devitalized tissue Severity: Fat Layer Exposed Amount of bleeding with debridement: Mild Bleeding Controlled with: Pressure Patient tolerated procedure: Patient tolerated procedure well Post-Debridement Measurements and Additional Note: Post-Debridement Measurements/Treatment - Nurse 1 - General Ulcer Assessment Start: 09/26/21 09:23 Freq: Status: Active Protocol: ANNA MAREI Activity Type Activity Date Activity User E-sign Co-sign Detail Recorded Client Recorded Date Recorded By Document 09/26/21 09:23 DL [id number] 09/26/21 09:30 DL Document 09/30/21 14:39 DL [id number] 09/30/21 14:41 DL Document 10/03/21 09:24 DL [id number] 10/03/21 09:31 DL Document 10/07/21 14:33 AK [id number] 10/07/21 14:50 AK Document 10/10/21 09:38 BMF [id number] 10/10/21 09:44 BMF 09/26/21 09/30/21 10/03/21 09:23 14:39 09:24 - Today's Visit Information Type of service Follow-up Visit Nurse-only Follow-up Visit (Physician/ACADEMIC AFFAIRS MANAGER Visit (Physician/ACADEMIC AFFAIRS MANAGER ) ) Arrival Mode Ambulatory Ambulatory Ambulatory Transfer Assistance None None None Patient Identification Verified (Name & Yes Yes Yes ) Patient Requires Transmission-Based No No No Precautions Vital Signs Temperature (97.8 F-99.1 F) 97.2 F L 97.1 F L 97.8 F Temperature Source Temporal Temporal Temporal Pulse Rate (60-100) 68 68 73 Pulse Location Monitor Monitor Monitor Respiratory Rate (12-18) 18 20 H 20 H Respiratory rate source Observation Observation Observation Oxygen Delivery Method Blood Pressure (90/60-120/80) 133/52 H 133/59 H 143/70 H Blood Pressure Mean (mm Hg) 79 83 94 Source Monitor Monitor Monitor Position Blood Pressure Location History Since Last Visit- (Skip if this is Patient's initial visit) Have you changed medications since your No No No last visit? Any new allergies or adverse reactions No No No Had a fall/change in ADL's that may No No No increase risk of falls Signs or symptoms of abuse and/or No No No neglect since last visit Have you been in the hospital since your No No No last visit? Has dressing in place as prescribed Yes Yes Has compression in place as prescribed Yes Yes Yes Has offloadiing in place as prescribed N/A N/A N/A Experienced any changes in pain level or No No No management Left Footwear Regular Shoe Right Footwear Regular Shoe Other Footwear Pain Scale: 0-10 Numeric Is Patient Pain Free? Yes Yes Yes 10/07/21 10/10/21 14:33 09:38 - Today's Visit Information Type of service Nurse-only Follow-up Visit Visit (Physician/ACADEMIC AFFAIRS MANAGER ) Arrival Mode Ambulatory Ambulatory Transfer Assistance None None Patient Identification Verified (Name & Yes Yes ) Patient Requires Transmission-Based No No Precautions Vital Signs Temperature (97.8 F-99.1 F) 98.2 F 98.2 F Temperature Source Temporal Temporal Pulse Rate (60-100) 61 71 Pulse Location Monitor Monitor Respiratory Rate (12-18) 18 16 Respiratory rate source Observation Observation Oxygen Delivery Method Room Air Blood Pressure (90/60-120/80) 110/57 L 146/52 H Blood Pressure Mean (mm Hg) 74 83 Source Monitor Monitor Position Sitting Blood Pressure Location Right Arm History Since Last Visit- (Skip if this is Patient's initial visit) Have you changed medications since your No No last visit? Any new allergies or adverse reactions No No Had a fall/change in ADL's that may No No increase risk of falls Signs or symptoms of abuse and/or No No neglect since last visit Have you been in the hospital since your No No last visit? Has dressing in place as prescribed Yes Yes Has compression in place as prescribed Yes No Has offloadiing in place as prescribed N/A N/A Experienced any changes in pain level or No No management Left Footwear Regular Shoe Right Footwear Regular Shoe Other Footwear 3ms removed at home to shower Pain Scale: 0-10 Numeric Is Patient Pain Free? Yes Yes - Nurse 1 - General Ulcer Measurement Start: 09/26/21 09:23 Freq: Status: Active Protocol: Activity Type Activity Date Activity User E-sign Co-sign Detail Recorded Client Recorded Date Recorded By Document 09/26/21 09:23 DL [id number] 09/26/21 09:30 DL Document 09/30/21 14:39 DL [id number] 09/30/21 14:41 DL Document 10/03/21 09:24 DL [id number] 10/03/21 09:31 DL Document 10/07/21 14:33 AK [id number] 10/07/21 14:50 AK Document 10/10/21 09:38 BMF [id number] 10/10/21 09:44 BMF 09/26/21 09/30/21 10/03/21 09:23 14:39 09:24 Wound Center Nurse 1 #8 Left Lateral Muniz -Combined with other wound -Current Size (cm) - Length 0.7 0.2 -Current Size (cm) - Width 0.3 0.2 -Current Size (cm) - Depth 0.2 0.1 -Total Square Cm 0.21 0.04 -Date of Last Picture (Recall this field) -Photo Taken Yes No No -Epithelialization -Exudate Amt None Present Medium None Present -Exudate Type Serosanguineous -Wound Margin Distinct, Distinct, Distinct, Outline Outline Outline Attached Attached Attached -Granulation Amt Small (1-33%) Medium (34-66%) Small (1-33%) -Granulation Quality [place] -Necrosis Amt Small (1-33%) Medium (34-66%) None Present (0 %) -Necrotic Tissue Type Adherent Slough Adherent Slough -Structure Exposed N/A N/A N/A -Texture (Shanique-wound Skin Appearance) Scarring Scarring Scarring,Rash -Moisture (Shanique-wound Skin Appearance) Dry/Scaly No Abnormality Dry/Scaly -Color (Shanique-wound Skin Appearance) Hemosiderin No Abnormality No Abnormality Staining -Temperature (Shanique-wound Skin No Abnormality No Abnormality No Abnormality Appearance) (Pt Warm) (Pt Warm) (Pt Warm) -Tenderness on Palpation (Shanique-wound No No No Skin Appearance) -Ulcer Cleansing Soap and Water Soap and Water Rinsed/ Irrigated with Saline -Foul Odor after Cleansing No No No -Anesthetic Used 5% Lidocaine 5% Lidocaine Gel Gel #7 Right Lateral Calf -Combined with other wound -Current Size (cm) - Length 2.3 0.8 -Current Size (cm) - Width 3.2 2.5 -Current Size (cm) - Depth 0.3 0.1 -Total Square Cm 7.36 2.00 -Date of Last Picture (Recall this field) -Photo Taken Yes No No -Tunneling -Undermining/Tunneling -Circular Undermining -Exudate Amt Small Small Small -Exudate Type Serosanguineous Serosanguineous Serosanguineous -Wound Margin Distinct, Distinct, Distinct, Outline Outline Outline Attached Attached Attached -Granulation Amt None Present (0 Small (1-33%) Medium (34-66%) %) -Granulation Quality [place] -Slough/Fibrin -Necrosis Amt Large (67-100%) None Present (0 Medium (34-66%) %) -Necrotic Tissue Type Adherent Slough Adherent Slough -Structure Exposed N/A N/A N/A -Texture (Shanique-wound Skin Appearance) Scarring,Rash Scarring Scarring,Rash -Moisture (Shanique-wound Skin Appearance) Dry/Scaly No Abnormality Dry/Scaly -Color (Shanique-wound Skin Appearance) No Abnormality No Abnormality No Abnormality -Temperature (Shanique-wound Skin No Abnormality No Abnormality No Abnormality Appearance) (Pt Warm) (Pt Warm) (Pt Warm) -Tenderness on Palpation (Shanique-wound No No No Skin Appearance) -Ulcer Cleansing Soap and Water Soap and Water Rinsed/ Irrigated with Saline -Foul Odor after Cleansing No No No -Anesthetic Used 5% Lidocaine 5% Lidocaine Gel Gel Right Calf (cm) 31.2 30.2 29.7 Right Ankle (cm) 22 20 19.5 Left Calf (cm) 31.9 30.2 30.7 Left Ankle (cm) 20.8 19.5 19.2 10/07/21 10/10/21 14:33 09:38 Wound Center Nurse 1 #8 Left Lateral Muniz -Combined with other wound No -Current Size (cm) - Length 0.1 -Current Size (cm) - Width 0.1 -Current Size (cm) - Depth 0.1 -Total Square Cm 0.01 -Date of Last Picture (Recall this 10/10/21 field) -Photo Taken Yes -Epithelialization Large 67-100% -Exudate Amt None Present -Exudate Type -Wound Margin Distinct, Outline Attached -Granulation Amt Small (1-33%) -Granulation Quality [place] -Necrosis Amt None Present (0 %) -Necrotic Tissue Type -Structure Exposed N/A -Texture (Shanique-wound Skin Appearance) Scarring,Rash Assessed, Excoriation, Rash -Moisture (Shanique-wound Skin Appearance) Dry/Scaly Assessed -Color (Shanique-wound Skin Appearance) No Abnormality Assessed, Erythema -Temperature (Shanique-wound Skin No Abnormality No Abnormality Appearance) (Pt Warm) (Pt Warm) -Tenderness on Palpation (Shanique-wound No No Skin Appearance) -Ulcer Cleansing Soap and Water Rinsed/ Irrigated with Saline -Foul Odor after Cleansing No No -Anesthetic Used 5% Lidocaine Gel #7 Right Lateral Calf -Combined with other wound No -Current Size (cm) - Length 0.1 -Current Size (cm) - Width 0.1 -Current Size (cm) - Depth 0.1 -Total Square Cm 0.01 -Date of Last Picture (Recall this 10/10/21 field) -Photo Taken Yes -Tunneling No -Undermining/Tunneling No -Circular Undermining No -Exudate Amt None Present Small -Exudate Type Serosanguineous -Wound Margin Distinct, Distinct, Outline Outline Attached Attached -Granulation Amt Small (1-33%) Large (67-100%) -Granulation Quality [place] Red -Slough/Fibrin No -Necrosis Amt Small (1-33%) None Present (0 %) -Necrotic Tissue Type Adherent Slough -Structure Exposed N/A -Texture (Shanique-wound Skin Appearance) Scarring,Rash Assessed, Excoriation, Scarring,Rash -Moisture (Shanique-wound Skin Appearance) Dry/Scaly Assessed -Color (Shanique-wound Skin Appearance) No Abnormality Assessed, Erythema -Temperature (Shanique-wound Skin No Abnormality No Abnormality Appearance) (Pt Warm) (Pt Warm) -Tenderness on Palpation (Shanique-wound No Yes Skin Appearance) -Ulcer Cleansing Soap and Water Rinsed/ Irrigated with Saline -Foul Odor after Cleansing No No -Anesthetic Used 5% Lidocaine Gel Right Calf (cm) Right Ankle (cm) Left Calf (cm) Left Ankle (cm) WC - Nurse 2 - General Ulcer CM Notes Start: 09/26/21 09:23 Freq: Status: Active Protocol: Activity Type Activity Date Activity User E-sign Co-sign Detail Recorded Client Recorded Date Recorded By Document 09/26/21 09:37 JF Desktop 09/26/21 09:42 JF Document 10/03/21 09:41 [id number] 10/03/21 09:47 MW Document 10/10/21 10:09 MW [id number] 10/10/21 10:14 MW 09/26/21 10/03/21 10/10/21 09:37 09:41 10:09 Wound Center Nurse 2 #8 Left Lateral Muniz -Time 09:38 09:43 10:09 -Correct Patient Yes Yes Yes -Correct Side, Site, Position Yes Yes Yes -Correct Procedure Yes Yes Yes -Procedure Performed Yes Yes Yes -Type of Procedure Debridement Debridement Debridement -Clinical Debridement Subcutaneous Epidermis / Subcutaneous Dermis -Tissue Removed Subcutaneous Epidermis Subcutaneous -Post Debridement (cm) - Length 0.4 0.1 0.1 -Post Debridement (cm) - Width 0.3 0.1 0.1 -Post Debridement (cm) - Depth 0.1 0.1 0.1 -Total Square (Post) (cm) 0.12 0.01 0.01 -Area of Debridement (cm) - Length 0.4 0.1 0.1 -Area of Debridement (cm) - Width 0.3 0.1 0.1 -Total Square (Area) (cm) 0.12 0.01 0.01 -Tunneling No No No -Undermining/Tunneling No No No -Circular Undermining No No No -Wound/Ulcer Outcome Not Healed Not Healed Not Healed -Ulcer Cleansing Rinsed/ Rinsed/ Rinsed/ Irrigated with Irrigated with Irrigated with Saline Saline Saline -Foul Odor after Cleansing No No No -Bioengineered Tissue No No No -Bleeding Controlled with Pressure Pressure Pressure -Treatment Response Procedure Procedure Procedure Tolerated Well Tolerated Well Tolerated Well -Offloading No No No -Debridement - Open, 1st 20sq cm Yes -Debridement - Subq, 1st 20sq cm No Yes #7 Right Lateral Calf -Time 09:38 09:43 10:10 -Correct Patient Yes Yes Yes -Correct Side, Site, Position Yes Yes Yes -Correct Procedure Yes Yes Yes -Procedure Performed Yes Yes Yes -Type of Procedure Debridement Debridement Debridement -Clinical Debridement Subcutaneous Subcutaneous Subcutaneous -Tissue Removed Subcutaneous Subcutaneous Subcutaneous -Post Debridement (cm) - Length 1.5 1.3 0.3 -Post Debridement (cm) - Width 3.5 2.0 1.0 -Post Debridement (cm) - Depth 0.2 0.2 0.1 -Total Square (Post) (cm) 5.25 2.60 0.30 -Area of Debridement (cm) - Length 1.5 1.3 0.3 -Area of Debridement (cm) - Width 3.5 2.0 1.0 -Total Square (Area) (cm) 5.25 2.60 0.30 -Tunneling No No No -Undermining/Tunneling No No No -Circular Undermining No No No -Wound/Ulcer Outcome Not Healed Not Healed Not Healed -Ulcer Cleansing Rinsed/ Rinsed/ Rinsed/ Irrigated with Irrigated with Irrigated with Saline Saline Saline -Foul Odor after Cleansing No No No -Bioengineered Tissue No No No -Bleeding Controlled with Pressure Pressure NA -Treatment Response Procedure Procedure Not Procedure Tolerated Well Tolerated Well Tolerated Well -Offloading No No No -Debridement - Subq, 1st 20sq cm Yes Yes No Pain Scale: 0-10 Numeric Is Patient Pain Free? Yes Yes Yes WC - Nurse 3 - General Ulcer D/C NN Start: 09/26/21 09:23 Freq: Status: Active Protocol: Activity Type Activity Date Activity User E-sign Co-sign Detail Recorded Client Recorded Date Recorded By Document 09/26/21 10:04 DL [id number] 09/26/21 10:05 DL Document 09/30/21 14:37 DL [id number] 09/30/21 14:39 DL Document 10/03/21 10:05 [id number] 10/03/21 10:06 DL Document 10/07/21 14:33 [place] [id number] 10/07/21 14:50 AK Document 10/10/21 10:26 [facility] [id number] 10/10/21 10:28 [facility] 09/26/21 09/30/21 10/03/21 10:04 14:37 10:05 Wound Care Nurse 3 #8 Left Lateral Muniz -Ulcer Cleansing Rinsed/ Soap and Water Rinsed/ Irrigated with Irrigated with Saline Saline -Foul Odor after Cleansing No No No -Primary Dressing Applied NonAdherent NonAdherent NonAdherent Contact Layer, Contact Layer Contact Layer Promogran Jairo Matter -Other Dressing moist promogran promogran -Primary Dressing Covered/Secured with Dry Gauze & Dry Gauze Dry Gauze & Roll Gauze, Roll Gauze, Secured with Secured with Tape Tape -Other Covering Adaptic to periulcer -Promogran -Promogran Jairo Matter 1 #7 Right Lateral Calf -Ulcer Cleansing Rinsed/ Soap and Water Rinsed/ Irrigated with Irrigated with Saline Saline -Foul Odor after Cleansing No No -Primary Dressing Applied NonAdherent NonAdherent Contact Layer Contact Layer -Other Dressing jairo moist promogran promogran -Primary Dressing Covered/Secured with Dry Gauze & Dry Gauze Dry Gauze & Roll Gauze, Roll Gauze, Secured with Secured with Tape Tape -Other Covering adaptic to periulcer -Promogran BLE -Tubular Bandage -Size of Tubigrip Used -Size D ($) Right -Multi-Layered Wrap Application Multi-Layer Multi-Layer Multi-Layer Comp - Bilat ($ Comp - Bilat ($ Comp - Bilat ($ ) ) ) Treatment Response Procedure Procedure Procedure Tolerated Well Tolerated Well Tolerated Well Vital Signs Temperature (97.8 F-99.1 F) Temperature Source Pulse Rate (60-100) Pulse Location Respiratory Rate (12-18) Respiratory rate source Blood Pressure (90/60-120/80) Blood Pressure Mean (mm Hg) Source Pain Scale: 0-10 Numeric Is Patient Pain Free? Yes Yes Yes WC - Visit Discharge Discharge Condition Stable Stable Stable Ambulatory Status Ambulatory Ambulatory Ambulatory Transportation [employer] 10/07/21 10/10/21 14:33 10:26 Wound Care Nurse 3 #8 Left Lateral Muniz -Ulcer Cleansing Soap and Water Rinsed/ Irrigated with Saline -Foul Odor after Cleansing No No -Primary Dressing Applied NonAdherent NonAdherent Contact Layer, Contact Layer, Promogran Promogran -Other Dressing -Primary Dressing Covered/Secured with Dry Gauze & Dry Gauze & Roll Gauze, Roll Gauze, Secured with Secured with Tape Tape -Other Covering -Promogran 1 1 -Promogran Jairo Matter #7 Right Lateral Calf -Ulcer Cleansing Soap and Water Rinsed/ Irrigated with Saline -Foul Odor after Cleansing No No -Primary Dressing Applied NonAdherent NonAdherent Contact Layer Contact Layer, Promogran -Other Dressing promogran -Primary Dressing Covered/Secured with Dry Gauze & Dry Gauze & Roll Gauze, Roll Gauze, Secured with Secured with Tape Tape -Other Covering -Promogran 0 BLE -Tubular Bandage Double Layer -Size of Tubigrip Used Size D -Size D ($) 2 Right -Multi-Layered Wrap Application Multi-Layer Comp - Bilat ($ ) Treatment Response Procedure Procedure Tolerated Well Tolerated Well Vital Signs Temperature (97.8 F-99.1 F) 98.2 F Temperature Source Temporal Pulse Rate (60-100) 61 Pulse Location Monitor Respiratory Rate (12-18) 18 Respiratory rate source Observation Blood Pressure (90/60-120/80) 110/57 L Blood Pressure Mean (mm Hg) 74 Source Monitor Pain Scale: 0-10 Numeric Is Patient Pain Free? Yes Yes WC - Visit Discharge Discharge Condition Stable Stable Ambulatory Status Ambulatory Ambulatory Transportation Private Auto Additional Wound Wound debrided: Left lower extremity Type of Debridement: Excisional debridement Depth: Down to and including healthy tissue Percentage of wound debrided: 100 Instrument Used: 3mm curette Tissue Removed: Devitalized tissue Severity: Limited To Skin Breakdown Amount of bleeding with debridement: Mild Bleeding Controlled with: Pressure Patient tolerated procedure: Patient tolerated procedure well Assessment/Plan Assessment/Plan (1) Traumatic wound: (2) Wound of right leg: CODE(S): S81.801A - Unspecified open wound, right lower leg, initial encounter QUALIFIERS: Encounter type: initial encounter Qualified Code(s): S81.801A - Unspecified open wound, right lower leg, initial encounter PLAN: Traumatic, penetrating. (3) Wound of left lower extremity: CODE(S): S81.802A - Unspecified open wound, left lower leg, initial encounter QUALIFIERS: Encounter type: initial encounter Qualified Code(s): S81.802A - Unspecified open wound, left lower leg, initial encounter PLAN: Traumatic, penetrating. (4) Chronic venous insufficiency: CODE(S): I87.2 - Venous insufficiency (chronic) (peripheral) (5) Traumatic open wound of lower leg with delayed healing: CODE(S): S81.809D - Unspecified open wound, unspecified lower leg, subsequent encounter PLAN: Plan Debridement done as documented above, procedure was well-tolerated. Edema and wounds doing better with 3M wrap. However, presents with new periwound dermatitis. It seems to be around the area where the Adaptic was. Discontinue Adaptic. Continue Promogran, Xeroform over the top. Switch to double layer Tubigrip for edema management. Change wound dressing daily. 2.5% hydrocortisone to the periwound dermatitis. Increase protein intake, vitamin C and zinc discussed. She voiced understanding. Her questions were answered and she was advised to call with any further questions or concerns. Follow-up for nurse visit in 1 week and with me in 2 weeks. This note was generated with [employer] dictation software. It may contain incorrect words, spelling, and punctuation that were not noted in checking the note before signing.
[2021-10-17 14:49] VITALS: BP 131/86; PULSE 83; RESP 16; TEMP 36.7
== END 2021-10-23 23:59 | disposition home or self-care (01) ==
LOC: WC 14:15
PROVIDERS: PCP Internal Medicine; Visit Provider Internal Medicine
DX: S81.811D Laceration without foreign body, right lower leg, subsequent encounter (principal); S81.812D Laceration without foreign body, left lower leg, subsequent encounter; W10.9XXD Fall (on) (from) unspecified stairs and steps, subsequent encounter; R60.0 Localized edema; I87.2 Venous insufficiency (chronic) (peripheral); Z79.899 Other long term (current) drug therapy
CPT/HCPCS: 11042; 29581; 97597; 99213; G0463

== ENCOUNTER 2021-10-31 09:15 | Outpatient (RCR) | payer MEDICARE, SELFPAY ==
[2021-10-24 00:14] VITALS: BP 131/86; PULSE 83; RESP 16; TEMP 36.7
[2021-10-24 09:23] VITALS: BP 128/57; PULSE 87; RESP 18; TEMP 36.4
--- NOTE | 2021-10-24 13:16 | PCM.WC.PN ---
History of Present Illness Date of Service: 10/24/21 Chief Complaint: Bilateral Lower Extremity Wounds History of Wound: Ms. Mcdowell is an 85-year-old who presents with 2 lower extremity wounds. Left lower extremity wound was sustained after she ran into something. She states that it has been present for about 3 weeks, has been applying antibiotic ointment however no significant change. Also sustained a right lower extremity wound after she fell on her stairs. Significant bleeding noted following the fall and so she presented to the emergency room where she had some sutures applied. Has been applying Adaptic at home, she states that the redness is improving however she still has a lot of pain. No chills, fever or otherwise feeling of unwell. Chronic history of venous insufficiency. No known history of diabetes mellitus. Progress of Wound: Improving wounds, minimal area left. Objective Data Objective Data Vital Signs: Vital Signs Temp Pulse Resp BP 97.5 F L 87 18 128/57 H 10/24/21 09:23 10/24/21 09:23 10/24/21 09:23 10/24/21 09:23 Charges/Coding Visit Charges Office Visits / Consults: [id number] OV L3 Est Physical Exam Const alert, oriented x3 and no apparent distress General Appearance: cooperative, comfortable and well developed HEENT normocephalic, head/scalp atraumatic and hearing grossly normal bilaterally Eyes EOMs intact bilaterally Neck full ROM and supple General: normal visual inspection Resp normal respiratory effort and normal air movement Effort and Inspection: able to speak in complete sentences Cardio regular rate, regular rhythm, S1 normal heart sound and S2 normal heart sound GI soft to palpation and non-tender Skin Wounds: wounds noted Neuro oriented x3, CN's II-XII intact bilaterally, moves all extremities and no focal motor deficits Psych mental status grossly normal Appearance: grossly normal Attitude: calm Debridement Note Debridement Note Post-Debridement Measurements and Additional Note: Post-Debridement Measurements/Treatment VASQUEZ - Nurse 1 - General Ulcer Assessment Start: 10/24/21 09:22 Freq: Status: Active Protocol: ANNA MARIE Activity Type Activity Date Activity User E-sign Co-sign Detail Recorded Client Recorded Date Recorded By Document 10/24/21 09:23 SIRIA [id number] 10/24/21 09:31 SIRIA 10/24/21 09:23 VASQUEZ - Today's Visit Information Type of service Follow-up Visit (Physician/[employer] ) Arrival Mode Ambulatory Transfer Assistance None Patient Identification Verified (Name & Yes ) Patient Requires Transmission-Based No Precautions Vital Signs Temperature (97.8 F-99.1 F) 97.5 F L Temperature Source Temporal Pulse Rate (60-100) 87 Pulse Location Monitor Respiratory Rate (12-18) 18 Respiratory rate source Observation Blood Pressure (90/60-120/80) 128/57 H Blood Pressure Mean (mm Hg) 80 Source Monitor History Since Last Visit- (Skip if this is Patient's initial visit) Have you changed medications since your No last visit? Any new allergies or adverse reactions No Had a fall/change in ADL's that may No increase risk of falls Signs or symptoms of abuse and/or No neglect since last visit Have you been in the hospital since your No last visit? Has dressing in place as prescribed Yes Has compression in place as prescribed Yes Has offloadiing in place as prescribed N/A Experienced any changes in pain level or No management Pain Scale: 0-10 Numeric Is Patient Pain Free? Yes WC - Nurse 1 - General Ulcer Measurement Start: 10/24/21 09:22 Freq: Status: Active Protocol: Activity Type Activity Date Activity User E-sign Co-sign Detail Recorded Client Recorded Date Recorded By Document 10/24/21 09:23 DL [id number] 10/24/21 09:31 DL 10/24/21 09:23 Wound Center Nurse 1 #8 Left Lateral Muniz -Current Size (cm) - Length 0.1 -Current Size (cm) - Width 0.1 -Current Size (cm) - Depth 0.1 -Total Square Cm 0.01 -Photo Taken Yes -Exudate Amt None Present -Wound Margin Flat & Intact -Granulation Amt Large (67-100%) -Granulation Quality [place] -Necrosis Amt None Present (0 %) -Structure Exposed N/A -Texture (Shanique-wound Skin Appearance) Scarring,Rash -Moisture (Shanique-wound Skin Appearance) No Abnormality -Color (Shanique-wound Skin Appearance) No Abnormality -Temperature (Shanique-wound Skin No Abnormality Appearance) (Pt Warm) -Tenderness on Palpation (Shanique-wound No Skin Appearance) -Ulcer Cleansing Rinsed/ Irrigated with Saline -Foul Odor after Cleansing No -Anesthetic Used 5% Lidocaine Gel #7 Right Lateral Calf -Current Size (cm) - Length 0.1 -Current Size (cm) - Width 0.1 -Current Size (cm) - Depth 0.1 -Total Square Cm 0.01 -Photo Taken Yes -Exudate Amt None Present -Wound Margin Flat & Intact -Granulation Amt Large (67-100%) -Granulation Quality [place] -Necrosis Amt None Present (0 %) -Texture (Shanique-wound Skin Appearance) Scarring,Rash -Moisture (Shanique-wound Skin Appearance) No Abnormality -Color (Shanique-wound Skin Appearance) No Abnormality -Temperature (Shanique-wound Skin No Abnormality Appearance) (Pt Warm) -Tenderness on Palpation (Shanique-wound No Skin Appearance) -Ulcer Cleansing Rinsed/ Irrigated with Saline -Foul Odor after Cleansing No -Anesthetic Used 5% Lidocaine Gel Right Calf (cm) 31 Right Ankle (cm) 21 Left Calf (cm) 31 Left Ankle (cm) 21 WC - Nurse 2 - General Ulcer CM Notes Start: 10/24/21 09:22 Freq: Status: Active Protocol: Activity Type Activity Date Activity User E-sign Co-sign Detail Recorded Client Recorded Date Recorded By Document 10/24/21 10:11 MW [id number] 10/24/21 10:14 MW 10/24/21 10:11 Wound Center Nurse 2 #8 Left Lateral Muniz -Time 10:11 -Correct Patient Yes -Correct Side, Site, Position Yes -Correct Procedure Yes -Procedure Performed No -Post Debridement (cm) - Length 0.1 -Post Debridement (cm) - Width 0.1 -Post Debridement (cm) - Depth 0.1 -Total Square (Post) (cm) 0.01 -Wound/Ulcer Outcome Not Healed #7 Right Lateral Calf -Time 10:11 -Correct Patient Yes -Correct Side, Site, Position Yes -Correct Procedure Yes -Procedure Performed No -Post Debridement (cm) - Length 0.1 -Post Debridement (cm) - Width 0.1 -Post Debridement (cm) - Depth 0.1 -Total Square (Post) (cm) 0.01 -Wound/Ulcer Outcome Not Healed Pain Scale: 0-10 Numeric Is Patient Pain Free? Yes VASQUEZ - Nurse 3 - General Ulcer D/C NN Start: 10/24/21 09:22 Freq: Status: Active Protocol: Activity Type Activity Date Activity User E-sign Co-sign Detail Recorded Client Recorded Date Recorded By Document 10/24/21 10:27 SIRIA [id number] 10/24/21 10:28 DL 10/24/21 10:27 Wound Care Nurse 3 #8 Left Lateral Muniz -Ulcer Cleansing Rinsed/ Irrigated with Saline -Foul Odor after Cleansing No -Other Dressing xerofrom -Primary Dressing Covered/Secured with Dry Gauze & Roll Gauze, Secured with Tape #7 Right Lateral Calf -Ulcer Cleansing Soap and Water -Foul Odor after Cleansing No -Other Dressing xerofrom -Primary Dressing Covered/Secured with Dry Gauze & Roll Gauze, Secured with Tape Right -Other tubigrip Left -Other tubigrip Treatment Response Procedure Tolerated Well Pain Scale: 0-10 Numeric Is Patient Pain Free? Yes WC - Visit Discharge Discharge Condition Stable Ambulatory Status Ambulatory Transportation Private Auto Assessment/Plan Assessment/Plan (1) Traumatic wound: (2) Wound of right leg: CODE(S): S81.801A - Unspecified open wound, right lower leg, initial encounter QUALIFIERS: Encounter type: initial encounter Qualified Code(s): S81.801A - Unspecified open wound, right lower leg, initial encounter PLAN: Traumatic, penetrating. (3) Wound of left lower extremity: CODE(S): S81.802A - Unspecified open wound, left lower leg, initial encounter QUALIFIERS: Encounter type: initial encounter Qualified Code(s): S81.802A - Unspecified open wound, left lower leg, initial encounter PLAN: Traumatic, penetrating. (4) Chronic venous insufficiency: CODE(S): I87.2 - Venous insufficiency (chronic) (peripheral) (5) Traumatic open wound of lower leg with delayed healing: CODE(S): S81.809D - Unspecified open wound, unspecified lower leg, subsequent encounter PLAN: Plan Improving wounds, minimal area left. No debridement completed today. Adequate moisturizing with Vaseline petroleum jelly or Aquaphor discussed. Xeroform over top and cover with gauze/tape. Increase protein intake, vitamin C and zinc discussed. She voiced understanding. Her questions were answered and she was advised to call with any further questions or concerns. Follow-up for nurse visit in 1 week and with me in 1 week. This note was generated with [employer] software. It may contain incorrect words, spelling, and punctuation that were not noted in checking the note before signing.
[2021-10-31 09:26] VITALS: BP 151/81; PULSE 73; RESP 16; TEMP 36
--- NOTE | 2021-10-31 10:30 | PN.PCM_ITS ---
History of Present Illness Date of Service: 10/31/21 Chief Complaint: Bilateral Lower Extremity Wounds History of Wound: Ms. Mcdowell is an 85-year-old who presents with 2 lower extremity wounds. Left lower extremity wound was sustained after she ran into something. She states that it has been present for about 3 weeks, has been applying antibiotic ointment however no significant change. Also sustained a right lower extremity wound after she fell on her stairs. Significant bleeding noted following the fall and so she presented to the emergency room where she had some sutures applied. Has been applying Adaptic at home, she states that the redness is improving however she still has a lot of pain. No chills, fever or otherwise feeling of unwell. Chronic history of venous insufficiency. No known history of diabetes mellitus. Progress of Wound: Healed. No new concerns at this time. Objective Data Objective Data Vital Signs: Vital Signs Temp Pulse Resp BP O2 Del Method 96.8 F L 73 16 151/81 H Room Air 10/31/21 09:26 10/31/21 09:26 10/31/21 09:26 10/31/21 09:26 10/31/21 09:26 Oxygen Delivery Method Room Air Charges/Coding Visit Charges Office Visits / Consults: [id number] OV L3 Est Physical Exam Const alert, oriented x3 and no apparent distress General Appearance: cooperative, comfortable and well developed HEENT normocephalic, head/scalp atraumatic and hearing grossly normal bilaterally Eyes EOMs intact bilaterally Neck full ROM and supple General: normal visual inspection Resp normal respiratory effort Effort and Inspection: able to speak in complete sentences Skin Wounds: wounds noted Neuro oriented x3, CN's II-XII intact bilaterally, moves all extremities and no focal motor deficits Psych mental status grossly normal Appearance: grossly normal Attitude: calm Debridement Note Debridement Note Post-Debridement Measurements and Additional Note: Post-Debridement Measurements/Treatment VASQUEZ - Nurse 1 - General Ulcer Assessment Start: 10/24/21 09:22 Freq: Status: Active Protocol: ANNA MARIE Activity Type Activity Date Activity User E-sign Co-sign Detail Recorded Client Recorded Date Recorded By Document 10/24/21 09:23 DL [id number] 10/24/21 09:31 DL Document 10/31/21 09:26 DL [id number] 10/31/21 09:31 DL 10/24/21 10/31/21 09:23 09:26 - Today's Visit Information Type of service Follow-up Visit Follow-up Visit (Physician/[employer]DER (Physician/[employer] M[employer]DER ) ) Arrival Mode Ambulatory Ambulatory Transfer Assistance None None Patient Identification Verified (Name & Yes Yes ) Patient Requires Transmission-Based No No Precautions Vital Signs Temperature (97.8 F-99.1 F) 97.5 F L 96.8 F L Temperature Source Temporal Temporal Pulse Rate (60-100) 87 73 Pulse Location Monitor Monitor Respiratory Rate (12-18) 18 16 Respiratory rate source Observation Observation Oxygen Delivery Method Room Air Blood Pressure (90/60-120/80) 128/57 H 151/81 H Blood Pressure Mean (mm Hg) 80 104 Source Monitor Monitor Position Sitting Blood Pressure Location Right Arm History Since Last Visit- (Skip if this is Patient's initial visit) Have you changed medications since your No No last visit? Any new allergies or adverse reactions No No Had a fall/change in ADL's that may No No increase risk of falls Signs or symptoms of abuse and/or No No neglect since last visit Have you been in the hospital since your No No last visit? Has dressing in place as prescribed Yes Yes Has compression in place as prescribed Yes Yes Has offloadiing in place as prescribed N/A N/A Experienced any changes in pain level or No No management Left Footwear Regular Shoe Right Footwear Regular Shoe Pain Scale: 0-10 Numeric Is Patient Pain Free? Yes Yes - Nurse 1 - General Ulcer Measurement Start: 10/24/21 09:22 Freq: Status: Active Protocol: Activity Type Activity Date Activity User E-sign Co-sign Detail Recorded Client Recorded Date Recorded By Document 10/24/21 09:23 [id number] 10/24/21 09:31 DL Document 10/31/21 09:26 [id number] 10/31/21 09:31 DL 10/24/21 10/31/21 09:23 09:26 Wound Center Nurse 1 #8 Left Lateral Muniz -Combined with other wound No -Current Size (cm) - Length 0.1 0.1 -Current Size (cm) - Width 0.1 0.1 -Current Size (cm) - Depth 0.1 0.1 -Total Square Cm 0.01 0.01 -Date of Last Picture (Recall this 10/31/21 field) -Photo Taken Yes Yes -Epithelialization Large 67-100% -Tunneling No -Undermining/Tunneling No -Circular Undermining No -Exudate Amt None Present None Present -Wound Margin Flat & Intact -Granulation Amt Large (67-100%) -Granulation Quality [place] -Necrosis Amt None Present (0 %) -Structure Exposed N/A -Texture (Shanique-wound Skin Appearance) Scarring,Rash Assessed, Scarring -Moisture (Shanique-wound Skin Appearance) No Abnormality Assessed -Color (Shanique-wound Skin Appearance) No Abnormality Assessed -Temperature (Shanique-wound Skin No Abnormality No Abnormality Appearance) (Pt Warm) (Pt Warm) -Tenderness on Palpation (Shanique-wound No No Skin Appearance) -Ulcer Cleansing Rinsed/ Rinsed/ Irrigated with Irrigated with Saline Saline -Foul Odor after Cleansing No No -Anesthetic Used 5% Lidocaine 5% Lidocaine Gel Gel #7 Right Lateral Calf -Combined with other wound No -Current Size (cm) - Length 0.1 0.1 -Current Size (cm) - Width 0.1 0.1 -Current Size (cm) - Depth 0.1 0.1 -Total Square Cm 0.01 0.01 -Date of Last Picture (Recall this 10/31/21 field) -Photo Taken Yes Yes -Epithelialization Large 67-100% -Tunneling No -Undermining/Tunneling No -Circular Undermining No -Exudate Amt None Present None Present -Wound Margin Flat & Intact -Granulation Amt Large (67-100%) -Granulation Quality [place] -Necrosis Amt None Present (0 Small (1-33%) %) -Necrotic Tissue Type Eschar -Texture (Shanique-wound Skin Appearance) Scarring,Rash Assessed, Scarring -Moisture (Shanique-wound Skin Appearance) No Abnormality Assessed -Color (Shanique-wound Skin Appearance) No Abnormality Assessed -Temperature (Shanique-wound Skin No Abnormality No Abnormality Appearance) (Pt Warm) (Pt Warm) -Tenderness on Palpation (Shanique-wound No No Skin Appearance) -Ulcer Cleansing Rinsed/ Rinsed/ Irrigated with Irrigated with Saline Saline -Foul Odor after Cleansing No Yes, Due to Product Use -Anesthetic Used 5% Lidocaine 5% Lidocaine Gel Gel Right Calf (cm) 31 30.5 Right Ankle (cm) 21 20 Left Calf (cm) 31 30.5 Left Ankle (cm) 21 19.6 WC - Nurse 2 - General Ulcer CM Notes Start: 10/24/21 09:22 Freq: Status: Active Protocol: Activity Type Activity Date Activity User E-sign Co-sign Detail Recorded Client Recorded Date Recorded By Document 10/24/21 10:11 MW [id number] 10/24/21 10:14 MW Document 10/31/21 10:11 MW [id number] 10/31/21 10:13 MW 10/24/21 10/31/21 10:11 10:11 Wound Center Nurse 2 #8 Left Lateral Muniz -Time 10:11 10:12 -Correct Patient Yes Yes -Correct Side, Site, Position Yes Yes -Correct Procedure Yes Yes -Procedure Performed No No -Post Debridement (cm) - Length 0.1 0 -Post Debridement (cm) - Width 0.1 0 -Post Debridement (cm) - Depth 0.1 0 -Total Square (Post) (cm) 0.01 0 -Wound/Ulcer Outcome Not Healed Healed- Epithelialized #7 Right Lateral Calf -Time 10:11 10:12 -Correct Patient Yes Yes -Correct Side, Site, Position Yes Yes -Correct Procedure Yes Yes -Procedure Performed No No -Post Debridement (cm) - Length 0.1 0 -Post Debridement (cm) - Width 0.1 0 -Post Debridement (cm) - Depth 0.1 0 -Total Square (Post) (cm) 0.01 0 -Wound/Ulcer Outcome Not Healed Healed- Epithelialized Pain Scale: 0-10 Numeric Is Patient Pain Free? Yes Yes - Nurse 3 - General Ulcer D/C NN Start: 10/24/21 09:22 Freq: Status: Active Protocol: Activity Type Activity Date Activity User E-sign Co-sign Detail Recorded Client Recorded Date Recorded By Document 10/24/21 10:27 DL [id number] 10/24/21 10:28 DL Document 10/31/21 10:17 [facility] [id number] 10/31/21 10:18 BMF 10/24/21 10/31/21 10:27 10:17 Wound Care Nurse 3 #8 Left Lateral Muniz -Ulcer Cleansing Rinsed/ Irrigated with Saline -Foul Odor after Cleansing No -Other Dressing xerofrom -Primary Dressing Covered/Secured with Dry Gauze & Roll Gauze, Secured with Tape #7 Right Lateral Calf -Ulcer Cleansing Soap and Water -Foul Odor after Cleansing No -Other Dressing xerofrom -Primary Dressing Covered/Secured with Dry Gauze & Roll Gauze, Secured with Tape Right -Other tubigrip own double layer tubis applied Left -Other tubigrip own double layer tubis applied Treatment Response Procedure Procedure Tolerated Well Tolerated Well Pain Scale: 0-10 Numeric Is Patient Pain Free? Yes Yes WC - Visit Discharge Discharge Condition Stable Stable Ambulatory Status Ambulatory Ambulatory Transportation Private Auto Private Auto Assessment/Plan Assessment/Plan (1) Traumatic wound: (2) Wound of right leg: CODE(S): S81.801A - Unspecified open wound, right lower leg, initial encounter QUALIFIERS: Encounter type: initial encounter Qualified Code(s): S81.801A - Unspecified open wound, right lower leg, initial encounter PLAN: Traumatic, penetrating. (3) Wound of left lower extremity: CODE(S): S81.802A - Unspecified open wound, left lower leg, initial encounter QUALIFIERS: Encounter type: initial encounter Qualified Code(s): S81.802A - Unspecified open wound, left lower leg, initial encounter PLAN: Traumatic, penetrating. (4) Chronic venous insufficiency: CODE(S): I87.2 - Venous insufficiency (chronic) (peripheral) (5) Traumatic open wound of lower leg with delayed healing: CODE(S): S81.809D - Unspecified open wound, unspecified lower leg, subsequent encounter PLAN: Plan Healed. No debridement completed today. Adequate moisturizing with Vaseline petroleum jelly or Aquaphor discussed. Xeroform over top and cover with gauze/tape x 2 weeks. Increase protein intake, vitamin C and zinc discussed. She voiced understanding. Her questions were answered and she was advised to call with any further questions or concerns. Discharge from the wound clinic. This note was generated with [employer] software. It may contain incorrect words, spelling, and punctuation that were not noted in checking the note before signing.
== END 2021-10-31 15:00 | disposition home or self-care (01) ==
LOC: WC 09:15
PROVIDERS: PCP Internal Medicine; Visit Provider Internal Medicine
DX: S81.801D Unspecified open wound, right lower leg, subsequent encounter (principal); W10.9XXD Fall (on) (from) unspecified stairs and steps, subsequent encounter; Z79.01 Long term (current) use of anticoagulants; Z79.899 Other long term (current) drug therapy; I87.2 Venous insufficiency (chronic) (peripheral)
CPT/HCPCS: 99213; G0463

== ENCOUNTER → 2021-11-19 | Outpatient (CLI) | payer MEDICARE, SELFPAY ==
--- NOTE | 2021-11-19 11:35 | EKG12_ITS ---
Test Reason : ARRHYTHMIA,HTN Blood Pressure : / mmHG Vent. Rate : 070 BPM Atrial Rate : 044 BPM P-R Int : 000 ms QRS Dur : 066 ms QT Int : 380 ms P-R-T Axes : 000 004 011 degrees QTc Int : 410 ms Atrial fibrillation Septal infarct , age undetermined Abnormal ECG Confirmed by RUDY HERNANDEZ, JAYASHREE ([id number]), assistant editor ZACH MARIE ([id number]) on 11/19/2021 1:11:04 PM Referred By: Chaim Galvan Confirmed By:JAYASHREE GRANT MD
[2021-11-19 12:10] LABS: Absolute Lymphocyte Count 1.19 X10^3/uL (0.83-4.51); Absolute Neutrophil Count 3.7 X10^3/uL (2.0-7.7); Basophil# 0.06 X10^3/uL; Eosinophil# 0.17 X10^3/uL; Hematocrit 41.5 % (37-47); Hemoglobin 13.9 g/dL (12.0-15.0); Lymphocyte # 1.19 X10^3/ul (0.83-4.51); Lymphocyte % 20.8 % (19-41); Mean Corp Hgb Conc 33.5 g/dL (32-36); Mean Corpuscular Hgb 30.4 pg (27.0-32.0); Mean Corpuscular Volume 90.8 fL (81-99); Mean Platelet Vol. 9.9 fl (6.2-12.0); Monocyte# 0.65 X10^3/uL; Monocyte% 11.3 % (0-10); NRBC Flagged by Analyzer 0 % (0-5); Neutrophil # 3.65 X10^3/uL (2.7-7.7); Neutrophil % 63.7 % (47-70); Platelet Count 332 K/mm3 (150-450); RBC Distribution Width CV 13.2 % (11.6-14.6); RBC Distribution Width SD 44.1 fl (35.1-43.9); Red Blood Count 4.57 M/mm3 (4.2-5.4); White Blood Count 5.7 K/mm3 (4.4-11.0)
[2021-11-19 12:27] LABS: ALB/GLOB Ratio 1.1 RATIO (0.9-2.4); AST(SGOT) 26 U/L (15-37); Alanine Aminotransfer ALT/SGPT 39 U/L (13-56); Albumin, Serum 3.6 g/dL (3.2-5.0); Alkaline Phosphatase 105 U/L (45-117); Anion Gap 4 (5-15); BUN 19 mg/dL (7-18); Calcium,Total 8.8 mg/dL (8.5-10.1); Chloride 102 mmol/L (98-107); Cholesterol 154 mg/dL (200); Creatinine, Serum 0.76 mg/dL (0.55-1.02); EST Glomerular Filtration Rate 77 mL/min (>60); Est Glom Filt Rate - Afr Amer 93 mL/min (>60); Globulin 3.4 g/dL (2.2-4.2); Glucose 75 mg/dL (74-106); High Density Lipoprotein 54 mg/dL; Potassium 4.6 mmol/L (3.5-5.1); Sodium Level 135 mmol/L (136-145); Triglycerides 72 mg/dL; Very Low Density Lipoprotein 14 mg/dL (5-40)
[2021-11-19 13:54] LABS: T4 Free Direct 1.23 ng/dL (0.76-1.46); Thyroid Stim Hormone (TSH) 1.08 uIU/mL (0.358-3.74)
== END | disposition home or self-care (01) ==
LOC: PSN 11:06
PROVIDERS: PCP Internal Medicine; Referring Provider Internal Medicine; Visit Provider Internal Medicine
DX: I10 Essential (primary) hypertension (principal); I48.91 Unspecified atrial fibrillation
CPT/HCPCS: 36415; 80053; 80061; 84439; 84443; 85025; 93005

== ENCOUNTER → 2021-12-27 | Outpatient (CLI) | payer MEDICARE, SELFPAY ==
--- NOTE | 2021-12-27 07:11 | ECHOD_ITS ---
Reason For Study: Afib/Flutter Procedure This was a 2D Doppler, Color Flow transthoracic echocardiogram. The exam was of adequate technical quality. Exam performed in department. Left Ventricle Normal LV size. Left ventricular systolic function is normal. The estimated ejection fraction is 70 %. Diastolic function is indeterminate. Right Ventricle Normal RV size. Normal systolic function. Atria The left atrium is moderately enlarged. The right atrium is mildly enlarged. No doppler evidence for ASD. Mitral Valve There is no mitral annular calcification. Mild diffuse mitral valve thickening. The mitral papillary muscle appears thickened and/or calcified. Moderate (2+) mitral valve insufficiency. Tricuspid Valve Normal tricuspid valve. Mild to moderate (1-2+) tricuspid valve insufficiency. Right ventricular systolic pressure estimated to be 34 mmHg. Aortic Valve Trisinus/trileaflet aortic valve. Mild diffuse aortic valve thickening. Pulmonic Valve The pulmonic valve is not well visualized. Great Vessels The aortic root is not well visualized. Pericardium/Pleural No pericardial effusion. MMode/2D Measurements & Calculations LVIDd: 3.4 cm IVSd: 1.1 cm LA dimension: 4.1 cm LVIDs: 1.8 cm LVPWd: 1.2 cm RVDd: 2.9 cm FS: 48.4 % LAV(MOD-bp): 61.3 ml LA A4 area: 18.8 cm2 RA A4 area: 14.3 cm2 LAV(MOD-bp) Indexed: 36.3 ml/m2 LAV(MOD-sp2): 65.7 ml LAV(MOD-sp4): 53.2 ml Doppler Measurements & Calculations MV E max yoanna: 123.7 cm/sec Ao V2 max: 104.9 cm/sec LV V1 max: 83.7 cm/sec Ao max P.4 mmHg LV V1 max P.8 mmHg Ao V2 mean: 77.2 cm/sec LV V1 mean P.5 mmHg Ao mean P.7 mmHg LV V1 mean: 58.5 cm/sec Ao V2 VTI: 24.2 cm LV V1 VTI: 18.2 cm MR max yoanna: 522.4 cm/sec PA V2 max: 58.2 cm/sec TR max yoanna: 276.9 cm/sec MR max P.1 mmHg TR max P.7 mmHg MR mean yoanna: 443.0 cm/sec MR mean P.8 mmHg MR VTI: 174.3 cm ECHO/Echo Complete Interpretation Summary Left ventricular systolic function is normal. The estimated ejection fraction is 70 %. The left atrium is moderately enlarged. The right atrium is mildly enlarged. Mild diffuse mitral valve thickening. The mitral papillary muscle appears thickened and/or calcified. Moderate (2+) mitral valve insufficiency. Mild to moderate (1-2+) tricuspid valve insufficiency. Mild diffuse aortic valve thickening. Right ventricular systolic pressure estimated to be 34 mmHg. Diastolic function is indeterminate. Ordering Physician: Kiran Hidalgo Referring Physician: Chaim Galvan Performed By: Gian Lindsey RCS
--- NOTE | 2021-12-27 09:15 | STRESSREP_ITS ---
Stress Test Report Date: 12-27-2021 Procedure: Pharmacologic stress nuclear imaging study Indications: Atrial fibrillation/flutter Consent: Per the patient Procedure: The patient underwent pharmacologic (Regadenoson 0.4mg ) evaluation with a peak heart rate of 98 beats per minute (72%predicted maximal heart rate) and a resting blood pressure of 148/78 mmHg and a peak blood pressure of 148/78 mmHg. The baseline ECG demonstrated atrial fibrillation. The peak pharmacologic ECG demonstrated atrial fibrillation; no obvious ECG changes. There was an isolated PVC during recovery. There was no complaint of chest discomfort during pharmacologic infusion or recovery. The examination was discontinued secondary to completion of protocol. Impression: 1. Pharmacologic (Regadenoson) evaluation 2. Peak pharmacologic ECG with continued atrial fibrillation with no obvious ECG change. 3. There was an isolated PVC during recovery. 4. Nuclear images pending Myocardial perfusion imaging study: Technique: The patient was injected with 11.5 millicuries of technetium 99m Cardiolite and subsequently rest SPECT Cardiolite nuclear imaging was obtained in the horizontal long, vertical long, and short axis views. The patient underwent pharmacologic (Regadenoson) evaluation with a peak heart rate of 98 beats per minute (72% percent predicted maximal heart rate) and a resting blood pressure of 148/78 mmHg and a peak blood pressure of 148/78 mmHg. The patient was injected with 32.7 millicuries of technetium 99m Cardiolite and subsequently stress SPECT Cardiolite nuclear imaging was obtained in the horizontal long, vertical long, and short axis views. A gated Cardiolite study at peak stress was obtained. Interpretation: Rest and stress SPECT Cardiolite nuclear imaging status post realignment, normalization, and attenuation correction demonstrate relative uniform tracer uptake and myocardial perfusion appearing within normal limits. There is end systolic thickening and brightening. The gated Cardiolite study demonstrates myocardial thickening and inward wall motion. The reported LVEF is 88%. Impression: 1. Rest and stress SPECT Cardiolite nuclear imaging demonstrate relative uniform tracer uptake and myocardial perfusion appearing within normal limits. 2. The gated Cardiolite study reports an LVEF of 88%. This note was generated with [employer] software. It may contain incorrect words, spelling, and punctuation that were not noted in checking the note before signing.
== END | disposition home or self-care (01) ==
PROVIDERS: PCP Internal Medicine; Referring Provider Internal Medicine Cardiovascular Disease; Visit Provider Internal Medicine Cardiovascular Disease
DX: I48.91 Unspecified atrial fibrillation (principal); R94.31 Abnormal electrocardiogram [ECG] [EKG]
CPT/HCPCS: 78452; 93017; 93306; A9500; A4216; J2785

== ENCOUNTER → 2022-01-14 | Outpatient (CLI) | payer MEDICARE, SELFPAY ==
--- NOTE | 2022-01-14 12:07 | RAD_ITS ---
STUDY: X-RAY CHEST REASON FOR EXAM: Female, 86 years old. Preprocedural evaluation. TECHNIQUE: Frontal and lateral views of the chest. COMPARISON: January 15, 2013. FINDINGS: Stable mild hyperinflation. There is no demonstrated pleural abnormality. Normal size heart. Normal mediastinum and jessica. Normal visualized pulmonary arteries. Normal visualized aortic arch and descending thoracic aorta. Mild diffuse thoracic spondylosis. Normal visualized ribs, clavicles, and shoulders. There is no demonstrated abnormality of the visualized soft tissue structures of the upper abdomen. RAD/Chest PA and Lateral IMPRESSION: Hyperinflation with no acute or active cardiopulmonary disease. Electronically Signed: Mynor Ferreira, at 13:56 EST ,
== END | disposition home or self-care (01) ==
LOC: RAD 12:05
PROVIDERS: PCP Internal Medicine; Visit Provider Internal Medicine Cardiovascular Disease
DX: I48.19 Other persistent atrial fibrillation (principal); R06.00 Dyspnea, unspecified
CPT/HCPCS: 71046

== ENCOUNTER 2022-01-21 10:22 | Day surgery (SDC) | payer MEDICARE, SELFPAY ==
--- NOTE | 2022-01-03 16:53 | HP.PCM_ITS ---
History and Physical Date of Admission: 01/21/22 This is an 86-year-old white male who presents today for outpatient cardioversion. She established with us based upon concerns of atrial fibrillation. She states she is an active person. She has noted days where she has been outside in she may feel somewhat more short of breath. She has not noted classic symptoms of angina pectoris. There has been no episodes of overt orthopnea or PND or the development of peripheral pitting edema. She has had no near-syncope or syncope. She was found by her PCP to be in atrial fibrillation. She was evaluated with laboratory studies which appear to have been unremarkable. She was placed on medical therapy with anticoagulant therapy with apixaban/Eliquis superimposed upon her beta-martina therapy. She was referred for further cardiovascular evaluation. She did have an ECG in office. She was noted to be in atrial fibrillation with a controlled ventricular response with an anterior CA pattern of indeterminate age cannot be excluded. She underwent echocardiogram 12/27/2021 that showed ejection unction of 70%, moderately enlarged left atrium, and mildly enlarged right atrium. She underwent stress test on 12/27/2021 that showed atrial fibrillation with no obvious ECG changes and was negative for ischemia. At this time, she will proceed with cardioversion. Intake Vital Signs: See EMR Intake Visit Reasons: [facility] Health Officer Required: No Allergies adhesive tape Allergy (Verified 12/13/21 14:10) Rash cephalexin [From Keflex] Allergy (Verified 12/13/21 14:10) Rash levofloxacin [From Levaquin] Allergy (Verified 12/13/21 14:10) Unknown Sulfa (Sulfonamide Antibiotics) Allergy (Verified 12/13/21 14:10) Unknown meloxicam Adverse Reaction (Verified 12/13/21 14:10) Diarrhea tizanidine Adverse Reaction (Verified 12/13/21 14:10) Vomiting Medications See EMR [facility] Medical History Allergic reaction caused by a drug Arrhythmia Asthma Atrial fibrillation Bilateral breast cysts Dermatitis Essential hypertension Flu vaccine need Generalized osteoarthrosis, unspecified site Goiter Health care maintenance Hearing loss Hearing problem History of pneumonia History of venous ulcer Hypertension Osteopenia Right hip pain Traumatic open wound of lower leg with delayed healing Urticaria 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 Wound of left lower extremity Surgical History H/O hemorrhoidectomy H/O: hysterectomy Family History Mother Asthma COPD (chronic obstructive pulmonary disease) Depression with anxiety Social History Smoking Status: Never smoker alcohol intake: never substance use type: does not use caffeine: Yes Type: coffee Number of servings: 5 what type of physical activity do you participate in: other details: gardening ROS Const Const: Positive for fatigue (fatigues a little easier); Negative for weakness, body ache, fever(s), headache(s), chills, frequent falls, night sweats, daytime sleepiness, difficulty sleeping, excessive sweating, weight gain, weight loss, increased appetite, poor appetite, anorexia or other Eyes Eyes: Negative for blurry vision or double vision ENT ENT: Negative for headache(s), dizziness or balance problems Cardio Chest Pain: No Palpitations: No Edema: None (wears compression socks) Muscle aches with walking: None Resp Respiratory: Negative for SOB with activity, SOB at rest, SOB orthopnea\SOB lying down, Cough, Coughing up blood/hemoptysis, chest congestion, pain on inspiration, snoring, stridor, wheezing, crackles, paroxysmal nocturnal dyspnea or other Musc Musc: Positive for muscle aches/ myalgia (Bilat LE); Negative for muscle weakness, joint pain or balance problems Neuro Neuro: Negative for dizziness, lightheadedness, near syncope, syncope, orthostatic symptoms, frequent falls, headache(s), weakness, confusion, memory loss, restless legs, blurry vision, double vision, vertigo, seizures, lack of coordination or other Endo Endo: Positive for fatigue (fatigues a little easier); Negative for excessive sweating Cardiology Exam Const Appearance: cooperative, healthy appearing, comfortable, no acute distress, well developed and well groomed Nutritional Appearance: average body habitus Orientation: alert, awake and oriented x3 Head Head: normal to inspection, normocephalic and atraumatic Ears: hearing grossly normal bilaterally Nose: external nose normal Face and Sinus: face symmetric Eyes Eyelids: eyelids normal Conjunctivae: conjunctivae normal Pupils: PERRL EOM: EOM intact bilaterally Neck Neck: normal visual inspection and full ROM Carotids: normal carotid upstroke Chest Chest inspection: normal inspection of the chest, symmetric chest movement and normal respiratory effort Auscultation: Bilateral: Clear to Auscultation Cardio Palpation: normal PMI Rate: regular rate Rhythm: irregularly irregular Heart sounds: S1 normal and S2 normal GI GI: normal to inspection, soft and bowel sounds present Neuro General: patient alert, patient awake, patient oriented x3 and moves all extremities Skin Skin: no rashes or lesions noted Extremities Pulses: Normal: Right Radial Pulse and Left Radial Pulse Lower Extremity Edema: None: Bilateral Psych Psychological: normal affect Supplemental Info Supplemental Information Labs: LDL Cholesterol 86 mg/dL (0-130) HDL Cholesterol 54 mg/dL (40-) Triglycerides 72 mg/dL (-199) VLDL Cholesterol 14 mg/dL (5-40) Diagnostics: Electrocardiogram Chest X-Ray Venous Doppler Study Pulmonary: No Data to Display Assessment and Plan Assessment and Plan (1) Atrial fibrillation: Status: Acute Plan: At the present time she remains in atrial fibrillation. She has a controlled ventricular response. She is on an anticoagulant. Her echocardiogram showed a preserved ejection fraction and moderately enlarged left atrium and mildly enlarged right atrium. Her stress test showed ongoing atrial fibrillation and was negative for ischemia. She will proceed with synchronized DC cardioversion in an attempt to regain sinus rhythm. (2) Dyspnea: Status: Acute Plan: Again the patient has noted some episodes of dyspnea. It is unclear whether this is related to her atrial dysrhythmia or any other underlying cardiovascular related issues. Hopefully by maintaining sinus rhythm, this improves. (3) Essential hypertension: Status: Acute Plan: The patient has history of hypertension. This may be a contributing factor to her atrial dysrhythmia. She will continue her current medical therapy. COVID (Procedure Consent) Procedure Criteria Procedure Criteria: Yes Elective The surgeon/proceduralist and patient have discussed in detail the risk of exposure to and/or potential harm posed by the COVID-19 virus with having a surgery/procedure at this time versus the risk of delaying the surgery/procedure. It is not possible to know either the risk of delaying the surgery or procedure or chance of getting an infection with perfect accuracy, but a joint decision was made between the patient and the surgeon/proceduralist to proceed at this time with the scheduled surgery/procedure as indicated on the consent form.
--- NOTE | 2022-01-10 16:09 | HP.PCM_ITS ---
History and Physical Date of Admission: 01/21/22 [facility] [address] [place] [address] Name:DEL GREENBERG : 1935 ?Provider: Dr. Kiran Hidalgo MD Age/Sex:? 86/F ?HPI HPI History of Present Illness Details: This is an 86-year-old white male who presents today for outpatient cardiovascular consultation based upon concerns of atrial fibrillation.? She states she is an active person.? She has noted days where she has been outside in she may feel somewhat more short of breath.? She has not noted classic symptoms of angina pectoris.? There has been no episodes of overt orthopnea or PND or the development of peripheral pitting edema.? She has had no near-syncope or syncope. She was found by her PCP to be in atrial fibrillation.? She was evaluated with laboratory studies which appear to have been unremarkable.? She was placed on medical therapy with anticoagulant therapy with apixaban/Eliquis superimposed upon her beta-martina therapy.? She was referred for further cardiovascular evaluation. She did have an ECG today.? She was noted to be in atrial fibrillation with a controlled ventricular response with an anterior NV pattern of indeterminate age cannot be excluded. She has had no other cardiovascular testing other than a very remote exercise tolerance test/imaging study.? She states that study was apparently unremarkable as he did not need to proceed with any additional cardiovascular testing/procedures, etc. Intake Vital Signs ? 12/13/2213:05 12/13/2213:10 Height 5 ft 6 in 5 ft 6 in Weight: ? 134 lb 2 oz BMI ? 21.6 BP ? 124/60 H Blood Pressure Location ? Lt brachial Position ? Sitting Respiration ? 18 Pulse ? 84 Pulse Source ? Auscultation Intake Visit Reasons:?A-FIB/REF. [employer] Branch Manager Required: No Accompanied by: Allergies adhesive tape Allergy (Verified 12/13/21 14:10) Rashcephalexin [From Keflex] Allergy (Verified 12/13/21 14:10) Rashlevofloxacin [From Levaquin] Allergy (Verified 12/13/21 14:10) UnknownSulfa (Sulfonamide Antibiotics) Allergy (Verified 12/13/21 14:10) Unknownmeloxicam Adverse Reaction (Verified 12/13/21 14:10) Diarrheatizanidine Adverse Reaction (Verified 12/13/21 14:10) Vomiting Medications calcium carbonate 500 mg calcium (1,250 mg) chewable tablet 500 mg PO DAILY 01/25/15 [History Confirmed 12/13/21] omega 9-bol-lkk-fish oil 1,200 mg (144 mg-216 mg) capsule (Fish Oil) 1 cap PO DAILY 10/19/19 [History Confirmed 12/13/21] albuterol sulfate 90 mcg/actuation aerosol inhaler 1 puff inhalation Q4H PRN PRN Asthma #8.5 grams 03/06/21 [Rx Confirmed 12/13/21] cholecalciferol (vitamin D3) 25 mcg (1,000 unit) tablet 2,000 unit PO DAILY #90 tabs 07/03/21 [Rx Confirmed 12/13/21] fluticasone propionate 50 mcg/actuation nasal spray,suspension (Flonase Allergy Relief) 2 spray intranasal DAILY PRN nasal congestion #16 grams 07/03/21 [Rx Confirmed 12/13/21] metoprolol succinate 25 mg tablet,extended release 24 hr 37.5 mg PO DAILY 3 months #135 tabs 07/03/21 [Rx Confirmed 12/13/21] pantoprazole 40 mg tablet,delayed release 40 mg PO DAILY PRN gerd #90 tabs 07/03/21 [Rx Confirmed 12/13/21] alendronate 70 mg tablet 70 mg PO QWEEK #14 tabs 09/03/21 [Rx Confirmed 12/13/21] Symbicort 80 mcg-4.5 mcg/actuation HFA aerosol inhaler (budesonide-formoterol) 2 puff inhalation BID #10.2 grams 09/12/21 [Rx Confirmed 12/13/21] amlodipine 5 mg tablet 5 mg PO DAILY #90 tabs 10/22/21 [Rx Confirmed 12/13/21] apixaban 5 mg tablet 5 mg PO BID #60 tabs 11/19/21 [Rx Confirmed 12/13/21] ascorbic acid (vitamin C) 500 mg capsule 500 mg PO DAILY 12/13/21 [History Confirmed 12/13/21] PFSH Medical History? Allergic reaction caused by a drug Arrhythmia Asthma Atrial fibrillation Bilateral breast cysts Dermatitis Essential hypertension Flu vaccine need Generalized osteoarthrosis, unspecified site Goiter Health care maintenance Hearing loss Hearing problem History of pneumonia History of venous ulcer Hypertension Osteopenia Right hip pain Traumatic open wound of lower leg with delayed healing Urticaria 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 Wound of left lower extremity Surgical History? H/O hemorrhoidectomy H/O: hysterectomy Family History? Mother Asthma COPD (chronic obstructive pulmonary disease) Depression with anxiety Social History? Smoking Status:? Never smoker alcohol intake:? never substance use type:? does not use caffeine:? Yes Type: coffee Number of servings: 5 what type of physical activity do you participate in:? other details: gardening ROS Const Const: Positive for fatigue (fatigues a little easier); Negative for weakness, body ache, fever(s), headache(s), chills, frequent falls, night sweats, daytime sleepiness, difficulty sleeping, excessive sweating, weight gain, weight loss, increased appetite, poor appetite, anorexia or other Eyes Eyes: Negative for blurry vision or double vision ENT ENT: Negative for headache(s), dizziness or balance problems Cardio Chest Pain: No Palpitations: No Edema: None (wears compression socks) Muscle aches with walking: None Resp Respiratory: Negative for SOB with activity, SOB at rest, SOB orthopnea\SOB lying down, Cough, Coughing up blood/hemoptysis, chest congestion, pain on inspiration, snoring, stridor, wheezing, crackles, paroxysmal nocturnal dyspnea or other Musc Musc: Positive for muscle aches/ myalgia (Bilat LE); Negative for muscle weakness, joint pain or balance problems Neuro Neuro: Negative for dizziness, lightheadedness, near syncope, syncope, orthostatic symptoms, frequent falls, headache(s), weakness, confusion, memory loss, restless legs, blurry vision, double vision, vertigo, seizures, lack of coordination or other Endo Endo: Positive for fatigue (fatigues a little easier); Negative for excessive sweating Cardiology Exam Const Appearance: cooperative, healthy appearing, comfortable, no acute distress, well developed and well groomed Nutritional Appearance: average body habitus Orientation: alert, awake and oriented x3 Head Head: normal to inspection, normocephalic and atraumatic Ears: hearing grossly normal bilaterally Nose: external nose normal Face and Sinus: face symmetric Eyes Eyelids: eyelids normal Conjunctivae: conjunctivae normal Pupils: PERRL EOM: EOM intact bilaterally Neck Neck: normal visual inspection and full ROM Carotids: normal carotid upstroke Chest Chest inspection: normal inspection of the chest, symmetric chest movement and normal respiratory effort Auscultation: Bilateral: Clear to Auscultation Cardio Palpation: normal PMI Rate: regular rate Rhythm: irregularly irregular Heart sounds: S1 normal and S2 normal GI GI: normal to inspection, soft and bowel sounds present Neuro General: patient alert, patient awake, patient oriented x3 and moves all extremities Skin Skin: no rashes or lesions noted Extremities Pulses: Normal: Right Radial Pulse and Left Radial Pulse Lower Extremity Edema: None: Bilateral Psych Psychological: normal affect Supplemental Info Supplemental Information Labs: ?? ? LDL Cholesterol 86 mg/dL (0-130) ?? ? HDL Cholesterol 54 mg/dL (40-) ?? ? Triglycerides 72 mg/dL (-199) ?? ? VLDL Cholesterol 14 mg/dL (5-40) Diagnostics: ?? ? Electrocardiogram ? Chest X-Ray ? Venous Doppler Study ? Pulmonary: ?? ? No Data to Display Assessment and Plan Assessment and Plan (1) Atrial fibrillation: ?Status:?Acute ?Plan: At the present time she remains in atrial fibrillation. She has a controlled ventricular response. She is on an anticoagulant. She will have an echocardiogram to assess her atrial size and her ventricular wall motion and systolic function. Based upon her symptoms and findings she will also be asked to have a pharmacologic stress nuclear imaging study to evaluate for any obvious myocardial ischemia. Depending upon her findings she may or may not need additional cardiac diagnosti c studies/intervention. Otherwise she will give consideration for a possible future synchronized DC cardioversion in an attempt to regain sinus rhythm once she has been adequately anticoagulated. (2) Dyspnea: ?Status:?Acute ?Plan: Again the patient has noted some episodes of dyspnea. Is unclear whether this is related to her atrial dysrhythmia or any other underlying cardiovascular related issues. At the moment she will proceed with noninvasive valuation as noted. (3) Essential hypertension: ?Status:?Acute ?Plan: The patient has history of hypertension. This may be a contributing factor to her atrial dysrhythmia. She will continue her current medical therapy. ? ? ? Orders: Orders 12 Lead EKG performed by [facility] Today I48.9 1 - Unspecified atrial fibrillation ? Echo Complete Today I48.91 - Unspecified atrial fibrillation ? Nuclear Stress Test - Chemical Today I48.91 - Unspecified atrial fibrillation ? Plan Details Additional Comments: The above was discussed and reviewed with her with her present.? She was agreeable to this approach Thank you for allowing me to participate in the care of your patient.? Please don't hesitate to call if any issues arise. This note was generated using a voice recognition system and there may be incorrect words, spelling or punctuation that were not noted when reviewing the office note prior to saving. Follow Up: ? ? 6 Weeks (PFM ) COVID (Procedure Consent) Procedure Criteria Procedure Criteria: Yes Elective The surgeon/proceduralist and patient have discussed in detail the risk of exposure to and/or potential harm posed by the COVID-19 virus with having a surgery/procedure at this time versus the risk of? delaying the surgery/procedure. It is not possible to know either the risk of delaying the surgery or procedure or chance of getting an infection with perfect accuracy, b ut a joint decision was made between the patient and the surgeon/proceduralist ?to proceed at this time with the scheduled surgery/procedure as indicated on the consent form. Coding Level of Care Code Off vis,new,level 4 Diagnoses Atrial fibrillation? I48.91 Dyspnea? R06.00 Essential hypertension? I10 Coding Level of Care Code Off vis,new,level 4 Diagnoses Atrial fibrillation? I48.91 Dyspnea? R06.00 Essential hypertension? I10 Kiran Hidalgo MD CC:? Dr. Chaim Galvan MD ~ Assessment & Plan Addt'l Comments I have examined the patient and the H&P has been reviewed. There are no clinical changes since date of exam.
[2022-01-14 13:25] LABS: Anion Gap 5 (5-15); BUN 16 mg/dL (7-18); BUN/Creat Ratio 20.5 RATIO (10-20); Calcium,Total 9.5 mg/dL (8.5-10.1); Chloride 102 mmol/L (98-107); Creatinine, Serum 0.78 mg/dL (0.55-1.02); EST Glomerular Filtration Rate 75 mL/min (>60); Est Glom Filt Rate - Afr Amer 90 mL/min (>60); Glucose 88 mg/dL (74-106); Potassium 4.4 mmol/L (3.5-5.1); Sodium Level 136 mmol/L (136-145)
[2022-01-20 09:02] VITALS: BMI 21.6
--- NOTE | 2022-01-21 12:59 | CARDIOVERS ---
Cardioversion Cardioversion: Date: 01-21-2022 Procedure: Synchronized Biphasic DC Cardioversion Indications: Atrial fibrillation Consent: Per the Patient Anesthesia: per Dr. Curiel of pulmonology and critical care medicine with propofol 80 mg IV push total Procedure: Synchronized Biphasic DC Cardioversion: 200 J x 1: Result: Sinus rhythm; PACs; subsequent return to atrial fibrillation Synchronized Biphasic DC cardioversion: 300 J x 1: Result: Sinus rhythm Complications: no apparent complications This note was generated with [employer] software. It may contain incorrect words, spelling, and punctuation that were not noted in checking the note before signing.
--- NOTE | 2022-01-21 14:32 | PRO.PCM_ITS ---
Procedure Report Date of Procedure: 01/21/22 CONSCIOUS SEDATION REPORT BRIEF HISTORY OF PRESENT ILLNESS: The patient is an 86-year-old female who presented to [facility] for an elective outpatient cardioversion due to underlying atrial fibrillation. The patient reports no PO intake since midnight, but is currently therapeutic on anticoagulation. The patient does have a history of asthma, but states that she is at her baseline at this time. The patient reports no history of smoking or COPD. The patient denies any recent constitutional symptoms such as fevers, chills, nausea or vomiting. The patient denies previous applicable anesthetic complications. Patient's last ejection fraction was 70%. PHYSICAL EXAMINATION: VITAL SIGNS: Reviewed and were acceptable. GENERAL: The patient is a female, in no apparent distress, speaking in full sentences. HEENT: Normocephalic, atraumatic. Mucous membranes are moist and pink. Good mouth opening noted. Trachea is midline. Good neck mobility. MP II CHEST: S1, S2 irregularly irregular. No murmurs, rubs or gallops were noted. LUNGS: Clear to auscultation bilaterally without appreciable wheezes, rales or rhonchi. ABDOMEN: Soft, nontender, nondistended. Positive bowel sounds. EXTREMITIES: There is no clubbing, cyanosis or edema. ASA Class: II DESCRIPTION OF PROCEDURE: After confirmation of informed consent, the patient's anesthesia plan was reviewed in detail. Propofol was chosen. Risks and benefits were reviewed and the patient agreed to proceed. At 12:12 PM, the patient was given 40 mg of propofol. The patient achieved the proper sedation and was administered a 200 J shock. Patient was noted to be in normal sinus rhythm transiently, but rapidly deteriorated back into A. fib. The decision was made to administer additional propofol and proceed with a second shock. The patient required a total of 80 mg of propofol throughout the procedure to achieve appropriate sedation. The patient achieved an appropriate level of sedation and received a second attempt at synchronized cardioversion, at [address] Hidalgo at the bedside. This was successful in achieving sustainable normal sinus rhythm. The patient was monitored until 12:30 PM, at which time the patient reached their baseline mental status and function. The patient tolerated the procedure well. COMPLICATIONS: None ESTIMATED BLOOD LOSS: None RECOMMENDATIONS: Okay to recover in usual fashion. Procedures Pulmonary 9xxxx: [id number] Con Sedation
== END 2022-01-21 13:30 | disposition home or self-care (01) ==
LOC: CLSP 10:26
PROVIDERS: PCP Internal Medicine; Referring Provider Internal Medicine Cardiovascular Disease; Visit Provider Internal Medicine Cardiovascular Disease
DX: I48.91 Unspecified atrial fibrillation (principal); I10 Essential (primary) hypertension; Z79.01 Long term (current) use of anticoagulants; Z79.51 Long term (current) use of inhaled steroids; Z79.899 Other long term (current) drug therapy
CPT/HCPCS: 36415; 80048; 92960; 93005; J7040

== ENCOUNTER → 2022-01-28 | Outpatient (CLI) | payer MEDICARE, SELFPAY ==
--- NOTE | 2022-01-28 12:37 | BI_ITS ---
MAMMOGRAPHY - BILATERAL SCREENING REASON FOR EXAM: Female, 86 years old. Routine annual screening examination. PERTINENT HISTORY: Non-contributory. History of prior bilateral excisional breast biopsies and stereotactic breast biopsies. TECHNIQUE: Digital bilateral breast bibi (3D mammographic acquisition) in the CC and MLO projections. 2-D mediolateral oblique (MLO) and craniocaudad (CC) views of both breasts were obtained. CAD: Full Field Digital Mammography with Computer Added Detection was performed. COMPARISON: Comparison is made with prior study dated 01/25/2021 and 01/24/2020. FINDINGS: Breast Composition: The breasts are extremely dense, which lowers the sensitivity of mammography. There are no dominant masses or suspicious calcifications. No other significant abnormalities are identified. There has been no significant change since the prior study. BI/SCRN MAMM (CAD)W/BIBI BILAT IMPRESSION: Stable bilateral screening mammogram. Yearly follow-up mammogram recommended. (A) ASSESSMENT CATEGORY: BIRADS Category 2: Benign. A letter regarding these results will be sent to the patient by the facility within 30 days. Approximately 10% of breast cancers are not detected by mammography. A normal mammogram should not delay biopsy of a clinically suspicious abnormality. [id number] Electronically Signed: Wilson Green MD at 14:13 EST ,
--- NOTE | 2022-01-28 12:42 | BD_ITS ---
STUDY: DUAL ENERGY X-RAY ABSORPTIOMETRY / DXA REASON FOR EXAM: Female, 86 years old. Osteopenia with high fracture risk TECHNIQUE: Bone Mineral Density (BMD) measurements of lumbar spine and bilateral hips were obtained. COMPARISON: Comparison is made with prior examination dated 01/24/2020. FINDINGS: Lumbar Spine (L1-L4): g/cm2 (0.903) / T-score (-1.0) / Z-score (1.8) Findings are suggestive of normal bone density with a low fracture risk. Left Femur Total: g/cm2 (0.847) / T-score (-0.8) / Z-score (1.5) Left Femoral Neck: g/cm2 (0.721) / T-score (-1.2) / Z-score (1.3) Right Femur Total: g/cm2 (0.772) / T-score (-1.4) / Z-score (0.9) Right Femoral Neck: g/cm2 (0.667) / T-score (-1.6) / Z-score (0.8) The T-Scores on the most recent prior examination were: Lumbar Spine (L1-L4): There has been improvement of bone density since the previous examination. Left Femur Total: which represents an improvement of 7%. Right Femur Total: which represents an improvement of 7.1%. BD/Dexa Bone Density Study IMPRESSION: The patient is considered osteopenic as outlined below according to World Moise Organization (WHO) criteria with a moderate fracture risk. There has been improvement of bone density since the previous examination. Reference Information: The T-score is the number of standard deviations above or below the standard which is normal for young adults at their peak bone mineral density. The World Health Organization (WHO) interprets the T-scores as follows: Above -1 Normal bone density Between -1 and -2.5 Osteopenia Equal to / or below -2.5 Osteoporosis As a practical clinical guideline, osteopenia may be graded as follows: Mild -1 through -1.5 Moderate -1.6 through -2.0 Severe -2.1 through -2.4 The Z-score is the number of standard deviations above or below age-matched controls. A Z-score of less than -1.5 would be considered abnormal. References: 1. NIH Osteoporosis and Related Bone Diseases www osteo.org 2. International Society for Clinical Densitometry www iscd.org 3. National Osteoporosis Foundation www nof.org Electronically Signed: Wilson Green MD at 12:33 EST ,
== END | disposition home or self-care (01) ==
LOC: OPBD 12:35
PROVIDERS: PCP Internal Medicine; Referring Provider Internal Medicine; Visit Provider Internal Medicine
DX: Z12.31 Encounter for screening mammogram for malignant neoplasm of breast (principal); M85.80 Other specified disorders of bone density and structure, unspecified site; Z78.0 Asymptomatic menopausal state
CPT/HCPCS: 77063; 77067; 77080

== ENCOUNTER → 2022-02-25 | Day surgery (SDC) | payer MEDICARE, SELFPAY ==
[2022-02-19 14:51] LABS: Anion Gap 6 (5-15); BUN 21 mg/dL (7-18); BUN/Creat Ratio 23.1 RATIO (10-20); Calcium,Total 9.1 mg/dL (8.5-10.1); Chloride 100 mmol/L (98-107); Creatinine, Serum 0.91 mg/dL (0.55-1.02); EST Glomerular Filtration Rate 63 mL/min (>60); Est Glom Filt Rate - Afr Amer 76 mL/min (>60); Glucose 96 mg/dL (74-106); Potassium 4.4 mmol/L (3.5-5.1); Sodium Level 135 mmol/L (136-145)
[2022-02-21 07:02] VITALS: BMI 21.6
--- NOTE | 2022-02-22 15:20 | HP.PCM_ITS ---
History and Physical Date of Admission: 02/25/22 [facility] [address] [place], [place] [id number] OFFICE VISIT Date of Service:? 01/28/22 MR#: [id number] Acct: [id number] Name:DEL GREENBERG Rep #: [id number] : 1935 Provider: ?ANGELA Doe Age/Sex:? 86/F ? Location: [facility] Status: Signed HPI [facility] History of Present Illness Details: Del Mcdowell is an 86 year old female with a new onset of persistent atrial fibrillation.? She also has a history of hypertension, venous insufficiency and asthma. She did have a cardioversion on 01/09/2022. This was unsuccessful.? She does sometimes feel her atrial fib.? She notes that she may be more fatigued than she was last year when she thinks about what she was able to do. She does not have any worsening SOB.? She does not have any chest pain.? She does not have any lightheadedness/dizziness.? She does not have any edema. Intake Vital Signs ? 12/13/2213:10 01/21/2210:48 01/28/2207:56 Height 5 ft 6 in 5 ft 6 in 5 ft 6 in Weight: ? 134 lb 134 lb BMI ? ? 21.6 BP ? ? 109/62 Blood Pressure Location ? ? Lt brachial Position ? ? Sitting Respiration ? ? 18 Pulse ? ? 67 Pulse Source ? ? Monitor Pulse Oximetry (%) ? ? 10 Intake Visit Reasons:?6 wk FU & EKG POST DCCV [employer] Of [employer] Required: No Is patient in pain?: No Allergies adhesive tape Allergy (Verified 01/28/22 09:37) Rashcephalexin [From Keflex] Allergy (Verified 01/28/22 09:37) Rashlevofloxacin [From Levaquin] Allergy (Verified 01/28/22 09:37) UnknownSulfa (Sulfonamide Antibiotics) Allergy (Verified 01/28/22 09:37) Unknownmeloxicam Adverse Reaction (Verified 01/28/22 09:37) Diarrheatizanidine Adverse Reaction (Verified 01/28/22 09:37) Vomiting Medications calcium carbonate 500 mg calcium (1,250 mg) chewable tablet 500 mg PO DAILY 12/03/15 [History Confirmed 01/28/22] omega 6-ooh-kgv-fish oil 1,200 mg (144 mg-216 mg) capsule (Fish Oil) 1 cap PO DAILY 10/19/19 [History Confirmed 01/28/22] albuterol sulfate 90 mcg/actuation aerosol inhaler 1 puff inhalation Q4H PRN PRN Asthma #8.5 grams 03/06/21 [Rx Confirmed 01/28/22] cholecalciferol (vitamin D3) 25 mcg (1,000 unit) tablet 2,000 unit PO DAILY #90 tabs 07/03/21 [Rx Confirmed 01/28/22] fluticasone propionate 50 mcg/actuation nasal spray,suspension (Flonase Allergy Relief) 2 spray intranasal DAILY PRN nasal congestion #16 grams 07/03/21 [Rx Confirmed 01/28/22] metoprolol succinate 25 mg tablet,extended release 24 hr 37.5 mg PO DAILY 3 months #135 tabs 07/03/21 [Rx Confirmed 01/28/22] pantoprazole 40 mg tablet,delayed release 40 mg PO DAILY PRN gerd #90 tabs 07/03/21 [Rx Confirmed 01/28/22] alendronate 70 mg tablet 70 mg PO QWEEK #14 tabs 09/03/21 [Rx Confirmed 01/28/22] Symbicort 80 mcg-4.5 mcg/actuation HFA aerosol inhaler (budesonide-formoterol) 2 puff inhalation BID #10.2 grams 09/12/21 [Rx Confirmed 01/28/22] amlodipine 5 mg tablet 5 mg PO DAILY #90 tabs 10/22/21 [Rx Confirmed 01/28/22] ascorbic acid (vitamin C) 500 mg capsule 500 mg PO DAILY 12/13/21 [History Confirmed 01/28/22] apixaban 5 mg tablet 5 mg PO BID #180 tabs 01/14/22 [Rx Confirmed 01/28/22] amiodarone 200 mg tablet 200 mg PO DAILY #90 tabs 01/28/22 [Rx Confirmed 01/28/22] PFSH Medical History?(Updated 01/22/22 @ 09:32 by Charleen Taylor) Allergic reaction caused by a drug Arrhythmia Asthma Atrial fibrillation Bilateral breast cysts Dermatitis Essential hypertension Flu vaccine need Generalized osteoarthrosis, unspecified site Goiter Health care maintenance Hearing loss Hearing problem History of pneumonia History of venous ulcer Hypertension Osteopenia Persistent atrial fibrillation Right hip pain Traumatic open wound of lower leg with delayed healing Urticaria 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 Wound of left lower extremity Surgical History?(Updated 01/22/22 @ 09:33 by Charleen Taylor) H/O hemorrhoidectomy H/O: hysterectomy History of cardioversion (~01/09/22) Family History? Mother Asthma COPD (chronic obstructive pulmonary disease) Depression with anxiety Social History? Smoking Status:? Never smoker alcohol intake:? never substance use type:? does not use caffeine:? Yes Type: coffee Number of servings: 5 what type of physical activity do you participate in:? other details: gardening ROS Const Const: Positive for fatigue (fatigues a little easier); Negative for weakness, body ache, fever(s), headache(s), chills, frequent falls, night sweats, daytime sleepiness, difficulty sleeping, excessive sweating, weight gain, weight loss, increased appetite, poor appetite, anorexia or other Eyes Eyes: Negative for blurry vision or double vision ENT ENT: Negative for headache(s), dizziness or balance problems Cardio Chest Pain: No Palpitations: No Edema: None (wears compression socks) Muscle aches with walking: None Resp Respiratory: Negative for SOB with activity, SOB at rest, SOB orthopnea\SOB lying down, Cough, Coughing up blood/hemoptysis, chest congestion, pain on inspiration, snoring, stridor, wheezing, crackles, paroxysmal nocturnal dyspnea or other Musc Musc: Positive for muscle aches/ myalgia (Bilat LE); Negative for muscle weakness, joint pain or balance problems Neuro Neuro: Negative for dizziness, lightheadedness, near syncope, syncope, orthostatic symptoms, frequent falls, headache(s), weakness, confusion, memory loss, restless legs, blurry vision, double vision, vertigo, seizures, lack of coordination or other Endo Endo: Positive for fatigue (fatigues a little easier); Negative for excessive sweating Cardiology Exam Const Appearance: cooperative, healthy appearing, comfortable, no acute distress, well developed and well groomed Nutritional Appearance: average body habitus Orientation: alert, awake and oriented x3 Head Head: normal to inspection, normocephalic and atraumatic Ears: hearing grossly normal bilaterally Nose: external nose normal Face and Sinus: face symmetric Eyes Eyelids: eyelids normal Conjunctivae: conjunctivae normal Pupils: PERRL EOM: EOM intact bilaterally Neck Neck: normal visual inspection and full ROM Carotids: normal carotid upstroke Chest Chest inspection: normal inspection of the chest, symmetric chest movement and normal respiratory effort Auscultation: Bilateral: Clear to Auscultation Cardio Palpation: normal PMI Rate: regular rate Rhythm: irregularly irregular Heart sounds: S1 normal and S2 normal GI GI: normal to inspection, soft and bowel sounds present Neuro General: patient alert, patient awake, patient oriented x3 and moves all extremities Skin Skin: no rashes or lesions noted Extremities Pulses: Normal: Right Radial Pulse and Left Radial Pulse Lower Extremity Edema: None: Bilateral Psych Psychological: normal affect Supplemental Info Supplemental Information Echocardiogram 12/2021: Left ventricular systolic function is normal. The estimated ejection fraction is 70 %. The left atrium is moderately enlarged. The right atrium is mildly enlarged. Mild diffuse mitral valve thickening. The mitral papillary muscle appears thickened and/or calcified. Moderate (2+) mitral valve insufficiency. Mild to moderate (1-2+) tricuspid valve insufficiency. Mild diffuse aortic valve thickening. Right ventricular systolic pressure estimated to be 34 mmHg. Diastolic function is indeterminate. Stress Test Report Date: 12-27-2021 Procedure: Pharmacologic stress nuclear imaging study? Indications: Atrial fibrillation/flutter Consent: Per the patient Procedure: The patient underwent pharmacologic (Regadenoson 0.4mg ) evaluation with a peak heart rate of 98 beats per minute (72%predicted maximal heart rate) and a resting blood pressure of 148/78 mmHg and a peak blood pressure of 148/78 mmHg. The baseline ECG demonstrated atrial fibrillation.? The peak pharmacologic ECG demonstrated atrial fibrillation; no obvious ECG changes. There was an isolated PVC during recovery. There was no complaint of chest discomfort during pharmacologic infusion or recovery. The examination was discontinued secondary to completion of protocol. Impression: 1.? Pharmacologic (Regadenoson) evaluation 2.? Peak pharmacologic ECG with continued atrial fibrillation with no obvious ECG change. 3.? There was an isolated PVC during recovery. 4.? Nuclear images pending Myocardial perfusion imaging study: Technique: The patient was injected with 11.5 millicuries of technetium 99m Cardiolite and subsequently rest SPECT Cardiolite nuclear imaging was obtained in the horizontal long, vertical long, and short axis views. The patient underwent pharmacologic (Regadenoson) evaluation with a peak heart rate of 98 beats per minute (72% percent predicted maximal heart rate) and a resting blood pressure of 148/78 mmHg and a peak blood pressure of 148/78 mmHg. The patient was injected with 32.7 millicuries of technetium 99m Cardiolite and subsequently stress SPECT Cardiolite nuclear imaging was obtained in the horizontal long, vertical long, and short axis views.? A gated Cardiolite study at peak stress was obtained. Interpretation: Rest and stress SPECT Cardiolite nuclear imaging status post realignment, normalization, and attenuation correction demonstrate relative uniform tracer uptake and myocardial perfusion appearing within normal limits.? There is end systolic thickening and brightening.? The gated Cardiolite study demonstrates myocardial thickening and inward wall motion.? The reported LVEF is 88%. Impression: 1.? Rest and stress SPECT Cardiolite nuclear imaging demonstrate relative uniform tracer uptake and myocardial perfusion appearing within normal limits. 2.? The gated Cardiolite study reports an LVEF of 88%. Labs: ?? ? LDL Cholesterol 86 mg/dL (0-130) ?? ? HDL Cholesterol 54 mg/dL (40-) ?? ? Triglycerides 72 mg/dL (-199) ?? ? VLDL Cholesterol 14 mg/dL (5-40) Diagnostics: ?? ? Electrocardiogram ? Echocardiogram ? A ?? ? Stress Test NM ? Stress Test ? Chest X-Ray ? Pulmonary: ?? ? No Data to Display Assessment and Plan Assessment and Plan (1) Persistent atrial fibrillation: ?Status:?Acute ?Plan: Unfortunately patient did not maintain sinus rhythm.? Would like for her to start on amiodarone at 200 mg daily.? She will continue with her metoprolol in addition to her anticoagulation.? We will plan on repeating a second cardioversion on amiodarone.? If she does not maintain sinus rhythm would consider an EP referral.? Patient is agreeable with this plan of care. ? ? ? Orders: Orders 12 Lead EKG performed by [facility] Today I48.1 9 - Other persistent atrial fibrillation ? Medications: New amiodarone 200 mg? PO DAILY 90 tabs 3RF ?Patient Instructions: I will call your with a date and time for your cardioversion. I will likely be next month. Plan Details Follow Up: ? ? 6 Weeks (MMM) Coding Level of Care Code Off vis,est,level 3 Diagnoses Persistent atrial fibrillation? I48.19 Coding Level of Care Code Off vis,est,level 3 Diagnoses Persistent atrial fibrillation? I48.19 01/28/22 1042 <Electronically signed by Charleen MILLER> Date Charleen MILLER Cosigner Signature: Date (if applicable) CC:? Dr. Chaim Galvan MD ~ Assessment & Plan Addt'l Comments Addendum: The patient has been recommended for further attempt at regaining sinus rhythm with synchronized biphasic DC cardioversion. The procedure and risk were discussed with the patient. She was agreeable to this approach. Status post the pre-synchronized biphasic DC cardioversion ECG it was noted the patient had already spontaneously return to sinus rhythm. Thus the synchronized biphasic DC cardioversion procedure was canceled. The patient will continue her medical therapy and continue with outpatient cardiovascular follow-up. The above was discussed with the patient with her spouse present. She was agreeable to this approach. This note was generated using a voice recognition system and there may be incorrect words, spelling or punctuation that were not noted when reviewing the office note prior to saving.
== END | disposition home or self-care (01) ==
PROVIDERS: Physician Assistant Medical; PCP Internal Medicine; Referring Provider Internal Medicine Cardiovascular Disease; Visit Provider Internal Medicine Cardiovascular Disease
DX: I48.19 Other persistent atrial fibrillation (principal); Z53.9 Procedure and treatment not carried out, unspecified reason; I34.0 Nonrheumatic mitral (valve) insufficiency; I10 Essential (primary) hypertension; I49.3 Ventricular premature depolarization; J45.909 Unspecified asthma, uncomplicated; Z79.51 Long term (current) use of inhaled steroids; Z79.01 Long term (current) use of anticoagulants; Z79.899 Other long term (current) drug therapy
CPT/HCPCS: 36415; 80048; 93005

== ENCOUNTER → 2022-08-27 | Outpatient (CLI) | payer MEDICARE, SELFPAY ==
[2022-08-27 16:23] LABS: AST(SGOT) 31 U/L (15-37); Alanine Aminotransfer ALT/SGPT 45 U/L (13-56); Albumin, Serum 3.7 g/dL (3.2-5.0); Alkaline Phosphatase 123 U/L (45-117); Free T3 2.1 pg/mL (2.18-3.98); Globulin 3.4 g/dL (2.2-4.2); Protein, Total 7.1 g/dL (6.4-8.2); T4 Free Direct 1.46 ng/dL (0.76-1.46); Thyroid Stim Hormone (TSH) 1.09 uIU/mL (0.358-3.74)
--- NOTE | 2022-08-29 14:55 | PFTCOMP ---
Complete pulmonary function testing report Patient: Vaishali Montenegro Date of study August 27, 2022 Date of 1935 Referring provider ANGELA Joy Indication: Atrial fibrillation, non-smoker. Spirometry pre and postbronchodilator showed: 1. Mild airway obstruction at the lower limit of normal. 2. No response to bronchodilator. 3. Review of the flow-volume loop morphology corroborates mild and possibly clinically insignificant obstruction of the small airways 4. If further evaluation of asthma (reactive airways disease) is clinically indicated, methacholine challenge testing is recommended. 5. The test met technical criteria for acceptability and reproducibility. The library information technician comments indicated good patient effort. Lung volume studies by plethysmography show: 1. No evidence of restriction. The total lung capacity was 99% predicted. 2. No evidence of hyperinflation Diffusing capacity by single breath carbon monoxide technique was normal. 1. No evidence of gas exchange abnormality. Dmitriy Welch MD [facility] Pulmonary Medicine [facility] August 29, 2022 2:59 PM
== END | disposition home or self-care (01) ==
LOC: PSN 12:55
PROVIDERS: PCP Internal Medicine; Referring Provider Physician Assistant Medical; Visit Provider Physician Assistant Medical
DX: I48.0 Paroxysmal atrial fibrillation (principal); I10 Essential (primary) hypertension; Z79.899 Other long term (current) drug therapy
CPT/HCPCS: 36415; 80076; 84439; 84443; 84481; 94060; 94726; 94729

== ENCOUNTER 2022-09-18 10:30 | Outpatient (RCR) | payer MEDICARE, SELFPAY ==
[2022-09-04 08:09] VITALS: BP 154/51; PULSE 53; RESP 16; TEMP 35.8; BMI 20.9
--- NOTE | 2022-09-04 13:11 | HP.PCM_ITS ---
History of Present Illness Date of Service: 09/04/22 Chief Complaint: Right lower extremity ulcer History of Wound: Ms. Mcdowell is an 86-year-old well-known to me. Referred to the wound center from the office due to nonhealing right lower extremity ulcer. However at her last visit at the office, she was advised to use Aquacel and she was given a sample of this. She has applied this daily. At this time, she states that her ulcer has had significant improvement. Still some area left. Utilizing compression as recommended. No chills, fever or feeling of unwell. [facility] Medical History (Updated 09/04/22 @ 17:[address] 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 Osteopenia PAF (paroxysmal atrial fibrillation) Persistent atrial fibrillation Right hip pain Traumatic open wound of lower leg with delayed healing Ulcer of right lower extremity with fat layer exposed URI (upper respiratory infection) Urticaria 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 Wound of left lower extremity Home Medications calcium carbonate 500 mg calcium (1,250 mg) chewable tablet 500 mg PO DAILY 01/25/15 [History Last Taken Unknown] omega 0-pgl-twi-fish oil 1,200 mg (144 mg-216 mg) capsule (Fish Oil) 1 cap PO DAILY 10/19/19 [History Last Taken Unknown] cholecalciferol (vitamin D3) 25 mcg (1,000 unit) tablet 2,000 unit PO DAILY #90 tabs 07/03/21 [Rx Last Taken Unknown] amlodipine 5 mg tablet 5 mg PO DAILY #90 tabs 10/22/21 [Rx Last Taken 02/25/22] ascorbic acid (vitamin C) 500 mg capsule 500 mg PO DAILY 12/13/21 [History Last Taken Unknown] apixaban 5 mg tablet 5 mg PO BID #180 tabs 01/14/22 [Rx Last Taken 02/25/22] amiodarone 200 mg tablet 200 mg PO DAILY #90 tabs 01/28/22 [Rx Last Taken 02/25/22] Symbicort 80 mcg-4.5 mcg/actuation HFA aerosol inhaler (budesonide-formoterol) 2 puff inhalation BID 3 months #10.2 grams 02/26/22 [Rx Last Taken Unknown] fluticasone propionate 50 mcg/actuation nasal spray,suspension (Flonase Allergy Relief) 2 spray intranasal DAILY PRN nasal congestion #16 grams 02/26/22 [Rx Last Taken Unknown] albuterol sulfate 90 mcg/actuation aerosol inhaler 2 puff inhalation Q6H PRN Asthma #8.5 grams 04/03/22 [Rx Last Taken Unknown] alendronate 70 mg tablet 70 mg PO QWEEK #14 tabs 04/09/22 [Rx Last Taken Unknown] hydrocolloid dressing 6 X 6 (Aquacel Extra) #5 ea 05/29/22 [Rx Last Taken Unknown] pantoprazole 40 mg tablet,delayed release See Rx Instructions .Route .COMPLEX #90 tabs 07/14/22 [Rx Last Taken Unknown] metoprolol succinate 25 mg tablet,extended release 24 hr 37.5 mg (1.5 x 25 mg) PO DAILY 3 months #135 tabs 08/27/22 [Rx Last Taken Unknown] Allergy/AdvReac Type Severity Reaction Status Date / Time adhesive tape Allergy Rash Verified 07/23/22 14:25 cephalexin [From Keflex] Allergy Rash Verified 07/23/22 14:25 levofloxacin [From Levaquin] Allergy Unknown Verified 07/23/22 14:25 Sulfa (Sulfonamide Allergy Unknown Verified 07/23/22 14:25 Antibiotics) meloxicam AdvReac Diarrhea Verified 07/23/22 14:25 tizanidine AdvReac Vomiting Verified 07/23/22 14:25 Family History Mother Asthma COPD (chronic obstructive pulmonary disease) Depression with anxiety Surgical History H/O hemorrhoidectomy H/O: hysterectomy History of cardioversion (~01/09/22) Social History Smoking Status: Never smoker alcohol intake: never substance use type: does not use caffeine: Yes Type: coffee Number of servings: 5 what type of physical activity do you participate in: other details: gardening Vital Signs Vital Signs Vital Signs: 09/04/22 08:09 Temperature 96.4 F L Temperature Source Temporal Pulse Rate 53 L Respiratory Rate 16 Blood Pressure 154/51 H Blood Pressure Mean 85 Blood Pressure Source Monitor Blood Pressure Position Sitting Blood Pressure Location Left Arm Weight Weight: 130 lb Body Mass Index (BMI) 20.9 Physical Exam Const alert, oriented x3 and no apparent distress General Appearance: cooperative, comfortable and well developed HEENT normocephalic, head/scalp atraumatic and hearing grossly normal bilaterally Eyes EOMs intact bilaterally Neck full ROM and supple General: normal visual inspection Resp normal respiratory effort Effort and Inspection: able to speak in complete sentences Skin Wounds: wounds noted Neuro oriented x3, CN's II-XII intact bilaterally, moves all extremities and no focal motor deficits Psych mental status grossly normal Appearance: grossly normal Attitude: calm Debridement Note Debridement Note Wound debrided: Right lower extremity Type of Debridement: Selective debridement Anesthesia Used: 5% Lidocaine Gel Depth: Down to and including healthy tissue Percentage of wound debrided: 100 Instrument Used: 5mm curette Tissue Removed: Slough and devitalized tissue Severity: Fat Layer Exposed Amount of bleeding with debridement: Mild Bleeding Controlled with: Pressure Patient tolerated procedure: Patient tolerated procedure well Post-Debridement Measurements and Additional Note: Post-Debridement Measurements/Treatment - Nurse 1 - General Ulcer Assessment Start: 09/04/22 08:09 Freq: Status: Active Protocol: ANNA MARIE Activity Type Activity Date Activity User E-sign Co-sign Detail Recorded Client Recorded Date Recorded By Document 09/04/22 08:09 NEREIDA [id number] 09/04/22 08:19 NEREIDA 09/04/22 08:09 - Today's Visit Information Type of service Initial Visit Arrival Mode Ambulatory Patient Identification Verified (Name & Yes ) Patient Requires Transmission-Based No Precautions Height and Weight Height 5 ft 6 in Weight 130 lb Weight in Pounds 130.0 lbs Weight Measurement Method Estimated by Patient Body Mass Index (BMI) 20.9 BMI Classification Normal BSA - Lyla 1.67 Vital Signs Temperature (97.8 F-99.1 F) 96.4 F L Temperature Source Temporal Pulse Rate (60-100) 53 L Pulse Location Monitor Respiratory Rate (12-18) 16 Respiratory rate source Observation Blood Pressure (90/60-120/80) 154/51 H Blood Pressure Mean 85 Source Monitor Position Sitting Blood Pressure Location Left Arm History Since Last Visit- (Skip if this is Patient's initial visit) Left Footwear Regular Shoe Right Footwear Regular Shoe Pain Scale: 0-10 Numeric Is Patient Pain Free? Yes WC - Nurse 1 - General Ulcer Measurement Start: 09/04/22 08:09 Freq: Status: Active Protocol: Activity Type Activity Date Activity User E-sign Co-sign Detail Recorded Client Recorded Date Recorded By Document 09/04/22 08:09 [id number] 09/04/22 08:19 NEREIDA 09/04/22 08:09 Wound Center Nurse 1 9-right lateral leg -Combined with other wound No -Current Size (cm) - Length 0.1 -Current Size (cm) - Width 0.1 -Current Size (cm) - Depth 0.1 -Total Square Cm 0.01 -Photo Taken Yes -Epithelialization Large 67-100% -Tunneling No -Undermining/Tunneling No -Circular Undermining No -Classification - Thickness Full Thickness without Exposed Support Structure -Exudate Amt None Present -Wound Margin Fibrotic Scar, Thickened Scar -Granulation Amt Medium (34-66%) -Granulation Quality [place] -Slough/Fibrin Yes -Necrosis Amt None Present (0 %) -Necrotic Tissue Type Adherent Slough -Structure Exposed N/A -Texture (Shanique-wound Skin Appearance) Assessed -Moisture (Shanique-wound Skin Appearance) Assessed, Weeping,Dry/ Scaly -Color (Shanique-wound Skin Appearance) Assessed -Temperature (Shanique-wound Skin No Abnormality Appearance) (Pt Warm) -Tenderness on Palpation (Shanique-wound No Skin Appearance) -Ulcer Cleansing Rinsed/ Irrigated with Saline -Foul Odor after Cleansing No -Anesthetic Used 5% Lidocaine Gel Lower Limb Edema Present Yes Right Calf (cm) 31.6 Right Ankle (cm) 20.5 Left Calf (cm) 32 Left Ankle (cm) 20.3 VASQUEZ - Nurse 2 - General Ulcer CM Notes Start: 09/04/22 08:09 Freq: Status: Active Protocol: Activity Type Activity Date Activity User E-sign Co-sign Detail Recorded Client Recorded Date Recorded By Document 09/04/22 08:36 MW [id number] 09/04/22 08:41 MW 09/04/22 08:36 Wound Center Nurse 2 9-right lateral leg -Time 08:37 -Correct Patient Yes -Correct Side, Site, Position Yes -Correct Procedure Yes -Procedure Performed Yes -Type of Procedure Debridement -Clinical Debridement Epidermis / Dermis -Tissue Removed Epidermis -Post Debridement (cm) - Length 0.5 -Post Debridement (cm) - Width 0.3 -Post Debridement (cm) - Depth 0.1 -Total Square (Post) (cm) 0.15 -Area of Debridement (cm) - Length 0.5 -Area of Debridement (cm) - Width 0.3 -Total Square (Area) (cm) 0.15 -Tunneling No -Undermining/Tunneling No -Circular Undermining No -Wound/Ulcer Outcome Not Healed -Ulcer Cleansing Rinsed/ Irrigated with Saline -Foul Odor after Cleansing No -Bioengineered Tissue No -Bleeding Controlled with Pressure -Treatment Response Procedure Tolerated Well -Offloading No -Debridement - Open, 1st 20sq cm Yes Pain Scale: 0-10 Numeric Is Patient Pain Free? Yes - Nurse 3 - General Ulcer D/C NN Start: 09/04/22 08:09 Freq: Status: Active Protocol: Activity Type Activity Date Activity User E-sign Co-sign Detail Recorded Client Recorded Date Recorded By Document 09/04/22 08:48 DL [id number] 09/04/22 08:50 DL 09/04/22 08:48 Wound Care Center Nurse 3 9-right lateral leg -Ulcer Cleansing Rinsed/ Irrigated with Saline -Foul Odor after Cleansing No -Primary Dressing Applied Aquacel Extra -Primary Dressing Covered/Secured with Dry Gauze & Roll Gauze, Secured with Tape -Aquacel Extra 1 jeyson -Stockings Yes Treatment Response Procedure Tolerated Well Pain Scale: 0-10 Numeric Is Patient Pain Free? Yes - Visit Discharge Discharge Condition Stable Ambulatory Status Ambulatory Transportation Private Auto Charges/Coding Visit Charges Office Visits / Consults: 31113 OV L3 Est Procedures Integumentary 111xxx-113xx: [id number] Veda subq tissue 20 sq cm/< (Selective debridement done.) Assessment/Plan Assessment/Plan (1) Ulcer of right lower extremity with fat layer exposed: CODE(S): L97.912 - Non-pressure chronic ulcer of unspecified part of right lower leg with fat layer exposed (2) Chronic venous insufficiency: CODE(S): I87.2 - Venous insufficiency (chronic) (peripheral) PLAN: Plan Debridement done as documented above, procedure was well tolerated. There has been some improvement since office visit. Continue Aquacel extra daily. Cover with gauze and tape. Consistent compression, leg elevation and exercise as tolerated. Continue other chronic wound care management. Her questions were answered and she was advised to call if she has any further questions or concerns. Follow-up in 2 weeks or sooner if needed. This note was generated with [employer] dictation software. It may contain incorrect words, spelling, and punctuation that were not noted in checking the note before signing.
[2022-09-18 10:45] VITALS: BP 130/60; PULSE 53; RESP 18; TEMP 36.2; BMI 20.9
--- NOTE | 2022-09-18 11:34 | PN.PCM_ITS ---
History of Present Illness Date of Service: 09/18/22 Chief Complaint: Right lower extremity ulcer History of Wound: Ms. Mcdowell is an 86-year-old well-known to me. Referred to the wound center from the office due to nonhealing right lower extremity ulcer. However at her last visit at the office, she was advised to use Aquacel and she was given a sample of this. She has applied this daily. At this time, she states that her ulcer has had significant improvement. Still some area left. Utilizing compression as recommended. No chills, fever or feeling of unwell. Progress of Wound: Healed. No new concerns at this time Objective Data Objective Data Vital Signs: Vital Signs Temp Pulse Resp BP 97.2 F L 53 L 18 130/60 H 09/18/22 10:45 09/18/22 10:45 09/18/22 10:45 09/18/22 10:45 Weight: 130 lb Body Mass Index (BMI) 20.9 Charges/Coding Visit Charges Office Visits / Consults: 52199 OV L3 Est Physical Exam Const alert, oriented x3 and no apparent distress General Appearance: cooperative, comfortable and well developed HEENT normocephalic, head/scalp atraumatic and hearing grossly normal bilaterally Eyes EOMs intact bilaterally Neck full ROM and supple General: normal visual inspection Resp normal respiratory effort Effort and Inspection: able to speak in complete sentences Neuro oriented x3, CN's II-XII intact bilaterally, moves all extremities and no focal motor deficits Psych mental status grossly normal Appearance: grossly normal Attitude: calm Debridement Note Debridement Note Post-Debridement Measurements and Additional Note: Post-Debridement Measurements/Treatment - Nurse 1 - General Ulcer Assessment Start: 09/04/22 08:09 Freq: Status: Active Protocol: VASQUEZ.BABAK Activity Type Activity Date Activity User E-sign Co-sign Detail Recorded Client Recorded Date Recorded By Document 09/04/22 08:09 NEREIDA [id number] 09/04/22 08:19 Document 09/18/22 10:45 RB [id number] 09/18/22 10:47 RB 09/04/22 09/18/22 08:09 10:45 - Today's Visit Information Type of service Initial Visit 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 ) Arrival Mode Ambulatory Ambulatory Transfer Assistance None Patient Identification Verified (Name & Yes Yes ) Patient Requires Transmission-Based No No Precautions Height and Weight Height 5 ft 6 in Weight 130 lb Weight in Pounds 130.0 lbs Weight Measurement Method Estimated by Patient Body Mass Index (BMI) 20.9 20.9 BMI Classification Normal Normal BSA - Lyla 1.67 Vital Signs Temperature (97.8 F-99.1 F) 96.4 F L 97.2 F L Temperature Source Temporal Temporal Pulse Rate (60-100) 53 L 53 L Pulse Location Monitor Monitor Respiratory Rate (12-18) 16 18 Respiratory rate source Observation Observation Blood Pressure (90/60-120/80) 154/51 H 130/60 H Blood Pressure Mean (mm Hg) 85 83 Source Monitor Monitor Position Sitting Semi-Fowlers Blood Pressure Location Left Arm Left Arm History Since Last Visit- (Skip if this is Patient's initial visit) Have you changed medications since your No last visit? Any new allergies or adverse reactions No Had a fall/change in ADL's that may No increase risk of falls Signs or symptoms of abuse and/or No neglect since last visit Have you been in the hospital since your No last visit? Has dressing in place as prescribed Yes Has compression in place as prescribed No Has offloadiing in place as prescribed No Experienced any changes in pain level or No management Left Footwear Regular Shoe Right Footwear Regular Shoe Pain Scale: 0-10 Numeric Is Patient Pain Free? Yes Yes WC - Nurse 1 - General Ulcer Measurement Start: 09/04/22 08:09 Freq: Status: Active Protocol: Activity Type Activity Date Activity User E-sign Co-sign Detail Recorded Client Recorded Date Recorded By Document 09/04/22 08:09 [id number] 09/04/22 08:19 Document 09/18/22 10:45 RB [id number] 09/18/22 10:47 RB 09/04/22 09/18/22 08:09 10:45 Wound Center Nurse 1 9-right lateral leg -Combined with other wound No No -Current Size (cm) - Length 0.1 0.1 -Current Size (cm) - Width 0.1 0.1 -Current Size (cm) - Depth 0.1 0.1 -Total Square Cm 0.01 0.01 -Photo Taken Yes -Epithelialization Large 67-100% -Tunneling No No -Undermining/Tunneling No No -Circular Undermining No No -Classification - Thickness Full Thickness without Exposed Support Structure -Exudate Amt None Present Small -Exudate Type Serosanguineous -Wound Margin Fibrotic Scar, Distinct, Thickened Scar Outline Attached -Granulation Amt Medium (34-66%) Medium (34-66%) -Granulation Quality [place] -Slough/Fibrin Yes Yes -Necrosis Amt None Present (0 Medium (34-66%) %) -Necrotic Tissue Type Adherent Slough Adherent Slough -Structure Exposed N/A N/A -Texture (Shanique-wound Skin Appearance) Assessed Assessed, Excoriation -Moisture (Shanique-wound Skin Appearance) Assessed, Assessed Weeping,Dry/ Scaly -Color (Shanique-wound Skin Appearance) Assessed Assessed -Temperature (Shanique-wound Skin No Abnormality No Abnormality Appearance) (Pt Warm) (Pt Warm) -Tenderness on Palpation (Shanique-wound No Skin Appearance) -Ulcer Cleansing Rinsed/ Wound Cleanser Irrigated with Saline -Foul Odor after Cleansing No No -Anesthetic Used 5% Lidocaine 5% Lidocaine Gel Gel Lower Limb Edema Present Yes Yes Right Calf (cm) 31.6 29.5 Right Ankle (cm) 20.5 20.5 Left Calf (cm) 32 Left Ankle (cm) 20.3 WC - Nurse 2 - General Ulcer CM Notes Start: 09/04/22 08:09 Freq: Status: Active Protocol: Activity Type Activity Date Activity User E-sign Co-sign Detail Recorded Client Recorded Date Recorded By Document 09/04/22 08:36 MW [id number] 09/04/22 08:41 MW Document 09/18/22 11:03 MW [id number] 09/18/22 11:06 MW 09/04/22 09/18/22 08:36 11:03 Wound Center Nurse 2 9-right lateral leg -Time 08:37 11:05 -Correct Patient Yes Yes -Correct Side, Site, Position Yes Yes -Correct Procedure Yes Yes -Procedure Performed Yes No -Type of Procedure Debridement -Clinical Debridement Epidermis / Dermis -Tissue Removed Epidermis -Post Debridement (cm) - Length 0.5 0 -Post Debridement (cm) - Width 0.3 0 -Post Debridement (cm) - Depth 0.1 0 -Total Square (Post) (cm) 0.15 0 -Area of Debridement (cm) - Length 0.5 -Area of Debridement (cm) - Width 0.3 -Total Square (Area) (cm) 0.15 -Tunneling No -Undermining/Tunneling No -Circular Undermining No -Wound/Ulcer Outcome Not Healed Healed- Epithelialized -Ulcer Cleansing Rinsed/ Irrigated with Saline -Foul Odor after Cleansing No -Bioengineered Tissue No -Bleeding Controlled with Pressure -Treatment Response Procedure Tolerated Well -Offloading No -Debridement - Open, 1st 20sq cm Yes Pain Scale: 0-10 Numeric Is Patient Pain Free? Yes Yes - Nurse 3 - General Ulcer D/C NN Start: 09/04/22 08:09 Freq: Status: Active Protocol: Activity Type Activity Date Activity User E-sign Co-sign Detail Recorded Client Recorded Date Recorded By Document 09/04/22 08:48 DL [id number] 09/04/22 08:50 DL Document 09/18/22 11:06 MW [id number] 09/18/22 11:07 MW 09/04/22 09/18/22 08:48 11:06 Wound Care Center Nurse 3 9-right lateral leg -Ulcer Cleansing Rinsed/ Irrigated with Saline -Foul Odor after Cleansing No -Primary Dressing Applied Aquacel Extra -Primary Dressing Covered/Secured with Dry Gauze & Roll Gauze, Secured with Tape -Aquacel Extra 1 jeyson -Stockings Yes Treatment Response Procedure Procedure Tolerated Well Tolerated Well Pain Scale: 0-10 Numeric Is Patient Pain Free? Yes Yes Teaching: Wound Center Compression Wraps & Stockings -Person Taught Patient -Teaching Method Discussion -Response to teaching Verbalize understanding WC - Visit Discharge Discharge Condition Stable Stable Ambulatory Status Ambulatory Ambulatory Transportation Private Auto Private Auto Accompanied by self Medication Reconcilliation completed & No provided to patient/care provider Clinical Summary of Care Provided Yes Notes: healed, discharged from clinic Assessment/Plan Assessment/Plan (1) Ulcer of right lower extremity with fat layer exposed: CODE(S): L97.912 - Non-pressure chronic ulcer of unspecified part of right lower leg with fat layer exposed (2) Chronic venous insufficiency: CODE(S): I87.2 - Venous insufficiency (chronic) (peripheral) PLAN: Plan No new concerns at this time. Healed. Moisturize adequately, Consistent compre ssion, leg elevation and exercise as tolerated discussed. Continue other chronic wound care management. Her questions were answered and she was advised to call if she has any further questions or concerns. Discharged from the wound center. This note was generated with [employer] dictation software. It may contain incorrect words, spelling, and punctuation that were not noted in checking the note before signing.
== END 2022-09-22 23:59 | disposition home or self-care (01) ==
LOC: WC 10:30
PROVIDERS: PCP Internal Medicine; Referring Provider Internal Medicine; Visit Provider Internal Medicine
DX: L97.912 Non-pressure chronic ulcer of unspecified part of right lower leg with fat layer exposed (principal); I48.0 Paroxysmal atrial fibrillation; I87.2 Venous insufficiency (chronic) (peripheral); I10 Essential (primary) hypertension; Z79.83 Long term (current) use of bisphosphonates; Z79.51 Long term (current) use of inhaled steroids; Z79.01 Long term (current) use of anticoagulants; Z79.899 Other long term (current) drug therapy
CPT/HCPCS: 97597; 99213; G0463

== ENCOUNTER → 2022-12-12 | Outpatient (CLI) | payer MEDICARE, SELFPAY ==
[2022-12-12 16:19] LABS: Absolute Lymphocyte Count 0.81 X10^3/uL (0.83-4.51); Absolute Neutrophil Count 4.8 X10^3/uL (2.0-7.7); Basophil# 0.03 X10^3/uL; Basophil% 0.5 % (0-1); Eosinophils% 1.5 % (0-5); Hematocrit 39.5 % (37-47); Hemoglobin 12.9 g/dL (12.0-15.0); Lymphocyte # 0.81 X10^3/ul (0.83-4.51); Lymphocyte % 12.4 % (19-41); Mean Corp Hgb Conc 32.7 g/dL (32-36); Mean Corpuscular Hgb 28.7 pg (27.0-32.0); Monocyte# 0.74 X10^3/uL; Monocyte% 11.3 % (0-10); NRBC Flagged by Analyzer 0 % (0-5); Neutrophil # 4.84 X10^3/uL (2.7-7.7); Neutrophil % 74.1 % (47-70); Platelet Count 310 K/mm3 (150-450); RBC Distribution Width CV 14.6 % (11.6-14.6); RBC Distribution Width SD 47.1 fl (35.1-43.9); Red Blood Count 4.49 M/mm3 (4.2-5.4); White Blood Count 6.5 K/mm3 (4.4-11.0)
[2022-12-12 17:03] LABS: Anion Gap 5 (5-15); BUN 20 mg/dL (7-18); BUN/Creat Ratio 22.7 RATIO (10-20); Calcium,Total 9.2 mg/dL (8.5-10.1); Chloride 100 mmol/L (98-107); Cholesterol 154 mg/dL (200); Creatinine, Serum 0.88 mg/dL (0.55-1.02); EST Glomerular Filtration Rate 65 mL/min (>60); Est Glom Filt Rate - Afr Amer 79 mL/min (>60); Glucose 98 mg/dL (74-106); High Density Lipoprotein 56 mg/dL; Sodium Level 132 mmol/L (136-145); Triglycerides 102 mg/dL; Very Low Density Lipoprotein 20 mg/dL (5-40)
== END | disposition home or self-care (01) ==
LOC: BIMLAB 15:44
PROVIDERS: PCP Internal Medicine; Referring Provider Internal Medicine; Visit Provider Internal Medicine
DX: I10 Essential (primary) hypertension (principal)
CPT/HCPCS: 36415; 80048; 80061; 85025

== ENCOUNTER → 2022-12-18 | Outpatient (CLI) | payer MEDICARE, SELFPAY ==
[2022-12-18 13:10] LABS: Anion Gap 6 (5-15); BUN 21 mg/dL (7-18); BUN/Creat Ratio 25.1 RATIO (10-20); Calcium,Total 8.4 mg/dL (8.5-10.1); Chloride 101 mmol/L (98-107); Creatinine, Serum 0.84 mg/dL (0.55-1.02); EST Glomerular Filtration Rate 69 mL/min (>60); Est Glom Filt Rate - Afr Amer 83 mL/min (>60); Glucose 88 mg/dL (74-106); Potassium 4.1 mmol/L (3.5-5.1); Sodium Level 135 mmol/L (136-145)
[2022-12-18 14:32] LABS: Osmolality, Serum 283 mOsm/KG (280-301); Osmolality, Urine 312 mOsm/KG
== END | disposition home or self-care (01) ==
LOC: BIMLAB 11:26
PROVIDERS: PCP Internal Medicine; Referring Provider Internal Medicine; Visit Provider Internal Medicine
DX: E87.1 Hypo-osmolality and hyponatremia (principal)
CPT/HCPCS: 36415; 80048; 83930; 83935

== ENCOUNTER → 2023-03-19 | Outpatient (CLI) | payer MEDICARE, SELFPAY ==
[2023-03-19 15:19] LABS: Mucous, Urine 0 SEEN /hpf (<or=2+); Red Blood Cells-Urine 0 SEEN /hpf (0-5)
--- NOTE | 2023-03-19 15:52 | BI_ITS ---
MAMMOGRAPHY - BILATERAL SCREENING REASON FOR EXAM: Female, 87 years old. Routine annual screening examination. PERTINENT HISTORY: Non-contributory. 3 multiple bilateral excisional breast biopsy and bilateral stereotactic breast biopsy. TECHNIQUE: Digital bilateral breast bibi (3D mammographic acquisition) in the CC and MLO projections. 2-D mediolateral oblique (MLO) and craniocaudad (CC) views of both breasts were obtained. CAD: Full Field Digital Mammography with Computer Added Detection was performed. COMPARISON: Comparison is made with prior examination dated January 28, 2022 and January 25, 2021. FINDINGS: Breast Composition: The breasts are extremely dense, which lowers the sensitivity of mammography. There are no dominant masses or suspicious calcifications. No other significant abnormalities are identified. There has been no significant change since the prior study. BI/SCRN MAMM (CAD)W/BIBI BILAT IMPRESSION: Stable bilateral screening mammogram. Yearly follow-up mammogram recommended. (A) ASSESSMENT CATEGORY: BIRADS Category 1: Negative. A letter regarding these results will be sent to the patient by the facility within 30 days. Approximately 10% of breast cancers are not detected by mammography. A normal mammogram should not delay biopsy of a clinically suspicious abnormality. [id number] Electronically Signed: Wilson Green MD at 9:22 EST ,
[2023-03-19 16:39] LABS: Color, Urine Yellow (Yellow); Glucose, Dipstick Normal (Normal); Ketone-Dipstick Negative (Negative); Leukocyte Esterase-Dipstick 500 /ul (Negative); Nitrite-Dipstick Positive (Negative); Occult Blood-Urine 10 /ul (Negative); Protein-Dipstick 15 mg/dl (Negative); Urine Bilirubin Dipstick Negative (Negative); Urine Clarity Sl. Cloudy (Clear); Urine Urobilinogen Normal (Normal)
[2023-03-19 17:02] LABS: AST(SGOT) 24 U/L (15-37); Alanine Aminotransfer ALT/SGPT 34 U/L (13-56); Albumin, Serum 3.6 g/dL (3.2-5.0); Alkaline Phosphatase 102 U/L (45-117); Globulin 3.2 g/dL (2.2-4.2); Protein, Total 6.8 g/dL (6.4-8.2); Thyroid Stim Hormone (TSH) 1.05 uIU/mL (0.358-3.74)
[2023-03-19 17:04] LABS: Anion Gap 5 (5-15); BUN 20 mg/dL (7-18); BUN/Creat Ratio 23.2 RATIO (10-20); Calcium,Total 9.2 mg/dL (8.5-10.1); Chloride 102 mmol/L (98-107); Creatinine, Serum 0.86 mg/dL (0.55-1.02); EST Glomerular Filtration Rate 66 mL/min (>60); Est Glom Filt Rate - Afr Amer 80 mL/min (>60); Glucose 113 mg/dL (74-106); Potassium 4.1 mmol/L (3.5-5.1); Sodium Level 134 mmol/L (136-145)
[2023-03-19 17:30] LABS: White Blood Cells 50-100 SEEN /hpf (0-5)
[2023-03-19 17:31] LABS: Bacteria 1+ /hpf (None Seen); Squamous Epithelial Cells - UA 0-5 SEEN /hpf (5-10)
== END | disposition home or self-care (01) ==
LOC: OPBI 15:05
PROVIDERS: Physician Assistant Medical; PCP Internal Medicine; Visit Provider Internal Medicine
DX: Z12.31 Encounter for screening mammogram for malignant neoplasm of breast (principal); I48.0 Paroxysmal atrial fibrillation; M85.80 Other specified disorders of bone density and structure, unspecified site; R60.9 Edema, unspecified; R30.0 Dysuria; I10 Essential (primary) hypertension
CPT/HCPCS: 36415; 77063; 77067; 80048; 80076; 81001; 82306; 84443; 87077; 87086; 87088; 87186

== ENCOUNTER → 2023-09-28 | Outpatient (CLI) | payer MEDICARE, SELFPAY ==
[2023-09-28 15:18] LABS: Absolute Lymphocyte Count 0.93 X10^3/uL (0.83-4.51); Absolute Neutrophil Count 3.7 X10^3/uL (2.0-7.7); Basophil# 0.02 X10^3/uL; Basophil% 0.4 % (0-1); Eosinophil# 0.07 X10^3/uL; Eosinophils% 1.3 % (0-5); Hematocrit 38.1 % (37-47); Hemoglobin 12.4 g/dL (12.0-15.0); Lymphocyte # 0.93 X10^3/ul (0.83-4.51); Lymphocyte % 17.6 % (19-41); Mean Corp Hgb Conc 32.5 g/dL (32-36); Mean Corpuscular Hgb 27.9 pg (27.0-32.0); Mean Corpuscular Volume 85.6 fL (81-99); Monocyte# 0.58 X10^3/uL; NRBC Flagged by Analyzer 0 % (0-5); Neutrophil # 3.68 X10^3/uL (2.7-7.7); Neutrophil % 69.5 % (47-70); Platelet Count 318 K/mm3 (150-450); RBC Distribution Width CV 14.1 % (11.6-14.6); RBC Distribution Width SD 44.2 fl (35.1-43.9); Red Blood Count 4.45 M/mm3 (4.2-5.4); White Blood Count 5.3 K/mm3 (4.4-11.0)
[2023-09-28 15:35] LABS: ALB/GLOB Ratio 1.1 RATIO (0.9-2.4); AST(SGOT) 34 U/L (15-37); Alanine Aminotransfer ALT/SGPT 43 U/L (13-56); Albumin, Serum 3.4 g/dL (3.2-5.0); Alkaline Phosphatase 104 U/L (45-117); Anion Gap 3 (5-15); BUN 15 mg/dL (7-18); Calcium,Total 8.4 mg/dL (8.5-10.1); Chloride 104 mmol/L (98-107); Creatinine, Serum 0.72 mg/dL (0.55-1.02); EST Glomerular Filtration Rate 82 mL/min (>60); Est Glom Filt Rate - Afr Amer 100 mL/min (>60); Globulin 3.2 g/dL (2.2-4.2); Glucose 90 mg/dL (74-106); Potassium 4.1 mmol/L (3.5-5.1); Protein, Total 6.6 g/dL (6.4-8.2); Sodium Level 135 mmol/L (136-145)
== END | disposition home or self-care (01) ==
LOC: BIMLAB 14:16
PROVIDERS: PCP Internal Medicine; Referring Provider Internal Medicine; Visit Provider Internal Medicine
DX: I10 Essential (primary) hypertension (principal)
CPT/HCPCS: 36415; 80053; 85025

== ENCOUNTER → 2024-03-21 | Outpatient (CLI) | payer MEDICARE, SELFPAY ==
[2024-03-21 11:20] LABS: Vitamin D,25 Hydroxy 47.7 ng/mL
[2024-03-21 11:24] LABS: Anion Gap 6 (5-15); BUN 18 mg/dL (7-18); BUN/Creat Ratio 24.3 RATIO (10-20); Calcium,Total 8.8 mg/dL (8.5-10.1); Chloride 104 mmol/L (98-107); Cholesterol 178 mg/dL (200); Creatinine, Serum 0.74 mg/dL (0.55-1.02); EST Glomerular Filtration Rate 79 mL/min (>60); Est Glom Filt Rate - Afr Amer 96 mL/min (>60); Glucose 90 mg/dL (74-106); High Density Lipoprotein 93 mg/dL; Sodium Level 136 mmol/L (136-145); Triglycerides 31 mg/dL; Very Low Density Lipoprotein 6 mg/dL (5-40)
--- NOTE | 2024-03-21 12:12 | BI_ITS ---
MAMMOGRAPHY - BILATERAL SCREENING REASON FOR EXAM: Female, 88 years old. Routine annual screening examination. PERTINENT HISTORY: Mother with breast cancer. Prior bilateral excisional breast biopsies. TECHNIQUE: Digital bilateral breast bibi (3D mammographic acquisition) in the CC and MLO projections. 2-D mediolateral oblique (MLO) and craniocaudad (CC) views of both breasts were obtained. CAD: Full Field Digital Mammography with Computer Added Detection was performed. COMPARISON: Comparison is made with prior study dated March 19, 2023 and January 28, 2022. FINDINGS: Breast Composition: The breasts are extremely dense, which lowers the sensitivity of mammography. There are no dominant masses or suspicious calcifications. No other significant abnormalities are identified. There has been no significant change since the prior study. BI/SCRN MAMM (CAD)W/BIBI BILAT IMPRESSION: Stable bilateral screening mammogram. Yearly follow-up mammogram recommended. (A) ASSESSMENT CATEGORY: BIRADS Category 1: Negative. A letter regarding these results will be sent to the patient by the facility within 30 days. Approximately 10% of breast cancers are not detected by mammography. A normal mammogram should not delay biopsy of a clinically suspicious abnormality. [id number] Electronically Signed: Wilson Green MD at 13:27 EST ,
== END | disposition home or self-care (01) ==
PROVIDERS: PCP Internal Medicine; Referring Provider Internal Medicine; Visit Provider Internal Medicine
DX: Z12.31 Encounter for screening mammogram for malignant neoplasm of breast (principal); I10 Essential (primary) hypertension; M85.80 Other specified disorders of bone density and structure, unspecified site; Z80.3 Family history of malignant neoplasm of breast
CPT/HCPCS: 36415; 77063; 77067; 80048; 80061; 82306

== ENCOUNTER → 2024-03-31 | Outpatient (CLI) | payer MEDICARE, SELFPAY ==
[2024-03-31 15:28] LABS: Absolute Lymphocyte Count 1.12 X10^3/uL (0.83-4.51); Absolute Neutrophil Count 4.1 X10^3/uL (2.0-7.7); Basophil# 0.03 X10^3/uL; Basophil% 0.5 % (0-1); Eosinophil# 0.03 X10^3/uL; Eosinophils% 0.5 % (0-5); Hematocrit 37.7 % (37-47); Hemoglobin 11.8 g/dL (12.0-15.0); Lymphocyte # 1.12 X10^3/ul (0.83-4.51); Mean Corp Hgb Conc 31.3 g/dL (32-36); Mean Corpuscular Volume 86.3 fL (81-99); Mean Platelet Vol. 10.1 fl (6.2-12.0); Monocyte% 10.2 % (0-10); NRBC Flagged by Analyzer 0 % (0-5); Neutrophil # 4.11 X10^3/uL (2.7-7.7); Neutrophil % 69.6 % (47-70); Platelet Count 310 K/mm3 (150-450); RBC Distribution Width CV 14.4 % (11.6-14.6); RBC Distribution Width SD 45.8 fl (35.1-43.9); Red Blood Count 4.37 M/mm3 (4.2-5.4); White Blood Count 5.9 K/mm3 (4.4-11.0)
[2024-03-31 17:30] LABS: T4 Free Direct 1.42 ng/dL (0.76-1.46)
== END | disposition home or self-care (01) ==
LOC: BIMLAB 13:57
PROVIDERS: PCP Internal Medicine; Referring Provider Internal Medicine; Visit Provider Internal Medicine
DX: I10 Essential (primary) hypertension (principal)
CPT/HCPCS: 36415; 84439; 84443; 85025

== ENCOUNTER → 2024-04-26 | Outpatient (CLI) | payer MEDICARE, SELFPAY ==
--- NOTE | 2024-04-26 10:38 | BD_ITS ---
PROCEDURE: DEXA BONE DENSITY STUDY REASON FOR EXAM: F, age 88 y/o . Postmenopausal. TECHNIQUE: DEXA scan of the lumbar spine and both hips. COMPARISON: Comparison is made with prior study dated January 28, 2022. FINDINGS: Lumbar Spine (L1-L4): g/cm2 (0.883)/T-score (-1.2)/Z-score (1 points) findings are suggestive of osteopenia with a low fracture risk. Left Femur Total: g/cm2 (0.835)/T-score (-0.9)/Z-score (1.5) Left Femoral Neck: g/cm2 (0.674)/T-score (-1.6)/Z-score (0.9) Right Femur Total: g/cm2 (0.768)/T-score (-1.4)/Z-score (0.9) Right Femoral Neck: g/cm2 (0.670)/T-score (-1.6)/Z-score (0.9) The T-Scores on the most recent prior examination were: Lumbar Spine (L1-L4): There has been worsening of bone density since the previous examination. Left Femur Total: Worsening of 1.4%. Right Femur Total: Worsening of 0.6%. BD/Dexa Bone Density Study IMPRESSION: The patient is considered osteopenic as outlined below according to World Mo[employer] Organization (WHO) criteria with a moderate fracture risk. There has been worsening of bone density since the previous exa mination. Reading Location: [facility]
== END | disposition home or self-care (01) ==
LOC: OPBD 10:29
PROVIDERS: PCP Internal Medicine; Referring Provider Internal Medicine; Visit Provider Internal Medicine
DX: Z78.0 Asymptomatic menopausal state (principal); M85.80 Other specified disorders of bone density and structure, unspecified site
CPT/HCPCS: 77080

== ENCOUNTER → 2024-08-01 | Outpatient (CLI) | payer MEDICARE, SELFPAY ==
[2024-08-01 16:42] LABS: Absolute Lymphocyte Count 0.93 X10^3/uL (0.83-4.51); Absolute Neutrophil Count 4.5 X10^3/uL (2.0-7.7); Basophil# 0.03 X10^3/uL; Basophil% 0.5 % (0-1); Eosinophil# 0.09 X10^3/uL; Eosinophils% 1.5 % (0-5); Hematocrit 35.8 % (37-47); Hemoglobin 11.6 g/dL (12.0-15.0); Lymphocyte # 0.93 X10^3/ul (0.83-4.51); Lymphocyte % 15.1 % (19-41); Mean Corp Hgb Conc 32.4 g/dL (32-36); Mean Corpuscular Hgb 27.6 pg (27.0-32.0); Mean Corpuscular Volume 85.2 fL (81-99); Mean Platelet Vol. 10.4 fl (6.2-12.0); Monocyte# 0.58 X10^3/uL; Monocyte% 9.4 % (0-10); NRBC Flagged by Analyzer 0 % (0-5); Neutrophil # 4.49 X10^3/uL (2.7-7.7); Neutrophil % 73.2 % (47-70); Platelet Count 325 K/mm3 (150-450); RBC Distribution Width CV 14.6 % (11.6-14.6); RBC Distribution Width SD 44.8 fl (35.1-43.9); White Blood Count 6.1 K/mm3 (4.4-11.0)
[2024-08-01 17:42] LABS: ALB/GLOB Ratio 1.6 RATIO (0.9-2.4); AST(SGOT) 33 U/L (<=31); Alanine Aminotransfer ALT/SGPT 28 U/L (<=34); Albumin, Serum 4.3 g/dL (3.4-4.8); Alkaline Phosphatase 103 U/L (35-104); Anion Gap 13 (5-15); BUN 21 mg/dL (4-19); BUN/Creat Ratio 26.8 RATIO (10-20); Calcium,Total 9.5 mg/dL (7.6-11.0); Carbon Dioxide 21.3 mmol/L (21.0-32.0); Chloride 99 mmol/L (98-108); Creatinine, Serum 0.78 mg/dL (0.70-1.20); EST Glomerular Filtration Rate 74 (>60); Globulin 2.6 g/dL (2.2-4.2); Glucose 105 mg/dL (70-99); Potassium 4.4 mmol/L (3.3-5.1); Protein, Total 6.9 g/dL (5.9-8.4); Sodium Level 134 mmol/L (133-145); Total Bilirubin 0.28 mg/dL (0.00-1.30)
--- OUTSIDE RECORDS SUMMARY | 2024-08-01 23:50 | XMS RPT_ITS | CCD ---
Author Organization [facility] Care Team Providers Care Medical Asst Name Role Phone DEVORAHTYSONJAY JAY Carpio Sally Unavailable Unavailable PHYSICIAN, NONE Unavailable Unavailable SCOTT BLAND Unavailable Unavailable Dr. Chaim Galvan Primary Care Provider [phone]) Dr. Chaim Galvan Attending Provider [phone] Dr. Chaim Galvan Referring Provider [phone] Cole, Dr. Rucker Other Provider [phone] ANGELA Stewart Attending Provider Dr. Chaim Briceño Primary Care Provider [phone] 0) Cole, Dr. Rucker Attending Provider [phone] Dr. Chaim Galvan Referring Provider [phone] Dr. Chaim Galvan Primary Care Provider 1(33 0) Dr. Chaim Galvan Attending Provider [phone] Dr. Chaim Galvan Other Provider [phone] Dr. Chaim Galvan Referring Provider [phone] ANGELA Stewart Attending Provider Dr. Kiran Paige Attending Provider [phone] Dr. Chaim Galvan Primary Care Provider 1(33 0) Dr. Chaim Galvan Attending Provider [phone] Dr. Chaim Galvan Other Provider [phone] Dr. Chaim Galvan Referring Provider [phone] Dr. Kiran Hidalgo Referring Provider [phone] Dr. Kiran Hidalgo Other Provider Dr. Chaim Galvan Primary Care Provider [phone] Dr. Chaim Galvan Attending Provider [phone] Dr. Chaim Galvan Other Provider [phone] Dr. Chaim Galvan Referring Provider [phone] Dr. Vicente Curiel Attending Provider Brook MILLER PA Charleen العلي Attending Provider Dr. Chaim Galvan Primary Care Provider [phone] 0) Dr. Chaim Galvan Attending Provider [phone] Brook MILLER PA Charleen العلي Other Provider [phone] Dr. Chaim Galvan Primary Care Provider 1(33 0) Dr. Chaim Galvan Attending Provider [phone] Cole, Dr. Rucker Referring Provider [phone] Brook MILLER PA Charleen العلي Referring Provider Brook MILLER PA Charleen العلي Other Provider [phone] Dr. Dmitriy Welch Attending Provider Dr. Chaim Galvan Other Provider [phone] Ant [place], [place] Attending Provider Dr. Chaim Galvan Primary Care Provider [phone] 0) Dr. Chaim Galvan Attending Provider [phone] Dr. Chaim Galvan Referring Provider [phone] Dr. Chaim Galvan Primary Care Provider 1(33 0) Dr. Chaim Galvan Attending Provider [phone] Dr. Chaim Galvan Referring Provider [phone] ANGELA Manzano Attending Provider Cole HERNANDEZ, Dr. Rucker Primary Care Provider Cole HERNANDEZ, Dr. Rucker Attending Provider [phone] 0) Cole HERNANDEZ, Dr. Rucker Referring Provider 1(33 0) Cole HERNANDEZ, Dr. Rucker Primary Care Provider Cole HERNANDEZ, Dr. Rucker Attending Provider [phone] 0) Cole HERNANDEZ, Dr. Rucker Referring Provider [phone] 0) Charleen Manzano Attending Provider [phone] 0) Oleghe, Efewongbe Referring Unavailable Oleghe, Efewongbe Attending Unavailable Oleghe, Efewongbe Primary Care Unavailable Oleghe, Efewongbe Referring Unavailable Oleghe, Efewongbe Primary Care Unavailable Mukul Muniz Attending Unavailable Oleghe, Efewongbe Referring Unavailable Oleghe, Efewongbe Primary Care Unavailable Oleghe, Efewongbe Attending Unavailable Oleghe, Efewongbe Primary Care Unavailable Charleen Manzano Attending Unavail able Oleghe, Efewongbe Referring Unavailable Oleghe, Efewongbe Referring Unavailable Oleghe, Efewongbe Attending Unavailable Oleghe, Efewongbe Primary Care Unavailable Oleghe, Efewongbe Referring Unavailable Oleghe, Efewongbe Attending Unavailable Oleghe, Efewongbe Primary Care Unavailable Oleghe, Efewongbe Referring Unavailable Oleghe, Efewongbe Attending Unavailable Oleghe, Efewongbe Primary Care Unavailable Oleghe, Efewongbe Primary Care Unavailable Oleghe, Efewongbe Attending Unavailable Oleghe, Efewongbe Referring Unavailable Oleghe, Efewongbe Referring Unavailable Oleghe, Efewongbe Attending Unavailable Oleghe, Efewongbe Primary Care Unavailable Cole HERNANDEZ, Dr. Rucker Primary Care Provider Cole HERNANDEZ, Dr. Rucker Attending Provider [phone] Cole HERNANDEZ, Dr. Rucker Referring Provider [phone] Allergies Allergy Classification Reported Allergen(s) Allergy Type Date of Onset Reaction(s) Facility (16 sources) Adhesive Tape; Translations: [adhesive tape] Allergy to substance 2 Rash [facility] (15 sources) Cephalexin Drug Allergy 2 Rash [facility] (15 sources) levoFLOXacin Drug Allergy 2 Unknown [facility] (15 sources) meloxicam Drug Allergy 2 Diarrhea [facility] (16 sources) Sulfonamides (Antibiotic); Translations: [Sulfa (Sulfonamide Antibiotics)] Allergy to substance 2 Unknown [facility] (15 sources) tiZANidine Drug Allergy 2 Vomiting [facility] (1 source) Cephalexin Drug Allergy 5 [facility] (1 source) levoFLOXacin Drug Allergy 5 [facility] (1 source) meloxicam Drug Allergy 5 [facility] (1 source) tiZANidine Drug Allergy 5 [facility] Repository Medications Current Medications Medication Drug Class(es) Dates Sig (Normalized) Sig (Original) [id number] actuat albuterol 0.09 mg/actuat metered dose inhaler (20 sources) beta2-Adrenergic Agonist Start: 04-03-2022 End: 02-18-2024 Albuterol Sulfate 90 mcg/actuation HFA aerosol inhaler Active 2 NMA INHALATION EVERY 6 HOURS as needed for Asthma 8.February 18, 2024 11:33am Start: 04-03-2022 take 1 puff(s) by in halation every six hours Albuterol Sulfate Active 2 PUFF INHALATION EVERY 6 HOURS 8.April 03, 2022 2:49pm Start: 01-25-2015 End: 04-03-2022 Albuterol Sulfate 90 mcg/act uation HFA aerosol inhaler Discontinued 1 NMA INHALATION EVERY 4 HOURS NEEDED as needed for Asthma 8.August 20, 2020 4:28pm March 06, 2021 1:25pm Start: 01-25-2015 End: 04-03-2022 take 1 puff(s) by inhalation every four hours as needed Albuterol Sulfate Discontinued 1 PUFF INHALATION EVERY 4 HOURS NEEDED 8.5 August 20, 2020 3:28pm March 06, 2021 12:25pm apixaban 2.5 mg oral tablet (20 sources) Factor Xa Inhibitor Start: 07-22-2024 take 1 tablet by mouth twice daily Apixaban 2.5 mg tablet Active 2.5 mg PO TWICE A DAY 180 July 22, 2024 11:05am Start: 11-19-2021 End: 07-22-2024 take 1 tablet by mouth twice daily Apixaban 5 mg tablet Discontinued 5 mg PO TWICE A DAY 180 February 10, 2024 9:32am July 22, 2024 11:06am ascorbic acid 500 mg oral capsule (20 sources) Vitamin C Start: 09-09-2021 End: 12-13-2021 take 1 capsule by mouth once daily Ascorbic Acid (Vitamin C) 500 mg capsule Active 500 mg PO DAILY December 13, 2021 2:11pm Start: 09-09-2021 End: 12-13-2021 Ascorbic Acid (Vitamin C) Di scontinued MG PO September 08, 2021 11:00pm December 13, 2021 1:12pm calcium carbonate 1250 mg chewable tablet (15 sources) Start: 01-25-2015 take 1 tablet by mouth once daily Calcium Carbonate 500 MG tablet,chewable Active 500 mg PO DAILY January 25, 2015 1:00am cholecalciferol 0.05 mg oral tablet (20 sources) Vitamin D Start: 03-19-2023 take 1 tablet by mouth once daily Cholecalciferol (Vitamin D3) 50 mcg (2,000 unit) tablet Active 2000 U PO DAILY March 19, 2023 3:58pm Start: 01-25-2015 End: 03-19-2023 take 1 tablet by mouth once daily Cholecalciferol (Vitamin D3) 25 mcg (1,000 unit) tablet Discontinued 2000 U PO DAILY July 03, 2021 11:19am March 19, 2023 3:59pm Start: 01-25-2015 End: 07-03-2021 take 2 tablets by mouth once daily Cholecalciferol (Vitamin D3) 1,000 UNIT tablet Discontinued 2000 U PO DAILY January 25, 2015 1:00am July 03, 2021 11:20am Hydrocolloid Dressing (Aquac el Extra) 6 X 6 bandage (7 sources) Start: 05-29-2022 Hydrocolloid D ressing (Aquacel Extra) 6 X 6 bandage Active 0 .Route May 28, 2022 11:00pm Apply to right lower extremity ulcer Start: 05-29-2022 Hydrocolloid D ressing (Aquacel Extra) 6 X 6 bandage Active 0 .Route May 29, 2022 12:00am Apply to right lower extremity ulcer 24 hr metoprolol succinate 25 mg extended release oral tablet (20 sources) beta-Adrenergic Clark Start: 03-11-2023 End: 10-29-2023 take 1 tablet by mouth once daily Metoprolol Succinate 25 mg tablet extended release 24 hr Active 25 mg PO DAILY October 29, 2023 9:13am Start: 02-27-2020 End: 03-11-2023 Metoprolol Succinate 25 mg t ablet extended release 24 hr Discontinued 37.5 mg PO DAILY 135 90 August 27, 2022 6:58pm March 11, 2023 12:58pm Start: 02-27-2020 End: 03-11-2023 take 37.5 mg by mouth once daily Metoprolol Succinate Discontinued 37.5 MG PO DAILY 135 90 August 27, 2022 5:58pm March 11, 2023 11:58am Start: 02-07-2020 End: 02-27-2020 take 1 tablet by mouth once daily Metoprolol Succinate 25 mg tablet extended release 24 hr Discontinued 25 mg PO DAILY 60 February 07, 2020 1:00am February 27, 2020 11:28am Mometasone-Formoterol (Duler a) 100-5 mcg/actuation HFA aerosol inhaler (7 sources) Start: 06-21-2024 Mometasone-For moterol (Dulera) 100-5 mcg/actuation HFA aerosol inhaler Active 2 NMA INHALATION TWICE A DAY June 21, 2024 1:42pm Start: 05-11-2024 End: 06-21-2024 Mometasone-Formoterol (Duler a) 100-5 mcg/actuation HFA aerosol inhaler Discontinued 2 NMA INHALATION TWICE A DAY May 11, 2024 4:51pm June 21, 2024 1:42pm Start: 01-06-2024 End: 05-11-2024 Mometasone-Formoterol (Duler a) 100-5 mcg/actuation HFA aerosol inhaler Discontinued 2 NMA INHALATION TWICE A DAY January 06, 2024 1:00am May 11, 2024 4:51pm Start: 01-06-2024 Mometasone-For moterol (Dulera) 100-5 mcg/actuation HFA aerosol inhaler Active 2 NMA INHALATION TWICE A DAY January 06, 2024 1:00am [place] 8-Myx-Yof-Fish Oil (Fi sh Oil) 1,200 (144-216) mg capsule (15 sources) Start: 10-19-2019 [place] 3-Dha-Ep a-Fish Oil (Fish Oil) 1,200 (144-216) mg capsule Active 1 NMA PO DAILY October 19, 2019 12:00am Start: 10-19-2019 take 1 capsule by [facility] once daily [place] 7-Dcu-Qvc-Fish Oil (Fish Oil) 1,200 (144-216) mg capsule Active 1 CAP PO DAILY October 18, 2019 11:00pm Start: 10-19-2019 take 1 capsule by [facility] once daily [place] 9-Hmk-Uzi-Fish Oil (Fish Oil) 1,200 (144-216) mg capsule Active 1 CAP PO DAILY October 19, 2019 12:00am Start: 10-19-2019 [place] 3-Dha-Ep a-Fish Oil (Fish Oil) 1,200 (144-216) mg capsule Active CAP PO October 19, 2019 12:00am Completed/Discontinued Medications Medication Drug Class(es) Dates Sig (Normalized) Sig (Original) alendronic acid 70 mg oral tablet (20 sources) Bisphosphonate Start: 02-15-2020 End: 06-21-2024 take 1 tablet by mouth every week Alendronate 70 mg tablet Discontinued 0 .ROUTE .COMPLEX November 05, 2023 10:45am June 21, 2024 1:42pm TAKE 1 TABLET ORALLY EVERY WEEK amiodarone hydrochloride 200 mg oral tablet (20 sources) Antiarrhythmic Start: 03-11-2023 End: 05-12-2024 Amiodarone 200 mg tablet Discontinued 100 mg PO DAILY 45 May 15, 2023 11:05am May 12, 2024 9:13am Start: 01-08-2023 End: 03-11-2023 take 1 tablet by mouth once daily Amiodarone 200 mg tablet Discontinued 0 .ROUTE .COMPLEX January 08, 2023 9:23am March 11, 2023 12:42pm TAKE 1 TABLET BY MOUTH EVERY DAY Start: 09-15-2022 End: 01-08-2023 Amiodarone 200 mg tablet Discontinued 100 mg PO DAILY September 15, 2022 10:44am January 08, 2023 9:23am Start: 09-15-2022 End: 03-11-2023 take 100 mg by mouth once daily Amiodarone Active 100 MG PO DAILY March 11, 2023 11:40am Start: 01-28-2022 End: 09-15-2022 take 1 tablet by mouth once daily Amiodarone 200 mg tablet Discontinued 200 mg PO DAILY January 28, 2022 1:00am September 15, 2022 12:54pm amLODIPine 5 mg oral tablet (20 sources) Dihydropyridine Calcium Channel Clark Start: 10-22-2021 End: 07-11-2024 take 1 tablet by mouth once daily Amlodipine 5 mg tablet Discontinued 5 mg PO DAILY October 07, 2022 11:54am December 12, 2022 5:11pm Start: 03-06-2021 End: 04-03-2021 take 1 tablet by mouth once daily Amlodipine 5 mg tablet Discontinued 5 mg PO DAILY March 06, 2021 1:00am April 03, 2021 2:38pm amoxicillin 875 mg / clavulanate 125 mg oral tablet (15 sources) Penicillin-class Antibacterial Start: 01-15-2013 End: 01-25-2015 Amoxicillin-Pot Clavulanate 875 MG tablet Discontinued 1 {tbl} PO Q12H January 15, 2013 1:00am January 25, 2015 11:06am azithromycin 250 mg oral tablet (20 sources) Macrolide Antimicrobial Start: 11-28-2020 End: 12-04-2020 Azithromycin 250 mg tablet Discontinued 0 PO .COMPLEX November 28, 2020 12:00am December 04, 2020 10:13am Take two tablets by mouth on day one then one tablet by mouth on days 2-5 Start: 01-15-2013 End: 01-25-2015 Azithromycin 250 MG tablet D iscontinued 250 mg PO DAILY January 15, 2013 1:00am January 25, 2015 11:06am 1 tablet orally starting 01/16/13 for next 4 days Budesonide-Formoterol (20 sources) Corticosteroid, beta2-Adrenergic Agonist Start: 12-02-2023 End: 01-06-2024 Budesonide-Formoterol (Symbicort) 80-4.5 mcg/actuation HFA aerosol inhaler Discontinued 2 NMA INHALATION TWICE A DAY December 02, 2023 12:00am January 06, 2024 9:24am Start: 02-09-2023 End: 03-19-2023 take 2 puff(s) by inhalation twice daily Budesonide-Formoterol (Symbicort) 80-4.5 mcg/actuation HFA aerosol inhaler Discontinued 0 .ROUTE .COMPLEX 30.6 February 09, 2023 3:19pm March 19, 2023 5:31pm 2 PUFF INHALED TWICE A DAY FOR 3 MONTHS Start: 09-10-2021 End: 02-09-2023 Budesonide-Formoterol (Symbi lexa) 80-4.5 mcg/actuation HFA aerosol inhaler Discontinued 2 NMA INHALATION TWICE A DAY 10.2 90 November 10, 2022 10:54pm February 09, 2023 3:20pm Start: 09-10-2021 End: 02-09-2023 take 1 puff(s) by inhalation twice daily Budesonide-Formoterol (Symbicort) 80-4.5 mcg/actuation HFA aerosol inhaler Discontinued 2 PUFF INHALATION TWICE A DAY 10.2 90 November 10, 2022 9:54pm February 09, 2023 2:20pm Start: 09-09-2021 End: 09-10-2021 Budesonide-Formoterol 80-4.5 mcg/actuation HFA aerosol inhaler Discontinued 2 NMA INHALATION TWICE A DAY 20.4 September 09, 2021 4:23pm September 10, 2021 2:27pm Start: 09-09-2021 End: 09-10-2021 take 1 puff(s) by inhalation twice daily Budesonide-Formoterol Discontinued 2 PUFF INHALATION TWICE A DAY 20.4 September 09, 2021 3:23pm September 10, 2021 1:27pm Start: 09-09-2021 End: 09-10-2021 take 1 puff(s) by inhalation twice daily Budesonide-Formoterol Discontinued 2 PUFF INHALATION TWICE A DAY 20.4 September 09, 2021 4:23pm September 10, 2021 2:27pm Start: 09-03-2021 End: 09-09-2021 Budesonide-Formoterol 80-4.5 mcg/actuation HFA aerosol inhaler Discontinued 2 NMA INHALATION TWICE A DAY 20.4 September 03, 2021 9:10am September 09, 2021 4:26pm Start: 09-03-2021 End: 09-09-2021 take 1 puff(s) by inhalation twice daily Budesonide-Formoterol Discontinued 2 PUFF INHALATION TWICE A DAY 20.4 September 03, 2021 8:10am September 09, 2021 3:26pm Start: 09-03-2021 End: 09-09-2021 take 1 puff(s) by inhalation twice daily Budesonide-Formoterol Discontinued 2 PUFF INHALATION TWICE A DAY 20.4 September 03, 2021 9:10am September 09, 2021 4:26pm Start: 02-06-2021 End: 09-03-2021 Budesonide-Formoterol 80-4.5 mcg/actuation HFA aerosol inhaler Discontinued 2 NMA INHALATION TWICE A DAY 20.4 February 06, 2021 11:58am September 03, 2021 9:10am Start: 02-06-2021 End: 09-03-2021 take 1 puff(s) by inhalation twice daily Budesonide-Formoterol Discontinued 2 PUFF INHALATION TWICE A DAY 20.4 February 06, 2021 10:58am September 03, 2021 8:10am Start: 02-06-2021 End: 09-03-2021 take 1 puff(s) by inhalation twice daily Budesonide-Formoterol Discontinued 2 PUFF INHALATION TWICE A DAY 20.4 February 06, 2021 11:58am September 03, 2021 9:10am Start: 02-06-2021 take 1 puff(s) by in halation twice daily Budesonide-Formoterol Active 2 PUFF INHALATION TWICE A DAY 20.4 February 06, 2021 11:58am Start: 05-28-2020 End: 02-06-2021 Budesonide-Formoterol 80-4.5 mcg/actuation HFA aerosol inhaler Discontinued 2 NMA INHALATION TWICE A DAY 10.2 May 28, 2020 2:50pm February 06, 2021 11:58am Start: 05-28-2020 End: 02-06-2021 take 1 puff(s) by inhalation twice daily Budesonide-Formoterol Discontinued 2 PUFF INHALATION TWICE A DAY 10.2 May 28, 2020 1:50pm February 06, 2021 10:58am Start: 05-28-2020 End: 02-06-2021 take 1 puff(s) by inhalation twice daily Budesonide-Formoterol Discontinued 2 PUFF INHALATION TWICE A DAY 10.2 May 28, 2020 2:50pm February 06, 2021 11:58am Start: 01-25-2015 End: 05-28-2020 Budesonide-Formoterol 1 INHA LER inhaler Discontinued 2 NMA TWICE A DAY January 25, 2015 1:00am May 28, 2020 2:50pm Start: 01-25-2015 End: 05-28-2020 Budesonide-Formoterol Discon tinued 2 PUFF TWICE A DAY January 25, 2015 12:00am May 28, 2020 1:50pm Start: 01-25-2015 End: 05-28-2020 Budesonide-Formoterol Discon tinued 2 PUFF TWICE A DAY January 25, 2015 1:00am May 28, 2020 2:50pm 1 ml denosumab 60 mg/ml prefilled syringe (15 sources) RANK Ligand Inhibitor Start: 02-07-2020 End: 02-15-2020 Denosumab (Prolia) 60 mg/mL syringe Discontinued 60 mg SC every 6 months February 07, 2020 1:00am February 15, 2020 12:07pm doxycycline monohydrate 100 mg oral tablet (7 sources) Tetracycline-class Drug Start: 04-03-2022 End: 05-29-2022 take 1 tablet by mouth twice daily Doxycycline Monohydrate 100 mg tablet Discontinued 100 mg PO TWICE A DAY April 03, 2022 1:00am May 29, 2022 2:00pm estrogens, conjugated (longterm) 0.3 mg oral tablet (15 sources) Estrogen Start: 01-25-2015 End: 08-11-2017 Conjugated Estrogens (Premarin) 0.3 MG tablet Discontinued 0.3 mg PO January 25, 2015 1:00am August 11, 2017 10:28am fluticasone propionate 0.05 mg/actuat metered dose nasal spray (20 sources) Corticosteroid Start: 03-23-2023 End: 12-28-2023 take 2 spray(s) nasal route once daily as needed for congestion Fluticasone Propionate 50 mcg/actuation spray,suspension Discontinued 0 .ROUTE .COMPLEX September 28, 2023 2:05pm December 28, 2023 5:43pm 2 SPRAY INTRANASALLY DAILY NEEDED FOR NASAL CONGESTION ADMINISTER INTO EACH NOSTRIL Start: 10-19-2019 End: 03-23-2023 take 50 ug nasal route once daily as needed Fluticasone Propionate (Flonase Allergy Relief) 50 mcg/actuation spray,suspension Discontinued 2 NMA INTRANASAL DAILY as needed for nasal congestion February 26, 2022 12:30pm March 23, 2023 6:44pm administer into each nostril Start: 10-19-2019 End: 03-23-2023 take 1 spray(s) nasal route once daily Fluticasone Propionate (Flonase Allergy Relief) 50 mcg/actuation spray,suspension Discontinued 2 SPRAY INTRANASAL DAILY February 26, 2022 11:30am March 23, 2023 5:44pm administer into each nostril Fluticasone Propion-Salmeterol (4 sources) Corticosteroid, beta2-Adrenergic Agonist Start: 03-19-2023 End: 12-02-2023 Fluticasone Propion-Salmeterol (Advair Hfa) 115-21 mcg/actuation HFA aerosol inhaler Discontinued 2 NMA INHALATION Q12H March 19, 2023 1:00am December 02, 2023 11:16am administer with spacer Start: 03-19-2023 take 1 puff(s) by in halation every twelve hours Fluticasone Propion-Salmeterol (Advair Hfa) 115-21 mcg/actuation HFA aerosol inhaler Active 2 PUFF INHALATION Q12H March 19, 2023 12:00am administer with spacer Tousnlfk-Xboiz-Fehpp-Cf [place]ora te (Move Free Joint Health Tablet) 1 EACH tablet (15 sources) Start: 01-22-2016 End: 08-11-2017 Gbjinsze-Rnmon-Lhwwk-Cf [place]ora te (Move Free Joint Health Tablet) 1 EACH tablet Discontinued 2 NMA PO January 22, 2016 1:00am August 11, 2017 10:28am Start: 01-22-2016 End: 08-11-2017 Owgqhuvo-Uaupz-Mrbtu-Cf [place]ora te (Move Free Joint Health Tablet) 1 EACH tablet Discontinued 2 EACH PO January 22, 2016 12:00am August 11, 2017 9:28am Start: 01-22-2016 End: 08-11-2017 Mrtzbuaz-Kjlmi-Eresx-Cf [place] te (Move Free Joint Health Tablet) 1 EACH tablet Discontinued 2 EACH PO January 22, 2016 1:00am August 11, 2017 10:28am hydrocortisone 0.025 mg/mg topical ointment (13 sources) Corticosteroid Start: 09-23-2021 End: 12-13-2021 Hydrocortisone 2.5 % ointment Discontinued 1 NMA TOPICAL TWICE A DAY as needed for skin irritation 454 September 23, 2021 12:00am December 13, 2021 2:12pm methylPREDNISolone 4 mg oral tablet (15 sources) Corticosteroid Start: 11-28-2020 End: 12-04-2020 take 1 tablet by mouth once Methylprednisolone (Medrol (Cesar)) 4 mg tablets,dose pack Discontinued 0 PO per package directions November 28, 2020 12:00am December 04, 2020 10:14am PO PER PKG DIR pantoprazole 40 mg delayed release oral tablet (20 sources) Proton Pump Inhibitor Start: 10-19-2019 End: 01-13-2024 take 1 tablet by mouth once daily as needed for gastroesophageal reflux disease Pantoprazole 40 mg tablet,delayed release (DR/EC) Discontinued 0 .ROUTE .COMPLEX 90 January 12, 2023 4:20pm January 13, 2024 6:48pm TAKE 1 TABLET BY MOUTH EVERY DAY NEEDED FOR GERD Start: 01-25-2015 End: 09-14-2018 take 1 tablet by mouth once daily as needed Pantoprazole 40 MG tablet Discontinued 40 mg PO DAILY as needed for Indigestion January 25, 2015 1:00am September 14, 2018 3:17pm predniSONE 20 mg oral tablet (20 sources) Start: 04-03-2022 End: 07-23-2022 take 2 tablets by mouth once daily Prednisone 20 mg tablet Discontinued 40 mg PO DAILY May 29, 2022 12:00am July 23, 2022 2:27pm Start: 04-03-2022 End: 07-23-2022 take 40 mg by mouth once daily Prednisone Discontinued 40 MG PO DAILY May 28, 2022 11:00pm July 23, 2022 1:27pm Start: 09-09-2021 End: 09-23-2021 take 4 tablets by mouth once daily at mealtime Prednisone 10 mg tablet Discontinued 10 mg PO DAILY September 09, 2021 12:00am September 23, 2021 10:58am Take 4 tablets for 3 days; Take 3 tablets for 3 days; Take 2 tablets for 3 days; Take 1 tablet for 3 days Take with food or milk Zinc (13 sources) Start: 09-09-2021 End: 12-13-2021 take 1 tablet by mouth once daily Zinc 50 mg tablet Discontinued 50 mg PO DAILY September 09, 2021 12:00am December 13, 2021 2:12pm Start: 09-09-2021 End: 12-13-2021 take 50 mg by mouth once daily Zinc Discontinued 50 MG PO DAILY September 09, 2021 12:00am December 13, 2021 2:12pm Start: 09-09-2021 End: 12-13-2021 take 50 mg by mouth once daily Zinc Discontinued 50 MG PO DAILY September 08, 2021 11:00pm December 13, 2021 1:12pm Start: 09-09-2021 take 50 mg by mouth once daily Zinc Active 50 MG PO DAILY September 09, 2021 12:00am Problems Active Problems Problem Classification Problem Date Documented Date Episodic/Chronic Allergic reactions (20 sources) Allergic reaction to drug; Translations: [Allergy, unspecified, initial encounter] Episodic Asthma (20 sources) Asthma; Translations: [Unspecified asthma, uncomplicated] Onset: 4 12-04-2020 Chronic Cardiac dysrhythmias (20 sources) Cardiac arrhythmia; Translations: [Cardiac arrhythmia, unspecified] Onset: Chronic Chronic ulcer of skin (20 sources) Ulcer of skin of lower extremity; Translations: [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] 08-04-2019 Chronic Esophageal disorders (20 sources) Gastroesophageal reflux disease; Translations: [Gastro-esophageal reflux disease without esophagitis] Chronic Essential hypertension (20 sources) Hypertensive disorder; Translations: [Essential (primary) hypertension] Onset: 5 Chronic Fluid and electrolyte disorders (6 sources) Hyponatremia; Translations: [Hypo-osmolality and hyponatremia] 12-12-2022 Episodic Genitourinary symptoms and ill-defined conditions (5 sources) Scalding pain on urination ; Translations: [Dysuria] 03-19-2023 Episodic Heart valve disorders (5 sources) Mitral valve regurgitation; Translations: [Nonrheumatic mitral (valve) insufficiency] Onset: 5 07-22-2024 Chronic Immunizations and screening for infectious disease (20 sources) Needs influenza immunization; Translations: [Encounter for immunization] 12-04-2020 Episodic Open wounds of extremities (20 sources) Open wound of right lower leg; Translations: [Unspecified open wound, right lower leg, initial encounter] Episodic Comment on above: Traumatic, penetrati ng. Open wounds of extremities (20 sources) Disorder of lower extremity; Translations: [Unspecified open wound, left lower leg, initial encounter] Episodic Open wounds of head; neck; and trunk (15 sources) Tear of skin; Translations: [Skin tear] 08-05-2019 Episodic Other aftercare (6 sources) Drug therapy finding; Translations: [Other exterminator termite (current) drug therapy] 03-11-2022 Episodic Other aftercare (2 sources) Other exterminator termite (current) drug therapy; Translations: [Long-term (current) use of other medications] Onset: 5 03-11-2022 Episodic Other aftercare (4 sources) Long-term current use of amiodarone; Translations: [Other senior living (current) drug therapy] 03-11-2022 Episodic Other bone disease and musculoskeletal deformities (17 sources) Osteopenia with high fracture risk; Translations: [Other specified disorders of bone density and structure, unspecified site] 02-27-2020 Episodic Other bone disease and musculoskeletal deformities (13 sources) Other specified disorders of bone density and structure, unspecified site; Translations: [Disorder of bone and cartilage, unspecified] Episodic Other diseases of veins and lymphatics (17 sources) Peripheral venous insufficiency; Translations: [Venous insufficiency (chronic) (peripheral)] 08-25-2019 Episodic Other diseases of veins and lymphatics (20 sources) Venous insufficiency (chronic) (peripheral); Translations: [Venous (peripheral) insufficiency, unspecified] Episodic Other injuries and conditions due to external causes (3 sources) Wound 09-21-2018 Episodic Other lower respiratory disease (11 sources) Dyspnea; Translations: [Dyspnea, unspecified] 12-13-2021 Episodic Other lower respiratory disease (4 sources) Dyspnea, unspecified; Translations: [Other respiratory abnormalities] Episodic Other nervous system disorders (3 sources) Disorder of large intestine; Translations: [Other disturbances of skin sensation] 09-28-2023 Episodic Other non-traumatic joint disorders (15 sources) Hip pain; Translations: [Pain in right hip] 03-06-2021 Episodic Other nutritional; endocrine; and metabolic disorders (15 sources) H/O: thyroid disorder; Translations: [Personal history of other endocrine, nutritional and metabolic disease] 11-30-2018 Episodic Other screening for suspected conditions (not mental disorders or infectious disease) (12 sources) Electrocardiogram abnormal; Translations: [Abnormal electrocardiogram [ECG] [EKG]] Onset: 5 12-16-2021 Episodic Other skin disorders (3 sources) Rash and other nonspecific skin eruption; Translations: [Rash and other nonspecific skin eruption] Episodic Other upper respiratory infections (7 sources) Upper respiratory infection; Translations: [Acute upper respiratory infection, unspecified] 04-03-2022 Episodic Peripheral and visceral atherosclerosis (15 sources) Peripheral vascular disease; Translations: [Peripheral vascular disease, unspecified] 08-25-2019 Chronic Residual codes; unclassified (15 sources) Edema; Translations: [Edema, unspecified] 08-04-2019 Episodic Residual codes; unclassified (1 source) Edema, unspecified; Translations: [Edema] 07-23-2022 Episodic Residual codes; unclassified (1 source) Asymptomatic menopausal state; Translations: [Asymptomatic menopausal state] Onset: 5 Episodic Unclassified (1 source) Unknown / UNK(Unknown) Onset: 7 Unclassified (20 sources) Wound ; Translations: [Traumatic wound] Varicose veins of lower extremity (15 sources) Lipodermatosclerosis; Translations: [Varicose veins of unspecified lower extremity with inflammation] 08-04-2019 Episodic Past or Other Problems Problem Classification Problem Date Documented Da te Episodic/Chronic Other nervous system disorders (1 source) Other disturbances of skin sensation; Translations: [Other disturbances of skin sensation] Onset: 09-28-2023 Episodic Residual codes; unclassified (9 sources) History of cardioversion; Translations: [Personal history of other medical treatment] Onset: 12-24-2021 01-22-2022 Episodic Comment on above: 01/09/22 Unclassified (1 source) LT CALF LACERATION//LACERAT ION Onset: 08-26-2016 Unclassified (15 sources) History of venous ulcer 12-03-2021 Results Test Name Value Interpretation Reference Range Facility Cardiology Visit Reporton Cardiology Visit Report [facility] [address] [place] [address] OFFICE VISIT Date of Service: 07/22/24 MR#: [id number] Acct: [id number] Name: VAISHALI MCDOWELL Rep #: [id number] : 1935 Provider: ANGELA Smith Age/Sex: 88/F Location: [facility] Status: Signed HPI HPI History of Present Illness Details: The patient is a pleasant 88-year-old white female who comes in with her for monitoring of her cardiovascular status. The patient carries a history of atrial fibrillation hypertension and venous insufficiency as well as asthma. She remotely had an unsuccessful cardioversion December 2021 was then instituted on amiodarone and spontaneously converted into sinus rhythm. She has remained on amiodarone since that point in time in 2021. Her presenting complaint was just profound fatigability with the atrial fibrillation. Pt was having issues with heartburn, her medications helped. She is still fatigued but feels that this is at baseline. She does have minimal recurrence with her Afib. She does not have any worsening SOB. She does not have any chest pain. She does not have any edema. Intake Vital Signs 12/31/23 14:08 03/31/24 14:03 07/22/24 10:01 Height 5 ft 6 in 5 ft 6 in 5 ft 6 in Weight: 137 lb BMI 22.1 BP 133/60 H Blood Pressure Location Lt brachial Position Sitting Respiration 16 Pulse 56 L Pulse Source NIBP Pulse Oximetry (%) 95 Oxygen Delivery Method room air Intake Visit Reasons: 6 M Typing Section Chief Required: No Accompanied by: Is patient in pain?: No Allergies adhesive tape Allergy (Verified 07/22/24 10:33) Rash cephalexin (From Keflex) Allergy (Verified 07/22/24 10:33) Rash levofloxacin (From Levaquin) Allergy (Verified 07/22/24 10:33) Unknown Sulfa (Sulfonamide Antibiotics) Allergy (Verified 07/22/24 10:33) Unknown meloxicam Adverse Reaction (Verified 07/22/24 10:33) Diarrhea tizanidine Adverse Reaction (Verified 07/22/24 10:33) Vomiting Medications ???Medication ???Instructions ???Recorded ???Confirmed ???Type calcium carbonate 500 mg PO DAILY 01/25/15 07/22/24 History omega 9-asi-wuq-fish oil 1,200 mg 1 cap PO DAILY 10/19/19 07/22/24 History (144 mg-216 mg) capsule (Fish Oil) ascorbic acid (vitamin C) 500 mg 500 mg PO DAILY 12/13/21 07/22/24 History capsule hydrocolloid dressing 6 X 6 #5 ea 05/29/22 03/31/24 Rx (Aquacel Extra) cholecalciferol (vitamin D3) 50 2,000 unit PO DAILY #90 tabs 03/1907/22/24 Rx mcg (2,000 unit) tablet metoprolol succinate 25 mg 25 mg PO DAILY #90 tabs 10/29/23 0 07/22/24 Rx tablet,extended release 24 hr fluticasone propionate 50 See Rx Instructions .Route 4 07/22/24 Rx mcg/actuation nasal .COMPLEX #16 mL spray,suspension pantoprazole 40 mg tablet,delayed See Rx Instructions .Route 07/22/24 Rx release .COMPLEX #90 tabs albuterol sulfate 90 mcg/actuation 2 puff inhalation Q6H PRN Asthma 02/18/24 07/22/24 Rx aerosol inhaler #8.5 grams amiodarone 200 mg tablet 100 mg (1/2 x 200 mg) PO DAILY #45 05/12/24 07/22/24 Rx tabs alendronate 70 mg tablet See Rx Instructions .Route 5 07/22/24 Rx .COMPLEX #12 tabs mometasone-formotero l HFA 100 2 puff inhalation BID 3 months #13 06/21/24 07/22/24 Rx mcg-5 mcg/actuation aerosol grams inhaler (Dulera) amlodipine 5 mg tablet 5 mg PO DAILY #90 tabs 07/11/24 Rx apixaban 2.5 mg tablet 2.5 mg PO BID #180 tabs 07/22/24 0 07/22/24 Rx Ejection fraction %: 70 Have you fallen in the past year?: No [facility] Medical History (Updated 07/22/24 @ 11:08 by Charleen Doe PA, PA) Mitral insufficiency Rectal burning Burning with urination Hyponatremia Ulcer of right lower extremity with fat layer exposed Asthma exacerbation URI (upper respiratory infection) [facility] current use of amiodarone PAF (paroxysmal atrial fibrillation) Persistent atrial fibrillation Essential hypertension Health care maintenance Atrial fibrillation Arrhythmia Urticaria Dermatitis Traumatic open wound of lower leg with delayed healing Wound of left lower extremity Right hip pain Flu vaccine need Hypertension Asthma Hearing loss History of pneumonia Osteopenia Hearing problem Goiter Generalized osteoarthrosis, unspecified site Bilateral breast cysts 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 Allergic reaction caused by a drug History of venous ulcer Surgical History History of cataract surgery History of cardioversion ( 01/09/22) H/O hemorrhoidectomy H/O: hysterectomy Family History Mother Asthma COPD (chronic obstructive pulmonary disease) Depression with anxiety (more content not included)... Normal [facility] Bone density reportOrdered B y: Wilson Green on 04-26-2024 Study report Skeletal system DXA [facility] Imaging Services [address] [place] [address] Dexa Bone Density Study MR#: [id number] Acct: [id number] Name: VAISHALI MCDOWELL Rep #: [id number] : 1935 F 88 From: Orion Green MD PCP: Dr. Chaim Galvan MD Status: R EG CLI Study:Dexa Bone Density Study Date of Exam: 04/26/24 Exam# [id number] Ordering Dr: Scott Galvan MD PROCEDURE: DEXA BONE DENSITY STUDY REASON FOR EXAM: F, age 88 y/o . Postmenopausal. TECHNIQUE: DEXA scan of the lumbar spine and both hips. COMPARISON: Comparison is made with prior study dated January 28, 2022. FINDINGS: Lumbar Spine (L1-L4): g/cm2 (0.883)/T-score (-1.2)/Z-score (1 points) findings are suggestive of osteopenia with a low fracture risk. Left Femur Total: g/cm2 (0.835)/T-score (-0.9)/Z-score (1.5) Left Femoral Neck: g/cm2 (0.674)/T-score (-1.6)/Z-score (0.9) Right Femur Total: g/cm2 (0.768)/T-score (-1.4)/Z-score (0.9) Right Femoral Neck: g/cm2 (0.670)/T-score (-1.6)/Z-score (0.9) The T-Scores on the most recent prior examination were: Lumbar Spine (L1-L4): There has been worsening of bone density since the previous examination. Left Femur Total: Worsening of 1.4%. Right Femur Total: Worsening of 0.6%. BD/Dexa Bone Density Study IMPRESSION: The patient is considered osteopenic as outlined below according to World Moise Organization (WHO) criteria with a moderate fracture risk. There has been worsening of bone density since the previous examination. Reading Location: [id number] CC: Dr. 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 Chaim Galvan MD Status: REG CLI Study: Dexa Bone Density Study Date of Exam: 04/26/24 Exam# [id number] Ordering Dr: Chaim Galvan MD PROCEDURE: DEXA BONE DENSITY STUDY REASON FOR EXAM: F, age 88 y/o . Postmenopausal. TECHNIQUE: DEXA scan of the lumbar spine and both hips. COMPARISON: Comparison is made with prior study dated January 28, 2022. FINDINGS: Lumbar Spine (L1-L4): g/cm2 (0.883)/T-score (-1.2)/Z-score (1 points) findings are suggestive of osteopenia with a low fracture risk. Left Femur Total: g/cm2 (0.835)/T-score (-0.9)/Z-score (1.5) Left Femoral Neck: g/cm2 (0.674)/T-score (-1.6)/Z-score (0.9) Right Femur Total: g/cm2 (0.768)/T-score (-1.4)/Z-score (0.9) Right Femoral Neck: g/cm2 (0.670)/T-score (-1.6)/Z-score (0.9) The T-Scores on the most recent prior examination were: Lumbar Spine (L1-L4): There has been worsening of bone density since the previous examination. Left Femur Total: Worsening of 1.4%. Right Femur Total: Worsening of 0.6%. BD/Dexa Bone Density Study IMPRESSION: The patient is considered osteopenic as outlined below according to World Moise Organization (WHO) criteria with a moderate fracture risk. There has been worsening of bone density since the previous examination. Reading Location: [facility] CC: Dr. 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 Normal [facility] Absolute lymphocyte countOrd ered By: Chaim Galvan on 03-31-2024 Lymphocytes Auto (Unsp spec) [#/Vol] 1.12 10*3/uL 0.83-4.51 [facility] Absolute neutrophil countOrd ered By: Chaim Galvan on 03-31-2024 Neutrophils (Bld) [#/Vol] 4.1 10*3/uL 2.0-7.7 [facility] Automated lymphocyte count a s percentage of total leukocytesOrdered By: Chaim Galvan on 03-31-2024 Lymphocytes/100 WBC Auto (Unsp spec) 19.0 % 19-41 [facility] Basophil percentageOrdered B y: Chaim Galvan on 03-31-2024 Basophils/100 WBC (Bld) 0.5 % 0-1 [facility] CBC W/Diff, Automatedon Absolute Lymph 1.12 X10 3/uL Normal 0.83-4.51 [facility] Comment on above: Performed By: #### L 501.9520, L506.0400, L100.0100 #### [facility] Laboratory [address] [place], [address] Absolute Neut 4.1 X10 3/uL Normal 2.0-7.7 [facility] Comment on above: Performed By: #### L 501.9520, L506.0400, L100.0100 #### [facility] [address] [place], [address] Basophils/100 WBC (Bld) 0.5 % Normal 0-1 [facility] Comment on above: Performed By: #### L 501.9520, L506.0400, L100.0100 #### [facility] [address] [place], [address] Eosinophils/100 WBC (Bld) 0.5 % Normal 0-5 [facility] Comment on above: Performed By: #### L 501.9520, L506.0400, L100.0100 #### [facility] [address] [place], [address] Erythrocyte distribution width (RBC) [Ratio] 14.4 % Normal 11.6-14.6 [facility] Comment on above: Performed By: #### L 501.9520, L506.0400, L100.0100 #### [facility] [address] [place], [address] Hematocrit (Bld) [Volume fraction] 37.7 % Normal 37-47 [facility] Comment on above: Performed By: #### L 501.9520, L506.0400, L100.0100 #### [facility] [address] [place], [address] Hemoglobin (Bld) [Mass/Vol] 11.8 g/dL Low 12.0-15.0 [facility] Comment on above: Performed By: #### L 501.9520, L506.0400, L100.0100 #### [facility] [address] [place], [address] IG% 0.200 Normal 0.0-0.9 [facility] Comment on above: Result Comment: IG% - Immature Granulocytes (promyelocytes, myelocytes and metamyelocytes) > 1% indicates that a LEFT SHIFT is Present. Performed By: #### L 501.9520, L506.0400, L100.0100 #### [facility] [address] [place], [address] Lymphocytes/100 WBC (Bld) 19.0 % Normal 19-41 [facility] Comment on above: Performed By: #### L 501.9520, L506.0400, L100.0100 #### [facility] [address] [place], [address] MCH (RBC) [Entitic mass] 27.0 pg Normal 27.0-32.0 [facility] Comment on above: Performed By: #### L 501.9520, L506.0400, L100.0100 #### [facility] [address] [place], [address] MCHC (RBC) [Mass/Vol] 31.3 g/dL Low 32-36 [facility] Comment on above: Performed By: #### L 501.9520, L506.0400, L100.0100 #### [facility] [address] [place], [address] MCV (RBC) [Entitic vol] 86.3 fL Normal 81-99 [facility] Comment on above: Performed By: #### L 501.9520, L506.0400, L100.0100 #### [facility] [address] [place], [address] Monocytes/100 WBC (Bld) 10.2 % High 0-10 [facility] Comment on above: Performed By: #### L 501.9520, L506.0400, L100.0100 #### [facility] [address] [place], [address] Neutrophils/100 WBC (Bld) 69.6 % Normal 47-70 [facility] Comment on above: Performed By: #### L 501.9520, L506.0400, L100.0100 #### [facility] [address] [place], [address] Nucleated RBC (Bld) [#/Vol] 0 10*3/uL Normal 0-5 [facility] Comment on above: Performed By: #### L 501.9520, L506.0400, L100.0100 #### [facility] [address] [place], [address] Platelet mean volume (Bld) [Entitic vol] 10.1 fL Normal 6.2-12.0 [facility] Comment on above: Performed By: #### L 501.9520, L506.0400, L100.0100 #### [facility] [address] [place], [address] Platelets (Bld) [#/Vol] 310 10*3/uL Normal 150-450 [facility] Comment on above: Performed By: #### L 501.9520, L506.0400, L100.0100 #### [facility] [address] [place], [address] RBC (Bld) [#/Vol] 4.37 10*6/uL Normal 4.2-5.4 [facility] Comment on above: Performed By: #### L 501.9520, L506.0400, L100.0100 #### [facility] [address] [place], [address] RDW SD 45.8 fl High 35.1-43.9 [facility] Comment on above: Performed By: #### L 501.9520, L506.0400, L100.0100 #### [facility] [address] [place], [address] WBC (Bld) [#/Vol] 5.9 10*3/uL Normal 4.4-11.0 [facility] Comment on above: Performed By: #### L 501.9520, L506.0400, L100.0100 #### [facility] [address] [place], [address] Direct serum free thyroxine (FT4) measurementOrdered By: Chaim Galvan on 03-31-2024 Free T4 [Mass/Vol] 1.42 ng/dL 0.76-1.46 [facility] Eosinophil percentageOrdered By: Chaim Galvan on 03-31-2024 Eosinophils/100 WBC (Bld) 0.5 % 0-5 [facility] Erythrocyte distribution wid th ratioOrdered By: Chaim Galvan on 03-31-2024 Erythrocyte distribution width (RBC) [Ratio] 14.4 % 11.6-14.6 [facility] Erythrocyte distribution wid th standard deviationOrdered By: Chaim Galvan on 03-31-2024 Erythrocyte distribution width (RBC) [Entitic vol] 45.8 fL High 35.1-43.9 [facility] Erythrocyte distribution width (RBC) [Ratio] 45.8 fl High 35.1-43.9 [facility] Hematocrit Auto (Bld) [Volum e fraction]Ordered By: Chaim Galvan on 03-31-2024 Hematocrit (Bld) [Volume fraction] 37.7 % 37-47 [facility] Hemoglobin measurementOrdere d By: Chaim Galvan on 03-31-2024 Hemoglobin (Bld) [Mass/Vol] 11.8 g/dL Low 12.0-15.0 [facility] Immature granulocytes/100 WB C Auto (Bld)Ordered By: Chaim Galvan on 03-31-2024 Immature granulocytes/100 WBC (Bld) 0.200 % 0.0-0.9 [facility] Comment on above: IG% - Immature Granu locytes (promyelocytes, myelocytes and metamyelocytes) > 1% indicates that a LEFT SHIFT is Present. Internal Medicine Office Vis itomarcial 03-31-2024 Internal Medicine Office Visit [facility] On license of [facility] [place] [address] [place] [address] OFFICE VISIT Date of Service: 03/31/24 MR#: [id number] Acct: [id number] Name: VAISHALI MCDOWELL Rep #: [id number] : 1935 Provider: Dr. Chaim salmeron MD Age/Sex: 88/F Location: [facility] Status: Signed Intake Vital Signs 12/31/23 14:08 03/31/24 13:28 Height 5 ft 6 in 5 ft 6 in Weight: 132 lb BMI 21.3 BP 112/60 Blood Pressure Location Lt brachial Position Sitting Respiration 12 Pulse 63 Pulse Source Monitor Temp 96.9 F L Temp Source Temporal Pulse Oximetry (%) 97 Oxygen Delivery Method room air Intake Visit Reasons: 3 M FU Chief Complaint: 3 M FU Typing Section Chief Required: No Accompanied by: Self Is patient in pain?: No Allergies adhesive tape Allergy (Verified 03/31/24 13:25) Rash cephalexin (From Keflex) Allergy (Verified 03/31/24 13:25) Rash levofloxacin (From Levaquin) Allergy (Verified 03/31/24 13:25) Unknown Sulfa (Sulfonamide Antibiotics) Allergy (Verified 03/31/24 13:25) Unknown meloxicam Adverse Reaction (Verified 03/31/24 13:25) Diarrhea tizanidine Adverse Reaction (Verified 03/31/24 13:25) Vomiting Medications ???Medication ???Instructions ???Recorded ???Confirmed ???Type calcium carbonate 500 mg PO DAILY 01/25/15 03/31/24 History omega 8-tyu-fzr-fish oil 1,200 mg 1 cap PO DAILY 10/19/19 03/31/24 History (144 mg-216 mg) capsule (Fish Oil) ascorbic acid (vitamin C) 500 mg 500 mg PO DAILY 12/13/21 03/31/24 History capsule hydrocolloid dressing 6 X 6 #5 ea 05/29/22 03/31/24 Rx (Aquacel Extra) cholecalciferol (vitamin D3) 50 2,000 unit PO DAILY #90 tabs 03/1903/31/24 Rx mcg (2,000 unit) tablet amiodarone 200 mg tablet 100 mg (1/2 x 200 mg) PO DAILY #45 05/15/23 03/31/24 Rx tabs amlodipine 5 mg tablet 5 mg PO DAILY #90 tabs 09/28/23 Rx metoprolol succinate 25 mg 25 mg PO DAILY #90 tabs 10/29/23 0 03/31/24 Rx tablet,extended release 24 hr alendronate 70 mg tablet See Rx Instructions .Route 4 03/31/24 Rx .COMPLEX #12 tabs fluticasone propionate 50 See Rx Instructions .Route 4 03/31/24 Rx mcg/actuation nasal .COMPLEX #16 mL spray,suspension mometasone-formotero l HFA 100 2 puff inhalation BID #13 grams 03/31/24 Rx mcg-5 mcg/actuation aerosol inhaler (Dulera) pantoprazole 40 mg tablet,delayed See Rx Instructions .Route 03/31/24 Rx release .COMPLEX #90 tabs apixaban 5 mg tablet 5 mg PO BID #180 tabs 02/10/2408/17 Rx albuterol sulfate 90 mcg/actuation 2 puff inhalation Q6H PRN Asthma 02/18/24 03/31/24 Rx aerosol inhaler #8.5 grams Have you fallen in the past year?: No Nurse's Note: follow up [facility] Medical History Rectal burning Burning with urination Hyponatremia Ulcer of right lower extremity with fat layer exposed Asthma exacerbation 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 PAF (paroxysmal atrial fibrillation) Persistent atrial fibrillation Essential hypertension Health care maintenance Atrial fibrillation Arrhythmia Urticaria Dermatitis Traumatic open wound of lower leg with delayed healing Wound of left lower extremity Right hip pain Flu vaccine need Hypertension Asthma Hearing loss History of pneumonia Osteopenia Hearing problem Goiter Generalized osteoarthrosis, unspecified site Bilateral breast cysts 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 Allergic reaction caused by a drug History of venous ulcer Surgical History History of cataract surgery History of cardioversion ( 01/09/22) H/O hemorrhoidectomy H/O: hysterectomy Family History Mother Asthma COPD (chronic obstructive pulmonary disease) Depression with anxiety Social History Smoking Status: Never smoker alcohol intake: never substance use type: does not use caffeine: Yes Type: coffee Number of servings: 5 what type of physical activity do you participate in: other details: gardening HPI HPI Chief Complaint: 3 M FU Details: VAISHALI MCDOWELL, is a 88 F who presents to the office today for follow-up of her chronic medical conditions. No acute concerns at this time. History of hypertension, blood pressure today is at 112/60 mmHg. Taking her medications as prescribed. No chest pain, palpitation or shortness of breath. Also history of osteopenia/osteoporo sis with high fracture risk. Repeat bone density scan few years ago with improvement. Currently on Fosamax and calcium/vitamin D supplements. No recent fracture. Other chronic medical conditions are st (more content not included)... Normal [facility] Lymphocytes Auto (Unsp spec) [#/Vol]Ordered By: Chaim Galvan on 03-31-2024 Lymphocytes (Bld) [#/Vol] 1.12 10*3/uL 0.83-4.51 [facility] Lymphocytes/100 WBC Auto (Un sp spec)Ordered By: Chaim Galvan on 03-31-2024 Lymphocytes/100 WBC (Bld) 19.0 % 19-41 [facility] MCV (mean corpuscular volume ) determinationOrdered By: Chaim Galvan on 03-31-2024 MCV (RBC) [Entitic vol] 86.3 fL 81-99 [facility] Mean corpuscular hemoglobin (MCH) determinationOrdered By: Chaim Galvan on 03-31-2024 MCH (RBC) [Entitic mass] 27.0 pg 27.0-32.0 [facility] Mean corpuscular hemoglobin concentration (MCHC) determinationOrdered By: Chaim Galvan on 03-31-2024 MCHC (RBC) [Mass/Vol] 31.3 g/dL Low 32-36 [facility] Mean platelet volume determi nationOrdered By: Chaim Galvan on 03-31-2024 Platelet mean volume (Bld) [Entitic vol] 10.1 fL 6.2-12.0 [facility] Monocyte percentageOrdered B y: Chaim Galvan on 03-31-2024 Monocytes/100 WBC (Bld) 10.2 % High 0-10 [facility] Neutrophil percentageOrdered By: Chaim Galvan on 03-31-2024 Neutrophils/100 WBC (Bld) 69.6 % 47-70 [facility] Nucleated red blood cell per centageOrdered By: Chaim Galvan on 03-31-2024 Nucleated RBC/100 WBC (Bld) [Ratio] 0 % 0-5 [facility] Platelet countOrdered By: Michael Galvan on 03-31-2024 Platelets (Bld) [#/Vol] 310 10*3/uL 150-450 [facility] RBC Auto (Bld) [#/Vol]Ordere d By: Chaim Galvan on 03-31-2024 RBC (Bld) [#/Vol] 4.37 10*6/uL 4.2-5.4 [facility] Serum or plasma thyroid stim ulating hormone (TSH) measurement (units/volume)Ordered By: Chaim Galvan on 03-31-2024 TSH Qn 1.120 uIU/mL 0.358-3.740 [facility] T4 Free Directon 03-31-2024 T4 FREE DIRECT 1.42 ng/dL Normal 0.76-1.46 [facility] Comment on above: Performed By: #### L 501.9520, L506.0400, L100.0100 #### [facility] Laboratory [address] [place], [address] TSH QnOrdered By: Chaim Galvan on 03-31-2024 Thyroid Stimulating Hormone (TSH) 1.120 uIU/mL 0.358-3.740 [facility] Thyroid Stim Hormone (TSH)on 03-31-2024 TSH 1.120 uIU/mL Normal 0.358-3.740 [facility] Comment on above: Performed By: #### L 501.9520, L506.0400, L100.0100 #### [facility] [address] [facility] [place], [address] White blood cell (WBC) count Ordered By: Chaim Galvan on 03-31-2024 WBC (Bld) [#/Vol] 5.9 10*3/uL 4.4-11.0 [facility] 79-BH-Royuaub DOrdered By: Scott Galvan on 03-21-2024 Vitamin D 25-Hydroxy 47.7 ng/mL [facility] Comment on above: Vitamin D 25(OH) Sta tus Range Deficiency <20 ng/mL (50nmol/L) Insufficiency 20 - 30 ng/mL (50 - 75 nmol/L) Sufficiency 30 - 100 ng/mL (75 - 250 nmol/L) Toxicity >100 ng/mL (>250 nmol/L) Basic Metabolic Profile (BMP )on 03-21-2024 BUN/CRE 24.3 RATIO High 10-20 [facility] Comment on above: Performed By: #### L 500.4100, L500.2500, L506.1000 ####[facility] [address] [place], [address] CA,Total 8.8 mg/dL Normal 8.5-10.1 [facility] Comment on above: Performed By: #### L 500.4100, L500.2500, L506.1000 ####[facility] [address] [place], [address] Chloride [Moles/Vol] 104 mmol/L Normal 98-107 [facility] Comment on above: Performed By: #### L 500.4100, L500.2500, L506.1000 ####[facility] [address] [place], [address] CO2 [Moles/Vol] 26.0 mmol/L Normal 21.0-32.0 [facility] Comment on above: Performed By: #### L 500.4100, L500.2500, L506.1000 ####[facility] [address] [place], [address] Creatinine [Mass/Vol] 0.74 mg/dL Normal 0.55-1.02 [facility] Comment on above: Result Comment: The validity of the calculated GFR GFRAA in patients over 70 years has not been determined. Clinical correlation is essential. Performed By: #### L 500.4100, L500.2500, L506.1000 ####[facility] [address] [place], [address] EST GFR - AA 96 mL/min Normal >60 [facility] Comment on above: Result Comment: Afri can Afghan GFR Calc Performed By: #### L 500.4100, L500.2500, L506.1000 ####[facility] [address] [place], [address] GAP 6 Normal 5-15 [facility] Comment on above: Performed By: #### L 500.4100, L500.2500, L506.1000 ####[facility] [address] [place], [address] GFR/1.73 sq M.predicted among non-blacks MDRD (S/P/Bld) [Vol rate/Area] 79 mL/min/{1.73_m2} Normal >60 [facility] Comment on above: Result Comment: Non- GFR Calc Performed By: #### L 500.4100, L500.2500, L506.1000 ####[facility] [address] [place], [address] Glucose [Mass/Vol] 90 mg/dL Normal 74-106 [facility] Comment on above: Performed By: #### L 500.4100, L500.2500, L506.1000 ####[facility] [address] [place], [address] Potassium [Moles/Vol] 4.0 mmol/L Normal 3.5-5.1 [facility] Comment on above: Performed By: #### L 500.4100, L500.2500, L506.1000 ####[facility] [address] [place], [address] Sodium [Moles/Vol] 136 mmol/L Normal 136-145 [facility] Comment on above: Performed By: #### L 500.4100, L500.2500, L506.1000 ####[facility] [address] [place], [address] Urea nitrogen [Mass/Vol] 18 mg/dL Normal 7-18 [facility] Comment on above: Performed By: #### L 500.4100, L500.2500, L506.1000 ####[facility] [address] [place], [address] Blood urea nitrogen (BUN)/cr eatinine ratioOrdered By: Chaim Galvan on 03-21-2024 Urea nitrogen/Creatinine [Mass ratio] 24.3 mg/mg High 10-20 [facility] Carbon dioxide measurementOr dered By: Chaim Galvan on 03-21-2024 CO2 [Moles/Vol] 26.0 mmol/L 21.0-32.0 [facility] Chloride measurementOrdered By: Chaim Galvan on 03-21-2024 Chloride [Moles/Vol] 104 mmol/L 98-107 [facility] Estimated glomerular filtrat ion rate (GFR) AmericanOrdered By: Chaim Galvan on 03-21-2024 Estimated GFR (MDRD) Amer 96 mL/min >60 [facility] Comment on above: GFR Calc Glomerular filtration rate ( GFR) estimationOrdered By: Chaim Galvan on 03-21-2024 Estimated GFR (MDRD) Non-Af Amer 79 mL/min >60 [facility] Comment on above: Non- GFR Calc Glucose measurementOrdered B y: Chaim Galvan on 03-21-2024 Glucose [Mass/Vol] 90 mg/dL 74-106 [facility] High density lipoprotein (HD L) measurementOrdered By: Chaim Glavan on 03-21-2024 Cholesterol in HDL [Mass/Vol] 93 mg/dL >40 [facility] Comment on above: The drugs N-Acetylcy steine and Metamizole may falsely depress this assay. Reference Range HDL <40 mg/dL Low HDL Cholesterol HDL >or= 60 mg/dL High HDL Cholesterol Lipid Profileon 03-21-2024 Cholesterol [Mass/Vol] 178 mg/dL Normal 200 [facility] Comment on above: Result Comment: <200 mg/dL Desirable 200-240 mg/dL Borderline >240 mg/dL High Risk Performed By: #### L 500.4100, L500.2500, L506.1000 ####[facility] [address] [place], [address] Cholesterol in HDL [Mass/Vol] 93 mg/dL Normal [facility] Comment on above: Result Comment: The drugs N-Acetylcysteine and Metamizole may falsely depress this assay. Reference Range HDL <40 mg/dL Low HDL Cholesterol HDL >or= 60 mg/dL High HDL Cholesterol Performed By: #### L 500.4100, L500.2500, L506.1000 ####[facility] [address] [place], [address] Cholesterol in LDL [Mass/Vol] 79 mg/dL Normal 0-130 [facility] Comment on above: Performed By: #### L 500.4100, L500.2500, L506.1000 ####[facility] [address] [place], [address] Cholesterol in VLDL [Mass/Vol] 6 mg/dL Normal 5-40 [facility] Comment on above: Performed By: #### L 500.4100, L500.2500, L506.1000 ####[facility] [address] [place], [address] Triglyceride [Mass/Vol] 31 mg/dL Normal [facility] Comment on above: Result Comment: The drugs N-Acetylcysteine and Metamizole may falsely depress this assay. Serum Triglycerides Reference Interval Normal <150 mg/dL Borderline high 150 - 199 mg/dL High 200 - 499 mg/dL Very High > or = 500 mg/dL Performed By: #### L 500.4100, L500.2500, L506.1000 ####[facility] [address] [place], [address] Low density lipoprotein (LDL ) cholesterol measurementOrdered By: Chaim Galvan on 03-21-2024 Cholesterol in LDL [Mass/Vol] 79 mg/dL 0-130 [facility] Potassium measurementOrdered By: Chaim Galvan on 03-21-2024 Potassium [Moles/Vol] 4.0 mmol/L 3.5-5.1 [facility] SCRN MAMM (CAD)W/BIBI BILATo n 03-21-2024 SCRN MAMM (CAD)W/BIBI BILAT [facility] Imaging Services [address] [place] [address] SCRN MAMM (CAD)W/BIBI BILAT MR#: [id number] Acct: [id number] Name: VAISHALI MCDOWELL Rep #: [id number] : 1935 F 88 From: Wilson moreno MD PCP: Dr. Chaim Galvan MD Status: [facility] Study: SCRN MAMM (CAD)W/BIBI BILAT Date of Exam: 02/24 09/16 Exam# [id number] Ordering Dr: Chaim Galvan MD [id number] MAMMOGRAPHY - BILATERAL SCREENING REASON FOR EXAM: Female, 88 years old. Routine annual screening examination. PERTINENT HISTORY: Mother with breast cancer. Prior bilateral excisional breast biopsies. TECHNIQUE: Digital bilateral breast bibi (3D mammographic acquisition) in the CC and MLO projections. 2-D mediolateral oblique (MLO) and craniocaudad (CC) views of both breasts were obtained. CAD: Full Field Digital Mammography with Computer Added Detection was performed. COMPARISON: Comparison is made with prior study dated March 19, 2023 and January 28, 2022. FINDINGS: Breast Composition: The breasts are extremely dense, which lowers the sensitivity of mammography. There are no dominant masses or suspicious calcifications. No other significant abnormalities are identified. There has been no significant change since the prior study. BI/SCRN MAMM (CAD)W/BIBI BILAT IMPRESSION: Stable bilateral screening mammogram. Yearly follow-up mammogram recommended. (A) ASSESSMENT CATEGORY: BIRADS Category 1: Negative. A letter regarding these results will be sent to the patient by the facility within 30 days. Approximately 10% of breast cancers are not detected by mammography. A normal mammogram should not delay biopsy of a clinically suspicious abnormality. [id number] Electronically Signed: Wilson Green MD at 13:27 EST , CC: Dr. 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 Normal [facility] Serum anion gap measurementO rdered By: Chaim Galvan on 03-21-2024 Anion gap [Moles/Vol] 6 mmol/L 5-15 [facility] Serum or plasma calcium luis antonio urement (mass/volume)Ordered By: Chaim Galvan on 03-21-2024 Calcium [Mass/Vol] 8.8 mg/dL 8.5-10.1 [facility] Serum or plasma cholesterol measurement (mass/volume)Ordered By: Chaim Galvan on 03-21-2024 Cholesterol [Mass/Vol] 178 mg/dL <200 [facility] Comment on above: <200 mg/dL Desirable 200-240 mg/dL Borderline >240 mg/dL High Risk Serum or plasma creatinine m easurement (mass/volume)Ordered By: Chaim Galvan on 03-21-2024 Creatinine [Mass/Vol] 0.74 mg/dL 0.55-1.02 [facility] Comment on above: The validity of the calculated GFR & GFRAA in patients over 70 years has not been determined. Clinical correlation is essential. Serum or plasma urea nitroge n measurement (mass/volume)Ordered By: Chaim Galvan on 03-21-2024 Urea nitrogen [Mass/Vol] 18 mg/dL 7-18 [facility] Sodium levelOrdered By: Arturo Galvan on 03-21-2024 Sodium [Moles/Vol] 136 mmol/L 136-145 [facility] Triglycerides measurementOrd ered By: Chaim Galvan on 03-21-2024 Triglyceride [Mass/Vol] 31 mg/dL <199 [facility] Comment on above: The drugs N-Acetylcy steine and Metamizole may falsely depress this assay.Serum Triglycerides Reference Interval Normal <150 mg/dL Borderline high 150 - 199 mg/dL High 200 - 499 mg/dL Very High > or = 500 mg/dL Very low density lipoprotein (VLDL) cholesterol measurementOrdered By: Chaim Galvan on 03-21-2024 VLDL Cholesterol 6 mg/dL 5-40 [facility] Vitamin D,25 Hydroxyon 03-21 Vitamin D 25-OH 47.7 ng/mL Normal [facility] Comment on above: Result Comment: Evelyn min D 25(OH) Status Range Deficiency <20 ng/mL (50nmol/L) Insufficiency 20 - 30 ng/mL (50 - 75 nmol/L) Sufficiency 30 - 100 ng/mL (75 - 250 nmol/L) Toxicity >100 ng/mL (>250 nmol/L) Performed By: #### L 500.4100, L500.2500, L506.1000 ####[facility] [address] [place], [address] Internal Medicine Office Vis iton 12-31-2023 Internal Medicine Office Visit [facility] [address] [place] [address] [place] [address] OFFICE VISIT Date of Service: 12/31/23 MR#: [id number] Acct: [id number] Name: VAISHALI MCDOWELL Rep #: [id number] : 1935 Provider: Dr. Chaim salmeron MD Age/Sex: 88/F Location: [facility] Status: Signed Intake Vital Signs 09/28/23 13:29 12/02/23 11:17 12/31/23 14:08 Height 5 ft 6 in 5 ft 6 in 5 ft 6 in Weight: 128 lb BMI 20.6 BP 116/70 Blood Pressure Location Lt brachial Position Sitting Respiration 14 Pulse 64 Pulse Source Monitor Temp 97.9 F Temp Source Temporal Pulse Oximetry (%) 94 Oxygen Delivery Method room air Intake Visit Reasons: 3 M FU Chief Complaint: 3 M FU Typing Section Chief Required: No Is patient in pain?: No Allergies adhesive tape Allergy (Verified 12/31/23 14:01) Rash cephalexin (From Keflex) Allergy (Verified 12/31/23 14:01) Rash levofloxacin (From Levaquin) Allergy (Verified 12/31/23 14:01) Unknown Sulfa (Sulfonamide Antibiotics) Allergy (Verified 12/31/23 14:01) Unknown meloxicam Adverse Reaction (Verified 12/31/23 14:01) Diarrhea tizanidine Adverse Reaction (Verified 12/31/23 14:01) Vomiting Medications ???Medication ???Instructions ???Recorded ???Confirmed ???Type calcium carbonate 500 mg PO DAILY 01/25/15 12/31/23 History omega 1-lho-cxm-fish oil 1,200 mg 1 cap PO DAILY 10/19/19 12/31/23 History (144 mg-216 mg) capsule (Fish Oil) ascorbic acid (vitamin C) 500 mg 500 mg PO DAILY 12/13/21 12/31/23 History capsule albuterol sulfate 90 mcg/actuation 2 puff inhalation Q6H PRN Asthma 04/03/22 12/31/23 Rx aerosol inhaler #8.5 grams hydrocolloid dressing 6 X 6 #5 ea 05/29/22 12/31/23 Rx (Aquacel Extra) pantoprazole 40 mg tablet,delayed See Rx Instructions .Route 01/12/23 12/31/23 Rx release .COMPLEX #90 tabs apixaban 5 mg tablet 5 mg PO BID #180 tabs 02/09/23 12/31/23 Rx cholecalciferol (vitamin D3) 50 2,000 unit PO DAILY #90 tabs 03/19/23 12/31/23 Rx mcg (2,000 unit) tablet amiodarone 200 mg tablet 100 mg (1/2 x 200 mg) PO DAILY #45 05/15/23 12/31/23 Rx tabs amlodipine 5 mg tablet 5 mg PO DAILY #90 tabs 09/28/23 12/31/23 Rx metoprolol succinate 25 mg 25 mg PO DAILY #90 tabs 10/29/23 12/31/23 Rx tablet,extended release 24 hr alendronate 70 mg tablet See Rx Instructions .Route 11/05/23 12/31/23 Rx .COMPLEX #12 tabs budesonide-formotero l HFA 80 2 puff inhalation BID 12/02/23 12/31/23 History mcg-4.5 mcg/actuation aerosol inhaler (Symbicort) fluticasone propionate 50 See Rx Instructions .Route 12/28/23 12/31/23 Rx mcg/actuation nasal .COMPLEX #16 mL spray,suspension Have you fallen in the past year?: No [facility] Medical History (Updated 12/31/23 @ 16:[address] 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 PAF (paroxysmal atrial fibrillation) Persistent atrial fibrillation Essential hypertension Health care maintenance Atrial fibrillation Arrhythmia Urticaria Dermatitis Traumatic open wound of lower leg with delayed healing Wound of left lower extremity Right hip pain Flu vaccine need Hypertension Asthma Hearing loss History of pneumonia Osteopenia Hearing problem Goiter Generalized osteoarthrosis, unspecified site Bilateral breast cysts 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 Allergic reaction caused by a drug History of venous ulcer Surgical History History of cataract surgery History of cardioversion ( 01/09/22) H/O hemorrhoidectomy H/O: hysterectomy Family History Mother Asthma COPD (chronic obstructive pulmonary disease) Depression with anxiety Social History Smoking Status: Never smoker alcohol intake: never substance use type: does not use caffeine: Yes Type: coffee Number of servings: 5 what type of physical activity do you participate in: other details: gardening HPI HPI Chief Complaint: 3 M FU Details: VAISHALI MCDOWELL, is a 88 F who presents to the office today for follow-up of her chronic medical conditions. No acute concerns at this time. History of hypertension, blood pressure today at 116/70 mmHg. No chest pain, palpitation or shortness of breath. No syncopal or near syncopal episodes. Feels well. Also history of chronic venous insufficiency, she states that she has been wearing her compression stockings consistently. No recent ulcers/openings. Other chronic medical conditions are stable. ROS Const Constitutional: No body ache, chill (more content not included)... Normal [facility] 12 Lead EKG performed by [facility] on 12-02-2023 12 Lead EKG performed by [facility] [address] [place] [address] 12 Lead EKG performed by [facility] 12/02/23818 MR#: [id number] Acct: [id number] Name: VAISHALI MCDOWELL Rep #: [id number] : 1935 88 From: Mukul Muniz MD Attending Dr: Dr. Mukul Muniz MD Status: DE P AMB Ordering Dr: Mukul Muniz MD Date: 12/02/23 Location: [facility] Sex: F C Admitted: BMS/12 Lead EKG performed by [facility] ECG Report Interpretation ------Sinus Bradycardia -First degree A-V block - occasional PAC Ascencion = 220 # PACs = 1.-Old anteroseptal infarct. Low voltage -possible pulmonary disease. ABNORMAL Electronically signed on 12/02/2023 at 12:[address] Mukul Muniz [employer] Version [id number] 12/02/23 1226 Date Mukul Muniz MD CC: Dr. 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 [place] [address] OFFICE VISIT Date of Service: 12/02/23 MR#: [id number] Acct: [id number] Name: VAISHALI MCDOWELL Rep #: [id number] : 1935 Provider: Dr. Mukul burkett MD Age/Sex: 88/F Location: [facility] Status: Signed HPI HPI History of Present Illness Details: The patient is a pleasant 88-year-old white female who comes in with her for monitoring of her cardiovascular status. The patient carries a history of atrial fibrillation hypertension and venous insufficiency as well as asthma. She remotely had an unsuccessful cardioversion December 2021 was then instituted on amiodarone and spontaneously converted into sinus rhythm. She has remained on amiodarone since that point in time in 2021. Her presenting complaint was just profound fatigability with the atrial fibrillation. She has a blood pressure cuff which she takes her blood pressure about once a month and over the last week she has noticed that it has a shimmering heart on it which she historically had been indicative of atrial fibrillation. She took her blood pressure this morning at home it showed the same shimmering heart and an EKG done in the office today shows sinus bradycardia with a first- degree AV block and PACs. There is poor R wave progression and low voltage related to her asthma most likely. The patient has not noticed any of the profound fatigability that she had with atrial fibrillation in the past. The patient is very active doing yard work and going up and down the basement stairs 5-6 times a day without any change in her exercise tolerance. Patient's TSH in February 2023 was 1.05 within normal limits. Blood pressure in office today is well-controlled at 129/63 which is very similar to what it was in her home environment her heart rate is 54. The patient denies any syncope or near syncope denies any palpitations her only issue is this identification of the shimmering heart on her blood pressure cuff. Intake Vital Signs 09/28/23 13:29 12/02/23 11:07 12/02/23 11:17 Height 5 ft 6 in 5 ft 6 in 5 ft 6 in Weight: 128 lb 126 lb BMI 20.6 20.3 BP 130/72 H 129/63 H Blood Pressure Location Lt brachial Lt brachial Position Sitting Sitting Respiration 16 18 Pulse 58 L 54 L Pulse Source Monitor Monitor Temp 99.1 F Pulse Oximetry (%) 98 96 Oxygen Delivery Method room air room air Intake Visit Reasons: 9 M FU Typing Section Chief Required: No Is patient in pain?: No Allergies adhesive tape Allergy (Verified 12/02/23 11:09) Rash cephalexin (From Keflex) Allergy (Verified 12/02/23 11:09) Rash levofloxacin (From Levaquin) Allergy (Verified 12/02/23 11:09) Unknown Sulfa (Sulfonamide Antibiotics) Allergy (Verified 12/02/23 11:09) Unknown meloxicam Adverse Reaction (Verified 12/02/23 11:09) Diarrhea tizanidine Adverse Reaction (Verified 12/02/23 11:09) Vomiting Medications ???Medication ???Instructions ???Recorded ???Confirmed ???Type calcium carbonate 500 mg PO DAILY 01/25/15 12/02/23 History omega 0-edb-bby-fish oil 1,200 mg 1 cap PO DAILY 10/19/19 12/02/23 History (144 mg-216 mg) capsule (Fish Oil) ascorbic acid (vitamin C) 500 mg 500 mg PO DAILY 12/13/21 12/02/23 History capsule albuterol sulfate 90 mcg/actuation 2 puff inhalation Q6H PRN Asthma 04/03/22 12/02/23 Rx aerosol inhaler #8.5 grams hydrocolloid dressing 6 X 6 #5 ea 05/29/22 09/28/23 Rx (Aquacel Extra) pantoprazole 40 mg tablet,delayed See Rx Instructions .Route 01/12/23 12/02/23 Rx release .COMPLEX #90 tabs apixaban 5 mg tablet 5 mg PO BID #180 tabs 02/09/23 12/02/23 Rx cholecalciferol (vitamin D3) 50 2,000 unit PO DAILY #90 tabs 03/19/23 12/02/23 Rx mcg (2,000 unit) tablet amiodarone 200 mg tablet 100 mg (1/2 x 200 mg) PO DAILY #45 05/15/23 12/02/23 Rx tabs amlodipine 5 mg tablet 5 mg PO DAILY #90 tabs 09/28/23 12/02/23 Rx fluticasone propionate 50 See Rx Instructions .Route 09/28/23 12/02/23 Rx mcg/actuation nasal .COMPLEX #16 mL spray,suspension metoprolol succinate 25 mg 25 mg PO DAILY #90 tabs 10/29/23 12/02/23 Rx tablet,extended release 24 hr alendronate 70 mg tablet See Rx Instructions .Route 11/05/23 12/02/23 Rx .COMPLEX #12 tabs budesonide-formotero l HFA 80 2 puff inhalation BID 12/02/23 12/02/23 History mcg-4.5 mcg/actuation aerosol inhaler (Symbicort) Have you fallen in the past year?: No [facility] Medical History Rectal burning Burning with urination Hyponatremia Ulcer of right lower extremity with fat layer exposed Asthma exacerbation URI (upper respiratory infection) [facility] current use of amiodarone PAF (paroxysmal atrial fibrillation) Persistent atrial fibrillation (more content not included)... Normal [facility] CBC W/Diff, Automatedon 08-0 -2023 Absolute Lymph 0.93 X10 3/uL Normal 0.83-4.51 [facility] Comment on above: Performed By: #### L 500.4050, L100.0100 #### [facility] [address] [place], [address] Absolute Neut 3.7 X10 3/uL Normal 2.0-7.7 [facility] Comment on above: Performed By: #### L 500.4050, L100.0100 #### [facility] [address] [place], [address] Basophils/100 WBC (Bld) 0.4 % Normal 0-1 [facility] Comment on above: Performed By: #### L 500.4050, L100.0100 #### [facility] [address] [place], [address] Eosinophils/100 WBC (Bld) 1.3 % Normal 0-5 [facility] Comment on above: Performed By: #### L 500.4050, L100.0100 #### [facility] [address] [place], [address] Erythrocyte distribution width (RBC) [Ratio] 14.1 % Normal 11.6-14.6 [facility] Comment on above: Performed By: #### L 500.4050, L100.0100 #### [facility] [address] [place], [address] Hematocrit (Bld) [Volume fraction] 38.1 % Normal 37-47 [facility] [facility] Comment on above: Performed By: #### L 500.4050, L100.0100 #### [facility] [address] [place], [address] Hemoglobin (Bld) [Mass/Vol] 12.4 g/dL Normal 12.0-15.0 [facility] Comment on above: Performed By: #### L 500.4050, L100.0100 #### [facility] [address] [place], [address] IG% 0.200 Normal 0.0-0.9 [facility] Comment on above: Result Comment: IG% - Immature Granulocytes (promyelocytes, myelocytes and metamyelocytes) > 1% indicates that a LEFT SHIFT is Present. Performed By: #### L 500.4050, L100.0100 #### [facility] [address] [place], [address] Lymphocytes/100 WBC (Bld) 17.6 % Low 19-41 [facility] Comment on above: Performed By: #### L 500.4050, L100.0100 #### [facility] [address] [place], [address] MCH (RBC) [Entitic mass] 27.9 pg Normal 27.0-32.0 [facility] Comment on above: Performed By: #### L 500.4050, L100.0100 #### [facility] [address] [place], [address] MCHC (RBC) [Mass/Vol] 32.5 g/dL Normal 32-36 [facility] Comment on above: Performed By: #### L 500.4050, L100.0100 #### [facility] [address] [place], [address] MCV (RBC) [Entitic vol] 85.6 fL Normal 81-99 [facility] Comment on above: Performed By: #### L 500.4050, L100.0100 #### [facility] [address] [place], [address] Monocytes/100 WBC (Bld) 11.0 % High 0-10 [facility] Comment on above: Performed By: #### L 500.4050, L100.0100 #### [facility] [address] [place], [address] Neutrophils/100 WBC (Bld) 69.5 % Normal 47-70 [facility] Comment on above: Performed By: #### L 500.4050, L100.0100 #### [facility] [address] [place], [address] Nucleated RBC (Bld) [#/Vol] 0 10*3/uL Normal 0-5 [facility] Comment on above: Performed By: #### L 500.4050, L100.0100 #### [facility] [address] [place], [address] Platelet mean volume (Bld) [Entitic vol] 10.0 fL Normal 6.2-12.0 [facility] Comment on above: Performed By: #### L 500.4050, L100.0100 #### [facility] [address] [place], [address] Platelets (Bld) [#/Vol] 318 10*3/uL Normal 150-450 [facility] Comment on above: Performed By: #### L 500.4050, L100.0100 #### [facility] [address] [place], [address] RBC (Bld) [#/Vol] 4.45 10*6/uL Normal 4.2-5.4 [facility] Comment on above: Performed By: #### L 500.4050, L100.0100 #### [facility] [address] [place], [address] RDW SD 44.2 fl High 35.1-43.9 [facility] Comment on above: Performed By: #### L 500.4050, L100.0100 #### [facility] [address] [place], [address] WBC (Bld) [#/Vol] 5.3 10*3/uL Normal 4.4-11.0 [facility] Comment on above: Performed By: #### L 500.4050, L100.0100 #### [facility] [address] [place], [address] Comprehensive Metabolic Prof [facility] 09-28-2023 Albumin [Mass/Vol] 3.4 g/dL Normal 3.2-5.0 [facility] Comment on above: Performed By: #### L 500.4050, L100.0100 #### [facility] [address] [place], [address] Albumin/Globulin [Mass ratio] 1.1 {ratio} Normal 0.9-2.4 [facility] Comment on above: Performed By: #### L 500.4050, L100.0100 #### [facility] [address] [place], [address] ALK P 104 U/L Normal 45-117 [facility] Comment on above: Performed By: #### L 500.4050, L100.0100 #### [facility] [address] [place], [address] ALT [Catalytic activity/Vol] 43 U/L Normal 13-56 [facility] Comment on above: Performed By: #### L 500.4050, L100.0100 #### [facility] [address] [place], [address] AST [Catalytic activity/Vol] 34 U/L Normal 15-37 [facility] Comment on above: Performed By: #### L 500.4050, L100.0100 #### [facility] [address] [place], [address] Bilirubin [Mass/Vol] 0.30 mg/dL Normal 0.20-1.00 [facility] Comment on above: Result Comment: For patients on eltrombopag therapy, use of Dimension [place] TBIL is not recommended. Performed By: #### L 500.4050, L100.0100 #### [facility] [address] [place], [address] BUN/CRE 21.0 RATIO High 10-20 [facility] Comment on above: Performed By: #### L 500.4050, L100.0100 #### [facility] [address] [place], [address] CA,Total 8.4 mg/dL Low 8.5-10.1 [facility] Comment on above: Performed By: #### L 500.4050, L100.0100 #### [facility] [address] [place], [address] Chloride [Moles/Vol] 104 mmol/L Normal 98-107 [facility] Comment on above: Performed By: #### L 500.4050, L100.0100 #### [facility] [address] [place], [address] CO2 [Moles/Vol] 28.0 mmol/L Normal 21.0-32.0 [facility] Comment on above: Performed By: #### L 500.4050, L100.0100 #### [facility] [address] [place], [address] Creatinine [Mass/Vol] 0.72 mg/dL Normal 0.55-1.02 [facility] Comment on above: Result Comment: The validity of the calculated GFR GFRAA in patients over 70 years has not been determined. Clinical correlation is essential. Performed By: #### L 500.4050, L100.0100 #### [facility] [address] [place], [address] EST GFR - AA 100 mL/min Normal >60 [facility] Comment on above: Result Comment: Afri can Afghan GFR Calc Performed By: #### L 500.4050, L100.0100 #### [facility] [address] [place], [address] GAP 3 Low 5-15 [facility] Comment on above: Performed By: #### L 500.4050, L100.0100 #### [facility] [address] [place], [address] GFR/1.73 sq M.predicted among non-blacks MDRD (S/P/Bld) [Vol rate/Area] 82 mL/min/{1.73_m2} Normal >60 [facility] Comment on above: Result Comment: Non- GFR Calc Performed By: #### L 500.4050, L100.0100 #### [facility] [address] [place], [address] Globulin (S) [Mass/Vol] 3.2 g/dL Normal 2.2-4.2 [facility] Comment on above: Performed By: #### L 500.4050, L100.0100 #### [facility] [address] [place], [address] Glucose [Mass/Vol] 90 mg/dL Normal 74-106 [facility] Comment on above: Performed By: #### L 500.4050, L100.0100 #### [facility] [address] [place], [address] Potassium [Moles/Vol] 4.1 mmol/L Normal 3.5-5.1 [facility] Comment on above: Performed By: #### L 500.4050, L100.0100 #### [facility] [address] [place], [address] Sodium [Moles/Vol] 135 mmol/L Low 136-145 [facility] Comment on above: Performed By: #### L 500.4050, L100.0100 #### [facility] [address] [place], [address] T PROT 6.6 g/dL Normal 6.4-8.2 [facility] Comment on above: Performed By: #### L 500.4050, L100.0100 #### [facility] [address] [place], [address] Urea nitrogen [Mass/Vol] 15 mg/dL Normal 7-18 [facility] Comment on above: Performed By: #### L 500.4050, L100.0100 #### [facility] [address] [place], [address] Internal Medicine Office Vis iton 09-28-2023 Internal Medicine Office Visit [facility] [address] [place], [place] [address] OFFICE VISIT Date of Service: 09/28/23 MR#: [id number] Acct: [id number] Name: VAISHALI MCDOWELL Rep #: [id number] : 1935 Provider: Dr. Chaim salmeron MD Age/Sex: 87/F Location: [facility] Status: Signed Intake Vital Signs 06/18/23 15:02 09/28/23 13:29 Height 5 ft 6 in 5 ft 6 in Weight: 128 lb BMI 20.6 BP 130/72 H Blood Pressure Location Lt brachial Position Sitting Respiration 16 Pulse 58 L Pulse Source Monitor Temp 99.1 F Temp Source Temporal Pulse Oximetry (%) 98 Oxygen Delivery Method room air Intake Visit Reasons: 3 M FU Chief Complaint: 3 M FU Typing Section Chief Required: No Is patient in pain?: No Allergies adhesive tape Allergy (Verified 09/28/23 13:22) Rash cephalexin (From Keflex) Allergy (Verified 09/28/23 13:22) Rash levofloxacin (From Levaquin) Allergy (Verified 09/28/23 13:22) Unknown Sulfa (Sulfonamide Antibiotics) Allergy (Verified 09/28/23 13:22) Unknown meloxicam Adverse Reaction (Verified 09/28/23 13:22) Diarrhea tizanidine Adverse Reaction (Verified 09/28/23 13:22) Vomiting Medications ???Medication ???Instructions ???Recorded ???Confirmed ???Type calcium carbonate 500 mg PO DAILY 01/25/15 09/28/23 History omega 4-lxq-iml-fish oil 1,200 mg 1 cap PO DAILY 10/19/19 09/28/23 History (144 mg-216 mg) capsule (Fish Oil) ascorbic acid (vitamin C) 500 mg 500 mg PO DAILY 12/13/21 09/28/23 History capsule albuterol sulfate 90 mcg/actuation 2 puff inhalation Q6H PRN Asthma 04/03/22 09/28/23 Rx aerosol inhaler #8.5 grams hydrocolloid dressing 6 X 6 #5 ea 05/29/22 09/28/23 Rx (Aquacel Extra) pantoprazole 40 mg tablet,delayed See Rx Instructions .Route 01/12/23 09/28/23 Rx release .COMPLEX #90 tabs apixaban 5 mg tablet 5 mg PO BID #180 tabs 02/09/23 09/28/23 Rx metoprolol succinate 25 mg 25 mg PO DAILY #90 tabs 03/11/23 09/28/23 Rx tablet,extended release 24 hr cholecalciferol (vitamin D3) 50 2,000 unit PO DAILY #90 tabs 03/19/23 09/28/23 Rx mcg (2,000 unit) tablet fluticasone propionate 115 2 puff inhalation Q12H #12 grams 03/19/23 09/28/23 Rx mcg-salmeterol 21 mcg/actuation HFA inhaler (Advair HFA) alendronate 70 mg tablet See Rx Instructions .Route 03/26/23 09/28/23 Rx .COMPLEX #12 tabs amiodarone 200 mg tablet 100 mg (1/2 x 200 mg) PO DAILY #45 05/15/23 09/28/23 Rx tabs amlodipine 5 mg tablet 5 mg PO DAILY #90 tabs 09/28/23 09/28/23 Rx fluticasone propionate 50 See Rx Instructions .Route 09/28/23 09/28/23 Rx mcg/actuation nasal .COMPLEX #16 mL spray,suspension Have you fallen in the past year?: No [facility] Medical History (Updated 09/28/23 @ 14:[address] 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 PAF (paroxysmal atrial fibrillation) Persistent atrial fibrillation Essential hypertension Health care maintenance Atrial fibrillation Arrhythmia Urticaria Dermatitis Traumatic open wound of lower leg with delayed healing Wound of left lower extremity Right hip pain Flu vaccine need Hypertension Asthma Hearing loss History of pneumonia Osteopenia Hearing problem Goiter Generalized osteoarthrosis, unspecified site Bilateral breast cysts 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 Allergic reaction caused by a drug History of venous ulcer Surgical History History of cataract surgery History of cardioversion ( 01/09/22) H/O hemorrhoidectomy H/O: hysterectomy Family History Mother Asthma COPD (chronic obstructive pulmonary disease) Depression with anxiety Social History Smoking Status: Never smoker alcohol intake: never substance use type: does not use caffeine: Yes Type: coffee Number of servings: 5 what type of physical activity do you participate in: other details: gardening HPI HPI Chief Complaint: 3 M FU Details: VAISHALI MCDOWELL, is a 87 F who presents to the office today for follow-up. Also has some concerns. She reports some irritation in her rectal area. This happens typically when she urinates. Feels a burning sensation. No significant concerns with constipation with consistent use of Metamucil. Prior history of hemorrhoids status post hemorrhoidectomy. No blood in her stool. Other chronic medical conditions are stable. Blood pressure today at 130/72 mmHg. She would like a refill on amlodipine. No chest pain, palpitation or shortness of breath. ROS Const Constit (more content not included)... Normal [facility] Basophil percentageOrdered B y: Chaim Galvan on 03-19-2023 Basophil percentage 50-100 SEEN /hpf 0-5 [facility] Chloride [Moles/Vol] 102 mmol/L 98-107 [facility] Glucose [Mass/Vol] 113 mg/dL 74-106 [facility] Comment on above: Fasting Glucose resu lt from 100 to 125 mg/dL suggests IMPAIRED HOMEOSTASIS per A.D.A. criteria. Potassium [Moles/Vol] 4.1 mmol/L 3.5-5.1 [facility] Sodium [Moles/Vol] 134 mmol/L 136-145 [facility] Basophil percentageOrdered B y: Charleen Doe on 03-19-2023 Bilirubin [Mass/Vol] 0.40 mg/dL 0.20-1.00 [facility] Comment on above: For patients on eltr ombopag therapy, use of Dimension [place] TBIL is not recommended. Protein [Mass/Vol] 6.8 g/dL 6.4-8.2 [facility] Bilirubin Test strip Ql (U)O rdered By: Chaim Galvan on 03-19-2023 Bilirubin Ql (U) Negative Negative [facility] Culture, urineOrdered By: Michael Galvan on 03-19-2023 Bacteria identified Cx Nom (U) Escherichia coli [facility] Direct bilirubinOrdered By: Charleen Doe on 03-19-2023 Bilirubin.direct [Mass/Vol] 0.10 mg/dL 0.00-0.30 [facility] Ketones Test strip Ql (U)Ord ered By: Chaim Galvan on 03-19-2023 Ketones Ql (U) Negative Negative [facility] - Chemistry and C hemistry - challengeOrdered By: Charleen Doe on 03-19-2023 ALP [Catalytic activity/Vol] 102 U/L 45-117 [facility] ALT [Catalytic activity/Vol] 34 U/L 13-56 [facility] Globulin (S) [Mass/Vol] 3.2 g/dL 2.2-4.2 [facility] - Chemistry and C hemistry - challengeOrdered By: Chaim Galvan on 03-19-2023 CO2 [Moles/Vol] 27.0 mmol/L 21.0-32.0 [facility] Urea nitrogen/Creatinine [Mass ratio] 23.2 mg/mg 10-20 [facility] Mucus LM Ql (Urine sed)Order ed By: Chaim Galvan on 03-19-2023 Mucus Ql (Urine sed) 0 SEEN /hpf [facility] Nitrite Test strip Ql (U)Ord ered By: Chaim Galvan on 03-19-2023 Nitrite Ql (U) Positive Negative [facility] No Panel InformationOrdered By: Chaim Galvan on 03-19-2023 Urine RBC 0 SEEN /hpf 0-5 [facility] Estimated GFR (MDRD) Amer 80 mL/min >60 [facility] Comment on above: GFR Calc Estimated GFR (MDRD) Non-Af Amer 66 mL/min >60 [facility] Comment on above: Non- GFR Calc Vitamin D 25-Hydroxy 37.0 ng/mL [facility] Comment on above: Vitamin D 25(OH) Sta tus Range Deficiency <20 ng/mL (50nmol/L) Insufficiency 20 - 30 ng/mL (50 - 75 nmol/L) Sufficiency 30 - 100 ng/mL (75 - 250 nmol/L) Toxicity >100 ng/mL (>250 nmol/L) Protein Test strip Ql (U)Ord ered By: Chaim Galvan on 03-19-2023 Protein Ql (U) 15 mg/dl Negative [facility] Serum or plasma calcium luis antonio urement (mass/volume)Ordered By: Chaim Galvan on 03-19-2023 Calcium [Mass/Vol] 9.2 mg/dL 8.5-10.1 [facility] Serum or plasma creatinine m easurement (mass/volume)Ordered By: Chaim Galvan on 03-19-2023 Creatinine [Mass/Vol] 0.86 mg/dL 0.55-1.02 [facility] Comment on above: The validity of the calculated GFR & GFRAA in patients over 70 years has not been determined. Clinical correlation is essential. Serum or plasma thyroid stim ulating hormone (TSH) measurement (units/volume)Ordered By: Charleen Doe on 03-19-2023 TSH Qn 1.05 uIU/mL 0.358-3.74 [facility] Serum or plasma urea nitroge n measurement (mass/volume)Ordered By: Chaim Galvan on 03-19-2023 Urea nitrogen [Mass/Vol] 20 mg/dL 7-18 [facility] Squamous epithelial cells de tection in urine sediment by light microscopyOrdered By: Chaim Galvan on 03-19-2023 Epithelial cells.squamous LM Ql (Urine sed) 0-5 SEEN /hpf 5-10 [facility] Thin prep Papanicolaou smear with manual screeningOrdered By: Charleen Doe on 03-19-2023 Thin prep Papanicolaou smear with manual screening 3.6 g/dL 3.2-5.0 [facility] Thin prep Papanicolaou smear with manual screening 24 U/L 15-37 [facility] Thin prep Papanicolaou smear with manual screeningOrdered By: Chaim Galvan on 03-19-2023 Thin prep Papanicolaou smear with manual screening 5 5-15 [facility] Urine blood detectionOrdered By: Chaim Galvan on 03-19-2023 RBC Ql (U) 10 /ul Negative [facility] Urine clarityOrdered By: Isai Galvan on 03-19-2023 Clarity (U) Sl. Cloudy Clear [facility] Urine color determinationOrd ered By: Chaim Galvan on 03-19-2023 Color (U) Yellow Yellow [facility] Urine glucose detectionOrder ed By: Chaim Galvan on 03-19-2023 Glucose Ql (U) Normal mg/dl Normal [facility] Urine leukocyte esterase det ection by dipstickOrdered By: Chaim Galvan on 03-19-2023 Leukocyte esterase Test strip Ql (U) 500 /ul Negative [facility] Urine pHOrdered By: Aurora Galvan on 03-19-2023 pH (U) 6.0 [pH] 5.0 - 8.0 [facility] Urine sediment bacteria coun t by microscopy (number/high power field)Ordered By: Chaim Galvan on 03-19-2023 Bacteria LM.HPF (Urine sed) [#/Area] 1 /[HPF] None Seen [facility] Urine specific gravity measu rementOrdered By: Chaim Galavn on 03-19-2023 Specific gravity (U) [Rel density] 1.020 1.002-1.030 [facility] Urine urobilinogen measureme ntOrdered By: Chaim Galvan on 03-19-2023 Urobilinogen Ql (U) Normal mg/dl Normal [facility] Basophil percentageOrdered B y: Chaim Galvan on 12-18-2022 Chloride [Moles/Vol] 101 mmol/L 98-107 [facility] Glucose [Mass/Vol] 88 mg/dL 74-106 [facility] Potassium [Moles/Vol] 4.1 mmol/L 3.5-5.1 [facility] Sodium [Moles/Vol] 135 mmol/L 136-145 [facility] - Chemistry and C hemistry - challengeOrdered By: Chaim Galvan on 12-18-2022 CO2 [Moles/Vol] 28.0 mmol/L 21.0-32.0 [facility] Urea nitrogen/Creatinine [Mass ratio] 25.1 mg/mg 10- [facility] No Panel InformationOrdered By: Chaim Galvan on 12-18-2022 Estimated GFR (MDRD) Amer 83 mL/min >60 [facility] Comment on above: GFR Calc Estimated GFR (MDRD) Non-Af Amer 69 mL/min >60 [facility] Comment on above: Non- GFR Calc Serum or plasma calcium luis antonio urement (mass/volume)Ordered By: Chaim Galvan on 12-18-2022 Calcium [Mass/Vol] 8.4 mg/dL 8.5-10.1 [facility] Serum or plasma creatinine m easurement (mass/volume)Ordered By: Chaim Galvan on 12-18-2022 Creatinine [Mass/Vol] 0.84 mg/dL 0.55-1.02 [facility] Comment on above: The validity of the calculated GFR & GFRAA in patients over 70 years has not been determined. Clinical correlation is essential. Serum or plasma urea nitroge n measurement (mass/volume)Ordered By: Arturogaryrosetta Galvan on 12-18-2022 Urea nitrogen [Mass/Vol] 21 mg/dL 7-18 [facility] Thin prep Papanicolaou smear with manual screeningOrdered By: Arturojoy Cole on 12-18-2022 Thin prep Papanicolaou smear with manual screening 6 5-15 [facility] Thin prep Papanicolaou smear with manual screening 283 mOsm/KG 280-301 [facility] Urine osmolality measurement Ordered By: Chaim Galvan on 12-18-2022 Osmolality (U) [Osmolality] 312 mOsm/KG >50 [facility] Comment on above: Normal Urine Referen ce Ranges Random: 50 - 1200 mOsm/kg H20 depending on fluid intake Random: >850 mOsm/kg after 12 hour fluid restriction 24 hour: ~300 - 900 mOsm/kg H2O Absolute lymphocyte countOrd ered By: Michaelpayalgaryrosetta Galvan on 12-12-2022 Lymphocytes Auto (Unsp spec) [#/Vol] 0.81 10*3/uL 0.83-4.51 [facility] Basophil percentageOrdered B y: Chaim Cole on 12-12-2022 Basophils/100 WBC (Bld) 0.5 % 0-1 [facility] Chloride [Moles/Vol] 100 mmol/L 98-107 [facility] Cholesterol [Mass/Vol] 154 mg/dL <200 [facility] Comment on above: <200 mg/dL Desirable 200-240 mg/dL Borderline >240 mg/dL High Risk Eosinophils/100 WBC (Bld) 1.5 % 0-5 [facility] Glucose [Mass/Vol] 98 mg/dL 74-106 [facility] Neutrophils (Bld) [#/Vol] 4.8 10*3/uL 2.0-7.7 [facility] Neutrophils/100 WBC (Bld) 74.1 % 47-70 [facility] Potassium [Moles/Vol] 5.0 mmol/L 3.5-5.1 [facility] Sodium [Moles/Vol] 132 mmol/L 136-145 [facility] Triglyceride [Mass/Vol] 102 mg/dL <199 [facility] Comment on above: The drugs N-Acetylcy steine and Metamizole may falsely depress this assay.Serum Triglycerides Reference Interval Normal <150 mg/dL Borderline high 150 - 199 mg/dL High 200 - 499 mg/dL Very High > or = 500 mg/dL WBC (Bld) [#/Vol] 6.5 10*3/uL 4.4-11.0 [facility] Blood erythrocytes count (nu mber/volume)Ordered By: Chaim Galvan on 12-12-2022 RBC (Bld) [#/Vol] 4.49 10*6/uL 4.2-5.4 [facility] Blood hemoglobin measurement (mass/volume)Ordered By: Chaim Galvan on 12-12-2022 Hemoglobin (Bld) [Mass/Vol] 12.9 g/dL 12.0-15.0 [facility] Blood lymphocytes/100 leukoc ytesOrdered By: Chaim Galvan on 12-12-2022 Lymphocytes/100 WBC (Bld) 12.4 % 19-41 [facility] Blood monocytes/100 leukocyt esOrdered By: avila Galvan on 12-12-2022 Monocytes/100 WBC (Bld) 11.3 % 0-10 [facility] Blood platelet mean volumeOr dered By: Chaim Galvan on 12-12-2022 Platelet mean volume (Bld) [Entitic vol] 10.0 fL 6.2-12.0 [facility] Determination of erythrocyte mean corpuscular volume (MCV)Ordered By: Chaim Galvan on 12-12-2022 MCV (RBC) [Entitic vol] 88.0 fL 81-99 [facility] Hematocrit Auto (Bld) [Volum e fraction]Ordered By: Chaim Galvan on 12-12-2022 Hematocrit (Bld) [Volume fraction] 39.5 % 37-47 [facility] - Chemistry and C hemistry - challengeOrdered By: Chaim Galvan on 12-12-2022 CO2 [Moles/Vol] 27.0 mmol/L 21.0-32.0 [facility] Urea nitrogen/Creatinine [Mass ratio] 22.7 mg/mg 12-12 [facility] - Hematology and Cell countsOrdered By: Chaim Galvan on 12-12-2022 Erythrocyte distribution width (RBC) [Entitic vol] 47.1 fL 35.1-43.9 [facility] Erythrocyte distribution width (RBC) [Ratio] 14.6 % 11.6-14.6 [facility] Immature granulocytes/100 WBC (Bld) 0.200 % 0.0-0.9 [facility] Comment on above: IG% - Immature Granu locytes (promyelocytes, myelocytes and metamyelocytes) > 1% indicates that a LEFT SHIFT is Present. MCH (RBC) [Entitic mass] 28.7 pg 27.0-32.0 [facility] Nucleated RBC/100 WBC (Bld) [Ratio] 0 % 0-5 [facility] [facility] MCHC Auto (RBC) [Mass/Vol]Or dered By: Chaim Galvan on 12-12-2022 MCHC (RBC) [Mass/Vol] 32.7 g/dL 32-36 [facility] No Panel InformationOrdered By: Chaim Galvan on 12-12-2022 Estimated GFR (MDRD) Amer 79 mL/min >60 [facility] Comment on above: GFR Calc Estimated GFR (MDRD) Non-Af Amer 65 mL/min >60 [facility] Comment on above: Non- GFR Calc Platelets bldOrdered By: Isai Galvan on 12-12-2022 Platelets (Bld) [#/Vol] 310 10*3/uL 150-450 [facility] Serum or plasma calcium luis antonio urement (mass/volume)Ordered By: Chaim Galvan on 12-12-2022 Calcium [Mass/Vol] 9.2 mg/dL 8.5-10.1 [facility] Serum or plasma cholesterol in HDL measurement (mass/volume)Ordered By: Chaim Galvan on 12-12-2022 Cholesterol in HDL [Mass/Vol] 56 mg/dL >40 [facility] Comment on above: The drugs N-Acetylcy steine and Metamizole may falsely depress this assay. Reference Range HDL <40 mg/dL Low HDL Cholesterol HDL >or= 60 mg/dL High HDL Cholesterol Serum or plasma cholesterol in VLDL measurement (mass/volume)Ordered By: Chaim Galvan on 12-12-2022 Cholesterol in VLDL [Mass/Vol] 20 mg/dL 5-40 [facility] Serum or plasma creatinine m easurement (mass/volume)Ordered By: Chaim Galvan on 12-12-2022 Creatinine [Mass/Vol] 0.88 mg/dL 0.55-1.02 [facility] Comment on above: The validity of the calculated GFR & GFRAA in patients over 70 years has not been determined. Clinical correlation is essential. Serum or plasma low density lipoprotein (LDL) cholesterol measurement (mass/volume)Ordered By: Chaim Galvan on 12-12-2022 Cholesterol in LDL [Mass/Vol] 78 mg/dL 0-130 [facility] Serum or plasma urea nitroge n measurement (mass/volume)Ordered By: Chaim Galvan on 12-12-2022 Urea nitrogen [Mass/Vol] 20 mg/dL 7-18 [facility] Thin prep Papanicolaou smear with manual screeningOrdered By: Chaim Galvan on 12-12-2022 Thin prep Papanicolaou smear with manual screening 5 5-15 [facility] Basophil percentageOrdered B y: Charleen Doe on 08-27-2022 Bilirubin [Mass/Vol] 0.30 mg/dL 0.20-1.00 [facility] Comment on above: For patients on eltr ombopag therapy, use of Dimension [place] TBIL is not recommended. Protein [Mass/Vol] 7.1 g/dL 6.4-8.2 [facility] Direct bilirubinOrdered By: Charleen Doe on 08-27-2022 Bilirubin.direct [Mass/Vol] 0.10 mg/dL 0.00-0.30 [facility] Laboratory - Chemistry and C hemistry - challengeOrdered By: Charleen Doe on 08-27-2022 ALP [Catalytic activity/Vol] 123 U/L 45-117 [facility] ALT [Catalytic activity/Vol] 45 U/L 13-56 [facility] Free T4 [Mass/Vol] 1.46 ng/dL 0.76-1.46 [facility] Globulin (S) [Mass/Vol] 3.4 g/dL 2.2-4.2 [facility] No Panel InformationOrdered By: Charleen Doe on 08-27-2022 Free Triiodothyronine (T3) pg/dL 2.1 pg/mL 2.18-3.98 [facility] Thyroid Stimulating Hormone (TSH) 1.09 uIU/mL 0.358-3.74 [facility] Serum or plasma albumin luis antonio urement (mass/volume)Ordered By: Charleen Doe on 08-27-2022 Albumin [Mass/Vol] 3.7 g/dL 3.2-5.0 [facility] Thin prep Papanicolaou smear with manual screeningOrdered By: Charleen Doe on 08-27-2022 Thin prep Papanicolaou smear with manual screening 31 U/L 15-37 [facility] Basophil percentageOrdered B y: Charleen Doe on 02-19-2022 Chloride [Moles/Vol] 100 mmol/L 98-107 [facility] Glucose [Mass/Vol] 96 mg/dL 74-106 [facility] Potassium [Moles/Vol] 4.4 mmol/L 3.5-5.1 [facility] Sodium [Moles/Vol] 135 mmol/L 136-145 [facility] Laboratory - Chemistry and C hemistry - challengeOrdered By: Charleen Doe on 02-19-2022 CO2 [Moles/Vol] 29.0 mmol/L 21.0-32.0 [facility] Urea nitrogen/Creatinine [Mass ratio] 23.1 mg/mg 10-20 [facility] No Panel InformationOrdered By: Charleen Doe on 02-19-2022 Estimated GFR (MDRD) Amer 76 mL/min >60 [facility] Comment on above: GFR Calc Estimated GFR (MDRD) Non-Af Amer 63 mL/min >60 [facility] Comment on above: Non- GFR Calc Serum or plasma calcium luis antonio urement (mass/volume)Ordered By: Charleen Doe on 02-19-2022 Calcium [Mass/Vol] 9.1 mg/dL 8.5-10.1 [facility] Serum or plasma creatinine m easurement (mass/volume)Ordered By: Charleen Doe on 02-19-2022 Creatinine [Mass/Vol] 0.91 mg/dL 0.55-1.02 [facility] Comment on above: The validity of the calculated GFR & GFRAA in patients over 70 years has not been determined. Clinical correlation is essential. Serum or plasma urea nitroge n measurement (mass/volume)Ordered By: Charleen Doe on 02-19-2022 Urea nitrogen [Mass/Vol] 21 mg/dL 7-18 [facility] Thin prep Papanicolaou smear with manual screeningOrdered By: Charleen Doe on 02-19-2022 Thin prep Papanicolaou smear with manual screening 6 5-15 [facility] Basophil percentageOrdered B y: Dr. Hidalgo on 01-14-2022 Chloride [Moles/Vol] 102 mmol/L 98-107 [facility] Glucose [Mass/Vol] 88 mg/dL 74-106 [facility] Potassium [Moles/Vol] 4.4 mmol/L 3.5-5.1 [facility] Sodium [Moles/Vol] 136 mmol/L 136-145 [facility] Laboratory - Chemistry and C hemistry - challengeOrdered By: Dr. Hidalgo on 01-14-2022 CO2 [Moles/Vol] 29.0 mmol/L 21.0-32.0 [facility] Urea nitrogen/Creatinine [Mass ratio] 20.5 mg/mg 10-20 [facility] No Panel InformationOrdered By: Dr. Hidalgo on 01-14-2022 Estimated GFR (MDRD) Amer 90 mL/min >60 [facility] Comment on above: GFR Calc Estimated GFR (MDRD) Non-Af Amer 75 mL/min >60 [facility] Comment on above: Non- GFR Calc Serum or plasma calcium luis antonio urement (mass/volume)Ordered By: Dr. Hidalgo on 01-14-2022 Calcium [Mass/Vol] 9.5 mg/dL 8.5-10.1 [facility] Serum or plasma creatinine m easurement (mass/volume)Ordered By: Dr. Hidalgo on 01-14-2022 Creatinine [Mass/Vol] 0.78 mg/dL 0.55-1.02 [facility] Comment on above: The validity of the calculated GFR & GFRAA in patients over 70 years has not been determined. Clinical correlation is essential. Serum or plasma urea nitroge n measurement (mass/volume)Ordered By: Dr. Hidalgo on 01-14-2022 Urea nitrogen [Mass/Vol] 16 mg/dL 7-18 [facility] Thin prep Papanicolaou smear with manual screeningOrdered By: Dr. Hidalgo on 01-14-2022 Thin prep Papanicolaou smear with manual screening 5 5-15 [facility] Absolute lymphocyte countOrd ered By: Dr. Galvan on 11-19-2021 Lymphocytes Auto (Unsp spec) [#/Vol] 1.19 10*3/uL 0.83-4.51 [facility] Basophil percentageOrdered B y: Dr. Galvan on 11-19-2021 Basophils/100 WBC (Bld) 1.0 % 0-1 [facility] Bilirubin [Mass/Vol] 0.50 mg/dL 0.20-1.00 [facility] Comment on above: For patients on eltr ombopag therapy, use of Dimension [place] TBIL is not recommended. Chloride [Moles/Vol] 102 mmol/L 98-107 [facility] Cholesterol [Mass/Vol] 154 mg/dL <200 [facility] Comment on above: <200 mg/dL Desirable 200-240 mg/dL Borderline >240 mg/dL High Risk Eosinophils/100 WBC (Bld) 3.0 % 0-5 [facility] Glucose [Mass/Vol] 75 mg/dL 74-106 [facility] Neutrophils (Bld) [#/Vol] 3.7 10*3/uL 2.0-7.7 [facility] Neutrophils/100 WBC (Bld) 63.7 % 47-70 [facility] Potassium [Moles/Vol] 4.6 mmol/L 3.5-5.1 [facility] Protein [Mass/Vol] 7.0 g/dL 6.4-8.2 [facility] Sodium [Moles/Vol] 135 mmol/L 136-145 [facility] Triglyceride [Mass/Vol] 72 mg/dL <199 [facility] Comment on above: The drugs N-Acetylcy steine and Metamizole may falsely depress this assay.Serum Triglycerides Reference Interval Normal <150 mg/dL Borderline high 150 - 199 mg/dL High 200 - 499 mg/dL Very High > or = 500 mg/dL WBC (Bld) [#/Vol] 5.7 10*3/uL 4.4-11.0 [facility] Blood erythrocytes count (nu mber/volume)Ordered By: Dr. Galvan on 11-19-2021 RBC (Bld) [#/Vol] 4.57 10*6/uL 4.2-5.4 [facility] Blood hemoglobin measurement (mass/volume)Ordered By: Dr. Galvan on 11-19-2021 Hemoglobin (Bld) [Mass/Vol] 13.9 g/dL 12.0-15.0 [facility] Blood lymphocytes/100 leukoc ytesOrdered By: Dr. Galvan on 11-19-2021 Lymphocytes/100 WBC (Bld) 20.8 % 19-41 [facility] Blood monocytes/100 leukocyt esOrdered By: Dr. Galvan on 11-19-2021 Monocytes/100 WBC (Bld) 11.3 % 0-10 [facility] Blood platelet mean volumeOr dered By: Dr. Galvan on 11-19-2021 Platelet mean volume (Bld) [Entitic vol] 9.9 fL 6.2-12.0 [facility] Determination of erythrocyte mean corpuscular volume (MCV)Ordered By: Dr. Galvan on 11-19-2021 MCV (RBC) [Entitic vol] 90.8 fL 81-99 [facility] Hematocrit Auto (Bld) [Volum e fraction]Ordered By: Dr. Galvan on 11-19-2021 Hematocrit (Bld) [Volume fraction] 41.5 % 37-47 [facility] Laboratory - Chemistry and C hemistry - challengeOrdered By: Dr. Galvan on 11-19-2021 Free T4 [Mass/Vol] 1.23 ng/dL 0.76-1.46 [facility] ALP [Catalytic activity/Vol] 105 U/L 45-117 [facility] ALT [Catalytic activity/Vol] 39 U/L 13-56 [facility] CO2 [Moles/Vol] 29.0 mmol/L 21.0-32.0 [facility] Globulin (S) [Mass/Vol] 3.4 g/dL 2.2-4.2 [facility] Urea nitrogen/Creatinine [Mass ratio] 25.0 mg/mg 10-20 [facility] Laboratory - Hematology and Cell countsOrdered By: Dr. Galvan on 11-19-2021 Erythrocyte distribution width (RBC) [Entitic vol] 44.1 fL 35.1-43.9 [facility] Erythrocyte distribution width (RBC) [Ratio] 13.2 % 11.6-14.6 [facility] Immature granulocytes/100 WBC (Bld) 0.200 % 0.0-0.9 [facility] Comment on above: IG% - Immature Granu locytes (promyelocytes, myelocytes and metamyelocytes) > 1% indicates that a LEFT SHIFT is Present. MCH (RBC) [Entitic mass] 30.4 pg 27.0-32.0 [facility] Nucleated RBC/100 WBC (Bld) [Ratio] 0 % 0-5 [facility] MCHC Auto (RBC) [Mass/Vol]Or dered By: Dr. Galvan on 11-19-2021 MCHC (RBC) [Mass/Vol] 33.5 g/dL 32-36 [facility] No Panel InformationOrdered By: Dr. Galvan on 11-19-2021 Thyroid Stimulating Hormone (TSH) 1.08 uIU/mL 0.358-3.74 [facility] Estimated GFR (MDRD) Amer 93 mL/min >60 [facility] Comment on above: GFR Calc Estimated GFR (MDRD) Non-Af Amer 77 mL/min >60 [facility] Comment on above: Non- GFR Calc Platelets bldOrdered By: Dr. Galvan on 11-19-2021 Platelets (Bld) [#/Vol] 332 10*3/uL 150-450 [facility] Serum or plasma albumin luis antonio urement (mass/volume)Ordered By: Dr. Galvan on 11-19-2021 Albumin [Mass/Vol] 3.6 g/dL 3.2-5.0 [facility] Serum or plasma albumin/glob ulin mass ratioOrdered By: Dr. Galvan on 11-19-2021 Albumin/Globulin [Mass ratio] 1.1 {ratio} 0.9-2.4 [facility] Serum or plasma calcium luis antonio urement (mass/volume)Ordered By: Dr. Galvan on 11-19-2021 Calcium [Mass/Vol] 8.8 mg/dL 8.5-10.1 [facility] Serum or plasma cholesterol in HDL measurement (mass/volume)Ordered By: Dr. Galvan on 11-19-2021 Cholesterol in HDL [Mass/Vol] 54 mg/dL >40 [facility] Comment on above: The drugs N-Acetylcy steine and Metamizole may falsely depress this assay. Reference Range HDL <40 mg/dL Low HDL Cholesterol HDL >or= 60 mg/dL High HDL Cholesterol Serum or plasma cholesterol in VLDL measurement (mass/volume)Ordered By: Dr. Galvan on 11-19-2021 Cholesterol in VLDL [Mass/Vol] 14 mg/dL 5-40 [facility] Serum or plasma creatinine m easurement (mass/volume)Ordered By: Dr. Galvan on 11-19-2021 Creatinine [Mass/Vol] 0.76 mg/dL 0.55-1.02 [facility] Comment on above: The validity of the calculated GFR & GFRAA in patients over 70 years has not been determined. Clinical correlation is essential. Serum or plasma low density lipoprotein (LDL) cholesterol measurement (mass/volume)Ordered By: Dr. Galvan on 11-19-2021 Cholesterol in LDL [Mass/Vol] 86 mg/dL 0-130 [facility] Serum or plasma urea nitroge n measurement (mass/volume)Ordered By: Dr. Galvan on 11-19-2021 Urea nitrogen [Mass/Vol] 19 mg/dL 7-18 [facility] Thin prep Papanicolaou smear with manual screeningOrdered By: Dr. Galvan on 11-19-2021 Thin prep Papanicolaou smear with manual screening 26 U/L 15-37 [facility] Thin prep Papanicolaou smear with manual screening 4 5-15 [facility] Basophil percentageon 2021 Chloride [Moles/Vol] 103 mmol/L 98-107 [facility] Work Phone: Glucose [Mass/Vol] 109 mg/dL 74-106 [facility] Work Phone: Comment on above: Fasting Glucose resu lt from 100 to 125 mg/dL suggests IMPAIRED HOMEOSTASIS per A.D.A. criteria. Potassium [Moles/Vol] 4.1 mmol/L 3.5-5.1 [facility] Work Phone: Sodium [Moles/Vol] 137 mmol/L 136-145 [facility] Work Phone: Laboratory - Chemistry and C hemistry - challengeon 07-03-2021 CO2 [Moles/Vol] 27.0 mmol/L 21.0-32.0 [facility] Work Phone: Urea nitrogen/Creatinine [Mass ratio] 22.6 mg/mg 10-20 [facility] Work Phone: No Panel Informationon 07-03 Estimated GFR (MDRD) Amer 95 mL/min >60 [facility] Work Phone: Comment on above: GFR Calc Estimated GFR (MDRD) Non-Af Amer 78 mL/min >60 [facility] Work Phone: Comment on above: Non- GFR Calc Serum or plasma calcium luis antonio urement (mass/volume)on 07-03-2021 Calcium [Mass/Vol] 9.2 mg/dL 8.5-10.1 [facility] Work Phone: Serum or plasma creatinine m easurement (mass/volume)on 07-03-2021 Creatinine [Mass/Vol] 0.75 mg/dL 0.55-1.02 [facility] Work Phone: Comment on above: The validity of the calculated GFR & GFRAA in patients over 70 years has not been determined. Clinical correlation is essential. Serum or plasma urea nitroge n measurement (mass/volume)on 05-11-2022 Urea nitrogen [Mass/Vol] 17 mg/dL 7-18 [facility] Work Phone: Thin prep Papanicolaou smear with manual screeningon 07-03-2021 Thin prep Papanicolaou smear with manual screening 7 5-15 [facility] Work Phone: [facility] Note on 08-27-2016 [facility] Normal [facility] Patient Summary Documentson 08-26-2016 Patient Summary Documents Normal [facility] Vital Signs Date Time Vital Sign Value Performing Clinician Faci lity 08-01-2024 14:10-0400 Body height 167.[address] Chaim Galvan MD Work Phone: [facility] 08-01-2024 14:10-0400 Body mass index (BMI) [Ratio] 21.8 kg/m2 Dr. Chaim Galvan MD Work Phone: [facility] 08-01-2024 14:10-0400 Body temperature 97.5 [degF] Dr. Chaim Galvan MD Work Phone: [facility] 08-01-2024 14:10-0400 Body weight 61.[address] Chaim Galvan MD Work Phone: [facility] 08-01-2024 14:10-0400 Diastolic blood pressure 68 mm[Hg] Dr. Chaim Galvan MD Work Phone: [facility] 08-01-2024 14:10-0400 Heart rate 61 /min Dr. Chaim Galvan MD Work Phone: [facility] 08-01-2024 14:10-0400 Respiratory rate 16 /min Dr. Chaim Galvan MD Work Phone: [facility] 08-01-2024 14:10-0400 SaO2% (BldA) [Mass fraction] 94 % Dr. Chaim Galvan MD Work Phone: [facility] 08-01-2024 14:10-0400 Systolic blood pressure 128 mm[Hg] Dr. Chaim Galvan MD Work Phone: [facility] 07-22-2024 10:01-0400 Body height 167.[address] Chaim Galvan MD Work Phone: [facility] 07-22-2024 10:01-0400 Body mass index (BMI) [Ratio] 22.1 kg/m2 Dr. Chaim Galvan MD Work Phone: [facility] 07-22-2024 10:01-0400 Body weight 62.[address] Chaim Galvan MD Work Phone: [facility] 07-22-2024 10:01-0400 Diastolic blood pressure 60 mm[Hg] Dr. Chaim Galvan MD Work Phone: [facility] 07-22-2024 10:01-0400 Heart rate 56 /min Dr. Chaim Galvan MD Work Phone: [facility] 07-22-2024 10:01-0400 Respiratory rate 16 /min Dr. Chaim Galvan MD Work Phone: [facility] 07-22-2024 10:01-0400 SaO2% (BldA) [Mass fraction] 95 % Dr. Chaim Galvan MD Work Phone: [facility] 07-22-2024 10:01-0400 Systolic blood pressure 133 mm[Hg] Dr. Chaim Galvan MD Work Phone: [facility] 03-31-2024 13:28-0500 Body mass index (BMI) [Ratio] 21.3 kg/m2 Dr. Chaim Galvan MD Work Phone: [facility] 03-31-2024 13:28-0500 Body temperature 96.9 [degF] Dr. Chaim Galvan MD Work Phone: [facility] 03-31-2024 13:28-0500 Body weight 59.[address] Chaim Galvan MD Work Phone: [facility] 03-31-2024 13:28-0500 Diastolic blood pressure 60 mm[Hg] Dr. Chaim Galvan MD Work Phone: [facility] 03-31-2024 13:28-0500 Heart rate 63 /min Dr. Chaim Galvan MD Work Phone: [facility] 03-31-2024 13:28-0500 Respiratory rate 12 /min Dr. Chaim Galvan MD Work Phone: [facility] 03-31-2024 13:28-0500 SaO2% (BldA) [Mass fraction] 97 % Dr. Chaim Galvan MD Work Phone: [facility] 03-31-2024 13:28-0500 Systolic blood pressure 112 mm[Hg] Dr. Chaim Galvan MD Work Phone: [facility] 03-19-2023 14:31-0500 Body height 167.[address] Chaim Galvan Work Phone: [facility] 03-19-2023 14:31-0500 Body mass index (BMI) [Ratio] 21.9 kg/m2 Dr. Chaim Galvan Work Phone: [facility] 03-19-2023 14:31-0500 Body temperature 97.7 [degF] Dr. Chaim Galvan Work Phone: [facility] 03-19-2023 14:31-0500 Body weight 61.[address] Chaim Galvan Work Phone: [facility] 03-19-2023 14:31-0500 Diastolic blood pressure 62 mm[Hg] Dr. Chaim Galvan Work Phone: [facility] 03-19-2023 14:31-0500 Heart rate 64 /min Dr. Chaim Galvan Work Phone: [facility] 03-19-2023 14:31-0500 Respiratory rate 16 /min Dr. Chaim Galvan Work Phone: [facility] 03-19-2023 14:31-0500 SaO2% (BldA) [Mass fraction] 97 % Dr. Chaim Galvan Work Phone: [facility] 03-19-2023 14:31-0500 Systolic blood pressure 128 mm[Hg] Dr. Chaim Galvan Work Phone: [facility] 03-11-2023 11:39-0500 Body mass index (BMI) [Ratio] 21.4 kg/m2 Dr. Chaim Galvan Work Phone: [facility] 03-11-2023 11:39-0500 Body weight 60.[address] Chaim Galvan Work Phone: [facility] 03-11-2023 11:39-0500 Diastolic blood pressure 73 mm[Hg] Dr. Chaim Galvan Work Phone: [facility] 03-11-2023 11:39-0500 Heart rate 58 /min Dr. Chaim Galvan Work Phone: [facility] 03-11-2023 11:39-0500 Respiratory rate 18 /min Dr. Chaim Galvan Work Phone: [facility] 03-11-2023 11:39-0500 SaO2% (BldA) [Mass fraction] 96 % Dr. Chaim Galvan Work Phone: [facility] 03-11-2023 11:39-0500 Systolic blood pressure 146 mm[Hg] Dr. Chaim Galvan Work Phone: [facility] 12-12-2022 15:11-0400 Body height 167.[address] Chaim Galvan Work Phone: [facility] 12-12-2022 15:11-0400 Body mass index (BMI) [Ratio] 21.6 kg/m2 Dr. Chaim Galvan Work Phone: [facility] 12-12-2022 15:11-0400 Body temperature 97.7 [degF] Dr. Chaim Galvan Work Phone: [facility] 12-12-2022 15:11-0400 Body weight 60.[address] Chaim Galvan Work Phone: [facility] 12-12-2022 15:11-0400 Diastolic blood pressure 58 mm[Hg] Dr. Chaim Galvan Work Phone: [facility] 12-12-2022 15:11-0400 Heart rate 59 /min Dr. Chaim Galvan Work Phone: [facility] 12-12-2022 15:11-0400 Respiratory rate 17 /min Dr. Chaim Galvan Work Phone: [facility] 12-12-2022 15:11-0400 SaO2% (BldA) [Mass fraction] 96 % Dr. Chaim Galvan Work Phone: [facility] 12-12-2022 15:11-0400 Systolic blood pressure 142 mm[Hg] Dr. Chaim Galvan Work Phone: [facility] 09-18-2022 10:45-0400 Body mass index (BMI) [Ratio] 20.9 kg/m2 Dr. Chaim Galvan Work Phone: [facility] 09-18-2022 10:45-0400 Body temperature 97.2 [degF] Dr. Chaim Galvan Work Phone: [facility] 09-18-2022 10:45-0400 Diastolic blood pressure 60 mm[Hg] Dr. Chaim Galvan Work Phone: [facility] 09-18-2022 10:45-0400 Heart rate 53 /min Dr. Chaim Galvan Work Phone: [facility] 09-18-2022 10:45-0400 Respiratory rate 18 /min Dr. Chaim Galvan Work Phone: [facility] 09-18-2022 10:45-0400 Systolic blood pressure 130 mm[Hg] Dr. Chaim Galvan Work Phone: [facility] 09-15-2022 10:31-0400 Body height 167.[address] Chaim Galvan Work Phone: [facility] 09-15-2022 10:31-0400 Body mass index (BMI) [Ratio] 21.3 kg/m2 Dr. Chaim Galvan Work Phone: [facility] 09-15-2022 10:31-0400 Body weight 59.[address] Chaim Galvan Work Phone: [facility] 09-15-2022 10:31-0400 Diastolic blood pressure 65 mm[Hg] Dr. Chaim Galvan Work Phone: [facility] 09-15-2022 10:31-0400 Heart rate 54 /min Dr. Chaim Galvan Work Phone: [facility] 09-15-2022 10:31-0400 Respiratory rate 18 /min Dr. Chaim Galvan Work Phone: [facility] 09-15-2022 10:31-0400 SaO2% (BldA) [Mass fraction] 98 % Dr. Chaim Galvan Work Phone: [facility] 09-15-2022 10:31-0400 Systolic blood pressure 142 mm[Hg] Dr. Chaim Galvan Work Phone: [facility] 09-04-2022 08:09-0400 Body weight 58.[address] Chaim Galvan Work Phone: [facility] 08-27-2022 17:23-0400 Body mass index (BMI) [Ratio] 21.6 kg/m2 Dr. Chaim Galvan Work Phone: [facility] 08-27-2022 17:23-0400 Body temperature 97.7 [degF] Dr. Chaim Galvan Work Phone: [facility] 08-27-2022 17:23-0400 Body weight 60.[address] Chaim Galvan Work Phone: [facility] 08-27-2022 17:23-0400 Diastolic blood pressure 72 mm[Hg] Dr. Chaim Galvan Work Phone: [facility] 08-27-2022 17:23-0400 Heart rate 61 /min Dr. Chaim Galvan Work Phone: [facility] 08-27-2022 17:23-0400 Respiratory rate 12 /min Dr. Chaim Galvan Work Phone: [facility] 08-27-2022 17:23-0400 SaO2% (BldA) [Mass fraction] 97 % Dr. Chaim Galvan Work Phone: [facility] 08-27-2022 17:23-0400 Systolic blood pressure 148 mm[Hg] Dr. Chaim Galvan Work Phone: [facility] 07-23-2022 14:28-0400 Body mass index (BMI) [Ratio] 22.1 kg/m2 Dr. Chaim Galvan Work Phone: [facility] 07-23-2022 14:28-0400 Body temperature 97.6 [degF] Dr. Chaim Galvan Work Phone: [facility] 07-23-2022 14:28-0400 Body weight 62.[address] Chaim Galvan Work Phone: [facility] 07-23-2022 14:28-0400 Diastolic blood pressure 68 mm[Hg] Dr. Chaim Galvan Work Phone: [facility] 07-23-2022 14:28-0400 Heart rate 57 /min Dr. Chaim Galvan Work Phone: [facility] [facility] 07-23-2022 14:28-0400 Respiratory rate 14 /min Dr. Chaim Galvan Work Phone: [facility] 07-23-2022 14:28-0400 SaO2% (BldA) [Mass fraction] 97 % Dr. Chaim Galvan Work Phone: [facility] 07-23-2022 14:28-0400 Systolic blood pressure 136 mm[Hg] Dr. Chaim Galvan Work Phone: [facility] 07-02-2022 10:26-0400 Body mass index (BMI) [Ratio] 22.1 kg/m2 Dr. Chaim Galvan Work Phone: [facility] 07-02-2022 10:26-0400 Body temperature 96.2 [degF] Dr. Chaim Galvan Work Phone: [facility] 07-02-2022 10:26-0400 Body weight 62.[address] Chaim Galvan Work Phone: [facility] 07-02-2022 10:26-0400 Diastolic blood pressure 58 mm[Hg] Dr. Chaim Galvan Work Phone: [facility] 07-02-2022 10:26-0400 Heart rate 59 /min Dr. Chaim Galvan Work Phone: [facility] 07-02-2022 10:26-0400 Respiratory rate 18 /min Dr. Chaim Galvan Work Phone: [facility] 07-02-2022 10:26-0400 SaO2% (BldA) [Mass fraction] 99 % Dr. Chaim Galvan Work Phone: [facility] 07-02-2022 10:26-0400 Systolic blood pressure 132 mm[Hg] Dr. Chaim Galvan Work Phone: [facility] 05-29-2022 14:02-0400 Body mass index (BMI) [Ratio] 21.9 kg/m2 Dr. Chaim Galvan Work Phone: [facility] 05-29-2022 14:02-0400 Body temperature 96.4 [degF] Dr. Chaim Galvan Work Phone: [facility] 05-29-2022 14:02-0400 Body weight 61.[address] Chaim Galvan Work Phone: [facility] 05-29-2022 14:02-0400 Diastolic blood pressure 70 mm[Hg] Dr. Chaim Galvan Work Phone: [facility] 05-29-2022 14:02-0400 Heart rate 51 /min Dr. Chaim Galvan Work Phone: [facility] 05-29-2022 14:02-0400 Respiratory rate 18 /min Dr. Chaim Galvan Work Phone: [facility] 05-29-2022 14:02-0400 SaO2% (BldA) [Mass fraction] 98 % Dr. Chaim Galvan Work Phone: [facility] 05-29-2022 14:02-0400 Systolic blood pressure 128 mm[Hg] Dr. Chaim Galvan Work Phone: [facility] 03-11-2022 08:01-0500 Body height 167.[address] Chaim Galvan Work Phone: [facility] 03-11-2022 08:01-0500 Body mass index (BMI) [Ratio] 21.6 kg/m2 Dr. Chaim Galvan Work Phone: [facility] 03-11-2022 08:01-0500 Body weight 60.[address] Chaim Galvan Work Phone: [facility] 03-11-2022 08:01-0500 Diastolic blood pressure 63 mm[Hg] Dr. Chaim Galvan Work Phone: [facility] 03-11-2022 08:01-0500 Heart rate 61 /min Dr. Chaim Galvan Work Phone: [facility] 03-11-2022 08:01-0500 Respiratory rate 18 /min Dr. Chaim Galvan Work Phone: [facility] 03-11-2022 08:01-0500 SaO2% (BldA) [Mass fraction] 96 % Dr. Chaim Galvan Work Phone: [facility] 03-11-2022 08:01-0500 Systolic blood pressure 137 mm[Hg] Dr. Chaim Galvan Work Phone: [facility] 02-21-2022 07:03-0500 Body mass index (BMI) [Ratio] 21.6 kg/m2 Dr. Chaim Galvan Work Phone: [facility] 02-21-2022 07:03-0500 Body temperature 96.3 [degF] Dr. Chaim Galvan Work Phone: [facility] 02-21-2022 07:03-0500 Body weight 60.[address] Chaim Galvan Work Phone: [facility] 02-21-2022 07:03-0500 Body weight 60.[address] Chaim Galvan Work Phone: [facility] 02-21-2022 07:03-0500 Diastolic blood pressure 74 mm[Hg] Dr. Chaim Galvan Work Phone: [facility] 02-21-2022 07:03-0500 Heart rate 64 /min Dr. Chaim Galvan Work Phone: [facility] 02-21-2022 07:03-0500 Respiratory rate 16 /min Dr. Chaim Galvan Work Phone: [facility] 02-21-2022 07:03-0500 SaO2% (BldA) [Mass fraction] 99 % Dr. Chaim Galvan Work Phone: [facility] 02-21-2022 07:03-0500 Systolic blood pressure 126 mm[Hg] Dr. Chaim Galvan Work Phone: [facility] 02-21-2022 07:02-0500 Body mass index (BMI) [Ratio] 21.6 kg/m2 Dr. Chaim Galvan Work Phone: [facility] 01-28-2022 12:38-0500 Body height 167.[address] Chaim Galvan Work Phone: [facility] Work Phone: 01-28-2022 07:56-0500 Body mass index (BMI) [Ratio] 21.6 kg/m2 Dr. Chaim Galvan Work Phone: [facility] 01-28-2022 07:56-0500 Body weight 60.[address] Chaim Galvan Work Phone: [facility] 01-28-2022 07:56-0500 Diastolic blood pressure 62 mm[Hg] Dr. Chaim Galvan Work Phone: [facility] 01-28-2022 07:56-0500 Heart rate 67 /min Dr. Chaim Galvan Work Phone: [facility] 01-28-2022 07:56-0500 Respiratory rate 18 /min Dr. Chaim Galvan Work Phone: [facility] 01-28-2022 07:56-0500 SaO2% (BldA) [Mass fraction] 10 % Dr. Chaim Galvan Work Phone: [facility] 01-28-2022 07:56-0500 Systolic blood pressure 109 mm[Hg] Dr. Chaim Galvan Work Phone: [facility] 01-21-2022 10:48-0500 Body height 167.[address] Chaim Galvan Work Phone: [facility] Work Phone: 01-21-2022 10:48-0500 Body weight 60.[address] Chaim Galvan Work Phone: [facility] 01-20-2022 09:02-0500 Body mass index (BMI) [Ratio] 21.6 kg/m2 Dr. Chaim Galvan Work Phone: [facility] 12-13-2021 14:10-0400 Body height 167.[address] Chaim Galvan Work Phone: [facility] Work Phone: 12-13-2021 14:10-0400 Body mass index (BMI) [Ratio] 21.6 kg/m2 Dr. Chaim Galvan Work Phone: [facility] 12-13-2021 14:10-0400 Body weight 60.[address] Chaim Galvan Work Phone: [facility] 12-13-2021 14:10-0400 Diastolic blood pressure 60 mm[Hg] Dr. Chaim Galvan Work Phone: [facility] 12-13-2021 14:10-0400 Heart rate 84 /min Dr. Chaim Galvan Work Phone: [facility] 12-13-2021 14:10-0400 Respiratory rate 18 /min Dr. Chaim Galvan Work Phone: [facility] 12-13-2021 14:10-0400 Systolic blood pressure 124 mm[Hg] Dr. Chaim Galvan Work Phone: [facility] 11-19-2021 10:35-0400 Body height 167.[address] Chaim Galvan Work Phone: [facility] Work Phone: 11-19-2021 10:35-0400 Body mass index (BMI) [Ratio] 21.7 kg/m2 Dr. Chaim Galvan Work Phone: [facility] 11-19-2021 10:35-0400 Body temperature 96.5 [degF] Dr. Chaim Galvan Work Phone: [facility] 11-19-2021 10:35-0400 Body weight 61.[address] Chaim Galvan Work Phone: [facility] 11-19-2021 10:35-0400 Diastolic blood pressure 78 mm[Hg] Dr. Chaim Galvan Work Phone: [facility] 11-19-2021 10:35-0400 Heart rate 81 /min Dr. Chaim Galvan Work Phone: [facility] 11-19-2021 10:35-0400 Respiratory rate 16 /min Dr. Chaim Galvan Work Phone: [facility] 11-19-2021 10:35-0400 SaO2% (BldA) [Mass fraction] 99 % Dr. Chaim Galvan Work Phone: [facility] 11-19-2021 10:35-0400 Systolic blood pressure 118 mm[Hg] Dr. Chaim Galvan Work Phone: [facility] 2021 09:26-0400 Body temperature 96.8 [degF] Dr. Chaim Galvan Work Phone: [facility] Work Phone: 2021 09:26-0400 Diastolic blood pressure 81 mm[Hg] Dr. Chaim Galvan Work Phone: [facility] Work Phone: 2021 09:26-0400 Heart rate 73 /min Dr. Chaim Galvan Work Phone: [facility] Work Phone: 2021 09:26-0400 Respiratory rate 16 /min Dr. Chaim Galvan Work Phone: [facility] Work Phone: 2021 09:26-0400 Systolic blood pressure 151 mm[Hg] Dr. Chaim Galvan Work Phone: [facility] Work Phone: 10-17-2021 14:49-0400 Body temperature 98.1 [degF] Dr. Chaim Galvan Work Phone: [facility] Work Phone: 10-17-2021 14:49-0400 Diastolic blood pressure 86 mm[Hg] Dr. Chaim Galvan Work Phone: [facility] Work Phone: 10-17-2021 14:49-0400 Heart rate 83 /min Dr. Chaim Galvan Work Phone: [facility] Work Phone: 10-17-2021 14:49-0400 Respiratory rate 16 /min Dr. Chaim Galvan Work Phone: [facility] Work Phone: 10-17-2021 14:49-0400 Systolic blood pressure 131 mm[Hg] Dr. Chaim Galvan Work Phone: [facility] Work Phone: 10-07-2021 10:57-0400 Body height 167.[address] Chaim Galvan Work Phone: [facility] Work Phone: 10-07-2021 10:57-0400 Body mass index (BMI) [Ratio] 21.2 kg/m2 Dr. Chaim Galvan Work Phone: [facility] Work Phone: 10-07-2021 10:57-0400 Body temperature 97.7 [degF] Dr. Chaim Galvan Work Phone: [facility] Work Phone: 10-07-2021 10:57-0400 Body weight 59.[address] Chaim Galvan Work Phone: [facility] Work Phone: 10-07-2021 10:57-0400 Diastolic blood pressure 64 mm[Hg] Dr. Chaim Galvan Work Phone: [facility] Work Phone: 10-07-2021 10:57-0400 Heart rate 55 /min Dr. Chaim Galvan Work Phone: [facility] Work Phone: 10-07-2021 10:57-0400 Respiratory rate 14 /min Dr. Chaim Galvan Work Phone: [facility] Work Phone: 10-07-2021 10:57-0400 SaO2% (BldA) [Mass fraction] 97 % Dr. Chaim Galvan Work Phone: [facility] Work Phone: 10-07-2021 10:57-0400 Systolic blood pressure 142 mm[Hg] Dr. Chaim Galvan Work Phone: [facility] Work Phone: 09-23-2021 10:57-0400 Body mass index (BMI) [Ratio] 20.6 kg/m2 Dr. Chaim Galvan Work Phone: [facility] Work Phone: 09-23-2021 10:57-0400 Body temperature 97.3 [degF] Dr. Chaim Galvan Work Phone: [facility] Work Phone: 09-23-2021 10:57-0400 Body weight 58.[address] Chaim Galvan Work Phone: [facility] Work Phone: 09-23-2021 10:57-0400 Diastolic blood pressure 68 mm[Hg] Dr. Chaim Galvan Work Phone: [facility] Work Phone: 09-23-2021 10:57-0400 Heart rate 83 /min Dr. Chaim Galvan Work Phone: [facility] Work Phone: 09-23-2021 10:57-0400 Respiratory rate 14 /min Dr. Chaim Galvan Work Phone: [facility] Work Phone: 09-23-2021 10:57-0400 SaO2% (BldA) [Mass fraction] 99 % Dr. Chaim Galvan Work Phone: [facility] Work Phone: 09-23-2021 10:57-0400 Systolic blood pressure 140 mm[Hg] Dr. Chaim Galvan Work Phone: [facility] Work Phone: 09-12-2021 09:25-0400 Body temperature 97.3 [degF] Dr. Chaim Galvan Work Phone: [facility] Work Phone: 09-12-2021 09:25-0400 Diastolic blood pressure 64 mm[Hg] Dr. Chaim Galvan Work Phone: [facility] Work Phone: 09-12-2021 09:25-0400 Heart rate 78 /min Dr. Chaim Galvan Work Phone: [facility] Work Phone: 09-12-2021 09:25-0400 Respiratory rate 20 /min Dr. Chaim Galvan Work Phone: [facility] Work Phone: 09-12-2021 09:25-0400 Systolic blood pressure 167 mm[Hg] Dr. Chaim Galvan Work Phone: [facility] Work Phone: 09-09-2021 15:57-0400 Body mass index (BMI) [Ratio] 21.3 kg/m2 Dr. Chaim Galvan Work Phone: [facility] Work Phone: 09-09-2021 15:57-0400 Body temperature 97.7 [degF] Dr. Chaim Galvan Work Phone: [facility] Work Phone: 09-09-2021 15:57-0400 Body weight 60.[address] Chaim Galvan Work Phone: [facility] Work Phone: 09-09-2021 15:57-0400 Diastolic blood pressure 80 mm[Hg] Dr. Chaim Galvan Work Phone: [facility] Work Phone: 09-09-2021 15:57-0400 Heart rate 70 /min Dr. Chaim Galvan Work Phone: [facility] Work Phone: 09-09-2021 15:57-0400 Respiratory rate 16 /min Dr. Chaim Galvan Work Phone: [facility] Work Phone: 09-09-2021 15:57-0400 SaO2% (BldA) [Mass fraction] 97 % Dr. Chaim Galvan Work Phone: [facility] Work Phone: 09-09-2021 15:57-0400 Systolic blood pressure 110 mm[Hg] Dr. Chaim Galvan Work Phone: [facility] Work Phone: 08-21-2021 20:28-0400 Diastolic blood pressure 63 mm[Hg] Dr. Chaim Galvan Work Phone: [facility] Work Phone: 08-21-2021 20:28-0400 Heart rate 70 /min Dr. Chaim Galvan Work Phone: [facility] Work Phone: 08-21-2021 20:28-0400 Respiratory rate 18 /min Dr. Chaim Galvan Work Phone: [facility] Work Phone: 08-21-2021 20:28-0400 SaO2% (BldA) [Mass fraction] 98 % Dr. Chaim Galvan Work Phone: [facility] Work Phone: 08-21-2021 20:28-0400 Systolic blood pressure 134 mm[Hg] Dr. Chaim Galvan Work Phone: [facility] Work Phone: 08-21-2021 17:26-0400 Body height 167.[address] Chaim Galvan Work Phone: [facility] Work Phone: 08-21-2021 17:26-0400 Body mass index (BMI) [Ratio] 20.9 kg/m2 Dr. Chaim Galvan Work Phone: [facility] Work Phone: 08-21-2021 17:26-0400 Body temperature 98.2 [degF] Dr. Chaim Galvan Work Phone: [facility] Work Phone: 08-21-2021 17:26-0400 Body weight 58.[address] Chaim Galvan Work Phone: [facility] Work Phone: 07-03-2021 10:56-0400 Body temperature 97.4 [degF] Dr. Chaim Galvan Work Phone: [facility] Work Phone: 07-03-2021 10:56-0400 Diastolic blood pressure 72 mm[Hg] Dr. Chaim Galvan Work Phone: [facility] Work Phone: 07-03-2021 10:56-0400 Heart rate 64 /min Dr. Chaim Galvan Work Phone: [facility] Work Phone: 07-03-2021 10:56-0400 Respiratory rate 16 /min Dr. Chaim Galvan Work Phone: [facility] Work Phone: 07-03-2021 10:56-0400 SaO2% (BldA) [Mass fraction] 97 % Dr. Chaim Galvan Work Phone: [facility] Work Phone: 07-03-2021 10:56-0400 Systolic blood pressure 142 mm[Hg] Dr. Chaim Galvan Work Phone: [facility] Work Phone: Encounters Encounter Date Encounter Type Care Provider Facility Start: 08-01-2024 End: 08-01-[address] Chaim Galvan MD Work Phone: [facility] Work Phone: Start: 08-01-2024 End: 08-01-[address] Chaim Galvan MD -[facility] Work Phone: Start: 07-22-2024 End: 07-22-2024 Patient encounter procedure Charleen MILLER -[facility] Work Phone: Start: 07-22-2024 End: 07-22-[address] Chaim Galvan MD Work Phone: [facility] Work Phone: Start: 04-26-2024 End: 04-26-[address] Chaim Galvan MD Work Phone: [facility] Work Phone: Start: 04-26-2024 End: 04-26-[address] Chaim Galvan MD -[facility] Work Phone: Start: 04-26-2024 End: 04-26-2024 ambulatory Chaim Galvan Facility:[facility] Start: 03-31-2024 End: 03-31-[address] Chaim Galvan MD -[facility] Work Phone: Start: 03-31-2024 End: 03-31-2024 ambulatory Chaim Galvan Facility:[facility] Start: 03-31-2024 End: 03-31-2024 ambulatory Chaim Galvan Facility:[facility] Start: 03-21-2024 End: 03-21-[address] Chaim Galvan MD -[facility] Work Phone: Start: 03-21-2024 End: 03-21-2024 [facility] Start: 12-31-2023 End: 12-31-2023 [facility] Start: 12-02-2023 End: 12-02-2023 ambulatory Efewongbe Oleghe Facility:[facility] Start: 09-28-2023 End: 09-28-2023 ambulatory Efewongbe Oleghe Facility:[facility] Start: 09-28-2023 End: 09-28-2023 ambulatory Efewfondabe Olee Facility:[facility] Start: 03-19-2023 End: 03-19-[address] Chaim Galvan Work Phone: [facility] Work Phone: Start: 03-19-2023 End: 03-19-[address] Chaim Galvan Work Phone: [facility] Work Phone: Start: 03-11-2023 End: 03-11-[address] Chaim Galvan Work Phone: [facility] Work Phone: Start: 12-18-2022 End: 12-18-[address] Chaim Galvan Work Phone: [facility] Work Phone: Start: 12-18-2022 End: 12-18-[address] Chaim Galvan Work Phone: [facility]-Laboratory, [place] Start: 12-12-2022 End: 12-12-[address] Chaim Galvan Work Phone: [facility] Work Phone: Start: 12-12-2022 End: 12-12-[address] Chaim Galvan Work Phone: [facility] Work Phone: Start: 11-24-2022 End: 11-24-[address] Chaim Galvan Work Phone: [facility] Work Phone: Start: 09-18-2022 Non-patient / Non-visit Dr. Michael Galvan Work Phone: [facility] Work Phone: Start: 09-18-2022 End: 09-22-[address] Chaim Galvan Work Phone: [facility] Work Phone: Start: 09-18-2022 End: 09-22-[address] [facility] Start: 09-15-2022 End: 09-15-[address] Chaim Galvan Work Phone: [facility] Work Phone: Start: 09-04-2022 Non-patient / Non-visit Dr. Michael Galvan Work Phone: [facility] Work Phone: Start: 08-29-2022 Non-patient / Non-visit Dr. Michael Galvan Work Phone: [facility] Start: 08-27-2022 End: 08-27-[address] Chaim Galvan Work Phone: [facility] Work Phone: Start: 08-27-2022 End: 08-27-[address] Chaim Galvan Work Phone: [facility]-Pulmonary Services/Neurology Work Phone: Start: 07-23-2022 End: 07-23-[address] Chaim Galvan Work Phone: [facility] Work Phone: Start: 07-02-2022 End: 07-02-[address] Chaim Galvan Work Phone: [facility] Work Phone: Start: 05-29-2022 End: 05-29-[address] Chaim Galvan Work Phone: [facility] Work Phone: Start: 03-11-2022 End: 03-11-[address] Chaim aGlvan Work Phone: [facility] Start: 02-26-2022 End: 02-26-[address] Chaim Galvan Work Phone: [facility] Start: 02-25-2022 End: 02-25-2022 Admission to same day surgery center Dr. Chaim Galvan Work Phone: [facility]-Dietetics Professor/Special Procedures Start: 02-25-2022 End: 02-25-[address] Chaim Galvan Work Phone: [facility] Work Phone: Start: 02-22-2022 Non-patient / Non-visit Dr. Michael Galvan Work Phone: [facility] Start: 01-28-2022 End: 01-28-[address] Chaim Galvan Work Phone: [facility] Work Phone: Start: 01-28-2022 End: 01-28-[address] Chaim Galvan Work Phone: [facility]patient [facility] Start: 01-28-2022 End: 01-28-[address] Chaim Galvan Work Phone: [facility] Start: 01-21-2022 Non-patient / Non-visit Dr. Michael Galvan Work Phone: [facility] Start: 01-21-2022 Non-patient / Non-visit Dr. Michael Galvan Work Phone: [facility] Start: 01-21-2022 End: 01-21-2022 Admission to same day surgery center Dr. Chaim Galvan Work Phone: [facility]-Dietetics Professor/Special Procedures Start: 01-21-2022 End: 01-21-[address] Chaim Galvan Work Phone: [facility] Work Phone: Start: 01-14-2022 End: 01-14-[address] Chaim Galvan Work Phone: [facility] Start: 01-14-2022 End: 01-14-[address] Chaim Galvan Work Phone: [facility] Start: 01-10-2022 Non-patient / Non-visit Dr. Michael Galvan Work Phone: [facility] Start: 12-27-2021 Non-patient / Non-visit Dr. Michael Galvan Work Phone: [facility] Start: 12-27-2021 End: 12-27-[address] Chaim Galvan Work Phone: [facility] Work Phone: Start: 12-27-2021 End: 12-27-[address] Chaim Galvan Work Phone: [facility]-Cardiovascular Services Start: 12-13-2021 End: 12-13-[address] Chaim Galvan Work Phone: [facility] Start: 11-19-[address] Chaim Galvan Work Phone: [facility] Start: 11-19-2021 End: 11-19-[address] Chaim Galvan Work Phone: [facility] Work Phone: Start: 11-19-2021 End: 11-19-2021 Encounter for general adult medical examination without abnormal findings Dr. Chaim Galvan Work Phone: [facility] Internal Medicine Start: 11-19-2021 End: 11-19-[address] Chaim Galvan Work Phone: [facility] Internal Medicine Start: 11-19-2021 Non-patient / Non-visit Dr. Michael Galvan Work Phone: [facility] Start: 2021 Non-patient / Non-visit Dr. Michael Galvan Work Phone: [facility] Start: 2021 End: [address] Chaim Galvan Work Phone: [facility] Work Phone: Start: 2021 End: [address] [facility] Start: 10-24-2021 Non-patient / Non-visit Dr. Michael Galvan Work Phone: [facility] Start: 10-17-2021 End: 10-23-[address] Chaim Galvan Work Phone: [facility] Start: 10-10-2021 Non-patient / Non-visit Dr. Michael Galvan Work Phone: [facility] Start: 10-07-2021 End: 10-07-[address] Chaim Galvan Work Phone: [facility] Internal [facility] Start: 10-03-2021 Non-patient / Non-visit Dr. Michael Galvan Work Phone: [facility] Start: 09-26-2021 Non-patient / Non-visit Dr. Michael Galvan Work Phone: [facility] Start: 09-23-2021 End: 09-23-[address] Chaim Galvan Work Phone: [facility] Internal [facility] Start: 09-12-2021 End: 09-22-[address] Chaim Galvan Work Phone: [facility] Start: 09-12-2021 Non-patient / Non-visit Dr. Michael Galvan Work Phone: [facility] Start: 09-09-2021 End: 09-09-[address] Chaim Galvan Work Phone: [facility] Internal [facility] Start: 09-05-2021 Non-patient / Non-visit Dr. Michael Galvan Work Phone: [facility] Start: 08-29-2021 Non-patient / Non-visit Dr. Michael Galvan Work Phone: [facility] Start: 08-21-2021 End: 08-21-2021 Emergency department patient visit Dr. Chaim Galvan Work Phone: [facility]-Emergency Department Start: 07-03-2021 End: 07-03-[address] Chaim Galvan Work Phone: [facility] Internal Medicine Start: 05-28-2021 End: 05-28-[address] [facility] Start: 08-26-2016 End: 08-26-2016 Emergency department patient visit [facility] Facility:[facility] Procedures Date Procedure Procedure Detail Performing Clinician Start: 04-26-2024 Dual energy X-ray absorptiometry Dr. Chaim Galvan MD Work Phone: Start: 03-21-2024 Screening mammography Betzy Galvan MD Work Phone: Start: 03-19-2023 Screening mammography D malena Galvan Work Phone: Start: 03-19-[address] Svetlana Galvan Work Phone: Start: 01-28-2022 Dual energy X-ray absorptiometry Dr. Chaim Galvan Work Phone: Start: 01-28-2022 Screening mammography Betzy Galvan Work Phone: Start: 01-14-2022 Plain chest X-ray Dr. Scott Galvan Work Phone: Start: 12-27-2021 Cardiovascular stres s test using pharmacologic stress agent Dr. Chaim Galvan Work Phone: Plan of Treatment Date Care Activity Detail Author Start: 08-23-2024 Measurement of respiratory function [facility] Start: 08-01-2024 CBC W Auto Differential panel - Blood [facility] Start: 08-01-2024 Comprehensive metabolic 2000 panel - Serum or Plasma [facility] Start: 08-27-2022 Patient referral [facility] Work Phone: Start: 11-19-2021 Patient referral [facility] Work Phone: Start: 08-21-2021 Simple rpr scalp/neck/ax/genit/trunk 7.6-12.5cm RPR S/N/AX/GEN/TRK7.6-12 .5CM [facility] Work Phone: Alanine aminotransfe rase [Enzymatic activity/volume] in Serum or Plasma [facility] Albumin [Mass/volume ] in Serum or Plasma [facility] Alkaline phosphatase [Enzymatic activity/volume] in Serum or Plasma [facility] Anion gap in Serum or Plasma [facility] Bilirubin, total measurement [facility] Blood chemistry [facility] Work Phone: BUN/Creatinine ratio [facility] Calcium [Mass/volume ] in Serum or Plasma [facility] Carbon dioxide, tota l [Moles/volume] in Central venous blood [facility] Cardioversion [facility] Work Phone: Creatinine [Mass/vol ume] in Serum or Plasma [facility] DXA Bone [Mass/Area] Bone density [facility] Work Phone: Erythrocyte mean cor puscular volume determination [facility] Glucose [Mass/volume ] in Serum or Plasma [facility] Hematocrit [Volume F raction] of Blood [facility] Hemoglobin [Mass/vol ume] in Blood [facility] Leukocytes [#/volume ] in Blood [facility] Mean corpuscular hem oglobin concentration determination [facility] Mean corpuscular hem oglobin determination [facility] Measurement of renal function [facility] Measurement of respi ratory function [facility] Measurement of respi ratory function [facility] MG Breast - bilatera l Screening [facility] Work Phone: Neutrophil count [facility] Neutrophil percent differential count [facility] Patient Education ED Laceration: All Closures [facility] Work Phone: Patient referral [facility] Work Phone: Platelets [#/volume] in Blood [facility] Potassium measurement [facility] Red blood cell count [facility] Red cell distributio n width determination [facility] Serum chloride measurement [facility] Sodium measurement [facility] T4 free measurement [facility] Thyroid stimulating hormone measurement [facility] Total protein measurement [facility] Triiodothyronine, fr ee measurement [facility] Urea nitrogen [Mass/ volume] in Serum or Plasma [facility] US Heart [facility] Immunizations Immunization Date Immunization Notes Care Provider Fa [facility] 12-11-2023 Covid (Spikevax) Dr. Denny Galvan MD Work Phone: [facility] 12-03-2023 Influenza High-Dose Quadrivalent Dr. Chaim Galvan MD Work Phone: [facility] 12-11-2022 Covid (Spikevax) Dr. Denny Galvan MD Work Phone: [facility] 12-11-2022 Covid Moderna Bivale nt Booster Dr. Chaim Galvan Work Phone: [facility] 12-11-2022 RSV Adult Recombinan t (Arexvy) Dr. Chaim Galvan Work Phone: [facility] 11-24-2022 influenza, injectabl e, quadrivalent, preservative free Dr. Chaim Galvan Work Phone: [facility] 09-24-2022 influenza, injectabl e, quadrivalent, preservative free Dr. Chaim Galvan Work Phone: [facility] 12-16-2021 Covid Moderna Bivale nt Booster; Translations: [Covid Moderna Bivalent Booster] Dr. Chaim Galvan Work Phone: [facility] 08-21-2021 tetanus toxoid, redu tova diphtheria toxoid, and acellular pertussis vaccine, adsorbed Dr. Chaim Galvan Work Phone: [facility] 06-11-2021 Covky (Moderna) Dr. Aurora Galvan MD Work Phone: [facility] 12-25-2020 Covky (Moderna) Dr. Aurora Galvan MD Work Phone: [facility] 04-13-2020 Covky (Moderna) Dr. Aurora Galvan Work Phone: [facility] 03-16-2020 [facility] (Moderna) Dr. Aurora Galvan Work Phone: [facility] 11-28-2019 influenza, injectabl e, quadrivalent, preservative free Dr. Chaim Galvan Work Phone: [facility] 11-28-2019 influenza, seasonal, injectable Dr. Chaim Galvan Work Phone: [facility] 08-04-2019 tetanus toxoid, redu tova diphtheria toxoid, and acellular pertussis vaccine, adsorbed Dr. Chaim Galvan Work Phone: [facility] 11-27-2014 influenza, high dose seasonal, preservative-free Dr. Chaim Galvan MD Work Phone: [facility] Payers Date Payer Category Payer Self-pay [id number] 2023 Private Health Insurance [facility] [id number] 2016 Medicare [id number] Medicare [id number] Counts Include 234 Beds At [facility] [id number] 2.16.8 [id number] Unknown [id number] 2.16.8 [id number] Unknown [id number] 2.16.8 [id number] Unknown [id number] 2.16.8 [id number] Unknown [id number] 2.16.8 [id number] Unknown [id number] 2.16.8 [id number] Unknown [id number] 2.16.8 [id number] Unknown [id number] 2.16.8 [id number] Unknown [id number] 2.16.8 [id number] Social History Date Type Detail Facility Start: 07-03-2021 End: 03-19-2023 Tobacco smoking status ARIS Unknown if ever smoked [facility] Start: 08-04-2019 None [facility] Start: 08-04-2019 With Family [facility] Start: 12-24-2018 Non-smoker [facility] Start: 1935 Sex Assigned At Female [facility] Start: 03-31-2024 [facility] Start: 05-06-2024 Sex Female (finding) [facility] Clinical Notes 02-25-2022 to 07-22-2024 Note Date & Type Note Facility 07-22-2024 Evaluation note Diagnosis Onset Date Resolution [facility] current use of amiodarone acute July 22, 2024 10:23am Mitral insufficiency acute July 22, 2024 10:23am Essential hypertension chronic Ma 2024 10:23am PAF (paroxysmal atrial fibrillation) chronic July 22, 2024 10:23am [employer] [facility] Work Phone: 1(386) 857-554402-06-2025 Evaluation note* Diagnosis Onset Date Resolution Status Admit Date Chronic venous insufficiency chronic March 31, 2024 1:18pm Essential hypertension chronic Fe bruary 2024 1:18pm GERD (gastroesophageal reflu x disease) chronic March 31 1:18pm Osteopenia with high risk of fracture chronic March 31 1:18pm [facility] Work Phone: 1(922) 685-603302-06-2025 Evaluation note* Diagnosis Onset Date Resolution Status Admit Date Chronic venous insufficiency chronic March 31, 2024 1:18pm Essential hypertension chronic Fe bru2024 1:18pm GERD (gastroesophageal reflu x disease) chronic March 31 1:18pm Osteopenia with high risk of fracture chronic March 31 1:18pm [facility] current use of amiodarone acute July 22, 2024 1 0:23am Mitral insufficiency acute July 22, 2024 10:23am Essential hypertension chronic Ma y 2024 10:23am PAF (paroxysmal atrial fibrillation) chronic July 22, 2024 1 0:23am [facility] Work Phone: 1(263) 295-649107-27-2023 Progress note Author Chaim Galvan [facility] September 18, 2022 12:24pm Note Date/Time September 18, 2022 11:3 4am [facility] [address] [place] [id number] Progress Note - Wound Care 09/18/22 1134 MR#: [id number] Acct: [id number] Name: VAISHALI MCDOWELL Rep #:[id number] : 1935 86 From: Chaim sanchez MD PCP: Dr. Chaim Galvan MD Status:R EG RCR Location: History of Present Illness Date of Service: 09/18/22 Chief Complaint: Right lower extremity ulcer History of Wound: Ms. Mcdowell is an 86-year-old well-known to me. Referred to the wound center from the office due to nonhealing right lower extremity ulcer. However at her last visit at the office, she was advised to use Aquacel and she was given a sample of this. She has applied this daily. At this time, she states that her ulcer has had significant improvement. Still some area left. Utilizing compression as recommended. No chills, fever or feeling of unwell. Progress of Wound: Healed. No new concerns at this time Objective Data Objective Data Vital Signs: Vital Signs Temp Pulse Resp BP 97.2 F L 53 L 18 130/60 H 09/18/22 10:45 09/18/22 10:45 09/18/22 10:45 09/18/22 10:45 Weight: 130 lb Body Mass Index (BMI) 20.9 Charges/Coding Visit Charges Office Visits / Consults: [id number] OV L3 Est Physical Exam Const alert, oriented x3 and no apparent distress General Appearance: cooperative, comfortable and well developed HEENT normocephalic, head/scalp atraumatic and hearing grossly normal bilaterally Eyes EOMs intact bilaterally Neck full ROM and supple General: normal visual inspection Resp normal respiratory effort Effort and Inspection: able to speak in complete sentences Neuro oriented x3, CN's II-XII intact bilaterally, moves all extremities and no focal motor deficits Psych mental status grossly normal Appearance: grossly normal Attitude: calm Debridement Note Debridement Note Post-Debridement Measurements and Additional Note: Post-Debridement Measurements/Treatment - Nurse 1 - General Ulcer Assessment Start: 09/04/22 08:09 Freq: Status: Active Protocol: ANNA MARIE Activity Type Activity Date Activity User E-sign Co-sign Detail Recorded Client Recorded Date Recorded By Document 09/04/22 08:09 [id number] 09/04/22 08:19 Document 09/18/22 10:45 [id number] 09/18/22 10:47 09/04/22 09/18/22 08:09 10:45 - Today's Visit Information Type of service Initial Visit Follow-up Visit (Physician/PUMP ERECTOR ) Arrival Mode Ambulatory Ambulatory Transfer Assistance None Patient Identification Verified (Name & Yes Yes ) Patient Requires Transmission-Based No No Precautions Height and Weight Height 5 ft 6 in Weight 130 lb Weight in Pounds 130.0 lbs Weight Measurement Method Estimated by Patient Body Mass Index (BMI) 20.9 20.9 BMI Classification Normal Normal BSA - Lyla 1.67 Vital Signs Temperature (97.8 F-99.1 F) 96.4 F L 97.2 F L Temperature Source Temporal Temporal Pulse Rate (60-100) 53 L 53 L Pulse Location Monitor Monitor Respiratory Rate (12-18) 16 18 Respiratory rate source Observation Observation Blood Pressure (90/60-120/80) 154/51 H 130/60 H Blood Pressure Mean (mm Hg) 85 83 Source Monitor Monitor Position Sitting Semi-Fowlers Blood Pressure Location Left Arm Left Arm History Since Last Visit- (Skip if this is Patient's initial visit) Have you changed medications since your No last visit? Any new allergies or adverse reactions No Had a fall/change in ADL's that may No increase risk of falls Signs or symptoms of abuse and/or No neglect since last visit Have you been in the hospital since your No last visit? Has dressing in place as prescribed Yes Has compression in place as prescribed No Has offloadiing in place as prescribed No Experienced any changes in pain level or No management Left Footwear Regular Shoe Right Footwear Regular Shoe Pain Scale: 0-10 Numeric Is Patient Pain Free? Yes Yes WC - Nurse 1 - General Ulcer Measurement Start: 09/04/22 08:09 Freq: Status: Active Protocol: Activity Type Activity Date Activity User E-sign Co-sign Detail Recorded Client Recorded Date Recorded By Document 09/04/22 08:09 [id number] 09/04/22 08:19 Document 09/18/22 10:45 RB [id number] 09/18/22 10:47 RB 09/04/22 09/18/22 08:09 10:45 Wound Center Nurse 1 9-right lateral leg -Combined with other wound No No -Current Size (cm) - Length 0.1 0.1 -Current Size (cm) - Width 0.1 0.1 -Current Size (cm) - Depth 0.1 0.1 -Total Square Cm 0.01 0.01 -Photo Taken Yes -Epithelialization Large 67-100% -Tunneling No No -Undermining/Tunneling No No -Circular Undermining No No -Classification - Thickness Full Thickness without Exposed Support Structure -Exudate Amt None Present Small -Exudate Type Serosanguineous -Wound Margin Fibrotic Scar, Distinct, Thickened Scar Outline Attached -Granulation Amt Medium (34-66%) Medium (34-66%) -Granulation Quality [employer] -Slough/Fibrin Yes Yes -Necrosis Amt None Present (0 Medium (34-66%) %) -Necrotic Tissue Type Adherent Slough Adherent Slough -Structure Exposed N/A N/A -Texture (Shanique-wound Skin Appearance) Assessed Assessed, Excoriation -Moisture (Shanique-wound Skin Appearance) Assessed, Assessed Weeping,Dry/ Scaly -Color (Shanique-wound Skin Appearance) Assessed Assessed -Temperature (Shanique-wound Skin No Abnormality No Abnormality Appearance) (Pt Warm) (Pt Warm) -Tenderness on Palpation (Shanique-wound No Skin Appearance) -Ulcer Cleansing Rinsed/ Wound Cleanser Irrigated with Saline -Foul Odor after Cleansing No No -Anesthetic Used 5% Lidocaine 5% Lidocaine Gel Gel Lower Limb Edema Present Yes Yes Right Calf (cm) 31.6 29.5 Right Ankle (cm) 20.5 20.5 Left Calf (cm) 32 Left Ankle (cm) 20.3 WC - Nurse 2 - General Ulcer CM Notes Start: 09/04/22 08:09 Freq: Status: Active Protocol: Activity Type Activity Date Activity User E-sign Co-sign Detail Recorded Client Recorded Date Recorded By Document 09/04/22 08:36 MW [id number] 09/04/22 08:41 MW Document 09/18/22 11:03 MW [id number] 09/18/22 11:06 MW 09/04/22 09/18/22 08:36 11:03 Wound Center Nurse 2 9-right lateral leg -Time 08:37 11:05 -Correct Patient Yes Yes -Correct Side, Site, Position Yes Yes -Correct Procedure Yes Yes -Procedure Performed Yes No -Type of Procedure Debridement -Clinical Debridement Epidermis / Dermis -Tissue Removed Epidermis -Post Debridement (cm) - Length 0.5 0 -Post Debridement (cm) - Width 0.3 0 -Post Debridement (cm) - Depth 0.1 0 -Total Square (Post) (cm) 0.15 0 -Area of Debridement (cm) - Length 0.5 -Area of Debridement (cm) - Width 0.3 -Total Square (Area) (cm) 0.15 -Tunneling No -Undermining/Tunneling No -Circular Undermining No -Wound/Ulcer Outcome Not Healed Healed- Epithelialized -Ulcer Cleansing Rinsed/ Irrigated with Saline -Foul Odor after Cleansing No -Bioengineered Tissue No -Bleeding Controlled with Pressure -Treatment Response Procedure Tolerated Well -Offloading No -Debridement - Open, 1st 20sq cm Yes Pain Scale: 0-10 Numeric Is Patient Pain Free? Yes Yes - Nurse 3 - General Ulcer D/C NN Start: 09/04/22 08:09 Freq: Status: Active Protocol: Activity Type Activity Date Activity User E-sign Co-sign Detail Recorded Client Recorded Date Recorded By Document 09/04/22 08:48 DL [id number] 09/04/22 08:50 DL Document 09/18/22 11:06 MW [id number] 09/18/22 11:07 MW 09/04/22 09/18/22 08:48 11:06 Wound Care Center Nurse 3 9-right lateral leg -Ulcer Cleansing Rinsed/ Irrigated with Saline -Foul Odor after Cleansing No -Primary Dressing Applied Aquacel Extra -Primary Dressing Covered/Secured with Dry Gauze & Roll Gauze, Secured with Tape -Aquacel Extra 1 jeyson -Stockings Yes Treatment Response Procedure Procedure Tolerated Well Tolerated Well Pain Scale: 0-10 Numeric Is Patient Pain Free? 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 Healed. Moisturize adequately, Consistent compression, leg elevation and exercise as tolerated discussed. Continue other chronic wound care management. Her questions were answered and she was advised to call if she has any further questions or concerns. Discharged from the woundcenter. This note was generated with [employer]AN[employer]ation software. It may contain incorrectwords, spelling, and punctuation that were not noted in checking the note beforesigning. 09/18/22 1224 <Electronically signed by Chaim Galvan MD> Cosigner Signature (if applicable): CC: ~ Signed [facility] Work Phone: 1(190) 436-450407-13-2023 History and physical note Author Chaim Galvan [facility] September 04, 2022 5:50pm Note Date/Time September 04, 2022 1:11 pm [facility] [address] [place] [address] H&P Exam - Wound Care 09/04/22 1311 MR#: [id number] Acct: [id number] Name: VAISHALI MCDOWELL Rep #:[id number] : 1935 86 From: Chaim sanchez MD PCP: Dr. Chaim Galvan MD Status:R EG RCR Location: History of Present Illness Date of Service: 09/04/22 Chief Complaint: Right lower extremity ulcer History of Wound: Ms. Mcdowell is an 86-year-old well-known to me. Referred to the wound center from the office due to nonhealing right lower extremity ulcer. However at her last visit at the office, she was advised to use Aquacel and she was given a sample of this. She has applied this daily. At this time, she states that her ulcer has had significant improvement. Still some area left. Utilizing compression as recommended. No chills, fever or feeling of unwell. [facility] Medical History (Updated 09/04/22 @ 17:[address] Chaim Galvan MD) Allergic reaction caused by a drug Arrhythmia Asthma Asthma exacerbation Atrial fibrillation Bilateral breast cysts Dermatitis Essential hypertension Flu vaccine need Generalized osteoarthrosis, unspecified site Goiter Health care maintenance Hearing loss Hearing problem History of pneumonia History of venous ulcer Hypertension [facility] current use of amiodarone Osteopenia PAF (paroxysmal atrial fibrillation) Persistent atrial fibrillation Right hip pain Traumatic open wound of lower leg with delayed healing Ulcer of right lower extremity with fat layer exposed URI (upper respiratory infection) Urticaria 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 Wound of left lower extremity Home Medications calcium carbonate 500 mg calcium (1,250 mg) chewable tablet 500 mg PO DAILY 01/25/15 [History Last Taken Unknown] omega 4-jso-ral-fish oil 1,200 mg (144 mg-216 mg) capsule (Fish Oil) 1 cap PO DAILY 10/19/19 [History Last Taken Unknown] cholecalciferol (vitamin D3) 25 mcg (1,000 unit) tablet 2,000 unit PO DAILY #90 tabs 07/03/21 [Rx Last Taken Unknown] amlodipine 5 mg tablet 5 mg PO DAILY #90 tabs 10/22/21 [Rx Last Taken 02/25/22] ascorbic acid (vitamin C) 500 mg capsule 500 mg PO DAILY 12/13/21 [History Last Taken Unknown] apixaban 5 mg tablet 5 mg PO BID #180 tabs 01/14/22 [Rx Last Taken 02/25/22] amiodarone 200 mg tablet 200 mg PO DAILY #90 tabs 01/28/22 [Rx Last Taken 02/25/22] Symbicort 80 mcg-4.5 mcg/actuation HFA aerosol inhaler (budesonide-formoterol) 2puff inhalation BID 3 months #10.2 grams 02/26/22 [Rx Last Taken Unknown] fluticasone propionate 50 mcg/actuation nasal spray,suspension (Flonase Allergy Relief) 2 spray intranasal DAILY PRN nasal congestion #16 grams 02/26/22 [Rx Last Taken Unknown] albuterol sulfate 90 mcg/actuation aerosol inhaler 2 puff inhalation Q6H PRN Asthma #8.5 grams 04/03/22 [Rx Last Taken Unknown] alendronate 70 mg tablet 70 mg PO QWEEK #14 tabs 04/09/22 [Rx Last Taken Unknown] hydrocolloid dressing 6 X 6 (Aquacel Extra) #5 ea 05/29/22 [Rx Last Taken Unknown] pantoprazole 40 mg tablet,delayed release See Rx Instructions .Route .COMPLEX #90 tabs 07/14/22 [Rx Last Taken Unknown] metoprolol succinate 25 mg tablet,extended release 24 hr 37.5 mg (1.5 x 25 mg) PO DAILY 3 months #135 tabs 08/27/22 [Rx Last Taken Unknown] Allergy/AdvReac Type Severity Reaction Status Date / Time adhesive tape Allergy Rash Verified 07/23/22 14:25 cephalexin [From Keflex] Allergy Rash Verified 07/23/22 14:25 levofloxacin [From Levaquin] Allergy Unknown Verified 07/23/22 14:25 Sulfa (Sulfonamide Allergy Unknown Verified 07/23/22 14:25 Antibiotics) meloxicam AdvReac Diarrhea Verified 07/23/22 14:25 tizanidine AdvReac Vomiting Verified 07/23/22 14:25 Family History Mother Asthma COPD (chronic obstructive pulmonary disease) Depression with anxiety Surgical History H/O hemorrhoidectomy H/O: hysterectomy History of cardioversion (~01/09/22) Social History Smoking Status: Never smoker alcohol intake: never substance use type: does not use caffeine: Yes Type: coffee Number of servings: 5 what type of physical activity do you participate in: other details: gardening Vital Signs Vital Signs Vital Signs: 09/04/22 08:09 Temperature 96.4 F L Temperature Source Temporal Pulse Rate 53 L Respiratory Rate 16 Blood Pressure 154/51 H Blood Pressure Mean 85 Blood Pressure Source Monitor Blood Pressure Position Sitting Blood Pressure Location Left Arm Weight Weight: 130 lb Body Mass Index (BMI) 20.9 Physical Exam Const alert, oriented x3 and no apparent distress General Appearance: cooperative, comfortable and well developed HEENT normocephalic, head/scalp atraumatic and hearing grossly normal bilaterally Eyes EOMs intact bilaterally Neck full ROM and supple General: normal visual inspection Resp normal respiratory effort Effort and Inspection: able to speak in complete sentences Skin Wounds: wounds noted Neuro oriented x3, CN's II-XII intact bilaterally, moves all extremities and no focal motor deficits Psych mental status grossly normal Appearance: grossly normal Attitude: calm Debridement Note Debridement Note Wound debrided: Right lower extremity Type of Debridement: Selective debridement Anesthesia Used: 5% Lidocaine Gel Depth: Down to and including healthy tissue Percentage of wound debrided: 100 Instrument Used: 5mm curette Tissue Removed: Slough and devitalized tissue Severity: Fat Layer Exposed Amount of bleeding with debridement: Mild Bleeding Controlled with: Pressure Patient tolerated procedure: Patient tolerated procedure well Post-Debridement Measurements and Additional Note: Post-Debridement Measurements/Treatment VASQUEZ - Nurse 1 - General Ulcer Assessment Start: 09/04/22 08:09 Freq: Status: Active Protocol: ANNA MARIE Activity Type Activity Date Activity User E-sign Co-sign Detail Recorded Client Recorded Date Recorded By Document 09/04/22 08:09 [id number] 09/04/22 08:19 09/04/22 08:09 - Today's Visit Information Type of service Initial Visit Arrival Mode Ambulatory Patient Identification Verified (Name & Yes ) Patient Requires Transmission-Based No Precautions Height and Weight Height 5 ft 6 in Weight 130 lb Weight in Pounds 130.0 lbs Weight Measurement Method Estimated by Patient Body Mass Index (BMI) 20.9 BMI Classification Normal BSA - Lyla 1.67 Vital Signs Temperature (97.8 F-99.1 F) 96.4 F L Temperature Source Temporal Pulse Rate (60-100) 53 L Pulse Location Monitor Respiratory Rate (12-18) 16 Respiratory rate source Observation Blood Pressure (90/60-120/80) 154/51 H Blood Pressure Mean 85 Source Monitor Position Sitting Blood Pressure Location Left Arm History Since Last Visit- (Skip if this is Patient's initial visit) Left Footwear Regular Shoe Right Footwear Regular Shoe Pain Scale: 0-10 Numeric Is Patient Pain Free? Yes - Nurse 1 - General Ulcer Measurement Start: 09/04/22 08:09 Freq: Status: Active Protocol: Activity Type Activity Date Activity User E-sign Co-sign Detail Recorded Client Recorded Date Recorded By Document 09/04/22 08:09 [id number] 09/04/22 08:19 09/04/22 08:09 Wound Center Nurse 1 9-right lateral leg -Combined with other wound No -Current Size (cm) - Length 0.1 -Current Size (cm) - Width 0.1 -Current Size (cm) - Depth 0.1 -Total Square Cm 0.01 -Photo Taken Yes -Epithelialization Large 67-100% -Tunneling No -Undermining/Tunneling No -Circular Undermining No -Classification - Thickness Full Thickness without Exposed Support Structure -Exudate Amt None Present -Wound Margin Fibrotic Scar, Thickened Scar -Granulation Amt Medium (34-66%) -Granulation Quality [employer] -Slough/Fibrin Yes -Necrosis Amt None Present (0 %) -Necrotic Tissue Type Adherent Slough -Structure Exposed N/A -Texture (Shanique-wound Skin Appearance) Assessed -Moisture (Shanique-wound Skin Appearance) Assessed, Weeping,Dry/ Scaly -Color (Shanique-wound Skin Appearance) Assessed -Temperature (Shanique-wound Skin No Abnormality Appearance) (Pt Warm) -Tenderness on Palpation (Shanique-wound No Skin Appearance) -Ulcer Cleansing Rinsed/ Irrigated with Saline -Foul Odor after Cleansing No -Anesthetic Used 5% Lidocaine Gel Lower Limb Edema Present Yes Right Calf (cm) 31.6 Right Ankle (cm) 20.5 Left Calf (cm) 32 Left Ankle (cm) 20.3 WC - Nurse 2 - General Ulcer CM Notes Start: 09/04/22 08:09 Freq: Status: Active Protocol: Activity Type Activity Date Activity User E-sign Co-sign Detail Recorded Client Recorded Date Recorded By Document 09/04/22 08:36 MW [id number] 09/04/22 08:41 MW 09/04/22 08:36 Wound Center Nurse 2 9-right lateral leg -Time 08:37 -Correct Patient Yes -Correct Side, Site, Position Yes -Correct Procedure Yes -Procedure Performed Yes -Type of Procedure Debridement -Clinical Debridement Epidermis / Dermis -Tissue Removed Epidermis -Post Debridement (cm) - Length 0.5 -Post Debridement (cm) - Width 0.3 -Post Debridement (cm) - Depth 0.1 -Total Square (Post) (cm) 0.15 -Area of Debridement (cm) - Length 0.5 -Area of Debridement (cm) - Width 0.3 -Total Square (Area) (cm) 0.15 -Tunneling No -Undermining/Tunneling No -Circular Undermining No -Wound/Ulcer Outcome Not Healed -Ulcer Cleansing Rinsed/ Irrigated with Saline -Foul Odor after Cleansing No -Bioengineered Tissue No -Bleeding Controlled with Pressure -Treatment Response Procedure Tolerated Well -Offloading No -Debridement - Open, 1st 20sq cm Yes Pain Scale: 0-10 Numeric Is Patient Pain Free? Yes - Nurse 3 - General Ulcer D/C NN Start: 09/04/22 08:09 Freq: Status: Active Protocol: Activity Type Activity Date Activity User E-sign Co-sign Detail Recorded Client Recorded Date Recorded By Document 09/04/22 08:48 DL [id number] 09/04/22 08:50 DL 09/04/22 08:48 Wound Care Center Nurse 3 9-right lateral leg -Ulcer Cleansing Rinsed/ Irrigated with Saline -Foul Odor after Cleansing No -Primary Dressing Applied Aquacel Extra -Primary Dressing Covered/Secured with Dry Gauze & Roll Gauze, Secured with Tape -Aquacel Extra 1 jeyson -Stockings Yes Treatment Response Procedure Tolerated Well Pain Scale: 0-10 Numeric Is Patient Pain Free? 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 There has been some improvement since office visit. Continue Aquacel extra daily. Cover with gauze and tape. Consistent compression, leg elevation and exercise as tolerated. Continue other chronic wound care management. Her questions were answered and she was advised to call if she has any further questions or concerns. Follow-up in 2 weeks or sooner if needed. This note was generated with [employer] dictation software. It may contain incorrectwords, spelling, and punctuation that were not noted in checking the note beforesigning. 09/04/22 1750 <Electronically signed by Chaim Galvan MD> Cosigner Signature (if applicable): CC: ~ Signed [facility] Work Phone: 1(673) 491-484801-03-2023 History and physical note Author Dr. Hidalgo [facility] February 25, 2022 11:18am Note Date/Time February 22, 2022 3:22pm [facility] Medical Records Department [address] [place] [address] History & Physical Exam 02/22/22 1520 MR#: [id number] Acct: [id number] Name: VAISHALI MCDOWELL Rep #:[id number] : 1935 86 From: Kiran Hidalgo MD PCP: Dr. Chaim Galvan MD Status:R EG [facility] Location: [facility] History and Physical Date of Admission: 02/25/22 [facility] [address] [place], [place] [address] OFFICE VISIT Date of Service:? 01/28/22 MR#: [id number] Acct: [id number] Name:VAISHALI GREENBERG Rep #: [id number] : 1935 Provider: ?ANGELA Doe Age/Sex:? 86/F ? Location: [facility] Status: Signed [facility] History of Present Illness Details: Vaishali Mcdowell is an 86 year old female with a new onset of persistent atrial fibrillation.? She also has a history of hypertension, venous insufficiency and asthma. She did have a cardioversion on 01/09/2022. This was unsuccessful.? She does sometimes feel her atrial fib.? She notes that she may be more fatigued than shewas last year when she thinks about what she was able to do. She does not have any worsening SOB.? She does not have any chest pain.? She does not have any lightheadedness/dizziness.? She does not have any edema. Intake Vital Signs ? 12/13/2213:10 01/21/2210:48 01/28/2207:56 Height 5 ft 6 in 5 ft 6 in 5 ft 6 in Weight: ? 134 lb 134 lb BMI ? ? 21.6 BP ? ? 109/62 Blood Pressure Location ? ? Lt brachial Position ? ? Sitting Respiration ? ? 18 Pulse ? ? 67 Pulse Source ? ? Monitor Pulse Oximetry (%) ? ? 10 Intake Visit Reasons:?6 wk FU & EKG POST DCCV Typing Section Chief Required: No Is patient in pain?: No Allergies adhesive tape Allergy (Verified 01/28/22 09:37) Rashcephalexin [From Keflex] Allergy (Verified 01/28/22 09:37) Rashlevofloxacin [From Levaquin] Allergy (Verified 01/28/22 09:37) UnknownSulfa (Sulfonamide Antibiotics) Allergy (Verified 01/28/22 09:37) Unknownmeloxicam Adverse Reaction (Verified 01/28/22 09:37) Diarrheatizanidine Adverse Reaction (Verified 01/28/22 09:37) Vomiting Medications calcium carbonate 500 mg calcium (1,250 mg) chewable tablet 500 mg PO DAILY 01/25/15 [History Confirmed 01/28/22] omega 3-izv-sbo-fish oil 1,200 mg (144 mg-216 mg) capsule (Fish Oil) 1 cap PO DAILY 10/19/19 [History Confirmed 01/28/22] albuterol sulfate 90 mcg/actuation aerosol inhaler 1 puff inhalation Q4H PRN PRNAsthma #8.5 grams 03/06/21 [Rx Confirmed 01/28/22] cholecalciferol (vitamin D3) 25 mcg (1,000 unit) tablet 2,000 unit PO DAILY #90 tabs 07/03/21 [Rx Confirmed 01/28/22] fluticasone propionate 50 mcg/actuation nasal spray,suspension (Flonase Allergy Relief) 2 spray intranasal DAILY PRN nasal congestion #16 grams 07/03/21 [Rx Confirmed 01/28/22] metoprolol succinate 25 mg tablet,extended release 24 hr 37.5 mg PO DAILY 3 months #135 tabs 07/03/21 [Rx Confirmed 01/28/22] pantoprazole 40 mg tablet,delayed release 40 mg PO DAILY PRN gerd #90 tabs 07/03/21 [Rx Confirmed 01/28/22] alendronate 70 mg tablet 70 mg PO QWEEK #14 tabs 09/03/21 [Rx Confirmed 01/28/22] Symbicort 80 mcg-4.5 mcg/actuation HFA aerosol inhaler (budesonide-formoterol) 2puff inhalation BID #10.2 grams 09/12/21 [Rx Confirmed 01/28/22] amlodipine 5 mg tablet 5 mg PO DAILY #90 tabs 10/22/21 [Rx Confirmed 01/28/22] ascorbic acid (vitamin C) 500 mg capsule 500 mg PO DAILY 12/13/21 [History Confirmed 01/28/22] apixaban 5 mg tablet 5 mg PO BID #180 tabs 01/14/22 [Rx Confirmed 01/28/22] amiodarone 200 mg tablet 200 mg PO DAILY #90 tabs 01/28/22 [Rx Confirmed 01/28/22] PFSH Medical History?(Updated 01/22/22 @ 09:32 by Charleen Taylor) Allergic reaction caused by a drug Arrhythmia Asthma Atrial fibrillation Bilateral breast cysts Dermatitis Essential hypertension Flu vaccine need Generalized osteoarthrosis, unspecified site Goiter Health care maintenance Hearing loss Hearing problem History of pneumonia History of venous ulcer Hypertension Osteopenia Persistent atrial fibrillation Right hip pain Traumatic open wound of lower leg with delayed healing Urticaria 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 Wound of left lower extremity Surgical History?(Updated 01/22/22 @ 09:33 by Charleen Taylor) H/O hemorrhoidectomy H/O: hysterectomy History of cardioversion (~01/09/22) Family History? Mother Asthma COPD (chronic obstructive pulmonary disease) Depression with anxiety Social History? Smoking Status:? Never smoker alcohol intake:? never substance use type:? does not use caffeine:? Yes Type: coffee Number of servings: 5 what type of physical activity do you participate in:? other details: gardening ROS Const Const: Positive for fatigue (fatigues a little easier); Negative for weakness, body ache, fever(s), headache(s), chills, frequent falls,night sweats, daytime sleepiness, difficulty sleeping, excessive sweating, weight gain, weight loss, increased appetite, poor appetite, anorexia or other Eyes Eyes: Negative for blurry vision or double vision ENT ENT: Negative for headache(s), dizziness or balance problems Cardio Chest Pain: No Palpitations: No Edema: None (wears compression socks) Muscle aches with walking: None Resp Respiratory: Negative for SOB with activity, SOB at rest, SOB orthopnea\SOB lying down, Cough, Coughing up blood/hemoptysis, chest congestion, pain on inspiration, snoring, stridor, wheezing, crackles, paroxysmal nocturnal dyspnea or other Musc Musc: Positive for muscle aches/ myalgia (Bilat LE); Negative for muscle weakness, joint pain or balance problems Neuro Neuro: Negative for dizziness, lightheadedness, near syncope, syncope, orthostatic symptoms, frequent falls, headache(s), weakness, confusion, memory loss, restless legs, blurry vision, double vision, vertigo, seizures, lack of coordination or other Endo Endo: Positive for fatigue (fatigues a little easier); Negative for excessive sweating Cardiology Exam Const Appearance: cooperative, healthy appearing, comfortable, no acute distress, welldeveloped and well groomed Nutritional Appearance: average body habitus Orientation: alert, awake and oriented x3 Head Head: normal to inspection, normocephalic and atraumatic Ears: hearing grossly normal bilaterally Nose: external nose normal Face and Sinus: face symmetric Eyes Eyelids: eyelids normal Conjunctivae: conjunctivae normal Pupils: PERRL EOM: EOM intact bilaterally Neck Neck: normal visual inspection and full ROM Carotids: normal carotid upstroke Chest Chest inspection: normal inspection of the chest, symmetric chest movement and normal respiratory effort Auscultation: Bilateral: Clear to Auscultation Cardio Palpation: normal PMI Rate: regular rate Rhythm: irregularly irregular Heart sounds: S1 normal and S2 normal GI GI: normal to inspection, soft and bowel sounds present Neuro General: patient alert, patient awake, patient oriented x3 and moves all extremities Skin Skin: no rashes or lesions noted Extremities Pulses: Normal: Right Radial Pulse and Left Radial Pulse Lower Extremity Edema: None: Bilateral Psych Psychological: normal affect Supplemental Info Supplemental Information Echocardiogram 12/2021: Left ventricular systolic function is normal. The estimated ejection fraction is 70 %. The left atrium is moderately enlarged. The right atrium is mildly enlarged. Mild diffuse mitral valve thickening. The mitral papillary muscle appears thickened and/or calcified. Moderate (2+) mitral valve insufficiency. Mild to moderate (1-2+) tricuspid valve insufficiency. Mild diffuse aortic valve thickening. Right ventricular systolic pressure estimated to be 34 mmHg. Diastolic function is indeterminate. Stress Test Report Date: 12-27-2021 Procedure: Pharmacologic stress nuclear imaging study? Indications: Atrial fibrillation/flutter Consent: Per the patient Procedure: The patient underwent pharmacologic (Regadenoson 0.4mg ) evaluation with a peak heart rate of 98 beats per minute (72%predicted maximal heart rate) and a resting blood pressure of 148/78 mmHg and a peak blood pressure of 148/78 mmHg. The baseline ECG demonstrated atrial fibrillation.? The peak pharmacologic ECG demonstrated atrial fibrillation; no obvious ECG changes. There was an isolated PVC during recovery. There was no complaint of chest discomfort during pharmacologic infusion or recovery. The examination was discontinued secondary to completion of protocol. Impression: 1.? Pharmacologic (Regadenoson) evaluation 2.? Peak pharmacologic ECG with continued atrial fibrillation with no obvious ECG change. 3.? There was an isolated PVC during recovery. 4.? Nuclear images pending Myocardial perfusion imaging study: Technique: The patient was injected with 11.5 millicuries of technetium 99m Cardiolite and subsequently rest SPECT Cardiolite nuclear imaging was obtained in the horizontal long, vertical long, and short axis views. The patient underwent pharmacologic (Regadenoson) evaluation with a peak heart rate of 98 beats per minute (72% percent predicted maximal heart rate) and a resting blood pressure of 148/78 mmHg and a peak blood pressure of 148/78 mmHg. The patient was injected with 32.7 millicuries of technetium 99m Cardiolite and subsequently stress SPECT Cardiolite nuclear imaging was obtained in the horizontal long, vertical long, and short axis views.? A gated Cardiolite study at peak stress was obtained. Interpretation: Rest and stress SPECT Cardiolite nuclear imaging status post realignment, normalization, and attenuation correction demonstrate relative uniform tracer uptake and myocardial perfusion appearing within normal limits.? There is end systolic thickening and brightening.? The gated Cardiolite study demonstrates myocardial thickening and inward wall motion.? The reported LVEF is 88%. Impression: 1.? Rest and stress SPECT Cardiolite nuclear imaging demonstrate relative uniform tracer uptake and myocardial perfusion appearing within normal limits. 2.? The gated Cardiolite study reports an LVEF of 88%. Labs: ?? ? LDL Cholesterol 86 mg/dL (0-130) ?? ? HDL Cholesterol 54 mg/dL (40-) ?? ? Triglycerides 72 mg/dL (-199) ?? ? VLDL Cholesterol 14 mg/dL (5-40) Diagnostics: ?? ? Electrocardiogram ? Echocardiogram ? A ?? ? Stress Test NM ? Stress Test ? Chest X-Ray ? Pulmonary: ?? ? No Data to Display Assessment and Plan Assessment and Plan (1) Persistent atrial fibrillation: ?Status:?Acute ?Plan: Unfortunately patient did not maintain sinus rhythm.? Would like for her to start on amiodarone at 200 mg daily.? She will continue with her metoprolol in addition to her anticoagulation.? We will plan on repeating a second cardioversion on amiodarone.? If she does not maintain sinus rhythm would consider an EP referral.? Patient is agreeable with this plan of care. ? ? ? Orders: Orders 12 Lead EKG performed by [facility] Today I48.1 9 - Other persistent atrial fibrillation ? Medications: New amiodarone 200 mg? PO DAILY 90 tabs 3RF ?Patient Instructions: I will call your with a date and time for your cardioversion. I will likely be next month. Plan Details Follow Up: ? ? 6 Weeks (MMM) Coding Level of Care Code Off vis,est,level 3 Diagnoses Persistent atrial fibrillation? I48.19 Coding Level of Care Code Off vis,est,level 3 Diagnoses Persistent atrial fibrillation? I48.19 01/28/22 1042 <Electronically signed by Charleen MILLER> Date Charleen MILLER Cosigner Signature: Date (if applicable) CC:? Dr. Chaim Galvan MD ~ Assessment & Plan Addt'l Comments Addendum: The patient has been recommended for further attempt at regaining sinus rhythm with synchronized biphasic DC cardioversion. The procedure and risk were discussed with the patient. She was agreeable to this approach. Status post the pre-synchronized biphasic DC cardioversion ECG it was noted the patient had already spontaneously return to sinus rhythm. Thus the synchronizedbiphasic DC cardioversion procedure was canceled. The patient will continue her medical therapy and continue with outpatient cardiovascular follow-up. The above was discussed with the patient with her spouse present. She was agreeable to this approach. This note was generated using a voice recognition system and there may be incorrect words, spelling or punctuation that were not noted when reviewing the office note prior to saving. 02/25/22 1118 <Electronically signed by Kiran Hidalgo MD> Cosigner Signature (if applicable): CC: Dr. Chaim Galvan MD; Dr. Kiran Hidalgo MD~ Signed [facility] Work Phone: Evaluation note* Diagnosis Onset Date Resolution Status Chronic venous insufficiency chronic GERD (gastroesophageal reflux disease) chronic Hypertension chronic Osteopenia with high risk of fracture chronic [facility] Work Phone: Evaluation note* Diagnosis Onset Date Resolution Status Chronic venous insufficiency chronic GERD (gastroesophageal reflux disease) chronic Hypertension chronic Osteopenia with high risk of fracture chronic Rash noneactive Traumatic open wound of lowe r leg with delayed healing acute Wound of left lower extremity acute Chronic venous insufficiency chronic Traumatic wound chronic Wound of right leg chronic Dermatitis acute Urticaria acute Dermatitis acute Urticaria acute Traumatic open wound of lowe r leg with delayed healing acute Wound of left lower extremity acute Chronic venous insufficiency chronic Traumatic wound chronic Wound of right leg chronic Traumatic open wound of lowe r leg with delayed healing acute Wound of left lower extremity acute Chronic venous insufficiency chronic Traumatic wound chronic Wound of right leg chronic [facility] Work Phone: Evaluation note* Diagnosis Onset Date Resolution Status Rash noneactive Traumatic open wound of lowe r leg with delayed healing acute Wound of left lower extremity acute Chronic venous insufficiency chronic Traumatic wound chronic Wound of right leg chronic Dermatitis acute Urticaria acute Dermatitis acute Urticaria acute Traumatic open wound of lowe r leg with delayed healing acute Wound of left lower extremity acute Chronic venous insufficiency chronic Traumatic wound chronic Wound of right leg chronic Traumatic open wound of lowe r leg with delayed healing acute Wound of left lower extremity acute Chronic venous insufficiency chronic Traumatic wound chronic Wound of right leg chronic Arrhythmia acute Atrial fibrillation acute Health care maintenance acut e Traumatic open wound of lowe r leg with delayed healing acute Hypertension chronic Osteopenia with high risk of fracture chronic [facility] Work Phone: Evaluation note* Diagnosis Onset Date Resolution Status Rash noneactive Traumatic open wound of lowe r leg with delayed healing acute Wound of left lower extremity acute Chronic venous insufficiency chronic Traumatic wound chronic Wound of right leg chronic Dermatitis acute Urticaria acute Dermatitis acute Urticaria acute Traumatic open wound of lowe r leg with delayed healing acute Wound of left lower extremity acute Chronic venous insufficiency chronic Traumatic wound chronic Wound of right leg chronic Traumatic open wound of lowe r leg with delayed healing acute Wound of left lower extremity acute Chronic venous insufficiency chronic Traumatic wound chronic Wound of right leg chronic Arrhythmia acute Atrial fibrillation acute Health care maintenance acut e Traumatic open wound of lowe r leg with delayed healing acute Osteopenia with high risk of fracture chronic Atrial fibrillation acute Dyspnea acute Essential hypertension acute [facility] Work Phone: Evaluation note* Diagnosis Onset Date Resolution Status Dermatitis acute Urticaria acute Traumatic open wound of lower leg with delayed healing acute Wound of left lower extremity acute Chronic venous insufficiency chronic Traumatic wound chronic Wound of right leg chronic Traumatic open wound of lower leg with delayed healing acute Wound of left lower extremity acute Chronic venous insufficiency chronic Traumatic wound chronic Wound of right leg chronic Arrhythmia acute Atrial fibrillation acute Health care maintenance acut e Traumatic open wound of lower leg with delayed healing acute Osteopenia with high risk of fracture chronic Atrial fibrillation acute Dyspnea acute Essential hypertension acute Persistent atrial fibrillation acute [facility] Work Phone: Evaluation note* Diagnosis Onset Date Resolution Status Traumatic open wound of lower leg with delayed healing acute Wound of left lower extremity acute Chronic venous insufficiency chronic Traumatic wound chronic Wound of right leg chronic Traumatic open wound of lower leg with delayed healing acute Wound of left lower extremity acute Chronic venous insufficiency chronic Traumatic wound chronic Wound of right leg chronic Arrhythmia acute Atrial fibrillation acute Health care maintenance acut e Traumatic open wound of lower leg with delayed healing acute Osteopenia with high risk of fracture chronic Atrial fibrillation acute Dyspnea acute Essential hypertension acute Persistent atrial fibrillation acute Persistent atrial fibrillation acute [facility] Work Phone: Evaluation note* Diagnosis Onset Date Resolution Status Arrhythmia acute Health care maintenance acut e Traumatic open wound of lower leg with delayed healing acute Atrial fibrillation chronic Osteopenia with high risk of fracture chronic Dyspnea acute Atrial fibrillation chronic Essential hypertension chron ic Persistent atrial fibrillation acute Persistent atrial fibrillation acute Asthma chronic Atrial fibrillation chronic Essential hypertension chron ic Osteopenia with high risk of fracture chronic [facility] current use of amiodarone acute PAF (paroxysmal atrial fibrillation) acute Essential hypertension chron ic [facility] Work Phone: Evaluation note* Diagnosis Onset Date Resolution Status Asthma chronic Essential hypertension chron ic Ulcer of right lower leg chr onic Ulcer of right lower leg chr onic Chronic venous insufficiency chronic Edema chronic Ulcer of right lower leg chr onic Essential hypertension chron ic Osteopenia with high risk of fracture chronic Ulcer of right lower leg chr onic PAF (paroxysmal atrial fibrillation) acute Essential hypertension chron ic Ulcer of right lower extremity with fat layer exposed acute Chronic venous insufficiency chronic [facility] Work Phone: Evaluation note* Diagnosis Onset Date Resolution Status Essential hypertension chron ic Osteopenia with high risk of fracture chronic Ulcer of right lower leg chr onic PAF (paroxysmal atrial fibrillation) acute Essential hypertension chron ic Ulcer of right lower extremity with fat layer exposed acute Chronic venous insufficiency chronic Flu vaccine need acute Ulcer of right lower extremity with fat layer exposed acute Asthma chronic Chronic venous insufficiency chronic Essential hypertension chron ic GERD (gastroesophageal reflux disease) [facility] Work Phone: Evaluation note* Diagnosis Onset Date Resolution Status Flu vaccine need acute Ulcer of right lower extremity with fat layer exposed acute Asthma chronic Chronic venous insufficiency chronic Essential hypertension chron ic GERD (gastroesophageal reflux disease) chronic PAF (paroxysmal atrial fibrillation) acute Essential hypertension chron ic Burning with urination acute Asthma chronic Essential hypertension chron ic GERD (gastroesophageal reflux disease) chronic Osteopenia with high risk of fracture chronic [facility] Work Phone: Reason for referral (narrative)No reason for referral information [facility]: Summary Purpose Family History Relationship Condition Age at Onset Recorded Date/T carmen mother Asthma Unknown Chronic obstructive pulmonary disease Unk nown Anxiety with depression Unknown Advance Directives Advance Directive Response Recorded Date/ Time Living Will Yes August 03, 2019 11:51pm Power of Finishing Range Supervisor Yes August 02 0 11:51pm Advance Directive Response Recorded Date/ Time Name of Medical Power of Finishing Range Supervisor Luca Mcdowell August 21, 2021 6:11pm Living Will Yes August 21, 2021 6:11pm Power of Finishing Range Supervisor Yes August 21 6:11pm Advance Directive Response Recorded Date/ Time Living Will Yes August 21, 2021 5:11pm Power of Finishing Range Supervisor Yes August 21 2 5:11pm Advance Directive Response Recorded Date/ Time Advance Directives on File Yes 2021 10:48am Advance Directives Yes December 10:48am Living Will Yes January 21, 2 022 10:48am Power of Finishing Range Supervisor Yes January 21, 2022 10:48am Advance Directive Response Recorded Date/ Time Advance Directives on File Yes Novem 2021 10:48am Advance Directives No January 7:03am Living Will No February 21, 022 7:03am Power of Finishing Range Supervisor No February 21, 2022 7:03am Advance Directive Response Recorded Date/ Time Advance Directives No January 8:03am Living Will No February 21, 2 022 8:03am Power of Finishing Range Supervisor No February 21, 2022 8:03am Advance Directive Response Recorded Date/ Time Advance Directives No January 7:03am Living Will No February 21, 2 022 7:03am Power of Finishing Range Supervisor No February 21, 2022 7:03am Advance Directive Response Recorded Date/ Time Advance Directives No March 31, 2024 3:03pm Chief Complaint and Reason for Visit Chief Complaint PN RT HIP/RX HERE 3 M FU Reason for Visit Chronic venous insuf ficiency GERD (gastroesophageal reflux disease) Hypertension Osteopenia with high risk of fracture Chief Complaint PN RT HIP/RX HERE 3 M FU lac Reason for Visit Chronic venous insuf ficiency GERD (gastroesophageal reflux disease) Hypertension Osteopenia with high risk of fracture Chief Complaint 3 M FU lac wound wound Rash wound wound Concerns of allergy/Rash wound wound 2 W FU wound wound wound wound wound Reason for Visit Chronic venous insuf ficiency GERD (gastroesophageal reflux disease) Hypertension Osteopenia with high risk of fracture Rash Traumatic open wound of lower leg with delayed healing Wound of left lower extremity Chronic venous insufficiency Traumatic wound Wound of right leg Dermatitis Urticaria Dermatitis Urticaria Traumatic open wound of lower leg with delayed healing Wound of left lower extremity Chronic venous insufficiency Traumatic wound Wound of right leg Traumatic open wound of lower leg with delayed healing Wound of left lower extremity Chronic venous insufficiency Traumatic wound Wound of right leg Chief Complaint lac wound wound Rash wound wound Concerns of allergy/Rash wound wound 2 W FU wound wound wound wound wound 3 M FU HYPERTENSION Reason for Visit Rash Traumatic open wound of lower leg with delayed healing Wound of left lower extremity Chronic venous insufficiency Traumatic wound Wound of right leg Dermatitis Urticaria Dermatitis Urticaria Traumatic open wound of lower leg with delayed healing Wound of left lower extremity Chronic venous insufficiency Traumatic wound Wound of right leg Traumatic open wound of lower leg with delayed healing Wound of left lower extremity Chronic venous insufficiency Traumatic wound Wound of right leg Arrhythmia Atrial fibrillation Health care maintenance Traumatic open wound of lower leg with delayed healing Hypertension Osteopenia with high risk of fracture Chief Complaint wound Rash wound wound Concerns of allergy/Rash wound wound 2 W FU wound wound wound wound wound HYPERTENSION 3 M FU HYPERTENSION A-FIB/REF. OLEGHE A-FIB/FLUTTER Reason for Visit Rash Traumatic open wound of lower leg with delayed healing Wound of left lower extremity Chronic venous insufficiency Traumatic wound Wound of right leg Dermatitis Urticaria Dermatitis Urticaria Traumatic open wound of lower leg with delayed healing Wound of left lower extremity Chronic venous insufficiency Traumatic wound Wound of right leg Traumatic open wound of lower leg with delayed healing Wound of left lower extremity Chronic venous insufficiency Traumatic wound Wound of right leg Arrhythmia Atrial fibrillation Health care maintenance Traumatic open wound of lower leg with delayed healing Osteopenia with high risk of fracture Atrial fibrillation Dyspnea Essential hypertension Chief Complaint wound wound 2 W FU wound wound wound wound wound HYPERTENSION 3 M FU HYPERTENSION A-FIB/REF. OLEGHE A-FIB/FLUTTER Atrial fibrillation CV teaching EORDER AFIB Atrial fibrillation Reason for Visit Dermatitis Urticaria Traumatic open wound of lower leg with delayed healing Wound of left lower extremity Chronic venous insufficiency Traumatic wound Wound of right leg Traumatic open wound of lower leg with delayed healing Wound of left lower extremity Chronic venous insufficiency Traumatic wound Wound of right leg Arrhythmia Atrial fibrillation Health care maintenance Traumatic open wound of lower leg with delayed healing Osteopenia with high risk of fracture Atrial fibrillation Dyspnea Essential hypertension Persistent atrial fibrillation Chief Complaint wound wound wound wound wound HYPERTENSION 3 M FU HYPERTENSION A-FIB/REF. OLEGHE A-FIB/FLUTTER Atrial fibrillation CV teaching EORDER AFIB Atrial fibrillation Atrial fibrillation 6 wk FU & EKG POST DCCV SCREENING/POST BRANDON Reason for Visit Traumatic open wound of lower leg with delayed healing Wound of left lower extremity Chronic venous insufficiency Traumatic wound Wound of right leg Traumatic open wound of lower leg with delayed healing Wound of left lower extremity Chronic venous insufficiency Traumatic wound Wound of right leg Arrhythmia Atrial fibrillation Health care maintenance Traumatic open wound of lower leg with delayed healing Osteopenia with high risk of fracture Atrial fibrillation Dyspnea Essential hypertension Persistent atrial fibrillation Persistent atrial fibrillation Chief Complaint HYPERTENSION 3 M FU HYPERTENSION A-FIB/REF. OLEGHE A-FIB/FLUTTER Atrial fibrillation CV teaching EORDER AFIB Atrial fibrillation Atrial fibrillation 6 wk FU & EKG POST DCCV SCREENING/POST BRANDON A FIB A FIB 3 M FU 6 wk FU Reason for Visit Arrhythmia Health care maintenance Traumatic open wound of lower leg with delayed healing Atrial fibrillation Osteopenia with high risk of fracture Dyspnea Atrial fibrillation Essential hypertension Persistent atrial fibrillation Persistent atrial fibrillation Asthma Atrial fibrillation Essential hypertension Osteopenia with high risk of fracture [facility] current use of amiodarone PAF (paroxysmal atrial fibrillation) Essential hypertension Chief Complaint 3 M FU Recheck wound Follow up AFIB 1 M FU Atrial fibrillation WOUND 6 M FU WOUND WOUND Reason for Visit Asthma Essential hypertension Ulcer of right lower leg Ulcer of right lower leg Chronic venous insufficiency Edema Ulcer of right lower leg Essential hypertension Osteopenia with high risk of fracture Ulcer of right lower leg PAF (paroxysmal atrial fibrillation) Essential hypertension Ulcer of right lower extremity with fat layer exposed Chronic venous insufficiency Chief Complaint AFIB 1 M FU Atrial fibrillation WOUND 6 M FU WOUND WOUND FLU SHOT 3 M FU Reason for Visit Essential hypertensi on Osteopenia with high risk of fracture Ulcer of right lower leg PAF (paroxysmal atrial fibrillation) Essential hypertension Ulcer of right lower extremity with fat layer exposed Chronic venous insufficiency Flu vaccine need Ulcer of right lower extremity with fat layer exposed Asthma Chronic venous insufficiency Essential hypertension GERD (gastroesophageal reflux disease) Chief Complaint FLU SHOT 3 M FU 6 M FU 3 M FU SCREENING Reason for Visit Flu vaccine need Ulcer of right lower extremity with fat layer exposed Asthma Chronic venous insufficiency Essential hypertension GERD (gastroesophageal reflux disease) PAF (paroxysmal atrial fibrillation) Essential hypertension Burning with urination Asthma Essential hypertension GERD (gastroesophageal reflux disease) Osteopenia with high risk of fracture Chief Complaint Admit Date SCREENING March 21, 2024 9 :24am 3 M FU March 31, 2024 1 :18pm Osteopenia April 26, 2024 10:2 7am Reason for Visit Admit Date Chronic venous insufficiency March 1:18pm Essential hypertension March 31 1:18pm GERD (gastroesophageal reflux disease) F [facility] 2024 1:18pm Osteopenia with high risk of fracture [facility] 2024 1:18pm Chief Complaint Admit Date 3 M FU March 31, 2024 1 :18pm Osteopenia April 26, 2024 10:2 7am 6 M FU July 22, 2024 10:23 am Reason for Visit Admit Date Chronic venous insufficiency March 1:18pm Essential hypertension March 31 1:18pm GERD (gastroesophageal reflux disease) F [facility] 2024 1:18pm Osteopenia with high risk of fracture [facility] 2024 1:18pm [facility] current use of amiodarone July 22, 2024 10:23am Mitral insufficiency July 22, 2024 10:2 3am Essential hypertension July 22, 2024 10 :23am PAF (paroxysmal atrial fibrillation) July 22, 2024 10:23am Chief Complaint Admit Date Osteopenia April 26, 2024 10:2 7am 6 M FU July 22, 2024 10:23 am 4 M FU August 01, 2024 2:01p m Reason for Visit Admit Date [facility] current use of amiodarone July 22, 2024 10:23am Mitral insufficiency July 22, 2024 10:2 3am Essential hypertension July 22, 2024 10 :23am PAF (paroxysmal atrial fibrillation) July 22, 2024 10:23am Additional Source Comments INFORMATION SOURCE (unrecogn ized section and content) DATE CREATED AUTHOR 08/19/2017 [facility] [employer] DATE CREATED AUTHOR AUTHOR'S ORGANIZ ATION 07/23/2024 [facility] Goals (unrecognized section and content) Goals may be documented in a n alternate sectionGoals may be documented in an alternate sectionGoals may be documented in an alternate sectionGoals may be documented in an alternate sectionGoals may be documented in an alternate sectionGoals may be documented in an alternate sectionGoals may be documented in an alternate sectionGoals may be documented in an alternate sectionGoals may be documented in an alternate sectionGoals may be documented in an alternate sectionGoals may be documented in an alternate sectionGoals may be documented in an alternate sectionGoals may be documented in an alternate sectionGoals may be documented in an alternate sectionGoals may be documented in an alternate section Care Teams (unrecognized sec tion and content) Team Status: Active Member Role Status Dates Dr. Kezia Leal MD Family Provider Active Dr. Chaim Galvan MD Primary Care Provider Active Team Status: Inactive Member Role Status Dates Dr. Chaim Galvan MD Primary Care All [place], Attending Provider, Referring Provider Active Team Status: Inactive Member Role Status Dates Dr. Chaim Galvan MD Primary Care Provider, Refer ring Provider Active Dr. Kiran Hidalgo MD Attending Provider Active Team Status: Active Member Role Status Dates Dr. Chaim Galvan MD Primary Care Provider, Refer ring Provider Active Dr. Kiran Hidalgo MD Attending Provider Active Team Status: Inactive Member Role Status Dates Dr. Chaim Galvan MD Primary Care Provider, Refer ring Provider Active Charleen Doe PA, PA Attending Provider Active Team Status: Active Member Role Status Dates Dr. Chaim Galvan MD Primary Care Provider Active Dr. Kiran Hidalgo MD Attending Provider Active Team Status: Active Member Role Status Dates Dr. Chaim Galvan MD Primary Care Provider Active Dr. Kiran Hidalgo MD Attending Provid er, Referring Provider, Other Provider Active Team Status: Active Member Role Status Dates Dr. Chaim Galvan MD Primary Care Provider Active Dr. Kiran Hidalgo MD Referring Provider, Other Prov ider Active Dr. Vicente Curiel MD Attending Provider Active Team Status: Active Member Role Status Dates Dr. Chaim Galvan MD Primary Care Provider Active Dr. Kiran Hidalgo MD Attending Provid er, Referring Provider, Other Provider Active Charleen Doe PA, PA Other Provider Active Team Status: Inactive Member Role Status Dates Dr. Chaim Galvan MD Primary Care Provider Active Dr. Kiran Hidalog MD Attending Provider, Referring Provider Active Team Status: Inactive Member Role Status Dates Dr. Chaim Galvan MD Primary Care Provider Active Dr. Kiran Hidalgo MD Attending Provider Active Team Status: Inactive Member Role Status Dates Dr. Chaim Galvan MD Primary Care Provider Active Dr. Kiran Hidalgo MD Attending Provider, Referring Provider Active Charleen Doe PA, PA Other Provider Active Team Status: Inactive Member Role Status Dates Dr. Chaim Galvan MD Primary Care Provider, Refer ring Provider Active Clementine Cain CABIN SERVICE AGENT, CABIN SERVICE AGENT-C Attending Provider Active Team Status: Active Member Role Status Dates Dr. Chaim Galvan MD Primary Care Provider Active Charleen Doe PA, PA Referring Provider, Other Provider Active Dr. Dmitriy Welch MD Attending Provider Active Team Status: Active Member Role Status Dates Dr. Chaim Galvan MD Primary Care P rovider, Attending Provider, Referring Provider, Other Provider Active Team Status: Inactive Member Role Status Dates Dr. Chaim Galvan MD Primary Care Provider Active Charleen Doe PA, PA Attending Provider, Referr ing Provider Active Team Status: Active Member Role Status Dates Dr. Chaim Galvan MD Primary Care P rovider, Attending Provider, Referring Provider Active Team Status: Inactive Member Role Status Dates Dr. Chaim Galvan MD Primary Care Provider, Atten ding Provider Active Team Status: Active Member Role Status Dates Dr. Chaim Galvan MD Primary Care Provider Active Team Status: Inactive Member Role Status Dates Dr. Chaim Galvan MD Primary Care Provider Active Start: March 21, 2024 End: March 21, 2024 Dr. Chaim Galvan MD Attending Provider Active Start: March 21, 2024 End: March 21, 2024 Dr. Chaim Galvan MD Referring Provider Active Start: March 21, 2024 End: March 21, 2024 Team Status: Inactive Member Role Status Dates Dr. Chaim Galvan MD Primary Care Provider Active Start: March 31, 2024 End: March 31, 2024 Dr. Chaim Galvan MD Attending Provider Active Start: March 31, 2024 End: March 31, 2024 Dr. Chaim Galvan MD Referring Provider Active Start: March 31, 2024 End: March 31, 2024 Team Status: Inactive Member Role Status Dates Dr. Chaim Galvan MD Primary Care Provider Active Start: April 26, 2024 End: April 26, 2024 Dr. Chaim Galvan MD Attending Provider Active Start: April 26, 2024 End: April 26, 2024 Dr. Chaim Galvan MD Referring Provider Active Start: April 26, 2024 End: April 26, 2024 Team Status: Inactive Member Role Status Dates Dr. Chaim Galvan MD Primary Care Provider Active Start: July 22, 2024 End: July 22, 2024 Dr. Chaim Galvan MD Referring Provider Active Start: July 22, 2024 End: July 22, 2024 Charleen Doe PA, PA Attending Provider Active Start: July 22, 2024 End: July 22, 2024 Team Status: Inactive Member Role Status Dates Dr. Chaim Galvan MD Primary Care Provider Active Start: August 01, 2024 End: August 01, 2024 Dr. Chaim Galvan MD Attending Provider Active Start: August 01, 2024 End: August 01, 2024 Dr. Chaim Galvan MD Referring Provider Active Start: August 01, 2024 End: August 01, 2024 Team Status: Active Member Role Status Dates Dr. Chaim Galvan MD Primary Care Provider Active Start: August 01, 2024 Dr. Chaim Galvan MD Attending Provider Active Start: August 01, 2024 Dr. Chaim Galvan MD Referring Provider Active Start: August 01, 2024 FOR RECORDS PERTAINING TO PATIENTS WHO ARE OR HAVE BEEN ENROLLED IN A CHEMICAL DEPENDENCY/SUBSTANCEABUSE PROGRAM, SOME INFORMATION MAY BE OMITTED. This clinical summary was aggregated from multiple sources. Caution should be exercised in using it in the provision of clinical care. This summary normalizes information from multiple sources, and as a consequence, information in this document may materially change the coding, format and clinical context of patient data. In addition, data may be omitted in some cases. CLINICAL DECISIONS SHOULD BE BASED ON THE PRIMARY CLINICAL RECORDS. [facility] [facility]. provides no warranty or guarantee of the accuracy or completeness of information in this document.
== END | disposition home or self-care (01) ==
LOC: BIMLAB 14:46
PROVIDERS: PCP Internal Medicine; Referring Provider Internal Medicine; Visit Provider Internal Medicine
DX: I10 Essential (primary) hypertension (principal)
CPT/HCPCS: 36415; 80053; 85025

== ENCOUNTER → 2024-08-23 | Outpatient (CLI) | payer MEDICARE, SELFPAY | END | disposition home or self-care (01) | PROVIDERS: PCP Internal Medicine; Referring Provider Physician Assistant Medical; Visit Provider Physician Assistant Medical | DX: I34.0 Nonrheumatic mitral (valve) insufficiency (principal); Z79.899 Other long term (current) drug therapy | CPT/HCPCS: 94060; 94726; 94729 ==

== ENCOUNTER → 2024-08-29 | Outpatient (CLI) | payer MEDICARE, SELFPAY | END | disposition home or self-care (01) | LOC: CVS 13:04 | PROVIDERS: PCP Internal Medicine; Referring Provider Physician Assistant Medical; Visit Provider Physician Assistant Medical | DX: I34.0 Nonrheumatic mitral (valve) insufficiency (principal) | CPT/HCPCS: 93306 ==